=== PATIENT | female | born 1965 | race Caucasian/White ===

== ENCOUNTER 2020-04-28 00:38 | Emergency (ER) | payer OTHER, SELFPAY ==
[2020-04-28 02:37] LABS: Potassium 4.9 mmol/l (3.3-5.1); Sodium 140 mmol/L (135-145)
[2020-04-28 02:38] LABS: Anion Gap 14 (12-20); Blood Urea Nitrogen 19 mg/dL (9-16); Carbon Dioxide 25 mmol/L (22-29); Chloride 106 mmol/L (96-108); Estimated Glomerular Filt Rate 60; Glucose Random 103 mg/dL (60-115); Thyroid Stimulating Hormone 5.62 mIU/mL (0.32-4.0)
[2020-04-28 04:35] LABS: MANUAL DIFF FLAG NO
[2020-04-28 04:42] LABS: Basophils Absolute Auto 0.1 X10*3/uL (0.0-0.2); Basophils Percent Auto 1.2 % (0-2); Eosinophils Absolute Auto 0.2 X10*3/uL (0.0-0.4); Hematocrit 45.1 % (37-47); Hemoglobin 15.4 g/dl (12.0-16.0); Imm Gran Abs Auto 0.02 X10*3/uL (0.00-0.03); Imm Gran Pct Auto 0.3 % (0.0-0.4); Lymphocytes Percent Auto 31.8 % (20-40); Mean Corpuscular HGB Conc 34.1 g/dl (31.0-35.0); Mean Corpuscular Hemoglobin 30.7 pg (27.0-33.0); Mean Platelet Volume 10.6 fL (9.4-12.3); Monocytes Absolute Auto 0.5 X10*3/uL (0.1-1.2); Monocytes Percent Auto 7.2 % (2-11); Neutrophils Absolute Auto 3.6 X10*3/uL (2.0-8.3); Neutrophils Percent Auto 56.5 % (45-73); Platelet Count 445 X10*3/uL (160-400); Red Blood Count 5.01 X10*6/uL (4.20-5.50); Red Cell Distribution Width 13.4 % (11.0-16.0); White Blood Count 6.4 X10*3/uL (4.8-10.8)
== END 2020-04-28 02:46 | disposition home or self-care (01) ==
LOC: HO.ED 01:20
PROVIDERS: Emergency Provider Emergency Medicine; PCP Internal Medicine
DX: F41.9 Anxiety disorder, unspecified (principal); F17.200 Nicotine dependence, unspecified, uncomplicated
CPT/HCPCS: 36415; 80051; 82565; 82947; 84443; 84520; 85025; 96361; 96365; 96367; 96375; 99283; 99284; 99291

== ENCOUNTER → 2020-05-20 11:22 | Outpatient (BNV) | payer OTHER, SELFPAY | PROVIDERS: PCP Internal Medicine; Visit Provider Internal Medicine | DX: D47.3 Essential (hemorrhagic) thrombocythemia (principal) | CPT/HCPCS: 99213; 99214 ==

== ENCOUNTER 2020-05-26 09:25 | Outpatient (REF) | payer OTHER, SELFPAY ==
[2020-05-27 16:49] LABS: CT PCR NOT DETECTED (Not Detect.); NG PCR NOT DETECTED (Not Detect.)
[2020-05-28 12:55] LABS: BV Int Neg Control Negative (Negative)
[2020-05-28 12:56] LABS: BV Int Pos Control Positive (Positive)
[2020-06-01 19:51] LABS: HPV mRNA E6/E7 rflx Not Detected (Not Detected)
== END 2020-05-26 09:26 | disposition home or self-care (01) ==
LOC: HO.LAB 09:25
PROVIDERS: PCP Internal Medicine; Referring Provider Internal Medicine; Visit Provider Obstetrics & Gynecology
DX: Z01.419 Encounter for gynecological examination (general) (routine) without abnormal findings (principal); Z11.3 Encounter for screening for infections with a predominantly sexual mode of transmission
CPT/HCPCS: 87480; 87491; 87510; 87591; 87624; 87625; 87660; 88142

== ENCOUNTER 2021-02-23 08:27 | Outpatient (REF) | payer OTHER, SELFPAY ==
--- NOTE | ~2021-02-23 | XR_ITS ---
EXAMINATION: XR SHOULDER, LEFT CLINICAL INFORMATION: Left shoulder pain. COMPARISON: None TECHNIQUE: Three views of the left shoulder. FINDINGS: There is no evidence of acute fracture or dislocation of the left shoulder. There is some superior subluxation present which may be related to rotator cuff injury. There is mild spurring of the glenohumeral joint without significant joint space narrowing. No evidence of calcific tendinitis. No significant abnormality of the acromioclavicular joint is seen. No widening of the coracoclavicular space is noted. XR/XR shoulder LT min 2V IMPRESSION: Mild superior subluxation humeral head which may be indicative of rotator cuff injury. Mild degenerative change of the glenohumeral joint.
== END 2021-02-23 08:28 | disposition home or self-care (01) ==
LOC: HO.HOSX 08:27
PROVIDERS: Visit Provider Orthopaedic Surgery
DX: M25.512 Pain in left shoulder (principal)
CPT/HCPCS: 73030

== ENCOUNTER 2021-03-27 08:00 | Outpatient (REF) | payer OTHER, SELFPAY ==
--- NOTE | ~2021-03-27 | MM_ITS ---
EXAMINATION: MM SCREENING DIGITAL BREAST TOMOSYNTHESIS, BILATERAL CLINICAL INFORMATION: Screening. Asymptomatic. MR guided biopsy right breast 2 lesion 01/27/2014 (3:00, fibroadenoma) (10:00, benign breast tissue with focal fibrosis). The lifetime risk of breast cancer based on the Tyrer-Cuzick Model is 18%. COMPARISON: Mammography: 03/21/2020, 03/16/2019, 03/14/2018 TECHNIQUE: Digital breast tomosynthesis is performed in both the craniocaudal and mediolateral oblique views along with computer-aided detection (CAD). Synthesized 2D images are generated from the tomosynthesis. FINDINGS: There are scattered areas of fibroglandular density (ACR BI-RADS breast composition Category b). There is biopsy clip marker mid 3:00 left breast and 2 biopsy clip markers on right upper outer quadrant and posterior central 12:00 position, respectively. There is stable nodularity adjacent to the posterior right clip marker, similar to prior studies. There is no significant mass or architectural abnormality or developing density. No abnormal calcifications. The axilla and skin contours are unremarkable. MM/MM tomosynthesis screening BI IMPRESSION: No significant changes from prior exams. ASSESSMENT: BI-RADS 2: Benign RECOMMENDATION: Routine annual mammography screening. This patient's information was entered into a reminder system with a target due date for their next mammogram.
== END 2021-03-27 08:01 | disposition home or self-care (01) ==
LOC: HO.MAMMO 08:00
PROVIDERS: PCP Internal Medicine; Visit Provider Internal Medicine
DX: Z12.31 Encounter for screening mammogram for malignant neoplasm of breast (principal)
CPT/HCPCS: 77063; 77067

== ENCOUNTER 2021-04-29 09:27 | Outpatient (REF) | payer OTHER, SELFPAY ==
[2021-04-29 10:30] LABS: Appearance Urine CLEAR; Color Urine YELLOW; Glucose Urine UA NEG (NEG); Leukocyte Esterase Urine NEG (NEG); Nitrite Urine NEG (NEG); Specific Gravity - Urine 1.025 (1.005-1.025); Urine Blood NEG (NEG); Urine Ketones NEG (NEG); Urine Protein NEG (NEG-TRACE)
[2021-04-29 10:36] LABS: Cholesterol 197 mg/dL; HDL Cholesterol 47 mg/dL; LDL Cholesterol Calculated 132 mg/dl; Triglycerides 93 mg/dL
[2021-04-29 11:00] LABS: TSH reflex Free T4 2.51 uIU/mL (0.32-4.0); Vitamin D 25-OH Total 45.9 ng/mL (>30)
== END 2021-04-29 09:28 | disposition home or self-care (01) ==
LOC: HO.LAB 09:27
PROVIDERS: PCP Internal Medicine; Visit Provider Internal Medicine
DX: Z00.01 Encounter for general adult medical examination with abnormal findings (principal); E55.9 Vitamin D deficiency, unspecified; E78.5 Hyperlipidemia, unspecified
CPT/HCPCS: 36415; 80061; 81003; 82306; 84443

== ENCOUNTER → 2021-06-07 13:55 | Outpatient (BNVA) | payer OTHER, SELFPAY | PROVIDERS: Visit Provider Advanced Practice Midwife ==

== ENCOUNTER 2021-07-17 17:00 | Outpatient (RCR) | payer OTHER, SELFPAY ==
--- NOTE | 2021-05-15 09:30 | MHC.PT.EP ---
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 OBJECTIVE FINDINGS: DECR POSTURAL AWARENESS, DECR CERV AROM;(+) PECT/ ANT CHIN SOFT TISSUE RESTRICTION; WEAK POST RC/ SCAP MM; (+) SOFT TISSUE IRRIT AND TIGHTNESS, AND (+) LEFT NEER'S SIGN. FUNCTIONALLY, Pt IS LIMITED W SLEEPING, REACHING POSTERIORLY/ PULLING UP SLACKS, REACHING- PHYSICALLY DEMANDING ADLs- SHE APPEARS TO HAVE POSTURAL SYNDROME AND ? ADHESIVE CAPSULITIS Lt SH- Pt IS A GOOD PT CANDIDATE TO ADDRESS THE ABOVE AND DEV A HEP/ SELF-SX MGMT STRATEGIES. Frequency and Duration: The patient will be seen 2 x WK x 5 WKS Short Term Goals: Pt DEMON INDEP SELF CORRECT POSTURE IN MULTIPLE SCENARIOS IN 2 WKS Pt DEMON WFL AROM Lt SH AND CERV AROM IN 2 WKS Pt'S ALEXEY SH PAIN DECR TO 2-3/10 W REG ADLs IN 3 WKS Senior Living Goals: Pt INDEP W HEP AND SELF- SX STRATEGIES IN 5 WKS Pt DEMON IMPROVED ALEXEY POST RC/ SCAP/ SH STRENGTH BY AT LEAST 1/2- 1 GRADE IN 5 WKS Pt DEMON RETURN TO REG ADLs EVIDENT W IMPROVED SPADI SCORE BY AT LEAST 10 POINTS ( AT [id number]) IN 5 WKS Treatment Plan: Modalities to reduce pain, spasms and effusion. Manual therapy to restore motion and function. Therapeutic exercise to improve strength and flexibility. Neuromuscular re-education for posture and balance. Therapeutic activities to return to functional activities of daily living. Electronically signed by: Maria Elena Cook,PT Please sign and return to therapist. Thank you for your referral.
--- NOTE | 2021-07-18 12:41 | MHC.PT.DC ---
[facility] [place] Office [place] Office [place] Office [address] Ron Bianchi [address] [phone] F: [phone] F: [phone] F: [phone] F: [phone] Physical Therapy Discharge Report Diagnosis: BILATERAL SHOULDER PAIN Date of Surgery: Date of Evaluation: 05/15/21 Date of Discharge: 07/18/21 Treatments to Date: 19 Cancellations to Date: 0 No Shows to Date: 0 Discharge Status: Achieved Goals Improved Function Independent with HEP Patient Elected to Stop Discharge Summary: Pt independent w/HEP and AROM WFL's L shld all mvts- she met her PT goals at this time and is D/C'd w HEP Electronically signed by: Maria Elena Cook,PT Please sign and return to therapist. Thank you for your referral.
== END 2021-07-18 12:39 | disposition home or self-care (01) ==
LOC: HO.PT 17:00
PROVIDERS: PCP Internal Medicine; Visit Provider Internal Medicine
DX: M25.511 Pain in right shoulder (principal); M25.512 Pain in left shoulder
CPT/HCPCS: 97110; 97112; 97140; 97162; 97530

== ENCOUNTER 2021-12-26 17:32 | Inpatient (IN) | payer OTHER, SELFPAY ==
--- NOTE | ~2021-12-26 | MR_ITS ---
EXAMINATION: MR ABDOMEN (MRCP) WITHOUT CONTRAST CLINICAL INFORMATION: Elevated LFTs. Thick gallbladder. Sludge. COMPARISON: CT abdomen and pelvis with IV contrast 12/26/2021, MR abdomen 12/27/2021. TECHNIQUE: MR abdomen is performed without gadolinium contrast. Imaging is performed in coronal and axial plane. MRCP sequence included and reformatted maximum intensity projection MIP images generated on the MR workstation and uploaded to PACS. FINDINGS: LUNG BASES: The visualized lung bases are unremarkable. LIVER, GALLBLADDER, AND BILIARY TREE: The liver is within normal size and smooth in contour. Parenchymal areas homogeneous in signal. No focal parenchymal lesion on noncontrast exam. No intrahepatic ductal dilatation. The gallbladder wall is diffusely thickened and edematous. There is no gallbladder luminal dilatation. No dependent sludge or stone is demonstrated. The common duct is normal in caliber. No ductal dilatation or intraluminal filling defect. No common duct wall thickening. Findings are seen similar to recent imaging. PANCREAS: Normal in size and signal. No pancreatic ductal distention. SPLEEN: Within normal size and homogeneous. ADRENAL GLANDS: Unremarkable. KIDNEYS AND URETERS: The kidneys are normal in size and shape. No hydronephrosis. No perinephric stranding. GASTROINTESTINAL TRACT: No bowel obstruction. No generalized ascites or focal fluid collection. ABDOMINAL WALL: No significant hernia is appreciated. LYMPH NODES: No lymphadenopathy. VASCULAR: Unremarkable. OSSEOUS STRUCTURES: Marrow signal normal. MR/MR MRCP IMPRESSION: -Diffuse gallbladder wall thickening and wall edema. No calculus or sludge. -Normal common duct and pancreatic duct. No intrahepatic ductal dilatation. -Findings may be related to acalculous cholecystitis. Radionuclide hepatobiliary scan may be helpful for further evaluation.
--- NOTE | ~2021-12-26 | US_ITS ---
EXAMINATION: US ABDOMEN LIMITED CLINICAL INFORMATION: Evaluate gallbladder, ducts, nausea and vomiting, elevated LFTs. COMPARISON: CT 12/26/2021 TECHNIQUE: Real-time imaging of the gallbladder and common bile duct. FINDINGS: There is gallbladder wall thickening to 0.9 cm along with pericholecystic fluid. Sludge is seen within the gallbladder neck. No discrete gallstones are seen. Common bile duct is normal in caliber, measuring 0.4 cm. Mild periportal edema is noted. No right upper quadrant pain was reported during the exam. US/US abdomen limited IMPRESSION: Gallbladder wall thickening/edema which can be seen with cholecystitis, though no associated gallstone is seen. If clinically warranted, correlation with nuclear medicine hepatobiliary scan may be helpful. Nondilated common bile duct.
--- NOTE | ~2021-12-26 | NM_ITS ---
EXAMINATION: NUCLEAR MEDICINE HEPATOBILIARY SCAN WITHOUT PHARMACY. CLINICAL INFORMATION: Acalculus cholecystitis. COMPARISON: MRA abdomen 12/27/2021 TECHNIQUE: Following intravenous administration of 5 mCi of 90 9M technetium mebrofenin, imaging over right upper quadrant was obtained up to 60 minutes. At 60 minutes oral ensure was administered and further imaging was obtained up to next 60 minutes. FINDINGS: There is normal hepatic uptake with prompt visualization of CBD and small bowel by 9 minutes and gallbladder by 17 minutes Post ensure the gallbladder ejection fraction at 40 minutes is 68% and at 60 minutes is 87%. NM/NM hepatobiliary wo pharm IMPRESSION: Normal HIDA scan. Normal gallbladder ejection fraction of 87% at 60 minutes.
--- NOTE | ~2021-12-26 | US_ITS ---
EXAMINATION: US PELVIS CLINICAL INFORMATION: Pain, evaluate tubular structure right adnexa COMPARISON: CT 12/26/2021 TECHNIQUE: Ultrasound of the pelvis is performed using both transabdominal and transvaginal transducers along with Doppler. Transvaginal imaging is performed due to inadequate visualization transabdominally. FINDINGS: The uterus measures 7.8 cm in length and 3.6 x 5.7 cm in AP and transverse dimensions. Endometrial stripe measures 0.4 cm in thickness. The right ovary measures 2.4 x 1.5 x 1.8 cm and appears unremarkable. The left ovary measures 1.6 x 0.8 x 1.6 cm and also appears unremarkable. Small to moderate amount of free fluid is seen. Tubular structure in the right adnexa is identified, most consistent with hydrosalpinx. US/US pelvic and transvaginal IMPRESSION: Tubular structure in the right adnexa is most consistent with hydrosalpinx. Small to moderate pelvic free fluid, of uncertain etiology. Normal appearance of the ovaries.
--- NOTE | ~2021-12-26 | CT_ITS ---
EXAMINATION: CT ABDOMEN AND PELVIS WITH CONTRAST CLINICAL INFORMATION: Nausea/vomiting with elevated bilirubin, AST and ALT COMPARISON: Ultrasound abdomen 12/14/2016 TECHNIQUE: Multidetector volumetric images were obtained from the superior aspect of the liver through the pubic symphysis following administration 85 mL of Omnipaque 350 intravenous contrast. Sagittal and coronal reformatted images were obtained on the technologist's workstation. Oral contrast: No This CT examination was performed using dose optimization techniques as appropriate, variously including the following: *Automated exposure control *Adjustment of mA and/or kV according to patient size (this includes techniques or standardized protocols for targeted exams where dose is matched to indication/reason for exam; i.e. extremities or head) *Use of iterative reconstruction technique DLP: 798 mGy-cm FINDINGS: LUNG BASES: The visualized lung bases are unremarkable. Bibasilar atelectasis is present. LIVER, GALLBLADDER, AND BILIARY TREE: The liver is mildly enlarged measuring 17.4 cm caudad dimension. Shape and attenuation are normal. Some mild periportal edema is present. The gallbladder wall is thickened with pericholecystic fluid. No focal hepatic lesion or biliary ductal dilatation is present. The gallbladder wall is significantly thickened at 9 mm with pericholecystic fluid. PANCREAS: Unremarkable. SPLEEN: Spleen is mildly enlarged measuring 13.2 cm in greatest dimension. ADRENAL GLANDS: Unremarkable. KIDNEYS AND URETERS: The kidneys are normal in size, shape, and attenuation. No hydronephrosis, hydroureter, or calculi seen. No perinephric stranding. BLADDER: Unremarkable. GASTROINTESTINAL TRACT: The small and large bowel are unremarkable. The appendix is not identified but there is no evidence of appendicitis.. ABDOMINAL WALL: No significant hernia is appreciated. LYMPH NODES: No retroperitoneal lymphadenopathy. VASCULAR: There is reflux in the left ovarian vein with left pelvic varices present. PELVIC VISCERA: A retroverted uterus is present. Tubular cystic structure present in the right adnexa which could represent a hydrosalpinx. OSSEOUS STRUCTURES: Mild degenerative changes present spine most marked at L3-L4. CT/CT abdomen pelvis w con IMPRESSION: 1. There is periportal edema and gallbladder with thickened wall. Abdominal ultrasound is recommended for further evaluation to assess for gallstones. 2. Tubular structure right adnexa could represent hydrosalpinx. Small amount of free intraperitoneal fluid is present. Pelvic ultrasound, transabdominal and endovaginal is recommended for further evaluation. 3. Incidentally noted mild splenomegaly. Fleischner guidelines were followed.
--- NOTE | ~2021-12-26 | XR_ITS ---
EXAMINATION: PORTABLE CHEST 1 VIEW CLINICAL INFORMATION: fever . COMPARISON: No recent pertinent prior studies are available for comparison. TECHNIQUE: Portable frontal view of the chest was obtained. FINDINGS: The lungs are well expanded. No focal infiltrate, effusion, edema, or pneumothorax. Cardiac and mediastinal silhouettes are within normal limits for technique. No acute bony abnormality seen. XR/XR chest 1V IMPRESSION: No evidence of acute disease.
[2021-12-26 17:40] VITALS: BP 119/72; PULSE 86; RESP 18; TEMP 38.4; O2SAT 96; BMI 27.4
[2021-12-26 18:14] LABS: COVID-19 Test Negative (Negative); IDNOW Serial# 16C4AD1C
[2021-12-26 18:15] LABS: Influenza A Negative (Negative); Influenza B2 Negative (Negative)
--- NOTE | 2021-12-26 19:49 | ED_ITS ---
HPI - Fever General Chief Complaint: Fever Stated Complaint: Vomiting since 12/22/21 Time Seen by Provider: 12/26/21 18:19 Source: patient Mode of arrival: ambulatory History of Present Illness HPI Narrative: 56-year-old female with a past medical history of depression, hyperlipidemia, osteoarthritis, vitamin-D deficiency, presenting to the ED complaining of fever T-max 102.9 degrees, generalized fatigue/malaise, myalgias, nausea, dry h eaving/vomiting, decreased p.o. intake x5 days. Reports unable to tolerate p.o. reports slight cough and headache. Denies chest pain, shortness of breath, abdominal pain, diarrhea, dysuria/hematuria. Admits recently traveled to [place] 2 weeks ago, denies suspicious food intake. Admits daughter with nausea/vomiting however also Onset (ago): day(s) Related Data Home Medications Medication Instructions Recorded Confirmed escitalopram oxalate 10 mg tablet 10 mg PO DAILY 05/20/20 11/27/21 (Lexapro) escitalopram oxalate 5 mg tablet 1 tab PO QAM 05/20/20 11/27/21 calcium 500 mg tablet 500 mg PO DAILY 11/29/20 11/27/21 multivitamin 1 tab PO DAILY 11/27/21 11/27/21 Previous Rx's Medication Instructions Recorded cholecalciferol (vitamin D3) 50 50 mcg PO DAILY #90 tab 12/11/21 mcg (2,000 unit) tablet ondansetron HCl 4 mg tablet 4 mg PO Q8H PRN 7 Days #14 tab 12/25/21 Allergies Allergy/AdvReac Type Severity Reaction Status Date / Time dextromethorphan Allergy Intermediate BRADYCARDIA Verified 12/26/21 17:40 [From DIMETAPP COLD-CONGESTION] guaifenesin Allergy Intermediate BRADYCARDIA Verified 12/26/21 17:40 [From DIMETAPP COLD-CONGESTION] latex [LATEX] Allergy Intermediate RASH Verified 12/26/21 17:40 phenylephrine Allergy Intermediate BRADYCARDIA Verified 12/26/21 17:40 [From DIMETAPP COLD-CONGESTION] pseudoephedrine Allergy Intermediate BRADYCARDIA Verified 12/26/21 17:40 [From DIMETAPP COLD-CONGESTION] lactose Allergy Stomach Verified 12/26/21 17:40 Upset DAIRY PRODUCTS Allergy Mild PAIN Uncoded 12/26/21 17:40 Metoprolol Allergy Unknown Causes Uncoded 12/26/21 17:40 Depression Review of Systems Review of Systems: Constitutional: +Fever, No Chills, No Night Sweats, + Fatigue, + Malaise ENT/Mouth: No Hearing loss, No Ear Pain, No Nasal Congestion, No sore throat, No Rhinorrhea, No Swallowing Difficulty Eyes: No Eye Pain, No Swelling, No Redness, No Vision Changes Cardiovascular: No Chest Pain, No SOB, No Dyspnea on Exertion, No Edema Respiratory: + Cough, No Sputum, No Wheezing, No Dyspnea Gastrointestinal: + Nausea, + Vomiting, No Diarrhea, No Constipation, No Abdominal pain Genitourinary: No Dysuria, No Urinary Frequency, No Hematuria, No Urgency, No Flank Pain Musculoskeletal: No joint pain, + Myalgias, No Joint Swelling Skin: No Skin Lesions, No rash Neuro: No Weakness, No Numbness, No Paresthesias, No Loss of Consciousness, No Dizziness, + Headache Yes all other systems are reviewed and are negative [facility] Past Medical History Attestation statement: The following information was validated with the patient. Medical History Benign skin lesion of lower back Carpal tunnel syndrome Chronic left shoulder pain Colonoscopy planned DAVF (dural arteriovenous fistula) Depression Essential thrombocytosis Fatty liver FHx: breast cancer FHx: ovarian cancer Hyperlipidemia Migraine with aura Osteoarthritis Premature ventricular contractions Shoulder pain, bilateral Vitamin D deficiency Surgical History H/O removal of cyst History of knee surgery S/P arteriovenous (AV) fistula repair Family History Family History Mother Mental health disorder Breast CA Uterine cancer Father Throat cancer Unknown Myelofibrosis Maternal Grandmother Breast CA Maternal Uncle Colon cancer Social History Social History Household Members: Spouse Housing: Apartment Are you a primary client care specialist to a significant other at home: No Do you presently have visiting nurse or other home services: No Alcohol intake: former Patient Tobacco Use Status: Former Tobacco user Years Smoked: 6 yrs e-Cigarette/Vaping Use: Never Used Second Hand Smoke Exposure: Yes Advance Directives: No Advance Directives Information Provided: No service: No Current occupational status: employed 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 Physical Exam Vital Signs: Vital Signs: Last Vital Signs Temp 98.7 F 12/27/21 00:25 Pulse 73 12/27/21 00:25 Resp 16 12/27/21 00:25 BP 104/61 12/27/21 00:25 Pulse Ox 95 12/27/21 00:25 BMI result Body Mass Index 27.4 Const: General: cooperative, healthy appearing, no acute distress, alert and awake Orientation/consciousness: patient oriented x3 Limitations: no limitations HEENT: Head: Yes normal to inspection and Yes atraumatic Ears: hearing grossly normal bilaterally, external ears normal, TM's normal bilaterally and mastoids normal General nose exam: Normal external nose present Face and sinus: Yes normal facial exam Mouth: Normal oral and palatal mucosa present Throat: Yes posterior oropharynx normal, Yes tonsils normal, Yes uvula midline and No uvula laterally displaced Eyes: General: appearance normal, both eyes and all related structures EOM: EOMs intact bilaterally Neck: Neck: Yes normal visual inspection, Yes no lymphadenopathy, Yes no meningeal signs, Yes trachea midline and Yes supple Resp: Effort & Inspection: normal respiratory effort and no respiratory distress Auscultation: clear to auscultation bilaterally, no rales, no rhonchi and no wheezes Cardio: Rate: regular rate Heart sounds: S1 normal heart sound present and S2 normal heart sound present GI: Inspection: Yes normal to inspection Palpation (GI): Soft to palpation, nontender, no guarding and not rigid : General: Yes no CVA tenderness Back/Spine/Pelvis: Back: no CVA tenderness Skin: Rashes: no rashes Wounds: no wounds Neuro: General: patient oriented x3, tone normal and no meningeal signs Gait exam (Neuro): Normal gait present Extrem: General: Yes normal to inspection and Yes no pedal edema Course Course Course Narrative: -2145--leukopenic to 2.7, bilirubin's, AST/ALT elevated. Alk-phos elevated >> additional labs added including hepatitis panel, Monospot, ethanol, LDH, Lyme and will obtain CT scan -COVID-19 and influenza negative XR chest 1V IMPRESSION: No evidence of acute disease. > case discussed with Dr. Isaac -LDH 063 -[id number]--CT abdomen pelvis w con IMPRESSION: 1.? There is periportal edema and gallbladder with thickened wall. Abdominal ultrasound is recommended for further evaluation to assess for gallstones. 2.? Tubular structure right adnexa could represent hydrosalpinx. Small amount of free intraperitoneal fluid is present. Pelvic ultrasound, transabdominal and endovaginal is recommended for further evaluation. 3.? Incidentally noted mild splenomegaly. ? Fleischner guidelines were followed. > will obtain ultrasounds for further evaluation >> consulted GI Dr. Rodriguez. He recommended IV antibiotics and MRI tomorrow. Patient admitted for further management MDM - Fever MDM Narrative Medical decision making narrative: 56-year-old female with a past medical history of depression, hyperlipidemia, osteoarthritis, vitamin-D deficiency, presenting to the ED complaining of fever T-max 102.9 degrees, generalized fatigue/malaise, myalgias, nausea, dry heaving/vomiting, decreased p.o. intake x5 days. On exam febrile 101.2, NAD/nontoxic appearing, exam nonfocal, lungs CTA, abdomen soft/nontender. Concern for viral illness vs gastroenteritis. Rule out pneumonia/other infectious/metabolic etiologies. Unlikely appendicitis/diverticulitis without tenderness on exam Plan: Labs, UA, COVID-19/influenza testing, IVF, symptomatic treatment, p.o. challenge Differential Diagnosis Differential diagnosis: Likely fever of unknown origin, gastroenteritis, viral infection and influenza Medical Records Attestation: I reviewed the patient's medical records. Lab Data Attestation: I reviewed the patient's lab results. Result diagrams: 12/26/21 20:46 12/26/21 19:50 Labs: Lab Results 12/26/21 12/26/21 12/26/21 Range/Units 17:44 17:44 19:50 WBC (4.8-10.8) X10*3/uL RBC (4.20-5.50) X10*6/uL Hgb (12.0-16.0) g/dl Hct (37.0-47.0) % MCV (80.0-98.0) fL MCH (27.0-33.0) pg MCHC (31.0-35.0) g/dl RDW (11.0-16.0) % Plt Count (160-400) X10*3/uL MPV (9.4-12.3) fL Immature Gran % (Auto) (0.0-0.4) % Neut % (Auto) (45-73) % Lymph % (Auto) (20-40) % [place] % (Auto) (2-11) % Eos % (Auto) (0-4) % Baso % (Auto) (0-2) % Lymph # (Auto) (1.2-4.9) X10*3/uL [place] # (Auto) (0.1-1.2) X10*3/uL Eos # (Auto) (0.0-0.4) X10*3/uL Baso # (Auto) (0.0-0.2) X10*3/uL Abs Immat Gran (auto) (0.00-0.03) X10*3/uL Absolute Neuts (auto) (2.0-8.3) x10*3/uL Absolute Nucleated RBC (0.0-0.012) X10*3/uL Nucleated RBC % (auto) (0.0-0.2) /100WBC Smear Tech's Comments PT (9.9-13.0) SEC INR (0.9-1.1) APTT (24.1-38.0) SEC Sodium 133 L (135-145) mmol/L Potassium 4.5 (3.3-5.1) mmol/L Chloride 99 (96-108) mmol/L Carbon Dioxide 26 (22-29) mmol/L Anion Gap 13 (12-20) BUN 14 (9-16) mg/dL Creatinine 0.90 (0.5-1.4) mg/dL Estim Creat Clear Calc 73.2 Estimated GFR > 60 Random Glucose 108 (60-115) mg/dL Lactic Acid (0.5-2.0) mmol/L Calcium 8.4 D (8.4-10.2) mg/dL Magnesium (1.6-2.6) mg/dL Total Bilirubin (0.0-1.0) mg/dL Direct Bilirubin (0.0-0.5) mg/dL AST (5-31) U/L ALT (0-31) U/L Alkaline Phosphatase (39-117) U/L Lactate Dehydrogenase (122-220) U/L Total Protein (6.5-8.0) g/dL Albumin (3.5-5.0) g/dL Lipase (8-78) U/L Urine Color Urine Appearance Urine pH (5.0-8.0) Ur Specific [place] (1.005-1.025) Urine Protein (NEG-TRACE) MG/DL Urine Glucose (UA) (NEG) MG/DL Urine Ketones (NEG) MG/DL Urine Blood (NEG) Urine Nitrite (NEG) Ur Leukocyte Esterase (NEG) Urine RBC (0) /HPF Urine WBC (0-4) /HPF Ur Squamous Epith Cells /LPF Urine Bacteria /LPF Granular Casts /LPF Urine Mucus /LPF Acetaminophen (<30) mcg/mL Ethyl Alcohol mg/dL COVID-19 (ROBERT) Negative (Negative) COVID-19 Clin Com See Note Monoscreen (Negative) Influenza Type A (EDUIN) Negative (Negative) Influenza Type B (EDUIN) Negative (Negative) Influenza A & B Note See Note 12/26/21 12/26/21 12/26/21 Range/Units 19:50 19:50 20:46 WBC 2.7 L (4.8-10.8) X10*3/uL RBC 5.05 (4.20-5.50) X10*6/uL Hgb 14.5 (12.0-16.0) g/dl Hct 43.8 (37.0-47.0) % MCV 86.7 (80.0-98.0) fL MCH 28.7 (27.0-33.0) pg MCHC 33.1 (31.0-35.0) g/dl RDW 13.6 (11.0-16.0) % Plt Count 118 L D (160-400) X10*3/uL MPV 11.5 (9.4-12.3) fL Immature Gran % (Auto) 1.5 H (0.0-0.4) % Neut % (Auto) 57.3 (45-73) % Lymph % (Auto) 34.7 (20-40) % [place] % (Auto) 5.3 (2-11) % Eos % (Auto) 0.4 (0-4) % Baso % (Auto) 0.8 (0-2) % Lymph # (Auto) 0.9 L (1.2-4.9) X10*3/uL [place] # (Auto) 0.1 (0.1-1.2) X10*3/uL Eos # (Auto) 0.0 (0.0-0.4) X10*3/uL Baso # (Auto) 0.0 (0.0-0.2) X10*3/uL Abs Immat Gran (auto) 0.04 H (0.00-0.03) X10*3/uL Absolute Neuts (auto) 1.5 L (2.0-8.3) x10*3/uL Absolute Nucleated RBC 0.000 (0.0-0.012) X10*3/uL Nucleated RBC % (auto) 0.0 (0.0-0.2) /100WBC Smear Tech's Comments VERIFIED PT (9.9-13.0) SEC INR (0.9-1.1) APTT (24.1-38.0) SEC Sodium (135-145) mmol/L Potassium (3.3-5.1) mmol/L Chloride (96-108) mmol/L Carbon Dioxide (22-29) mmol/L Anion Gap (12-20) BUN (9-16) mg/dL Creatinine (0.5-1.4) mg/dL Estim Creat Clear Calc Estimated GFR Random Glucose (60-115) mg/dL Lactic Acid 1.5 (0.5-2.0) mmol/L Calcium (8.4-10.2) mg/dL Magnesium (1.6-2.6) mg/dL Total Bilirubin (0.0-1.0) mg/dL Direct Bilirubin (0.0-0.5) mg/dL AST (5-31) U/L ALT (0-31) U/L Alkaline Phosphatase (39-117) U/L Lactate Dehydrogenase (122-220) U/L Total Protein (6.5-8.0) g/dL Albumin (3.5-5.0) g/dL Lipase (8-78) U/L Urine Color Urine Appearance Urine pH (5.0-8.0) Ur Specific [place] (1.005-1.025) Urine Protein (NEG-TRACE) MG/DL Urine Glucose (UA) (NEG) MG/DL Urine Ketones (NEG) MG/DL Urine Blood (NEG) Urine Nitrite (NEG) Ur Leukocyte Esterase (NEG) Urine RBC (0) /HPF Urine WBC (0-4) /HPF Ur Squamous Epith Cells /LPF Urine Bacteria /LPF Granular Casts /LPF Urine Mucus /LPF Acetaminophen (<30) mcg/mL Ethyl Alcohol < 10 mg/dL COVID-19 (ROBERT) (Negative) COVID-19 Clin Com Monoscreen (Negative) Influenza Type A (EDUIN) (Negative) Influenza Type B (EDUIN) (Negative) Influenza A & B Note 12/26/21 12/26/21 12/26/21 Range/Units 20:46 20:46 22:24 WBC (4.8-10.8) X10*3/uL RBC (4.20-5.50) X10*6/uL Hgb (12.0-16.0) g/dl Hct (37.0-47.0) % MCV (80.0-98.0) fL MCH (27.0-33.0) pg MCHC (31.0-35.0) g/dl RDW (11.0-16.0) % Plt Count (160-400) X10*3/uL MPV (9.4-12.3) fL Immature Gran % (Auto) (0.0-0.4) % Neut % (Auto) (45-73) % Lymph % (Auto) (20-40) % [place] % (Auto) (2-11) % Eos % (Auto) (0-4) % Baso % (Auto) (0-2) % Lymph # (Auto) (1.2-4.9) X10*3/uL [place] # (Auto) (0.1-1.2) X10*3/uL Eos # (Auto) (0.0-0.4) X10*3/uL Baso # (Auto) (0.0-0.2) X10*3/uL Abs Immat Gran (auto) (0.00-0.03) X10*3/uL Absolute Neuts (auto) (2.0-8.3) x10*3/uL Absolute Nucleated RBC (0.0-0.012) X10*3/uL Nucleated RBC % (auto) (0.0-0.2) /100WBC Smear Tech's Comments PT (9.9-13.0) SEC INR (0.9-1.1) APTT (24.1-38.0) SEC Sodium (135-145) mmol/L Potassium (3.3-5.1) mmol/L Chloride (96-108) mmol/L Carbon Dioxide (22-29) mmol/L Anion Gap (12-20) BUN (9-16) mg/dL Creatinine (0.5-1.4) mg/dL Estim Creat Clear Calc Estimated GFR Random Glucose (60-115) mg/dL Lactic Acid (0.5-2.0) mmol/L Calcium (8.4-10.2) mg/dL Magnesium 2.0 (1.6-2.6) mg/dL Total Bilirubin 3.1 H (0.0-1.0) mg/dL Direct Bilirubin 2.0 H (0.0-0.5) mg/dL AST 421 H (5-31) U/L ALT 569 H (0-31) U/L Alkaline Phosphatase 293 H D (39-117) U/L Lactate Dehydrogenase 809 H (122-220) U/L Total Protein 6.5 (6.5-8.0) g/dL Albumin 3.4 L (3.5-5.0) g/dL Lipase 40 (8-78) U/L Urine Color YELLOW Urine Appearance CLOUDY Urine pH 6.0 (5.0-8.0) Ur Specific [place] >= 1.030 H (1.005-1.025) Urine Protein 1+ H (NEG-TRACE) MG/DL Urine Glucose (UA) NEG (NEG) MG/DL Urine Ketones 5 (NEG) MG/DL Urine Blood NEG (NEG) Urine Nitrite NEG (NEG) Ur Leukocyte Esterase NEG (NEG) Urine RBC 1-4 (0) /HPF Urine WBC 1-4 (0-4) /HPF Ur Squamous Epith Cells 1+ /LPF Urine Bacteria 2+ /LPF Granular Casts 5-9 /LPF Urine Mucus 2+ /LPF Acetaminophen < 1 (<30) mcg/mL Ethyl Alcohol mg/dL COVID-19 (ROBERT) (Negative) COVID-19 Clin Com Monoscreen Negative (Negative) Influenza Type A (EDUIN) (Negative) Influenza Type B (EDUIN) (Negative) Influenza A & B Note 12/26/21 Range/Units 22:24 WBC (4.8-10.8) X10*3/uL RBC (4.20-5.50) X10*6/uL Hgb (12.0-16.0) g/dl Hct (37.0-47.0) % MCV (80.0-98.0) fL MCH (27.0-33.0) pg MCHC (31.0-35.0) g/dl RDW (11.0-16.0) % Plt Count (160-400) X10*3/uL MPV (9.4-12.3) fL Immature Gran % (Auto) (0.0-0.4) % Neut % (Auto) (45-73) % Lymph % (Auto) (20-40) % [place] % (Auto) (2-11) % Eos % (Auto) (0-4) % Baso % (Auto) (0-2) % Lymph # (Auto) (1.2-4.9) X10*3/uL [place] # (Auto) (0.1-1.2) X10*3/uL Eos # (Auto) (0.0-0.4) X10*3/uL Baso # (Auto) (0.0-0.2) X10*3/uL Abs Immat Gran (auto) (0.00-0.03) X10*3/uL Absolute Neuts (auto) (2.0-8.3) x10*3/uL Absolute Nucleated RBC (0.0-0.012) X10*3/uL Nucleated RBC % (auto) (0.0-0.2) /100WBC Smear Tech's Comments PT 14.2 H (9.9-13.0) SEC INR 1.2 H (0.9-1.1) APTT 36.8 (24.1-38.0) SEC Sodium (135-145) mmol/L Potassium (3.3-5.1) mmol/L Chloride (96-108) mmol/L Carbon Dioxide (22-29) mmol/L Anion Gap (12-20) BUN (9-16) mg/dL Creatinine (0.5-1.4) mg/dL Estim Creat Clear Calc Estimated GFR Random Glucose (60-115) mg/dL Lactic Acid (0.5-2.0) mmol/L Calcium (8.4-10.2) mg/dL Magnesium (1.6-2.6) mg/dL Total Bilirubin (0.0-1.0) mg/dL Direct Bilirubin (0.0-0.5) mg/dL AST (5-31) U/L ALT (0-31) U/L Alkaline Phosphatase (39-117) U/L Lactate Dehydrogenase (122-220) U/L Total Protein (6.5-8.0) g/dL Albumin (3.5-5.0) g/dL Lipase (8-78) U/L Urine Color Urine Appearance Urine pH (5.0-8.0) Ur Specific [place] (1.005-1.025) Urine Protein (NEG-TRACE) MG/DL Urine Glucose (UA) (NEG) MG/DL Urine Ketones (NEG) MG/DL Urine Blood (NEG) Urine Nitrite (NEG) Ur Leukocyte Esterase (NEG) Urine RBC (0) /HPF Urine WBC (0-4) /HPF Ur Squamous Epith Cells /LPF Urine Bacteria /LPF Granular Casts /LPF Urine Mucus /LPF Acetaminophen (<30) mcg/mL Ethyl Alcohol mg/dL COVID-19 (ROBERT) (Negative) COVID-19 Clin Com Monoscreen (Negative) Influenza Type A (EDUIN) (Negative) Influenza Type B (EDUIN) (Negative) Influenza A & B Note Critical Care Time Critical Care Time Critical Care Time: Yes Total Critical Care Time: 45 Attestation: I have personally provided critical care time exclusive of time spent on separately billable procedures. Time includes review of lab data, radiology results, discussion with consultants, and monitoring for potential decompensation. Intervention performed as documented. Discharge Plan Discharge Clinical Impression: Fever, Thickening of wall of gallbladder with pericholecystic fluid, Transaminitis Patient Disposition: Admitted As Inpatient Prescriptions: No Action cholecalciferol (vitamin D3) 50 mcg (2,000 unit) tablet 50 mcg PO DAILY Qty: 90 3RF ondansetron HCl 4 mg tablet 4 mg PO Q8H PRN (Reason: nausea and vomiting) 7 Days Qty: 14 0RF escitalopram oxalate [Lexapro] 10 mg Tablet 10 mg PO DAILY 0RF escitalopram oxalate 5 mg tablet 1 tab PO QAM 0RF calcium 500 mg Tablet 500 mg PO DAILY 0RF multivitamin [Multi-Vitamin] Tablet 1 tab PO DAILY 0RF
[2021-12-26 20:28] LABS: Lactic Acid 1.5 mmol/L (0.5-2.0)
[2021-12-26 20:30] LABS: Anion Gap 13 (12-20); Blood Urea Nitrogen 14 mg/dL (9-16); Calcium 8.4 mg/dL (8.4-10.2); Carbon Dioxide 26 mmol/L (22-29); Chloride 99 mmol/L (96-108); Creatinine Clr Calc Pharmacy 73.2; Estimated Glomerular Filt Rate > 60; Glucose Random 108 mg/dL (60-115); Potassium 4.5 mmol/L (3.3-5.1); Sodium 133 mmol/L (135-145)
[2021-12-26] MEDS: 0.9 % Sodium Chloride 1,000 ML 999 ML IV ×2 (20:35→23:09)
[2021-12-26 20:53] LABS: Eosinophils Percent Auto 0.4 % (0-4); PLT CLUMP 1; SCAN SMEAR FLAG 1
[2021-12-26 20:55] LABS: Basophils Percent Auto 0.8 % (0-2); Hematocrit 43.8 % (37.0-47.0); Hemoglobin 14.5 g/dl (12.0-16.0); Imm Gran Abs Auto 0.04 X10*3/uL (0.00-0.03); Imm Gran Pct Auto 1.5 % (0.0-0.4); Lymphocytes Absolute Auto 0.9 X10*3/uL (1.2-4.9); Lymphocytes Percent Auto 34.7 % (20-40); MANUAL DIFF FLAG SCAN; Mean Corpuscular HGB Conc 33.1 g/dl (31.0-35.0); Mean Corpuscular Hemoglobin 28.7 pg (27.0-33.0); Mean Corpuscular Volume 86.7 fL (80.0-98.0); Mean Platelet Volume 11.5 fL (9.4-12.3); Monocytes Absolute Auto 0.1 X10*3/uL (0.1-1.2); Monocytes Percent Auto 5.3 % (2-11); Neutrophils Absolute Auto 1.5 x10*3/uL (2.0-8.3); Neutrophils Percent Auto 57.3 % (45-73); Red Blood Count 5.05 X10*6/uL (4.20-5.50); Red Cell Distribution Width 13.6 % (11.0-16.0)
[2021-12-26 20:57] LABS: Platelet Count 118 X10*3/uL (160-400); White Blood Count 2.7 X10*3/uL (4.8-10.8)
[2021-12-26 21:07] LABS: Alanine Aminotransferase 569 U/L (0-31); Albumin Level 3.4 g/dL (3.5-5.0); Alkaline Phosphatase 293 U/L (39-117); Aspartate Amino Transferase 421 U/L (5-31); Bilirubin Total 3.1 mg/dL (0.0-1.0); Lipase 40 U/L (8-78); Total Protein 6.5 g/dL (6.5-8.0)
[2021-12-26 21:12] LABS: SLIDE REVIEW VERIFIED
[2021-12-26] MEDS: Magnesium Hydrox/Alum Hydrox 30 ML ORAL.SUSP PO (21:50)
[2021-12-26] MEDS: Ibuprofen 600 MG TABLET PO (21:50)
[2021-12-26 22:00] VITALS: BP 105/64; PULSE 82
[2021-12-26 22:01] VITALS: BP 104/57; PULSE 83
[2021-12-26 22:02] VITALS: BP 94/60; PULSE 91
[2021-12-26] MEDS: Famotidine/PF 20 MG/2 ML VIAL IVPUSH (22:04)
[2021-12-26] MEDS: Metoclopramide HCl 10 MG/2 ML VIAL IVPUSH (22:05)
[2021-12-26 22:26] LABS: Acetaminophen LAB < 1 mcg/mL (<30)
[2021-12-26 22:34] LABS: Monotest Negative (Negative)
[2021-12-26 22:35] LABS: Ethanol < 10 mg/dL
[2021-12-26 22:37] LABS: Lactate Dehydrogenase 809 U/L (122-220)
[2021-12-26 22:53] LABS: Appearance Urine CLOUDY; Color Urine YELLOW; Glucose Urine UA NEG (NEG); Leukocyte Esterase Urine NEG (NEG); Nitrite Urine NEG (NEG); Specific Gravity - Urine >= 1.030 (1.005-1.025); UACC Culture Trigger NO; Urine Blood NEG (NEG); Urine Ketones 5 MG/DL (NEG); Urine Protein 1+ MG/DL (NEG-TRACE)
[2021-12-26 23:00] LABS: INTERNATIONAL NORM RATIO 1.2 (0.9-1.1); Prothrombin Time 14.2 SEC (9.9-13.0)
[2021-12-26 23:03] LABS: Partial Thromboplastin Time 36.8 SEC (24.1-38.0)
[2021-12-26 23:10] LABS: Bacteria Urine 2+ /LPF; Mucus Urine 2+ /LPF; Squamous Epithelial Cell Urine 1+ /LPF
[2021-12-26 23:23] VITALS: TEMP 37.1
[2021-12-26 23:40] VITALS: BP 113/66; PULSE 75; RESP 18; TEMP 37.1; O2SAT 97
[2021-12-26] MEDS: iohexoL 300 MG/ML 100 ML INFUS..BTL 85 ML IV (23:54)
[2021-12-27 00:25] VITALS: BP 104/61; PULSE 73; RESP 16; TEMP 37.1; O2SAT 95
[2021-12-27 02:00] VITALS: BP 104/64; RESP 16; TEMP 36.6; O2SAT 97
[2021-12-27] MEDS: Piperacillin Sodium/Tazobactam 3.375 GM in 0.9 % Sodium Chloride 50 ML IV (02:01)
[2021-12-27 05:00] LABS: Basophils Percent Auto 0.6 % (0-2); PLT CLUMP 1; SCAN SMEAR FLAG 1
[2021-12-27 05:02] LABS: Eosinophils Percent Auto 0.6 % (0-4); Hematocrit 41.1 % (37.0-47.0); Imm Gran Abs Auto 0.05 X10*3/uL (0.00-0.03); Imm Gran Pct Auto 1.6 % (0.0-0.4); Lymphocytes Absolute Auto 1.3 X10*3/uL (1.2-4.9); Lymphocytes Percent Auto 40.9 % (20-40); MANUAL DIFF FLAG SCAN; Mean Corpuscular HGB Conc 34.1 g/dl (31.0-35.0); Mean Corpuscular Hemoglobin 29.7 pg (27.0-33.0); Mean Corpuscular Volume 87.1 fL (80.0-98.0); Mean Platelet Volume 11.5 fL (9.4-12.3); Monocytes Absolute Auto 0.2 X10*3/uL (0.1-1.2); Monocytes Percent Auto 5.8 % (2-11); Neutrophils Absolute Auto 1.6 x10*3/uL (2.0-8.3); Neutrophils Percent Auto 50.5 % (45-73); Red Blood Count 4.72 X10*6/uL (4.20-5.50); Red Cell Distribution Width 13.4 % (11.0-16.0)
[2021-12-27 05:10] LABS: Platelet Count 122 X10*3/uL (160-400); White Blood Count 3.1 X10*3/uL (4.8-10.8)
[2021-12-27 05:24] LABS: Anion Gap 11 (12-20); Blood Urea Nitrogen 13 mg/dL (9-16); Calcium 7.8 mg/dL (8.4-10.2); Carbon Dioxide 22 mmol/L (22-29); Chloride 106 mmol/L (96-108); Creatinine Clr Calc Pharmacy 76.6; Estimated Glomerular Filt Rate > 60; Glucose Random 99 mg/dL (60-115); Potassium 4.2 mmol/L (3.3-5.1); Sodium 135 mmol/L (135-145)
[2021-12-27 05:31] VITALS: BP 94/54; PULSE 76; RESP 18; TEMP 36.9; O2SAT 95
--- NOTE | 2021-12-27 06:44 | P.HPHOSP_ITS ---
History of Present Illness Date of Service: 12/27/21 Chief Complaint: n/v,fever This is a 56-year-old female with past medical history of depression, hyperlipidemia, osteoarthritis, who presents to the hospital with complaints of generalized fatigue, malaise, low oral intake, fever of 1956195.9, nausea and vomiting, and low intake for the past 5 days. Patient denies having any abdominal pain diarrhea constipation. Patient reports no fever or chills. No previous similar episode. She denies any chest pain, shortness of breath, no urinary symptoms and no lower extremity edema. On arrival to the ED patient hemodynamically stable with a fever of 101.2 Labs are significant for WBC count of 3.1, platelet of 122 PT of 14.1, INR of 1.2, total bili of 3.1, direct bili of 2.0, AST of 421, ALT of 569, alk-phos of 293, lipase of 40, UA negative, hepatitis panel pending. Abdominal pelvic ultrasound shows periportal edema and gallbladder with thickened wall, abdominal ultrasound was recommended, Abdominal ultrasound showed gallbladder wall thickening/edema which can be seen with cholecystitis, no associated gallstone is seen. Case discussed with GI, patient started on antibiotics and will be admitted for further management Review of Systems Review of Systems: Yes all other systems are reviewed and are negative [facility] Medical History Benign skin lesion of lower back Carpal tunnel syndrome Chronic left shoulder pain Colonoscopy planned DAVF (dural arteriovenous fistula) Depression Essential thrombocytosis Fatty liver FHx: breast cancer FHx: ovarian cancer Hyperlipidemia Migraine with aura Osteoarthritis Premature ventricular contractions Shoulder pain, bilateral Vitamin D deficiency Family History Mother Mental health disorder Breast CA Uterine cancer Father Throat cancer Unknown Myelofibrosis Maternal Grandmother Breast CA Maternal Uncle Colon cancer Surgical History H/O removal of cyst History of knee surgery S/P arteriovenous (AV) fistula repair Social History Household Members: Spouse Housing: Apartment Are you a primary home health care respiratory therapist to a significant other at home: No Do you presently have visiting nurse or other home services: No Alcohol intake: former Patient Tobacco Use Status: Former Tobacco user Years Smoked: 6 yrs e-Cigarette/Vaping Use: Never Used Second Hand Smoke Exposure: Yes Advance Directives: No Advance Directives Information Provided: No service: No Current occupational status: employed 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 Allergies Allergy/AdvReac Type Severity Reaction Status Date / Time dextromethorphan Allergy Intermediate BRADYCARDIA Verified 12/26/21 17:40 [From DIMETAPP COLD-CONGESTION] guaifenesin Allergy Intermediate BRADYCARDIA Verified 12/26/21 17:40 [From DIMETAPP COLD-CONGESTION] latex [LATEX] Allergy Intermediate RASH Verified 12/26/21 17:40 phenylephrine Allergy Intermediate BRADYCARDIA Verified 12/26/21 17:40 [From DIMETAPP COLD-CONGESTION] pseudoephedrine Allergy Intermediate BRADYCARDIA Verified 12/26/21 17:40 [From DIMETAPP COLD-CONGESTION] lactose Allergy Stomach Verified 12/26/21 17:40 Upset DAIRY PRODUCTS Allergy Mild PAIN Uncoded 12/26/21 17:40 Metoprolol Allergy Unknown Causes Uncoded 12/26/21 17:40 Depression Active Medications: Current Medications Acetaminophen (Acetaminophen 325 Mg Tablet) 650 mg PO Q6H PRN PRN Reason: Pain, Mild (Pain Scale 1-3) Docusate Sodium (Docusate Sodium 100 Mg Capsule) 100 mg PO DAILY PRN PRN Reason: Constipation Morphine Sulfate (Morphine Sulfate 4 Mg/Ml Cartridge) 4 mg IVPUSH Q4H PRN; Protocol PRN Reason: Pain, Severe (Pain Scale 7-10) Ondansetron HCl (Ondansetron Hcl 4 Mg/2 Ml Vial) 4 mg IVPUSH Q8H PRN PRN Reason: Nausea and Vomiting Pharmacy Consult (Consult Rx Perform Med Rec) 1 each MISCELLANE ONCE PRN PRN Reason: Consult order Sodium Chloride (0.9 % Sodium Chloride Flush 3 Ml Syringe) 3 ml IVFSH [facility] Medications Medication Instructions Recorded Confirmed Last Taken Type escitalopram oxalate 10 mg tablet 10 mg PO DAILY 05/20/20 11/27/21 Unknown History (Lexapro) escitalopram oxalate 5 mg tablet 1 tab PO QAM 05/20/20 11/27/21 Unknown History calcium 500 mg tablet 500 mg PO DAILY 11/29/20 11/27/21 Unknown History multivitamin 1 tab PO DAILY 11/27/21 11/27/21 Unknown History Physical Exam Vital Signs and Narrative: Vital Signs: Last Vital Signs Temp 98.4 F 12/27/21 05:31 Pulse 76 12/27/21 05:31 Resp 18 12/27/21 05:31 BP 94/54 L 12/27/21 05:31 Pulse Ox 95 12/27/21 05:31 BMI result Body Mass Index 27.4 Const: General: cooperative and no acute distress Orientation/consciousness: patient oriented x3 Eyes: General: appearance normal, both eyes and all related structures Resp: Effort & Inspection: normal respiratory effort Auscultation: clear to auscultation bilaterally Cardio: Rate: regular rate Rhythm: regular rhythm GI: Other: No abdominal tenderness, no rebound or guarding Palpation (GI): Soft to palpation Auscultation: normal bowel sounds : Other: No pelvic region tenderness Skin: General skin exam: no rashes or lesions noted Neuro: General: patient oriented x3 Cognition (Neuro): normal cognition Extrem: General: Yes normal to inspection and Yes no pedal edema Results Labs CBC and Chem 7: 12/27/21 04:18 12/27/21 04:18 Labs: Laboratory Results - last 24 hr 12/26/21 12/26/21 12/26/21 17:44 17:44 19:50 MCV MCH MCHC RDW Plt Count MPV Immature Gran % (Auto) Neut % (Auto) Lymph % (Auto) Meagher % (Auto) Eos % (Auto) Baso % (Auto) Lymph # (Auto) Meagher # (Auto) Eos # (Auto) Baso # (Auto) Abs Immat Gran (auto) Absolute Neuts (auto) Absolute Nucleated RBC Nucleated RBC % (auto) Smear Tech's Comments PT INR APTT Anion Gap 13 Estim Creat Clear Calc 73.2 Estimated GFR > 60 Random Glucose 108 Lactic Acid Calcium 8.4 D Magnesium Total Bilirubin Direct Bilirubin AST ALT Alkaline Phosphatase Lactate Dehydrogenase Total Protein Albumin Lipase Urine Color Urine Appearance Urine pH Ur Specific [place] Urine Protein Urine Glucose (UA) Urine Ketones Urine Blood Urine Nitrite Ur Leukocyte Esterase Urine RBC Urine WBC Ur Squamous Epith Cells Urine Bacteria Granular Casts Urine Mucus Acetaminophen Ethyl Alcohol COVID-19 (ROBERT) Negative COVID-19 Clin Com See Note Monoscreen Influenza Type A (EDUIN) Negative Influenza Type B (EDUIN) Negative Influenza A & B Note See Note 12/26/21 12/26/21 12/26/21 19:50 19:50 20:46 MCV 86.7 MCH 28.7 MCHC 33.1 RDW 13.6 Plt Count 118 L D MPV 11.5 Immature Gran % (Auto) 1.5 H Neut % (Auto) 57.3 Lymph % (Auto) 34.7 Meagher % (Auto) 5.3 Eos % (Auto) 0.4 Baso % (Auto) 0.8 Lymph # (Auto) 0.9 L Meagher # (Auto) 0.1 Eos # (Auto) 0.0 Baso # (Auto) 0.0 Abs Immat Gran (auto) 0.04 H Absolute Neuts (auto) 1.5 L Absolute Nucleated RBC 0.000 Nucleated RBC % (auto) 0.0 Smear Tech's Comments VERIFIED PT INR APTT Anion Gap Estim Creat Clear Calc Estimated GFR Random Glucose Lactic Acid 1.5 Calcium Magnesium Total Bilirubin Direct Bilirubin AST ALT Alkaline Phosphatase Lactate Dehydrogenase Total Protein Albumin Lipase Urine Color Urine Appearance Urine pH Ur Specific [place] Urine Protein Urine Glucose (UA) Urine Ketones Urine Blood Urine Nitrite Ur Leukocyte Esterase Urine RBC Urine WBC Ur Squamous Epith Cells Urine Bacteria Granular Casts Urine Mucus Acetaminophen Ethyl Alcohol < 10 COVID-19 (ROBERT) COVID-19 Clin Com Monoscreen Influenza Type A (EDUIN) Influenza Type B (EDUIN) Influenza A & B Note 12/26/21 12/26/21 12/26/21 20:46 20:46 22:24 MCV MCH MCHC RDW Plt Count MPV Immature Gran % (Auto) Neut % (Auto) Lymph % (Auto) Meagher % (Auto) Eos % (Auto) Baso % (Auto) Lymph # (Auto) Meagher # (Auto) Eos # (Auto) Baso # (Auto) Abs Immat Gran (auto) Absolute Neuts (auto) Absolute Nucleated RBC Nucleated RBC % (auto) Smear Tech's Comments PT INR APTT Anion Gap Estim Creat Clear Calc Estimated GFR Random Glucose Lactic Acid Calcium Magnesium 2.0 Total Bilirubin 3.1 H Direct Bilirubin 2.0 H AST 421 H ALT 569 H Alkaline Phosphatase 293 H D Lactate Dehydrogenase 809 H Total Protein 6.5 Albumin 3.4 L Lipase 40 Urine Color YELLOW Urine Appearance CLOUDY Urine pH 6.0 Ur Specific [place] >= 1.030 H Urine Protein 1+ H Urine Glucose (UA) NEG Urine Ketones 5 Urine Blood NEG Urine Nitrite NEG Ur Leukocyte Esterase NEG Urine RBC 1-4 Urine WBC 1-4 Ur Squamous Epith Cells 1+ Urine Bacteria 2+ Granular Casts 5-9 Urine Mucus 2+ Acetaminophen < 1 Ethyl Alcohol COVID-19 (ROBERT) COVID-19 Clin Com Monoscreen Negative Influenza Type A (EDUIN) Influenza Type B (EDUIN) Influenza A & B Note 12/26/21 12/27/21 12/27/21 22:24 04:18 04:18 MCV 87.1 MCH 29.7 MCHC 34.1 RDW 13.4 Plt Count 122 L MPV 11.5 Immature Gran % (Auto) 1.6 H Neut % (Auto) 50.5 Lymph % (Auto) 40.9 H Meagher % (Auto) 5.8 Eos % (Auto) 0.6 Baso % (Auto) 0.6 Lymph # (Auto) 1.3 Meagher # (Auto) 0.2 Eos # (Auto) 0.0 Baso # (Auto) 0.0 Abs Immat Gran (auto) 0.05 H Absolute Neuts (auto) 1.6 L Absolute Nucleated RBC 0.000 Nucleated RBC % (auto) 0.0 Smear Tech's Comments PT 14.2 H INR 1.2 H APTT 36.8 Anion Gap 11 L Estim Creat Clear Calc 76.6 Estimated GFR > 60 Random Glucose 99 Lactic Acid Calcium 7.8 L D Magnesium Total Bilirubin Direct Bilirubin AST ALT Alkaline Phosphatase Lactate Dehydrogenase Total Protein Albumin Lipase Urine Color Urine Appearance Urine pH Ur Specific [place] Urine Protein Urine Glucose (UA) Urine Ketones Urine Blood Urine Nitrite Ur Leukocyte Esterase Urine RBC Urine WBC Ur Squamous Epith Cells Urine Bacteria Granular Casts Urine Mucus Acetaminophen Ethyl Alcohol COVID-19 (ROBERT) COVID-19 Clin Com Monoscreen Influenza Type A (EDUIN) Influenza Type B (EDUIN) Influenza A & B Note Imaging Radiologist's Impressions: Impressions Chest X-Ray 12/26/21 18:48 IMPRESSION: No evidence of acute disease. Abdomen/Pelvis CT 12/26/21 23:50 IMPRESSION: 1. There is periportal edema and gallbladder with thickened wall. Abdominal ultrasound is recommended for further evaluation to assess for gallstones. 2. Tubular structure right adnexa could represent hydrosalpinx. Small amount of free intraperitoneal fluid is present. Pelvic ultrasound, transabdominal and endovaginal is recommended for further evaluation. 3. Incidentally noted mild splenomegaly. Fleischner guidelines were followed. Abdomen Ultrasound 12/27/21 01:20 IMPRESSION: Gallbladder wall thickening/edema which can be seen with cholecystitis, though no associated gallstone is seen. If clinically warranted, correlation with nuclear medicine hepatobiliary scan may be helpful. Nondilated common bile duct. Pelvic/Transvag US 12/27/21 01:50 IMPRESSION: Tubular structure in the right adnexa is most consistent with hydrosalpinx. Small to moderate pelvic free fluid, of uncertain etiology. Normal appearance of the ovaries. Assessment and Plan (1) Thickening of wall of gallbladder with pericholecystic fluid: Status: Acute (2) Transaminitis: Status: Acute (3) Fever: Status: Acute Plan 56-year-old female with past medical history as mentioned above who presents to the hospital with various complaints including fever, nausea vomiting found to have possible cholecystitis and transaminitis # gallbladder thickening with pericholecystic fluid - possibly acute cholecystitis - patient has no abdominal tenderness, Rene sign negative - at this time will treat with IV antibiotic - GI consulted for possible MRCP given the transaminitis - may require HIDA scan - will keep NPO - general surgery consulted # febrile - possibly secondary to above - has leukopenia - no hypotension - normal lactic as - will treat with IV antibiotic - follow cultures # transaminitis - possibly secondary to cholelithiasis versus cholecystitis although no evidence of gallbladder stone on imaging - trend liver panel - GI consult # depression anxiety - continue home medications once meds have been reviewed by nurse/pharmacy DVT prophylaxis: Lovenox Quality Stroke Does the patient have a stroke diagnosis?: No VTE Prior VTE?: No VTE Risk Level:: Medical - moderate - high VTE Device Contraindication: N/A - Device Ordered VTE Drug Contraindication: Treatment Not Indicated
[2021-12-27 07:21] VITALS: BP 101/54; PULSE 76; RESP 18; TEMP 37; O2SAT 96
[2021-12-27] MEDS: 0.9 % Sodium Chloride Flush 3 ML SYRINGE IVFLUSH ×2 (07:24→23:59)
[2021-12-27 07:48] LABS: Alanine Aminotransferase 489 U/L (0-31); Alkaline Phosphatase 249 U/L (39-117); Aspartate Amino Transferase 349 U/L (5-31); Bilirubin Direct 1.4 mg/dL (0.0-0.5); Bilirubin Total 2.1 mg/dL (0.0-1.0); Total Protein 5.6 g/dL (6.5-8.0)
--- NOTE | 2021-12-27 08:00 | PHA.MEDREC ---
Pharmacy Consult ? Medication Reconciliation Pharmacy has completed the medication reconciliation. Patient reported all medications. Chaparrita Mills, InduD
--- NOTE | 2021-12-27 08:05 | PM.EVENT ---
Event Note Date of Service: 12/27/21 Event Note: GI pt seen and examined, consult dictated Elevated lfts with fever, nausea and vomiting imaging suggests cholecystitis, but no c/o ruq pain MRI ordered to eval cbd fever and body aches x5d also suggestive of viral process. Hepatitis panel pending.
[2021-12-27 09:36] LABS: HBS Num1 28.58 mIU/mL (0-7.99); HBc Num1 0.15 S/CO (0.00-0.79); Hepatitis A Antibody IgM 0.13 Index (0-0.79); Hepatitis B Core Antibody Nonreactive (Nonreactive); Hepatitis B Surface Antigen Negative (Negative); ~HepC Num1 0.18 S/CO (0.00-0.79); ~Hepatitis A Antibody IgM Nonreactive (Nonreactive); ~Hepatitis B Surface Antibody REACTIVE (Nonreactive); ~Hepatitis C Antibody Nonreactive (Nonreactive)
--- NOTE | 2021-12-27 09:54 | PM.CNGS ---
History of Present Illness Consult details Consult date: 12/27/21 Narrative: 56-year-old female patient presenting to the emergency department for evaluation of nausea and vomiting. She reports the symptoms began on Saturday12/22/2021 after eating a burrito at school. Several hours later she began to have nausea and vomiting which did not respond to Zofran. This persisted over the weekend she began to note her urine to be dark. She subsequently presented to the emergency department for further evaluation. She was noted to have a low WBC however LFTs were elevated. CT of the abdomen revealed a thickened gallbladder wall with no gallstones. Condition and ultrasound revealed thickened gallbladder wall with pericholecystic fluid but no gallstones. She is scheduled for MRI this morning. Review of Systems Constitutional: Constitutional: Denies chills, Denies fever(s), Denies headache(s) and Denies poor appetite ENT: Denies dizziness and Denies headache(s) Cardiovascular: Cardiovascular: Denies chest pain, Denies rapid heart rate, Denies palpitations and Denies slow heart rate Respiratory: Respiratory: Denies chest congestion, Denies cough, Denies pain on inspiration and Denies wheezing Gastrointestinal: Gastrointestinal: Denies abdominal pain, Denies bloating, Denies change in stool character, Denies constipation, Denies diarrhea, Reports nausea, Reports vomiting and Denies hematemesis Musculoskeletal: Musculoskeletal: Denies back pain, Denies arthralgias, Denies joint swelling and Denies numbness Integumentary/Breasts: Skin/Breast: Denies change in pigmentation, Denies erythema and Denies rash Neurologic: Denies dizziness, Denies headache(s) and Denies numbness Psychiatric: Psychiatric: Denies anxiety and Denies depression Endocrine: Endocrine: Denies palpitations Hematologic/Lymphatic: Hematologic/Lymphatic: Denies easy bleeding, Denies easy bruising and Denies lymphadenopathy Allergic/Immunologic: Allergic/Immunologic: Denies wheezing PMFSH Past Medical History Medical History Benign skin lesion of lower back Carpal tunnel syndrome Chronic left shoulder pain Colonoscopy planned DAVF (dural arteriovenous fistula) Depression Essential thrombocytosis Fatty liver FHx: breast cancer FHx: ovarian cancer Hyperlipidemia Migraine with aura Osteoarthritis Premature ventricular contractions Shoulder pain, bilateral Vitamin D deficiency Family History Family History Mother Mental health disorder Breast CA Uterine cancer Father Throat cancer Unknown Myelofibrosis Maternal Grandmother Breast CA Maternal Uncle Colon cancer Surgical History Surgical History H/O removal of cyst History of knee surgery S/P arteriovenous (AV) fistula repair Social History Social History Household Members: Spouse Housing: Apartment Are you a primary career and transition teacher to a significant other at home: No Do you presently have visiting nurse or other home services: No Alcohol intake: former Patient Tobacco Use Status: Former Tobacco user Years Smoked: 6 yrs e-Cigarette/Vaping Use: Never Used Second Hand Smoke Exposure: Yes Advance Directives: No Advance Directives Information Provided: No service: No Current occupational status: employed 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 Allergies Allergy/AdvReac Type Severity Reaction Status Date / Time dextromethorphan Allergy Intermediate BRADYCARDIA Verified 12/26/21 17:40 [From DIMETAPP COLD-CONGESTION] guaifenesin Allergy Intermediate BRADYCARDIA Verified 12/26/21 17:40 [From DIMETAPP COLD-CONGESTION] latex [LATEX] Allergy Intermediate RASH Verified 12/26/21 17:40 phenylephrine Allergy Intermediate BRADYCARDIA Verified 12/26/21 17:40 [From DIMETAPP COLD-CONGESTION] pseudoephedrine Allergy Intermediate BRADYCARDIA Verified 12/26/21 17:40 [From DIMETAPP COLD-CONGESTION] lactose Allergy Stomach Verified 12/26/21 17:40 Upset DAIRY PRODUCTS Allergy Mild PAIN Uncoded 12/26/21 17:40 Metoprolol Allergy Unknown Causes Uncoded 12/26/21 17:40 Depression Active Medications: Current Medications Acetaminophen (Acetaminophen 325 Mg Tablet) 650 mg PO Q6H PRN PRN Reason: Pain, Mild (Pain Scale 1-3) Docusate Sodium (Docusate Sodium 100 Mg Capsule) 100 mg PO DAILY PRN PRN Reason: Constipation Escitalopram Oxalate (Escitalopram Oxalate 10 Mg Tablet) 10 mg PO DAILY [facility] Escitalopram Oxalate (Escitalopram Oxalate 5 Mg Tablet) 5 mg PO DAILY [facility] Morphine Sulfate (Morphine Sulfate 4 Mg/Ml Cartridge) 4 mg IVPUSH Q4H PRN; Protocol PRN Reason: Pain, Severe (Pain Scale 7-10) Ondansetron HCl (Ondansetron Hcl 4 Mg/2 Ml Vial) 4 mg IVPUSH Q8H PRN PRN Reason: Nausea and Vomiting Pharmacy Consult (Consult Rx Perform Med Rec) 1 each MISCELLANE ONCE PRN PRN Reason: Consult order Pharmacy Consult (Consult Rx Perform Med Rec) 1 each MISCELLANE ONCE PRN PRN Reason: Consult order Sodium Chloride (0.9 % Sodium Chloride Flush 3 Ml Syringe) 3 ml IVFLUSH [facility] Last Admin: 12/27/21 07:24 Dose: 3 ml Documented by: Home Medications Medication Instructions Recorded Confirmed Last Taken Type escitalopram oxalate 10 mg tablet 10 mg PO DAILY 05/20/20 12/27/21 Unknown History (Lexapro) escitalopram oxalate 5 mg tablet 1 tab PO QAM 05/20/20 12/27/21 Unknown History calcium 500 mg tablet 500 mg PO DAILY 11/29/20 12/27/21 Unknown History vitamin B complex 1 tab PO DAILY 12/27/21 12/27/21 Unknown History Physical Exam Vital Signs: Vital Signs: Last Vital Signs Temp 98.6 F 12/27/21 07:21 Pulse 76 12/27/21 07:21 Resp 18 12/27/21 07:21 BP 101/54 L 12/27/21 07:21 Pulse Ox 96 12/27/21 07:21 BMI result Body Mass Index 27.4 Const: General: cooperative, comfortable and well developed Nutritional Appearance: well nourished Orientation/consciousness: patient oriented x3 Eyes: Sclerae: sclerae normal EOM: EOMs intact bilaterally Neck: Neck: Yes normal visual inspection Resp: Effort & Inspection: normal respiratory effort, no cough, no respiratory distress and no stridor Cardio: Jugular venous distension: no JVD GI: Inspection: Yes normal to inspection Palpation (GI): Soft to palpation, nontender, no guarding and not rigid Percussion: Yes normal to percussion Auscultation: normal bowel sounds Skin: General skin exam: dry skin Rashes: no rashes Neuro: General: patient oriented x3 and no focal motor deficits Extrem: General: Yes full ROM and Yes no clubbing, cyanosis or edema Psych: Appearance: grossly normal Results Labs Result diagrams: 12/27/21 04:18 12/27/21 04:18 Labs: Abnormal lab results 12/26/21 12/26/21 12/26/21 Range/Units 19:50 20:46 20:46 WBC 2.7 L (4.8-10.8) X10*3/uL Plt Count 118 L D (160-400) X10*3/uL Immature Gran % (Auto) 1.5 H (0.0-0.4) % Lymph % (Auto) (20-40) % Lymph # (Auto) 0.9 L (1.2-4.9) X10*3/uL Abs Immat Gran (auto) 0.04 H (0.00-0.03) X10*3/uL Absolute Neuts (auto) 1.5 L (2.0-8.3) x10*3/uL PT (9.9-13.0) SEC INR (0.9-1.1) Sodium 133 L (135-145) mmol/L Anion Gap (12-20) Calcium (8.4-10.2) mg/dL Total Bilirubin 3.1 H (0.0-1.0) mg/dL Direct Bilirubin 2.0 H (0.0-0.5) mg/dL AST 421 H (5-31) U/L ALT 569 H (0-31) U/L Alkaline Phosphatase 293 H D (39-117) U/L Lactate Dehydrogenase 809 H (122-220) U/L Total Protein (6.5-8.0) g/dL Albumin 3.4 L (3.5-5.0) g/dL Ur Specific Exchange (1.005-1.025) Urine Protein (NEG-TRACE) MG/DL 12/26/21 12/26/21 12/27/21 Range/Units 22:24 22:24 04:18 WBC 3.1 L (4.8-10.8) X10*3/uL Plt Count 122 L (160-400) X10*3/uL Immature Gran % (Auto) 1.6 H (0.0-0.4) % Lymph % (Auto) 40.9 H (20-40) % Lymph # (Auto) (1.2-4.9) X10*3/uL Abs Immat Gran (auto) 0.05 H (0.00-0.03) X10*3/uL Absolute Neuts (auto) 1.6 L (2.0-8.3) x10*3/uL PT 14.2 H (9.9-13.0) SEC INR 1.2 H (0.9-1.1) Sodium (135-145) mmol/L Anion Gap (12-20) Calcium (8.4-10.2) mg/dL Total Bilirubin (0.0-1.0) mg/dL Direct Bilirubin (0.0-0.5) mg/dL AST (5-31) U/L ALT (0-31) U/L Alkaline Phosphatase (39-117) U/L Lactate Dehydrogenase (122-220) U/L Total Protein (6.5-8.0) g/dL Albumin (3.5-5.0) g/dL Ur Specific Exchange >= 1.030 H (1.005-1.025) Urine Protein 1+ H (NEG-TRACE) MG/DL 12/27/21 Range/Units 04:18 WBC (4.8-10.8) X10*3/uL Plt Count (160-400) X10*3/uL Immature Gran % (Auto) (0.0-0.4) % Lymph % (Auto) (20-40) % Lymph # (Auto) (1.2-4.9) X10*3/uL Abs Immat Gran (auto) (0.00-0.03) X10*3/uL Absolute Neuts (auto) (2.0-8.3) x10*3/uL PT (9.9-13.0) SEC INR (0.9-1.1) Sodium (135-145) mmol/L Anion Gap 11 L (12-20) Calcium 7.8 L D (8.4-10.2) mg/dL Total Bilirubin 2.1 H (0.0-1.0) mg/dL Direct Bilirubin 1.4 H (0.0-0.5) mg/dL AST 349 H (5-31) U/L ALT 489 H (0-31) U/L Alkaline Phosphatase 249 H (39-117) U/L Lactate Dehydrogenase (122-220) U/L Total Protein 5.6 L (6.5-8.0) g/dL Albumin 3.0 L (3.5-5.0) g/dL Ur Specific Exchange (1.005-1.025) Urine Protein (NEG-TRACE) MG/DL Short CBC 12/26/21 12/27/21 Range/Units 20:46 04:18 WBC 2.7 L 3.1 L (4.8-10.8) X10*3/uL Hgb 14.5 14.0 (12.0-16.0) g/dl Hct 43.8 41.1 (37.0-47.0) % Plt Count 118 L D 122 L (160-400) X10*3/uL BMP 12/26/21 12/27/21 19:50 04:18 Sodium 133 L 135 Potassium 4.5 4.2 Chloride 99 106 Carbon Dioxide 26 22 BUN 14 13 Creatinine 0.90 0.86 Calcium 8.4 D 7.8 L D Liver Function 12/26/21 12/27/21 Range/Units 20:46 04:18 Total Bilirubin 3.1 H 2.1 H (0.0-1.0) mg/dL Direct Bilirubin 2.0 H 1.4 H (0.0-0.5) mg/dL AST 421 H 349 H (5-31) U/L ALT 569 H 489 H (0-31) U/L Alkaline Phosphatase 293 H D 249 H (39-117) U/L Albumin 3.4 L 3.0 L (3.5-5.0) g/dL Urine 12/26/21 Range/Units 22:24 Urine Color YELLOW Urine Appearance CLOUDY Urine pH 6.0 (5.0-8.0) Ur Specific Exchange >= 1.030 H (1.005-1.025) Urine Protein 1+ H (NEG-TRACE) MG/DL Urine Glucose (UA) NEG (NEG) MG/DL All other labs normal. Assessment and Plan (1) Thickening of wall of gallbladder with pericholecystic fluid: Status: Acute (2) Transaminitis: Status: Acute Plan 56-year-old female patient presenting with complaints of nausea vomiting found on workup to have a thickened gallbladder with no gallstones. Patient denies any abdominal pain throughout the weekend. On examination today she is soft with no abdominal tenderness. There is a negative Rene sign. Findings are not suggestive of acute cholecystitis. Hepatitis panel is pending. MRI is also pending. HIDA scan would be helpful to evaluate for acalculous cholecystitis. Will follow during her hospital course. Procedures Date of Service Date of Service: 12/27/21
[2021-12-27] MEDS: Escitalopram Oxalate 5 MG TABLET PO (10:04)
[2021-12-27] MEDS: Escitalopram Oxalate 10 MG TABLET PO (10:04)
--- NOTE | 2021-12-27 10:21 | MHC.CM.PN ---
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
[2021-12-27] MEDS: Lactated Ringers 1,000 ML 100 ML IVCONT (10:53)
--- NOTE | 2021-12-27 11:12 | CONS_ITS ---
DATE OF SERVICE: 12/27/2021 REFERRING PHYSICIAN: Dr. Lees REASON FOR CONSULTATION: Elevated liver function tests with nausea and vomiting. HISTORY OF PRESENT ILLNESS: The patient is a 56-year-old woman, who was admitted to the hospital after presenting to the emergency room yesterday with complaints of nausea, vomiting, and fevers. She states she was well until December 22 when she developed nausea, vomiting, and dry heaves at work, this continued at home with some low-grade fevers. She denies abdominal pain. There was no hematemesis or melena. She took some Pepto-Bismol and did not have any diarrhea. She called her primary care's office on the and was prescribed Zofran, which helped initially but then the nausea, vomiting, and fevers recurred so she came to the emergency room. She denies any unusual suspect foods and did travel to [place] about 2 weeks ago. She does not drink alcohol or smoke and has no prior history of peptic ulcer disease. In the Emergency Department, she was evaluated and was noted to have a fever to 101.2. Lab work was obtained, which is reviewed. This showed a low white blood cell count at 2.7 with normal machine distribution of white cells, except for low lymphocytes and high immature granulocytes. Liver tests were obtained, which were elevated with a total bilirubin of 3.1, transaminases in the 400-500 range, and alkaline phosphatase of 293. These were repeated this morning with some improvement. She underwent evaluation with imaging including an abdominal pelvic CT and ultrasound of the abdomen and pelvis. These are interpreted as showing mild periportal edema with gallbladder wall thickening with pericholecystic fluid. Biliary tree is nondilated and there is sludge in the gallbladder neck, but no definite gallstones. Common bile duct measured 4 mm. PAST MEDICAL HISTORY: 1. Hyperlipidemia. 2. Depression. 3. Osteoarthritis. 4. Essential thrombocytosis. 5. Fatty liver. 6. Migraine. 7. PVCs. 8. Depression. CURRENT MEDICATIONS: Her current medication list is reviewed in the chart. ALLERGIES: MULTIPLE MEDICATION ALLERGIES ARE REVIEWED. FAMILY HISTORY: This is positive for gallbladder disease in her daughter, who has undergone cholecystectomy. SOCIAL HISTORY: She denies tobacco and alcohol use. REVIEW OF SYSTEMS: SKIN: No pruritus. HEENT: Negative. CARDIOPULMONARY: No shortness of breath or chest pain. GASTROINTESTINAL: As above. GENITOURINARY: Negative. NEUROPSYCHIATRIC: Negative. MUSCULOSKELETAL: Positive for aches. PHYSICAL EXAMINATION: GENERAL: Shows a pleasant female, lying comfortably in bed. VITAL SIGNS: Reviewed in the electronic medical record and are stable. SKIN: Anicteric. HEENT: Shows no scleral icterus. NECK: Without lymphadenopathy or thyromegaly. LUNGS: Clear. HEART: Shows regular rate and rhythm. S1, S2. No murmur. ABDOMEN: Soft without focal masses or tenderness. Bowel sounds are present. No organomegaly is noted. EXTREMITIES: Without edema. LABORATORY DATA AND X-RAY REPORTS: Reviewed. IMPRESSION: Nausea and vomiting with fever and abnormal liver functions. Her imaging studies show findings consistent with cholecystitis with thickening of the gallbladder wall and pericholecystic fluid without definite stones. Biliary tree is normal and I recommended imaging with MRI to rule out a small common duct stone, although this seems less likely with her liver tests improving. Her symptoms are somewhat atypical and that she has not had right upper quadrant pain and is also possible that her elevated liver function tests could be related to a viral syndrome causing her nausea and vomiting. This was discussed with the patient. Surgical consultation is being obtained and I recommend monitoring her liver function tests and awaiting results from additional testing including hepatitis panel, which has been ordered. Thanks for asking me to see her. I will follow her in the hospital with you. MD ALEX South/ADELINA / [id number]
--- NOTE | 2021-12-27 14:37 | PM.EVENT ---
Event Note Date of Service: 12/27/21 Event Note: patient was seen and evaluated this morning Feels more comfortable, denies abdominal pain, nausea or vomiting. Ultrasound reporting goal bladder wall thickening and edema but no gallstones Waiting for MRCP Symptom seems to be related to viral illness, possible passing stone through CBD. Continue current treatment.
[2021-12-27 15:31] VITALS: BP 92/61; PULSE 74; RESP 18; TEMP 37.3; O2SAT 92
[2021-12-27 20:06] VITALS: BP 99/57; PULSE 67; RESP 14; O2SAT 95
--- NOTE | 2021-12-27 20:06 | PC.NURSE ---
Patient A&OX4, VSS, no pain at this time. Offered patient hospital gown, patient refused.
[2021-12-28 03:39] VITALS: BP 98/58; PULSE 73; RESP 16; TEMP 37.2; O2SAT 93
[2021-12-28 05:57] LABS: Hematocrit 37.1 % (37.0-47.0); Hemoglobin 12.6 g/dl (12.0-16.0); Mean Corpuscular Hemoglobin 29.3 pg (27.0-33.0); Mean Corpuscular Volume 86.3 fL (80.0-98.0); Mean Platelet Volume 11.9 fL (9.4-12.3); Platelet Count 155 X10*3/uL (160-400); Red Cell Distribution Width 13.6 % (11.0-16.0)
[2021-12-28 06:25] LABS: Anion Gap 10 (12-20); Blood Urea Nitrogen 10 mg/dL (9-16); Carbon Dioxide 25 mmol/L (22-29); Chloride 104 mmol/L (96-108); Creatinine Clr Calc Pharmacy 86.6; Estimated Glomerular Filt Rate > 60; Glucose Random 96 mg/dL (60-115); Potassium 3.9 mmol/L (3.3-5.1); Sodium 135 mmol/L (135-145)
[2021-12-28 07:02] LABS: Alanine Aminotransferase 368 U/L (0-31); Albumin Level 2.8 g/dL (3.5-5.0); Alkaline Phosphatase 224 U/L (39-117); Aspartate Amino Transferase 192 U/L (5-31); Bilirubin Direct 0.9 mg/dL (0.0-0.5); Bilirubin Total 1.4 mg/dL (0.0-1.0); Total Protein 5.2 g/dL (6.5-8.0)
[2021-12-28 07:26] VITALS: BP 110/62; PULSE 64; RESP 17; TEMP 37.1; O2SAT 92
[2021-12-28] MEDS: 0.9 % Sodium Chloride Flush 3 ML SYRINGE IVFLUSH ×3 (08:10→20:22)
[2021-12-28] MEDS: Escitalopram Oxalate 5 MG TABLET PO (11:52)
[2021-12-28] MEDS: Escitalopram Oxalate 10 MG TABLET PO (11:52)
--- NOTE | 2021-12-28 14:21 | P.PNIM_ITS ---
Subjective Subjective Date of Service: 12/28/21 Interval History: the patient was seen and evaluated this morning Laying in bed, feels anxious about imaging results Denies any fever, chills transaminitis improving No reported other overnight events Systemic review: No fever, chills or weakness No chest pain, palpitation No shortness of breath or coughing No abdominal pain, nausea or vomiting No urinary symptoms No any rash or wounds Physical Exam Vital Signs: Vital Signs: Last Vital Signs Temp 98.8 F 12/28/21 07:26 Pulse 64 12/28/21 07:26 Resp 17 12/28/21 07:26 BP 110/62 12/28/21 07:26 Pulse Ox 92 12/28/21 07:26 BMI result Body Mass Index 27.4 Const: Other: Constitutional : Alert, oriented, not in distress Neck : Normal inspection, Supple Cardiovascular : RRR, no JVP, no lower extremity edema Respiratory : fair bilateral air entry, no crackles, wheezes or rhonchi Gastrointestinal: soft, lax, Normal bowel sounds, Non tender Skin : Warm, Dry Neurological : Alert & oriented x3, No focal deficit , CN 2-12 within normal Objective Data Active Medications Acetaminophen (Acetaminophen 325 Mg Tablet) 650 mg PO Q6H PRN PRN Reason: Pain, Mild (Pain Scale 1-3) Docusate Sodium (Docusate Sodium 100 Mg Capsule) 100 mg PO DAILY PRN PRN Reason: Constipation Escitalopram Oxalate (Escitalopram Oxalate 10 Mg Tablet) 10 mg PO DAILY [facility] Last Admin: 12/28/21 11:52 Dose: 10 mg Documented by: TYREE Escitalopram Oxalate (Escitalopram Oxalate 5 Mg Tablet) 5 mg PO DAILY [facility] Last Admin: 12/28/21 11:52 Dose: 5 mg Documented by: TYREE Morphine Sulfate (Morphine Sulfate 4 Mg/Ml Cartridge) 4 mg IVPUSH Q4H PRN; Protocol PRN Reason: Pain, Severe (Pain Scale 7-10) Ondansetron HCl (Ondansetron Hcl 4 Mg/2 Ml Vial) 4 mg IVPUSH Q8H PRN PRN Reason: Nausea and Vomiting Pharmacy Consult (Consult Rx Perform Med Rec) 1 each MISCELLANE ONCE PRN PRN Reason: Consult order Pharmacy Consult (Consult Rx Perform Med Rec) 1 each MISCELLANE ONCE PRN PRN Reason: Consult order Sodium Chloride (0.9 % Sodium Chloride Flush 3 Ml Syringe) 3 ml IVFLUSH [facility]SHIFT [facility] Last Admin: 12/28/21 08:10 Dose: 3 ml Documented by: TYREE Labs CBC & Chem 7: 12/28/21 05:20 12/28/21 05:20 Labs: Laboratory Results - last 24 hr 12/28/21 12/28/21 12/28/21 05:20 05:20 05:20 MCV 86.3 MCH 29.3 MCHC 34.0 RDW 13.6 Plt Count 155 L D MPV 11.9 Absolute Nucleated RBC 0.000 Nucleated RBC % (auto) 0.0 Anion Gap 10 L Estim Creat Clear Calc 86.6 Estimated GFR > 60 Random Glucose 96 Calcium 8.0 L Total Bilirubin 1.4 H Direct Bilirubin 0.9 H AST 192 H ALT 368 H Alkaline Phosphatase 224 H Total Protein 5.2 L Albumin 2.8 L Microbiology Microbiology Results: Microbiology 12/26/21 20:46 Blood Culture - Preliminary Blood - Venous No growth after 24 hours. 12/26/21 20:46 Blood Culture - Preliminary Blood - Venous No growth after 24 hours. Assessment and Plan (1) Thickening of wall of gallbladder with pericholecystic fluid: Status: Acute (2) Transaminitis: Status: Acute (3) Leukopenia: Status: Acute (4) Thrombocytopenia: Status: Acute Plan 56-year-old female with past medical history as mentioned above who presents to the hospital with various complaints including fever, nausea vomiting found to have possible cholecystitis and transaminitis # suspected Acalculous cholecystitis MRI showing gallbladder thickening with pericholecystic fluid with no stones or obstruction pending HIDA scan no need for IV antibiotic GI input appreciated continue full liquid general surgery input appreciated, consider surgery of HIDA scan positive # fever resolved Could be secondary to viral illness, cholecystitis # Leukopenia, thrombocytopenia Could be secondary to viral illness Trending up, continue to monitor CBC Negative blood cultures # transaminitis possibly secondary to cholecystitis vs viral illness trending down continue to monitor LFT # depression anxiety continue home medications once meds have been reviewed by nurse/pharmacy DVT prophylaxis: Lovenox patient will require overnight hospital stay For evaluation for leukopenia, thrombocytopenia and transaminitis pending possible surgical intervention to prevent decompensation into acute liver injury and infection. Quality Stroke Does the patient have a stroke diagnosis?: No VTE Prior VTE?: No VTE Risk Level:: Medical - moderate - high VTE Device Contraindication: N/A - Device Ordered VTE Drug Contraindication: Treatment Not Indicated
[2021-12-28 15:40] VITALS: BP 102/56; PULSE 69; RESP 18; TEMP 37.1; O2SAT 93
--- NOTE | 2021-12-28 16:20 | PM.PNGS ---
Subjective Subjective Date of Service: 12/28/21 Interval history: Patient denies nausea or vomiting. Continues to deny any abdominal pain. Physical Exam Vital Signs: Vital Signs: Last Vital Signs Temp 98.7 F 12/28/21 15:40 Pulse 69 12/28/21 15:40 Resp 18 12/28/21 15:40 BP 102/56 L 12/28/21 15:40 Pulse Ox 93 12/28/21 15:40 BMI result Body Mass Index 27.4 Const: General: no acute distress Nutritional Appearance: well nourished Orientation/consciousness: patient oriented x3 Limitations: no limitations Resp: Effort & Inspection: normal respiratory effort, no audible wheezes, no cough and no respiratory distress GI: Inspection: Yes normal to inspection Palpation (GI): Soft to palpation, nontender, no guarding and not rigid Neuro: General: patient oriented x3 Extrem: General: No edema Objective Data Active Medications Acetaminophen (Acetaminophen 325 Mg Tablet) 650 mg PO Q6H PRN PRN Reason: Pain, Mild (Pain Scale 1-3) Docusate Sodium (Docusate Sodium 100 Mg Capsule) 100 mg PO DAILY PRN PRN Reason: Constipation Escitalopram Oxalate (Escitalopram Oxalate 10 Mg Tablet) 10 mg PO DAILY [facility] Last Admin: 12/28/21 11:52 Dose: 10 mg Documented by: TRYEE Escitalopram Oxalate (Escitalopram Oxalate 5 Mg Tablet) 5 mg PO DAILY [facility] Last Admin: 12/28/21 11:52 Dose: 5 mg Documented by: TYREE Morphine Sulfate (Morphine Sulfate 4 Mg/Ml Cartridge) 4 mg IVPUSH Q4H PRN; Protocol PRN Reason: Pain, Severe (Pain Scale 7-10) Ondansetron HCl (Ondansetron Hcl 4 Mg/2 Ml Vial) 4 mg IVPUSH Q8H PRN PRN Reason: Nausea and Vomiting Pharmacy Consult (Consult Rx Perform Med Rec) 1 each MISCELLANE ONCE PRN PRN Reason: Consult order Pharmacy Consult (Consult Rx Perform Med Rec) 1 each MISCELLANE ONCE PRN PRN Reason: Consult order Sodium Chloride (0.9 % Sodium Chloride Flush 3 Ml Syringe) 3 ml IVFLUSH QSHIFT [facility] Last Admin: 12/28/21 08:10 Dose: 3 ml Documented by: TYREE Labs CBC & Chem 7: 12/28/21 05:20 12/28/21 05:20 Labs: Laboratory Results - last 24 hr 12/28/21 12/28/21 12/28/21 05:20 05:20 05:20 MCV 86.3 MCH 29.3 MCHC 34.0 RDW 13.6 Plt Count 155 L D MPV 11.9 Absolute Nucleated RBC 0.000 Nucleated RBC % (auto) 0.0 Anion Gap 10 L Estim Creat Clear Calc 86.6 Estimated GFR > 60 Random Glucose 96 Calcium 8.0 L Total Bilirubin 1.4 H Direct Bilirubin 0.9 H AST 192 H ALT 368 H Alkaline Phosphatase 224 H Total Protein 5.2 L Albumin 2.8 L Microbiology Microbiology Results: Microbiology 12/26/21 20:46 Blood Culture - Preliminary Blood - Venous No growth after 24 hours. 12/26/21 20:46 Blood Culture - Preliminary Blood - Venous No growth after 24 hours. Procedures Date of Service Date of Service: 12/28/21 Progress Note: A&P Assessment and plan (1) Transaminitis: Status: Acute (2) Thickening of wall of gallbladder with pericholecystic fluid: Status: Acute Plan Patient remains asymptomatic with no evidence of acute cholecystitis at this time. Review of HIDA scan reveals normal filling of the gallbladder which is strong evidence against acute acalculous cholecystitis. There is normal emptying of the gallbladder as well which is strong evidence against biliary dyskinesia/chronic cholecystitis. No surgical intervention is recommended. Time Spent With Patient Time: Total time spent is greater than 50% in coordination of care (as documented) at patient's floor/unit and/or counseling patient: Quality Stroke Does the patient have a stroke diagnosis?: No VTE Prior VTE?: No VTE Risk Level:: Medical - moderate - high VTE Device Contraindication: N/A - Device Ordered VTE Drug Contraindication: Treatment Not Indicated
[2021-12-28 19:01] VITALS: BP 117/72; PULSE 73; RESP 17; TEMP 36.5; O2SAT 95
[2021-12-28 23:01] VITALS: BP 123/67; PULSE 74; RESP 18; TEMP 37; O2SAT 94
[2021-12-29 03:50] VITALS: BP 119/68; PULSE 68; RESP 20; TEMP 36.9; O2SAT 93
[2021-12-29 04:57] LABS: Lyme Abs Screen <0.90 index
[2021-12-29 06:23] LABS: Hematocrit 38.2 % (37.0-47.0); Mean Corpuscular Hemoglobin 29.3 pg (27.0-33.0); Mean Platelet Volume 11.1 fL (9.4-12.3); Platelet Count 196 X10*3/uL (160-400); Red Blood Count 4.44 X10*6/uL (4.20-5.50); Red Cell Distribution Width 13.8 % (11.0-16.0); White Blood Count 5.7 X10*3/uL (4.8-10.8)
[2021-12-29 06:48] LABS: Anion Gap 11 (12-20); Blood Urea Nitrogen 11 mg/dL (9-16); Carbon Dioxide 27 mmol/L (22-29); Chloride 105 mmol/L (96-108); Creatinine Clr Calc Pharmacy 84.4; Estimated Glomerular Filt Rate > 60; Glucose Random 93 mg/dL (60-115); Potassium 3.8 mmol/L (3.3-5.1); Sodium 139 mmol/L (135-145)
[2021-12-29 06:51] LABS: Alanine Aminotransferase 301 U/L (0-31); Albumin Level 2.7 g/dL (3.5-5.0); Alkaline Phosphatase 241 U/L (39-117); Aspartate Amino Transferase 131 U/L (5-31); Bilirubin Direct 0.7 mg/dL (0.0-0.5); Bilirubin Total 1.5 mg/dL (0.0-1.0); C Reactive Protein 2.57 mg/dL (< or = 0.50); Total Protein 5.5 g/dL (6.5-8.0)
[2021-12-29 07:00] LABS: Lactate Dehydrogenase 383 U/L (122-220)
[2021-12-29 07:52] VITALS: BP 114/72; PULSE 65; RESP 18; TEMP 37.1; O2SAT 93
[2021-12-29] MEDS: Escitalopram Oxalate 5 MG TABLET PO (09:11)
[2021-12-29] MEDS: 0.9 % Sodium Chloride Flush 3 ML SYRINGE IVFLUSH (09:11)
[2021-12-29] MEDS: Escitalopram Oxalate 10 MG TABLET PO (09:11)
--- NOTE | 2021-12-29 10:45 | PM.GIPN ---
Subjective Subjective Date of Service: 12/29/21 Critical Care Time (minutes): 0 Comment: tolerating diet no nausea or vomiting Physical Exam Vital Signs: Vital Signs: Last Vital Signs Temp 98.3 F 12/29/21 11:31 Pulse 75 12/29/21 11:31 Resp 18 12/29/21 11:31 BP 103/65 12/29/21 11:31 Pulse Ox 94 12/29/21 11:31 BMI result Body Mass Index 27.4 Const: General: comfortable GI: Other: abdomen is soft and nontender Objective Data Labs CBC & Chem 7: 12/29/21 05:56 12/29/21 05:56 Procedures Date of Service Date of Service: 12/29/21 Progress Note: A&P Assessment and plan (1) Fever: Status: Acute Assessment and Plan: lfts improved from admission reviewed HIDA results with patient gallbladder function appears intact despite abnormal imaging. advised her to f/u with pcp. Time Spent With Patient Time: Total time spent is greater than 50% in coordination of care (as documented) at patient's floor/unit and/or counseling patient: Quality Stroke Does the patient have a stroke diagnosis?: No VTE Prior VTE?: No VTE Risk Level:: Medical - moderate - high VTE Device Contraindication: N/A - Device Ordered VTE Drug Contraindication: Treatment Not Indicated
--- NOTE | 2021-12-29 11:19 | MHC.CM.PN ---
pt dcd home no skilled services ordered by
--- NOTE | 2021-12-29 11:30 | PM.DS ---
DS: Providers Provider Date of Service: 12/29/21 Date of admission: 12/27/21 03:56 Primary care physician: Savannah Ortiz MD Consults: 12/27/21 03:55 Consult to General Surgery Routine Consulting Provider: Shawn Mullen Reason for consultation: cholecystitis Has provider been notified: No 12/27/21 04:00 Consult to Gastroenterology Routine Consulting Provider: Aris Rodriguez Reason for consultation: cholecystitis Has provider been notified: No DS: Diagnosis Discharge Diagnosis (1) Acute hepatitis: Status: Acute (2) Thrombocytopenia: Status: Acute (3) Fever: Status: Acute (4) Leukopenia: Status: Acute DS: Summary Hospital Course Hospital Course: Discharge Diagnosis: 1. Acute hepatitis 2. Suspected viral (non hepatitis) illness 3. Leukopenia / thrombocytopenia 4. Fevers 5. Acute cholecystitis ruled out HPI from admission H&P: This is a 56-year-old female with past medical history of depression, hyperlipidemia, osteoarthritis, who presents to the hospital with complaints of generalized fatigue, malaise, low oral intake, fever of 7025713.9, nausea and vomiting, and low intake for the past 5 days.? Patient denies having any abdominal pain diarrhea constipation.? Patient reports no fever or chills.? No previous similar episode.? She denies any chest pain, shortness of breath, no urinary symptoms and no lower extremity edema. On arrival to the ED patient hemodynamically stable with a fever of 101.2 Labs are significant for WBC count of 3.1, platelet of 122 PT of 14.1, INR of 1.2, total bili of 3.1, direct bili of 2.0, AST of 421, ALT of 569, alk-phos of 293, lipase of 40, UA negative, hepatitis panel pending. Abdominal pelvic ultrasound shows periportal edema and gallbladder with thickened wall, abdominal ultrasound was recommended, Abdominal ultrasound showed gallbladder wall thickening/edema which can be seen with cholecystitis, no associated gallstone is seen. Case discussed with GI, patient started on antibiotics and will be admitted for further management Hospital Course: The patient was initially started on IV antibiotics for suspected acute cholecystitis. She was evaluated by both general surgery and GI. She underwent multiple imaging studies including CT/US/MRCP/HIDA scan to evaluate for her abnormal LFTs. HIDA was negative for acute joaquin and gen surg felt that surgical intervention was not warrented. Her acute hep serologies show no infection. Her diet was advanced and antibiotics discontinue (cultures negative to date). Her LFTs are downtrending. No specific cause was found for her presentation / lab findings, but likely a viral illness is the culprit. Rare etiologies such as CMV/EVB/Parvo B12 serologies have been sent and pending at the time of discharge. Her LFTs have improved significantly and an order for repeat lab work in 1 week has been placed. She has been advised to f/u with PCP in 1-2 weeks and to avoid tylenol in the meantime. Time Spent with Patient Time attestation: Total time spent providing and/or coordinating discharge services: Discharge coordination time: Greater than 30 minutes Quality: Safe Use of Opioids Does Pt have an Active Cancer Diagnosis on the Problem List?: No Quality: Stroke Does the patient have a stroke diagnosis?: No Physical Exam Vital Signs: Vital Signs: Last Vital Signs Temp 98.7 F 12/29/21 07:52 Pulse 65 12/29/21 07:52 Resp 18 12/29/21 07:52 BP 114/72 12/29/21 07:52 Pulse Ox 93 12/29/21 07:52 BMI result Body Mass Index 27.4 Const: Other: General - no acute distress, appears comfortable Cardiovascular - regular rate and rhythm, S1-S2 Lungs - normal respiratory effort, clear to auscultation bilaterally, no wheezing Abdomen - soft, nontender, no rebound or guarding Extremities - no edema bilaterally Neuro - awake and alert, no focal deficits DS: Data Data Completed and Pending Labs on day of discharge: Laboratory Results - last 24 hr 12/26/21 12/29/21 12/29/21 19:50 05:56 05:56 WBC 5.7 RBC 4.44 Hgb 13.0 Hct 38.2 MCV 86.0 MCH 29.3 MCHC 34.0 RDW 13.8 Plt Count 196 D MPV 11.1 Absolute Nucleated RBC 0.000 Nucleated RBC % (auto) 0.0 Sodium Potassium Chloride Carbon Dioxide Anion Gap BUN Creatinine Estim Creat Clear Calc Estimated GFR Random Glucose Calcium Total Bilirubin 1.5 H Direct Bilirubin 0.7 H AST 131 H ALT 301 H Alkaline Phosphatase 241 H Lactate Dehydrogenase 383 H C-Reactive Protein 2.57 H Total Protein 5.5 L Albumin 2.7 L Lyme Screen IgG & IgM <0.90 Lyme Progressive Test TNP 12/29/21 05:56 WBC RBC Hgb Hct MCV MCH MCHC RDW Plt Count MPV Absolute Nucleated RBC Nucleated RBC % (auto) Sodium 139 Potassium 3.8 Chloride 105 Carbon Dioxide 27 Anion Gap 11 L BUN 11 Creatinine 0.78 Estim Creat Clear Calc 84.4 Estimated GFR > 60 Random Glucose 93 Calcium 8.0 L Total Bilirubin Direct Bilirubin AST ALT Alkaline Phosphatase Lactate Dehydrogenase C-Reactive Protein Total Protein Albumin Lyme Screen IgG & IgM Lyme Progressive Test Preliminary micro results at discharge 12/26/21 20:46 Blood Culture - Preliminary Blood - Venous No growth after 48 hours. 12/26/21 20:46 Blood Culture - Preliminary Blood - Venous No growth after 48 hours. Discharge Plan Discharge Patient Disposition: Home, Self-Care Discharge Diagnosis: Acute hepatitis Referrals: Savannah Ortiz MD [Primary Care Provider] - 1 Week Discharge Medications: Continued cholecalciferol (vitamin D3) 50 mcg (2,000 unit) tablet 50 mcg PO DAILY Qty: 90 3RF ondansetron HCl 4 mg tablet 4 mg PO Q8H PRN (Reason: nausea and vomiting) 7 Days Qty: 14 0RF escitalopram oxalate [Lexapro] 10 mg Tablet 10 mg PO DAILY 0RF escitalopram oxalate 5 mg tablet 1 tab PO QAM 0RF calcium 500 mg Tablet 500 mg PO DAILY 0RF vitamin B complex Tablet 1 tab PO DAILY 0RF Discharge Orders: Discharge Order (Routine); Ordered 12/29/21 Ordered By: Cali Banks Diet: low fat, low cholesterol Activity on Discharge: As tolerated Stand Alone Forms: Patient Portal Discharge page Other Ambulatory Orders: Liver Panel (Routine) Timeframe: 1 Week Facility: [facility] - Location: Laboratory Ordered By: Cali Banks Care Plan Goals: To stay healthy and out of the hospital Health Concerns: Elevated liver tests Plan of Treatment: Drink plenty of water. Avoid taking tylenol until repeat blood work completed Assessment: see discharge summary
[2021-12-29 11:31] VITALS: BP 103/65; PULSE 75; RESP 18; TEMP 36.8; O2SAT 94
[2021-12-31 18:26] LABS: CMV DNA PCR Qn Source Plasma; CMV DNA Qn PCR Not Detected log IU/mL; CMV DNA Qn Real Time PCR Not Detected
[2022-01-01 17:21] LABS: EBV DNA PCR Not Detected (Not Detected); EBV Source Whole Blood
[2022-01-01 23:37] LABS: Parvovirus B19 IgG 3.79; Parvovirus B19 IgM <0.9
== END 2021-12-29 13:44 | disposition home or self-care (01) ==
LOC: HO.ED 12-27 03:07 → HO.EDOVER 12-27 04:03 → HO.IMC 12-27 23:33
PROVIDERS: Internal Medicine Gastroenterology; Physician Assistant; Student in an Organized Health Care Education/Training Program; Admitting Provider Internal Medicine; Emergency Provider Emergency Medicine; PCP Internal Medicine; Visit Provider Family Medicine
DX: B17.9 Acute viral hepatitis, unspecified (principal); D69.6 Thrombocytopenia, unspecified; F32.A Depression, unspecified; E78.5 Hyperlipidemia, unspecified; G43.909 Migraine, unspecified, not intractable, without status migrainosus; M19.90 Unspecified osteoarthritis, unspecified site; F41.9 Anxiety disorder, unspecified; Z20.822 Contact with and (suspected) exposure to COVID-19; Z88.8 Allergy status to other drugs, medicaments and biological substances; Z87.891 Personal history of nicotine dependence; Z91.040 Latex allergy status; Z79.899 Other long term (current) drug therapy
CPT/HCPCS: 36415; 71045; 74177; 74181; 76705; 76830; 76856; 78226; 80048; 80076; 80143; 81001; 82077; 83605; 83615; 83690; 83735; 85025; 85027; 85610; 85730; 86140; 86308; 86617; 86618; 86704; 86706; 86709; 86747; 86803; 87040; 87340; 87497; 87502; 87635; 87798; 96361; 96365; 96375; 99285; A9537; J2543; J2765; Q9967

== ENCOUNTER 2021-12-31 23:36 | Inpatient (IN) | payer OTHER, SELFPAY ==
--- NOTE | ~2021-12-31 | XR_ITS ---
EXAMINATION: XR CHEST CLINICAL INFORMATION: Chest pain COMPARISON: 12/26/2021 TECHNIQUE: Frontal view of the chest was obtained. FINDINGS: The lungs are clear with no focal consolidation. No evidence of pneumothorax, pulmonary edema, or pleural effusions. The cardiomediastinal silhouette is unremarkable. No acute osseous findings. XR/XR chest 1V IMPRESSION: No acute cardiopulmonary findings.
[2022-01-01 00:01] VITALS: BP 125/73; PULSE 90; RESP 18; TEMP 37.8; O2SAT 96; BMI 29.0
[2022-01-01 00:48] LABS: IDNOW Serial# 55D5AD1C; Influenza A Negative (Negative); Influenza B2 Negative (Negative)
[2022-01-01 00:49] LABS: COVID-19 Test Negative (Negative)
--- NOTE | 2022-01-01 00:51 | ED.GENADULT ---
HPI - General Adult General Chief complaint: General Medical Stated complaint: cholecystitis? Time Seen by Provider: 01/01/22 00:25 History of Present Illness HPI narrative: Patient is a 56-year-old female presents today with having generalized malaise low-grade fever. Headache. Patient was seen in the emergency department and also admitted to the hospital for elevated LFTs. Had hepatitis panel done which were negative. Had a HIDA scan done which was negative. Patient complaining of headache that is generalized. Not associated with neck pain. No diaphoresis. No nausea no vomiting no diarrhea. Patient from home. Patient had workup extensively done last week which were all negative. Hepatitis panel was negative. Was evaluated by GI. Re-evaluated by surgery. Subsequently the liver enzymes trended downward. Patient was then discharged. Came back today because fever develops. No photophobia. No neck pain. Headache is similar to previous admission. Related Data Home Medications Medication Instructions Recorded Confirmed escitalopram oxalate 10 mg tablet 10 mg PO DAILY 05/20/20 12/27/21 (Lexapro) escitalopram oxalate 5 mg tablet 1 tab PO QAM 05/20/20 12/27/21 calcium 500 mg tablet 500 mg PO DAILY 11/29/20 12/27/21 vitamin B complex 1 tab PO DAILY 12/27/21 12/27/21 Previous Rx's Medication Instructions Recorded cholecalciferol (vitamin D3) 50 50 mcg PO DAILY #90 tab 12/11/21 mcg (2,000 unit) tablet ondansetron HCl 4 mg tablet 4 mg PO Q8H PRN 7 Days #14 tab 12/25/21 Allergies Allergy/AdvReac Type Severity Reaction Status Date / Time dextromethorphan Allergy Intermediate BRADYCARDIA Verified 12/26/21 17:40 [From DIMETAPP COLD-CONGESTION] guaifenesin Allergy Intermediate BRADYCARDIA Verified 12/26/21 17:40 [From DIMETAPP COLD-CONGESTION] latex [LATEX] Allergy Intermediate RASH Verified 12/26/21 17:40 phenylephrine Allergy Intermediate BRADYCARDIA Verified 12/26/21 17:40 [From DIMETAPP COLD-CONGESTION] pseudoephedrine Allergy Intermediate BRADYCARDIA Verified 12/26/21 17:40 [From DIMETAPP COLD-CONGESTION] lactose Allergy Stomach Verified 12/26/21 17:40 Upset DAIRY PRODUCTS Allergy Mild PAIN Uncoded 12/26/21 17:40 Metoprolol Allergy Unknown Causes Uncoded 12/26/21 17:40 Depression Review of Systems Review of Systems: Positive fever Positive generalized malaise Yes all other systems are reviewed and are negative [facility] Past Medical History Attestation statement: The following information was validated with the patient. Medical History Benign skin lesion of lower back Carpal tunnel syndrome Chronic left shoulder pain Colonoscopy planned DAVF (dural arteriovenous fistula) Depression Essential thrombocytosis Fatty liver FHx: breast cancer FHx: ovarian cancer Hyperlipidemia Migraine with aura Osteoarthritis Premature ventricular contractions Shoulder pain, bilateral Vitamin D deficiency Surgical History H/O removal of cyst History of knee surgery S/P arteriovenous (AV) fistula repair Family History Family History Mother Mental health disorder Breast CA Uterine cancer Father Throat cancer Unknown Myelofibrosis Maternal Grandmother Breast CA Maternal Uncle Colon cancer Social History Social History Household Members: Spouse Housing: Apartment Are you a primary care director to a significant other at home: No Do you presently have visiting nurse or other home services: No Alcohol intake: former Patient Tobacco Use Status: Former Tobacco user Years Smoked: 6 yrs e-Cigarette/Vaping Use: Never Used Second Hand Smoke Exposure: Yes Advance Directives: No Advance Directives Information Provided: No service: No Current occupational status: employed 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 Was in the hospital last week for similar symptoms at the time had a workup that was not cholecystitis as her HIDA scan was negative. Surgical team was involved in evaluating patient. Her hepatitis panel came back negative. She was discharged with follow-up GI. Once she got home she developed fever headache generalized malaise. While in the ED her chest x-ray was negative. Her urine was negative for infection. Four LFTs are actually improving. However patient did have developed a low-grade fever and did have a headache. She does not have any meningeal signs. Will admit patient for further monitoring overnight. Currently in stable condition. No evidence for sepsis patient's lactate was 1.1. Lab Data Result diagrams: 01/01/22 02:31 01/01/22 02:31 Labs: Lab Results 01/01/22 01/01/22 01/01/22 Range/Units 00:00 00:00 02:31 WBC 9.5 (4.8-10.8) X10*3/uL RBC 4.60 (4.20-5.50) X10*6/uL Hgb 13.4 (12.0-16.0) g/dl Hct 39.6 (37.0-47.0) % MCV 86.1 (80.0-98.0) fL MCH 29.1 (27.0-33.0) pg MCHC 33.8 (31.0-35.0) g/dl RDW 13.9 (11.0-16.0) % Plt Count 303 D (160-400) X10*3/uL MPV 11.4 (9.4-12.3) fL Immature Gran % (Auto) 2.9 H (0.0-0.4) % Neut % (Auto) 49.2 (45-73) % Lymph % (Auto) 41.6 H (20-40) % Crenshaw % (Auto) 5.5 (2-11) % Eos % (Auto) 0.3 (0-4) % Baso % (Auto) 0.5 (0-2) % Lymph # (Auto) 4.0 (1.2-4.9) X10*3/uL Crenshaw # (Auto) 0.5 (0.1-1.2) X10*3/uL Eos # (Auto) 0.0 (0.0-0.4) X10*3/uL Baso # (Auto) 0.1 (0.0-0.2) X10*3/uL Abs Immat Gran (auto) 0.28 H (0.00-0.03) X10*3/uL Absolute Neuts (auto) 4.7 (2.0-8.3) x10*3/uL Absolute Nucleated RBC 0.000 (0.0-0.012) X10*3/uL Nucleated RBC % (auto) 0.0 (0.0-0.2) /100WBC Smear Tech's Comments VERIFIED Sodium (135-145) mmol/L Potassium (3.3-5.1) mmol/L Chloride (96-108) mmol/L Carbon Dioxide (22-29) mmol/L Anion Gap (12-20) BUN (9-16) mg/dL Creatinine (0.5-1.4) mg/dL Estim Creat Clear Calc Estimated GFR Random Glucose (60-115) mg/dL Lactic Acid (0.5-2.0) mmol/L Calcium (8.4-10.2) mg/dL Total Bilirubin (0.0-1.0) mg/dL Direct Bilirubin (0.0-0.5) mg/dL AST (5-31) U/L ALT (0-31) U/L Alkaline Phosphatase (39-117) U/L Total Protein (6.5-8.0) g/dL Albumin (3.5-5.0) g/dL Lipase (8-78) U/L Urine Color Urine Appearance Urine pH (5.0-8.0) Ur Specific Grant (1.005-1.025) Urine Protein (NEG-TRACE) MG/DL Urine Glucose (UA) (NEG) MG/DL Urine Ketones (NEG) MG/DL Urine Blood (NEG) Urine Nitrite (NEG) Ur Leukocyte Esterase (NEG) Urine RBC (0) /HPF Urine WBC (0-4) /HPF Ur Squamous Epith Cells /LPF Urine Bacteria /LPF COVID-19 (ROBERT) Negative (Negative) COVID-19 Clin Com See Note Influenza Type A (EDUIN) Negative (Negative) Influenza Type B (EDUIN) Negative (Negative) Influenza A & B Note See Note 01/01/22 01/01/22 01/01/22 Range/Units 02:31 02:31 03:00 WBC (4.8-10.8) X10*3/uL RBC (4.20-5.50) X10*6/uL Hgb (12.0-16.0) g/dl Hct (37.0-47.0) % MCV (80.0-98.0) fL MCH (27.0-33.0) pg MCHC (31.0-35.0) g/dl RDW (11.0-16.0) % Plt Count (160-400) X10*3/uL MPV (9.4-12.3) fL Immature Gran % (Auto) (0.0-0.4) % Neut % (Auto) (45-73) % Lymph % (Auto) (20-40) % Crenshaw % (Auto) (2-11) % Eos % (Auto) (0-4) % Baso % (Auto) (0-2) % Lymph # (Auto) (1.2-4.9) X10*3/uL Crenshaw # (Auto) (0.1-1.2) X10*3/uL Eos # (Auto) (0.0-0.4) X10*3/uL Baso # (Auto) (0.0-0.2) X10*3/uL Abs Immat Gran (auto) (0.00-0.03) X10*3/uL Absolute Neuts (auto) (2.0-8.3) x10*3/uL Absolute Nucleated RBC (0.0-0.012) X10*3/uL Nucleated RBC % (auto) (0.0-0.2) /100WBC Smear Tech's Comments Sodium 131 L (135-145) mmol/L Potassium 5.4 H D (3.3-5.1) mmol/L Chloride 102 (96-108) mmol/L Carbon Dioxide 21 L (22-29) mmol/L Anion Gap 13 (12-20) BUN 11 (9-16) mg/dL Creatinine 0.80 (0.5-1.4) mg/dL Estim Creat Clear Calc 84.6 Estimated GFR > 60 Random Glucose 113 (60-115) mg/dL Lactic Acid 1.1 (0.5-2.0) mmol/L Calcium 8.1 L (8.4-10.2) mg/dL Total Bilirubin 1.4 H (0.0-1.0) mg/dL Direct Bilirubin 0.6 H (0.0-0.5) mg/dL AST 93 H (5-31) U/L ALT 206 H (0-31) U/L Alkaline Phosphatase 237 H (39-117) U/L Total Protein 6.7 D (6.5-8.0) g/dL Albumin 3.2 L (3.5-5.0) g/dL Lipase 75 (8-78) U/L Urine Color YELLOW Urine Appearance CLEAR Urine pH 7.5 (5.0-8.0) Ur Specific Grant 1.020 (1.005-1.025) Urine Protein NEG (NEG-TRACE) MG/DL Urine Glucose (UA) NEG (NEG) MG/DL Urine Ketones NEG (NEG) MG/DL Urine Blood NEG (NEG) Urine Nitrite NEG (NEG) Ur Leukocyte Esterase NEG (NEG) Urine RBC 0-2 (0) /HPF Urine WBC 1-4 (0-4) /HPF Ur Squamous Epith Cells TRACE /LPF Urine Bacteria TRACE /LPF COVID-19 (ROBERT) (Negative) COVID-19 Clin Com Influenza Type A (EDUIN) (Negative) Influenza Type B (EDUIN) (Negative) Influenza A & B Note Discharge Plan Discharge Clinical Impression: Fever Patient Disposition: Admitted As Inpatient Prescriptions: No Action cholecalciferol (vitamin D3) 50 mcg (2,000 unit) tablet 50 mcg PO DAILY Qty: 90 3RF ondansetron HCl 4 mg tablet 4 mg PO Q8H PRN (Reason: nausea and vomiting) 7 Days Qty: 14 0RF escitalopram oxalate [Lexapro] 10 mg Tablet 10 mg PO DAILY 0RF escitalopram oxalate 5 mg tablet 1 tab PO QAM 0RF calcium 500 mg Tablet 500 mg PO DAILY 0RF vitamin B complex Tablet 1 tab PO DAILY 0RF
[2022-01-01 01:00] VITALS: BP 133/79; PULSE 84; RESP 16; TEMP 37.9; O2SAT 98
--- NOTE | 2022-01-01 02:05 | ECG_ITS ---
Test Reason : FEVER Blood Pressure : / mmHG Vent. Rate : 087 BPM Atrial Rate : 087 BPM P-R Int : 134 ms QRS Dur : 070 ms QT Int : 358 ms P-R-T Axes : 054 021 024 degrees QTc Int : 430 ms Normal sinus rhythm Low voltage QRS Borderline ECG When compared with ECG of 28-APR-2020 00:58, No significant change was found Referred By: Caitlin Swartz Electronically Signed By:LEONIDAS SAMSON
[2022-01-01 02:17] VITALS: BP 136/78; PULSE 86; RESP 16; TEMP 38.2; O2SAT 96
[2022-01-01 02:43] LABS: Basophils Absolute Auto 0.1 X10*3/uL (0.0-0.2); Basophils Percent Auto 0.5 % (0-2); Eosinophils Percent Auto 0.3 % (0-4); Hematocrit 39.6 % (37.0-47.0); Hemoglobin 13.4 g/dl (12.0-16.0); Imm Gran Abs Auto 0.28 X10*3/uL (0.00-0.03); Imm Gran Pct Auto 2.9 % (0.0-0.4); Lymphocytes Percent Auto 41.6 % (20-40); MANUAL DIFF FLAG SCAN; Mean Corpuscular HGB Conc 33.8 g/dl (31.0-35.0); Mean Corpuscular Hemoglobin 29.1 pg (27.0-33.0); Mean Corpuscular Volume 86.1 fL (80.0-98.0); Mean Platelet Volume 11.4 fL (9.4-12.3); Monocytes Absolute Auto 0.5 X10*3/uL (0.1-1.2); Monocytes Percent Auto 5.5 % (2-11); Neutrophils Absolute Auto 4.7 x10*3/uL (2.0-8.3); Neutrophils Percent Auto 49.2 % (45-73); Platelet Count 303 X10*3/uL (160-400); Red Cell Distribution Width 13.9 % (11.0-16.0); SCAN SMEAR FLAG 1; White Blood Count 9.5 X10*3/uL (4.8-10.8)
[2022-01-01 02:57] LABS: Alanine Aminotransferase 206 U/L (0-31); Albumin Level 3.2 g/dL (3.5-5.0); Alkaline Phosphatase 237 U/L (39-117); Anion Gap 13 (12-20); Aspartate Amino Transferase 93 U/L (5-31); Bilirubin Direct 0.6 mg/dL (0.0-0.5); Bilirubin Total 1.4 mg/dL (0.0-1.0); Blood Urea Nitrogen 11 mg/dL (9-16); Calcium 8.1 mg/dL (8.4-10.2); Carbon Dioxide 21 mmol/L (22-29); Chloride 102 mmol/L (96-108); Creatinine Clr Calc Pharmacy 84.6; Estimated Glomerular Filt Rate > 60; Glucose Random 113 mg/dL (60-115); Lipase 75 U/L (8-78); Potassium 5.4 mmol/L (3.3-5.1); Sodium 131 mmol/L (135-145); Total Protein 6.7 g/dL (6.5-8.0)
[2022-01-01 03:01] LABS: Lactic Acid 1.1 mmol/L (0.5-2.0)
[2022-01-01] MEDS: 0.9 % Sodium Chloride 1,000 ML 999 ML IV ×2 (03:05)
[2022-01-01] MEDS: Ketorolac Tromethamine 15 MG/ML VIAL IVPUSH (03:05)
[2022-01-01 03:08] LABS: Appearance Urine CLEAR; Color Urine YELLOW; Glucose Urine UA NEG (NEG); Leukocyte Esterase Urine NEG (NEG); Nitrite Urine NEG (NEG); PH 7.5 (5.0-8.0); Urine Blood NEG (NEG); Urine Ketones NEG (NEG); Urine Protein NEG (NEG-TRACE)
[2022-01-01 03:19] LABS: SLIDE REVIEW VERIFIED
[2022-01-01 03:25] LABS: Bacteria Urine TRACE /LPF; RBC Urine 0-2 /HPF (0); Squamous Epithelial Cell Urine TRACE /LPF
[2022-01-01 04:55] VITALS: BP 124/70; PULSE 73; RESP 16; O2SAT 95
--- NOTE | 2022-01-01 06:47 | PM.IMHP ---
History of Present Illness Date of Service: 01/01/22 Chief Complaint: fever this is a 56-year-old female with past medical history of depression, hyperlipidemia, osteoarthritis, who initially presented to the hospital on 12/27 with generalized fatigue, malaise, low oral intake, and fever,nausea and vomiting and was found to have elevated LFTs.. at that time patient was evaluated by both General surgery and GI, she underwent multiple imaging including CT ultrasound MRCP HIDA scan to evaluate her Abnormal LFTs. HIDA was negative for acute coli and general surgery felt that surgical intervention was not warranted. Acute hep serologies were negative, her of Ts were trending down and therefore patient was discharged and encouraged to follow-up with PCP in 1-2 weeks and have repeat labs. patient returns today complaining that she started having headache, and developed a fever of 101.2 at home. She was concerned and therefore return to the hospital. Otherwise patient reports no abdominal pain nausea or vomiting, no diarrhea constipation, no urinary symptoms no lower extremity edema. No headache or change in vision, no shortness of breath or cough. And no chest pain. On arrival to the ED patient's vitals are significant for temperature of a 100.7 degrees otherwise unremarkable Lab significant for WBC count of 9.5, sodium of 131, potassium of 5.4, calcium of 8.1, bili of 1.4 which is trending down, AST of 93, ALT of 206, alk-phos of 237, albumin of 3.2, UA negative. LFTs are trending down when compared to recent admission. Chest x-ray negative Review of Systems Review of Systems: Yes all other systems are reviewed and are negative [facility] Medical History Benign skin lesion of lower back Carpal tunnel syndrome Chronic left shoulder pain Colonoscopy planned DAVF (dural arteriovenous fistula) Depression Essential thrombocytosis Fatty liver FHx: breast cancer FHx: ovarian cancer Hyperlipidemia Migraine with aura Osteoarthritis Premature ventricular contractions Shoulder pain, bilateral Vitamin D deficiency Family History Mother Mental health disorder Breast CA Uterine cancer Father Throat cancer Unknown Myelofibrosis Maternal Grandmother Breast CA Maternal Uncle Colon cancer Surgical History H/O removal of cyst History of knee surgery S/P arteriovenous (AV) fistula repair Social History Household Members: Spouse Housing: Apartment Are you a primary child care director to a significant other at home: No Do you presently have visiting nurse or other home services: No Alcohol intake: former Patient Tobacco Use Status: Former Tobacco user Years Smoked: 6 yrs e-Cigarette/Vaping Use: Never Used Second Hand Smoke Exposure: Yes Advance Directives: No Advance Directives Information Provided: No service: No Current occupational status: employed 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 Allergies Allergy/AdvReac Type Severity Reaction Status Date / Time dextromethorphan Allergy Intermediate BRADYCARDIA Verified 12/26/21 17:40 [From DIMETAPP COLD-CONGESTION] guaifenesin Allergy Intermediate BRADYCARDIA Verified 12/26/21 17:40 [From DIMETAPP COLD-CONGESTION] latex [LATEX] Allergy Intermediate RASH Verified 12/26/21 17:40 phenylephrine Allergy Intermediate BRADYCARDIA Verified 12/26/21 17:40 [From DIMETAPP COLD-CONGESTION] pseudoephedrine Allergy Intermediate BRADYCARDIA Verified 12/26/21 17:40 [From DIMETAPP COLD-CONGESTION] lactose Allergy Stomach Verified 12/26/21 17:40 Upset DAIRY PRODUCTS Allergy Mild PAIN Uncoded 12/26/21 17:40 Metoprolol Allergy Unknown Causes Uncoded 12/26/21 17:40 Depression Active Medications: Current Medications Acetaminophen (Acetaminophen 325 Mg Tablet) 650 mg PO Q6H PRN PRN Reason: Pain, Mild (Pain Scale 1-3) Enoxaparin Sodium (Enoxaparin Sodium 40 Mg/0.4 Ml Syringe) 40 mg SUBCUT Q24H STEVEN Ondansetron HCl (Ondansetron Hcl 4 Mg/2 Ml Vial) 4 mg IVPUSH Q8H PRN PRN Reason: Nausea and Vomiting Sodium Chloride (0.9 % Sodium Chloride Flush 3 Ml Syringe) 3 ml IVFLUSH QSHIFT [facility] Home Medications Medication Instructions Recorded Confirmed Last Taken Type escitalopram oxalate 10 mg tablet 10 mg PO DAILY 05/20/20 12/27/21 Unknown History (Lexapro) escitalopram oxalate 5 mg tablet 1 tab PO QAM 05/20/20 12/27/21 Unknown History calcium 500 mg tablet 500 mg PO DAILY 11/29/20 12/27/21 Unknown History vitamin B complex 1 tab PO DAILY 12/27/21 12/27/21 Unknown History Physical Exam Vital Signs and Narrative: Vital Signs: Last Vital Signs Temp 100.7 F H 01/01/22 02:17 Pulse 73 01/01/22 04:55 Resp 16 01/01/22 04:55 BP 124/70 01/01/22 04:55 Pulse Ox 95 01/01/22 04:55 BMI result Body Mass Index 29.0 Const: General: cooperative and no acute distress Orientation/consciousness: patient oriented x3 Eyes: General: appearance normal, both eyes and all related structures Pupils: Equal, round and reactive pupils present Resp: Effort & Inspection: normal respiratory effort Auscultation: clear to auscultation bilaterally Cardio: Rate: regular rate Rhythm: regular rhythm GI: Other: abdomen is soft, nontender, no rebound or guarding Palpation (GI): Soft to palpation Auscultation: normal bowel sounds Skin: General skin exam: no rashes or lesions noted Neuro: General: patient oriented x3 Cranial nerves: Yes Equal, round and reactive pupils present Cognition (Neuro): normal cognition Extrem: General: Yes normal to inspection and Yes no pedal edema Results Labs CBC and Chem 7: 01/01/22 02:31 01/01/22 02:31 Labs: Laboratory Results - last 24 hr 01/01/22 01/01/22 01/01/22 00:00 00:00 02:31 MCV 86.1 MCH 29.1 MCHC 33.8 RDW 13.9 Plt Count 303 D MPV 11.4 Immature Gran % (Auto) 2.9 H Neut % (Auto) 49.2 Lymph % (Auto) 41.6 H Chaves % (Auto) 5.5 Eos % (Auto) 0.3 Baso % (Auto) 0.5 Lymph # (Auto) 4.0 Chaves # (Auto) 0.5 Eos # (Auto) 0.0 Baso # (Auto) 0.1 Abs Immat Gran (auto) 0.28 H Absolute Neuts (auto) 4.7 Absolute Nucleated RBC 0.000 Nucleated RBC % (auto) 0.0 Smear Tech's Comments VERIFIED Anion Gap Estim Creat Clear Calc Estimated GFR Random Glucose Lactic Acid Calcium Total Bilirubin Direct Bilirubin AST ALT Alkaline Phosphatase Total Protein Albumin Lipase Urine Color Urine Appearance Urine pH Ur Specific [place] Urine Protein Urine Glucose (UA) Urine Ketones Urine Blood Urine Nitrite Ur Leukocyte Esterase Urine RBC Urine WBC Ur Squamous Epith Cells Urine Bacteria COVID-19 (ROBERT) Negative COVID-19 Clin Com See Note Influenza Type A (EDUIN) Negative Influenza Type B (EDUIN) Negative Influenza A & B Note See Note 01/01/22 01/01/22 01/01/22 02:31 02:31 03:00 MCV MCH MCHC RDW Plt Count MPV Immature Gran % (Auto) Neut % (Auto) Lymph % (Auto) Chaves % (Auto) Eos % (Auto) Baso % (Auto) Lymph # (Auto) Chaves # (Auto) Eos # (Auto) Baso # (Auto) Abs Immat Gran (auto) Absolute Neuts (auto) Absolute Nucleated RBC Nucleated RBC % (auto) Smear Tech's Comments Anion Gap 13 Estim Creat Clear Calc 84.6 Estimated GFR > 60 Random Glucose 113 Lactic Acid 1.1 Calcium 8.1 L Total Bilirubin 1.4 H Direct Bilirubin 0.6 H AST 93 H ALT 206 H Alkaline Phosphatase 237 H Total Protein 6.7 D Albumin 3.2 L Lipase 75 Urine Color YELLOW Urine Appearance CLEAR Urine pH 7.5 Ur Specific [place] 1.020 Urine Protein NEG Urine Glucose (UA) NEG Urine Ketones NEG Urine Blood NEG Urine Nitrite NEG Ur Leukocyte Esterase NEG Urine RBC 0-2 Urine WBC 1-4 Ur Squamous Epith Cells TRACE Urine Bacteria TRACE COVID-19 (ROBERT) COVID-19 Clin Com Influenza Type A (EDUIN) Influenza Type B (EDUIN) Influenza A & B Note Imaging Radiologist's Impressions: Impressions Chest X-Ray 01/01/22 02:50 IMPRESSION: No acute cardiopulmonary findings. Assessment and Plan (1) Fever: Status: Acute (2) Acute hepatitis: Status: Acute Plan 56-year-old female th history as mentioned above who presents to the hospital with fever # febrile - unclear etiology at this time, UA negative, chest x-ray negative, patient with recent history of LFT elevations, possibly the reason for her fever - please see H&P for detailed recent admission regarding the same - at this time with treat her with IV antibiotics - follow cultures - may need repeat HIDA scan # transaminitis /acute hepatitis - LFTs trending down - possibly the reason behind her fever - patient underwent MRCP, HIDA scan, ultrasound and abdominal CT on previous admission with no significant findings - will consult GI # depression anxiety - continue mood stabilizers DVT prophylaxis: Lovenox Quality Stroke Does the patient have a stroke diagnosis?: No VTE Prior VTE?: No VTE Risk Level:: Medical - low VTE Device Contraindication: Treatment Not Indicated VTE Drug Contraindication: N/A - Med Ordered
--- NOTE | 2022-01-01 06:52 | PHA.MEDREC ---
Pharmacy Consult ? Medication Reconciliation Pharmacy has completed the medication reconciliation. Patient just discharged 12[place]/21 [place] [facility] No changes per discharge summary or claim history. Med rec was completed by me on 12/27/21. Chaparrita Mills, InduD
[2022-01-01] MEDS: Escitalopram Oxalate 5 MG TABLET PO (08:23)
[2022-01-01] MEDS: Cholecalciferol (Vitamin D3) 25 MCG TABLET 50 MCG PO (08:23)
[2022-01-01] MEDS: Enoxaparin Sodium 40 MG/0.4 ML SYRINGE SUBCUT (08:23)
[2022-01-01] MEDS: cefTRIAXone sodium 1 GM in 0.9 % Sodium Chloride 50 ML IV (08:23)
[2022-01-01] MEDS: Multivitamin TABLET 1 TAB PO (08:23)
[2022-01-01] MEDS: Escitalopram Oxalate 10 MG TABLET PO (08:23)
[2022-01-01] MEDS: 0.9 % Sodium Chloride Flush 3 ML SYRINGE IVFLUSH (08:24)
[2022-01-01 08:36] VITALS: BP 117/66; PULSE 71; RESP 18; TEMP 37; O2SAT 95
--- NOTE | 2022-01-01 11:00 | PC.NURSE ---
Patient unable to swallow Flagyl pill, cannot be crushed/split. Dr Johnson aware, OK to hold.
--- NOTE | 2022-01-01 11:06 | MHC.CM.PN ---
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
--- NOTE | 2022-01-01 12:43 | W.PM.IDCN ---
History of Present Illness Data of Consult Service Date: 01/01/22 Requesting physician: Oma Johnson Primary Care Provider: Savannah Ortiz MD HPI Reason for consult: fever of unknown origin,hepatitis She presents ER on 12/27 with fever and chills. She has mild hepatitis and CT scan shows evidence of cholecystitis with no specific gallstones and was seen by GI and Surgery She feels better and is interested in leaving. She denies tick exposure or bites Review of Systems Review of Systems: Yes all other systems are reviewed and are negative [facility] Past Medical History Medical History Benign skin lesion of lower back Carpal tunnel syndrome Chronic left shoulder pain Colonoscopy planned DAVF (dural arteriovenous fistula) Depression Essential thrombocytosis Fatty liver FHx: breast cancer FHx: ovarian cancer Hyperlipidemia Migraine with aura Osteoarthritis Premature ventricular contractions Shoulder pain, bilateral Vitamin D deficiency Family History Family History Mother Mental health disorder Breast CA Uterine cancer Father Throat cancer Unknown Myelofibrosis Maternal Grandmother Breast CA Maternal Uncle Colon cancer Surgical History Surgical History H/O removal of cyst History of knee surgery S/P arteriovenous (AV) fistula repair Social History Social History Household Members: Spouse Housing: Apartment Are you a primary healthcare science specialist to a significant other at home: No Do you presently have visiting nurse or other home services: No Alcohol intake: former Patient Tobacco Use Status: Former Tobacco user Years Smoked: 6 yrs e-Cigarette/Vaping Use: Never Used Second Hand Smoke Exposure: Yes Advance Directives: No Advance Directives Information Provided: No service: No Current occupational status: employed 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 Allergies Allergy/AdvReac Type Severity Reaction Status Date / Time dextromethorphan Allergy Intermediate BRADYCARDIA Verified 12/26/21 17:40 [From DIMETAPP COLD-CONGESTION] guaifenesin Allergy Intermediate BRADYCARDIA Verified 12/26/21 17:40 [From DIMETAPP COLD-CONGESTION] latex [LATEX] Allergy Intermediate RASH Verified 12/26/21 17:40 phenylephrine Allergy Intermediate BRADYCARDIA Verified 12/26/21 17:40 [From DIMETAPP COLD-CONGESTION] pseudoephedrine Allergy Intermediate BRADYCARDIA Verified 12/26/21 17:40 [From DIMETAPP COLD-CONGESTION] lactose Allergy Stomach Verified 12/26/21 17:40 Upset DAIRY PRODUCTS Allergy Mild PAIN Uncoded 12/26/21 17:40 Metoprolol Allergy Unknown Causes Uncoded 12/26/21 17:40 Depression Active Medications: Current Medications Acetaminophen (Acetaminophen 325 Mg Tablet) 650 mg PO Q6H PRN PRN Reason: Pain, Mild (Pain Scale 1-3) Calcium Carbonate (Calcium Carbonate 500 Mg Tablet) 500 mg PO DAILY [facility] Last Admin: 01/01/22 08:28 Dose: Not Given Documented by: Cefuroxime Axetil (Cefuroxime Axetil 500 Mg Tablet) 500 mg PO Q12H [facility] Enoxaparin Sodium (Enoxaparin Sodium 40 Mg/0.4 Ml Syringe) 40 mg SUBCUT Q24H [facility] Last Admin: 01/01/22 08:23 Dose: 40 mg Documented by: Escitalopram Oxalate (Escitalopram Oxalate 5 Mg Tablet) 5 mg PO DAILY [facility] Last Admin: 01/01/22 08:23 Dose: 5 mg Documented by: Escitalopram Oxalate (Escitalopram Oxalate 10 Mg Tablet) 10 mg PO DAILY [facility] Last Admin: 01/01/22 08:23 Dose: 10 mg Documented by: Multivitamins/Vitamin C (Multivitamin Tablet) 1 tab PO DAILY [facility] Last Admin: 01/01/22 08:23 Dose: 1 tab Documented by: Ondansetron HCl (Ondansetron Hcl 4 Mg/2 Ml Vial) 4 mg IVPUSH Q8H PRN PRN Reason: Nausea and Vomiting Sodium Chloride (0.9 % Sodium Chloride Flush 3 Ml Syringe) 3 ml IVFLUSH QSHIFT [facility] Last Admin: 01/01/22 08:24 Dose: 3 ml Documented by: Vitamin D (Cholecalciferol (Vitamin D3) 25 Mcg Tablet) 50 mcg PO DAILY [facility] Last Admin: 01/01/22 08:23 Dose: 50 mcg Documented by: Home Medications Medication Instructions Recorded Confirmed Last Taken Type escitalopram oxalate 10 mg tablet 10 mg PO DAILY 05/20/20 01/01/22 Unknown History (Lexapro) escitalopram oxalate 5 mg tablet 1 tab PO QA 05/20/20 01/01/22 Unknown History calcium 500 mg tablet 500 mg PO DAILY 11/29/20 01/01/22 Unknown History vitamin B complex 1 tab PO DAILY 12/27/21 01/01/22 Unknown History Physical Exam Vital Signs: Vital Signs: Last Vital Signs Temp 98.6 F 01/01/22 08:36 Pulse 71 01/01/22 08:36 Resp 18 01/01/22 08:36 BP 117/66 01/01/22 08:36 Pulse Ox 95 01/01/22 08:36 BMI result Body Mass Index 29.0 Const: General: cooperative Eyes: General: appearance normal, both eyes and all related structures Pupils: Equal, round and reactive pupils present Resp: Effort & Inspection: normal respiratory effort Cardio: Rate: regular rate Rhythm: regular rhythm GI: Palpation (GI): Soft to palpation and nontender Skin: General skin exam: no rashes or lesions noted Neuro: Cranial nerves: Yes Equal, round and reactive pupils present Extrem: General: Yes normal to inspection Results Labs CBC & Chem 7: 01/01/22 02:31 01/01/22 02:31 Labs: Short CBC 01/01/22 Range/Units 02:31 WBC 9.5 (4.8-10.8) X10*3/uL Hgb 13.4 (12.0-16.0) g/dl Hct 39.6 (37.0-47.0) % Plt Count 303 D (160-400) X10*3/uL BMP 01/01/22 02:31 Sodium 131 L Potassium 5.4 H D Chloride 102 Carbon Dioxide 21 L BUN 11 Creatinine 0.80 Calcium 8.1 L Liver Function 01/01/22 Range/Units 02:31 Total Bilirubin 1.4 H (0.0-1.0) mg/dL Direct Bilirubin 0.6 H (0.0-0.5) mg/dL AST 93 H (5-31) U/L ALT 206 H (0-31) U/L Alkaline Phosphatase 237 H (39-117) U/L Albumin 3.2 L (3.5-5.0) g/dL Urine 01/01/22 Range/Units 03:00 Urine Color YELLOW Urine Appearance CLEAR Urine pH 7.5 (5.0-8.0) Ur Specific [place] 1.020 (1.005-1.025) Urine Protein NEG (NEG-TRACE) MG/DL Urine Glucose (UA) NEG (NEG) MG/DL Assessment and Plan (1) Fever: Status: Acute There is still concern over tick borne parasitic infection or virus. Apparently there are no signs of cholecystitis. (2) Acute hepatitis: Status: Acute (3) Thrombocytopenia: Status: Acute Plan Po Doxycycline for 10 days cover anaplasma (initial Lyme antibody test negative.)
[2022-01-01 13:37] VITALS: BP 126/72; PULSE 72; RESP 18; TEMP 37.7; O2SAT 98
[2022-01-01 13:57] LABS: Anion Gap 12 (12-20); Blood Urea Nitrogen 8 mg/dL (9-16); Calcium 8.2 mg/dL (8.4-10.2); Carbon Dioxide 22 mmol/L (22-29); Chloride 106 mmol/L (96-108); Creatinine Clr Calc Pharmacy 95.3; Estimated Glomerular Filt Rate > 60; Glucose Random 117 mg/dL (60-115); Potassium 4.7 mmol/L (3.3-5.1); Sodium 135 mmol/L (135-145)
--- NOTE | 2022-01-01 14:12 | P.CDIC_ITS ---
CDI Concurrent Query Documentation Clarification: PHYSICIAN'S DOCUMENTATION REQUEST Date of Query: 01/01/22 1413 Patient Name: Avis Guillen Admit Date: 01/01/22 Dear Doctor, A review of the medical record indicates additional documentation may be needed. Please review below and update the documentation accordingly. Risk Factors/Clinical Indicators/Treatments Temperature 100.7 Heart rate 90 LA 1.1 Per ED note, no sepsis Please clarify which of the following most accurately describes the above abnormalities: * SIRS due to a non-infectious source * Indicate the known or suspected etiology * Indicate if there is associated organ dysfunction, such as renal or respiratory failure * Other * Unable to determine Use of terms such as suspected, likely, concern for, or probable (associated with a specific diagnosis that is being evaluated, monitored, or treated as if it exists) are acceptable and can be coded in the inpatient setting, when documented at the time of discharge. Thank you, Collette Orozco RN Extension: [phone] Please use your independent medical judgment in providing your response. THIS QUERY IS PART OF THE PERMANENT MEDICAL RECORD Provider Response: Other Other Diagnosis: SIRS unknown source
--- NOTE | 2022-01-01 14:48 | PM.DS ---
DS: Providers Provider Date of Service: 01/01/22 Date of admission: 01/01/22 03:45 Primary care physician: Savannah Ortiz MD Consults: 01/01/22 08:43 Consult to Infectious Diseases Routine Consulting Provider: Hattie Tinoco Reason for consultation: fever Has provider been notified: No DS: Diagnosis Discharge Diagnosis (1) Fever: Status: Acute (2) Acute hepatitis: Status: Acute (3) Thrombocytopenia: Status: Acute DS: Summary Hospital Course Hospital Course: Chief Complaint: fever ?this is a 56-year-old female with past medical history of depression, hyperlipidemia, osteoarthritis, who initially presented to the hospital on? 12/27 with generalized fatigue, malaise, low oral intake, and fever,nausea and vomiting and was found to have elevated LFTs..? at that time patient was? evaluated by both General surgery and GI, she underwent multiple imaging including CT ultrasound MRCP HIDA scan to evaluate her ? Abnormal LFTs.? HIDA was negative for acute coli and general surgery felt that surgical intervention was not warranted.? Acute hep serologies were negative, her of Ts were trending down and therefore patient was discharged and encouraged to follow-up with PCP in 1-2 weeks and have repeat labs.? ?patient returns today complaining that she started having headache, and developed a fever of 101.2 at home.? She was concerned and therefore return to the? hospital.? Otherwise patient reports no abdominal pain nausea or vomiting, no diarrhea constipation, no urinary symptoms no lower extremity edema.? No headache or change in vision, no shortness of breath or cough.? And no chest pain. ? On arrival to the ED patient's vitals are significant for temperature of a 100.7 degrees otherwise unremarkable Lab significant for WBC count of 9.5, sodium of 131, potassium of 5.4, calcium of 8.1, bili of 1.4 which is trending down, AST of 93, ALT of 206, alk-phos of 237, albumin of 3.2, UA negative.? LFTs are trending down when compared to recent admission. ? Chest x-ray negative hospital course patient admitted to medical floor due to fever, SIRS, no source of infection was found patient was placed on IV ceftriaxone and Flagyl was subsequently seen by infectious Disease Dr. Simona Tinoco she recommend to discharge patient home on doxycycline 100 mg by mouth b.i.d. to cover for tick-borne parasitic infection or viral infection, initial Lyme antibody test was negative, patient also complained of sinus pressure noted to have right post auricular lymph adenopathy likely has underlying sinusitis, recommend outpatient follow-up with PCP to follow-up on parvovirus and EBV virus serologies pending, LFTs are trending down clinically patient looks stable, recommend outpatient LFTs follow-up patient instructed to use Advil 400 mg every 8 hours only as needed for pain or fever. Time Spent with Patient Time attestation: Total time spent providing and/or coordinating discharge services: Discharge coordination time: Greater than 30 minutes Quality: Safe Use of Opioids Does Pt have an Active Cancer Diagnosis on the Problem List?: No Quality: Stroke Does the patient have a stroke diagnosis?: No Physical Exam Vital Signs: Vital Signs: Last Vital Signs Temp 99.9 F 01/01/22 13:37 Pulse 72 01/01/22 13:37 Resp 18 01/01/22 13:37 BP 126/72 01/01/22 13:37 Pulse Ox 98 01/01/22 13:37 BMI result Body Mass Index 29.0 Const: Other: General Awake alert x3 no acute distress. face no sinus pressure Neck supple no JVD, right posterior auricular lymph node. CVS regular rate rhythm, Respiratory lungs clear to auscultation, no respiratory distress, Gastrointestinal abdomen soft, nontender, bowel sounds audible, no guarding , no rigidity. Extremities no edema. Neuro nonfocal Skin no rash DS: Data Data Completed and Pending Labs on day of discharge: Laboratory Results - last 24 hr 01/01/22 01/01/22 01/01/22 00:00 00:00 02:31 WBC 9.5 RBC 4.60 Hgb 13.4 Hct 39.6 MCV 86.1 MCH 29.1 MCHC 33.8 RDW 13.9 Plt Count 303 D MPV 11.4 Immature Gran % (Auto) 2.9 H Neut % (Auto) 49.2 Lymph % (Auto) 41.[address] [facility] % (Auto) 5.5 Eos % (Auto) 0.3 Baso % (Auto) 0.5 Lymph # (Auto) 4.0 [facility] # (Auto) 0.5 Eos # (Auto) 0.0 Baso # (Auto) 0.1 Abs Immat Gran (auto) 0.28 H Absolute Neuts (auto) 4.7 Absolute Nucleated RBC 0.000 Nucleated RBC % (auto) 0.0 Smear Tech's Comments VERIFIED Sodium Potassium Chloride Carbon Dioxide Anion Gap BUN Creatinine Estim Creat Clear Calc Estimated GFR Random Glucose Lactic Acid Calcium Total Bilirubin Direct Bilirubin AST ALT Alkaline Phosphatase Total Protein Albumin Lipase Urine Color Urine Appearance Urine pH Ur Specific Hilton Urine Protein Urine Glucose (UA) Urine Ketones Urine Blood Urine Nitrite Ur Leukocyte Esterase Urine RBC Urine WBC Ur Squamous Epith Cells Urine Bacteria COVID-19 (ROBERT) Negative COVID-19 Clin Com See Note Influenza Type A (EDUIN) Negative Influenza Type B (EDUIN) Negative Influenza A & B Note See Note 01/01/22 01/01/22 01/01/22 02:31 02:31 03:00 WBC RBC Hgb Hct MCV MCH MCHC RDW Plt Count MPV Immature Gran % (Auto) Neut % (Auto) Lymph % (Auto) [facility] % (Auto) Eos % (Auto) Baso % (Auto) Lymph # (Auto) [facility] # (Auto) Eos # (Auto) Baso # (Auto) Abs Immat Gran (auto) Absolute Neuts (auto) Absolute Nucleated RBC Nucleated RBC % (auto) Smear Tech's Comments Sodium 131 L Potassium 5.4 H D Chloride 102 Carbon Dioxide 21 L Anion Gap 13 BUN 11 Creatinine 0.80 Estim Creat Clear Calc 84.6 Estimated GFR > 60 Random Glucose 113 Lactic Acid 1.1 Calcium 8.1 L Total Bilirubin 1.4 H Direct Bilirubin 0.6 H AST 93 H ALT 206 H Alkaline Phosphatase 237 H Total Protein 6.7 D Albumin 3.2 L Lipase 75 Urine Color YELLOW Urine Appearance CLEAR Urine pH 7.5 Ur Specific Hilton 1.020 Urine Protein NEG Urine Glucose (UA) NEG Urine Ketones NEG Urine Blood NEG Urine Nitrite NEG Ur Leukocyte Esterase NEG Urine RBC 0-2 Urine WBC 1-4 Ur Squamous Epith Cells TRACE Urine Bacteria TRACE COVID-19 (ROBERT) COVID-19 Clin Com Influenza Type A (EDUIN) Influenza Type B (EDUIN) Influenza A & B Note 01/01/22 13:19 WBC RBC Hgb Hct MCV MCH MCHC RDW Plt Count MPV Immature Gran % (Auto) Neut % (Auto) Lymph % (Auto) [facility] % (Auto) Eos % (Auto) Baso % (Auto) Lymph # (Auto) [facility] # (Auto) Eos # (Auto) Baso # (Auto) Abs Immat Gran (auto) Absolute Neuts (auto) Absolute Nucleated RBC Nucleated RBC % (auto) Smear Tech's Comments Sodium 135 Potassium 4.7 Chloride 106 Carbon Dioxide 22 Anion Gap 12 BUN 8 L Creatinine 0.71 Estim Creat Clear Calc 95.3 Estimated GFR > 60 Random Glucose 117 H Lactic Acid Calcium 8.2 L Total Bilirubin Direct Bilirubin AST ALT Alkaline Phosphatase Total Protein Albumin Lipase Urine Color Urine Appearance Urine pH Ur Specific Hilton Urine Protein Urine Glucose (UA) Urine Ketones Urine Blood Urine Nitrite Ur Leukocyte Esterase Urine RBC Urine WBC Ur Squamous Epith Cells Urine Bacteria COVID-19 (ROBERT) COVID-19 Clin Com Influenza Type A (EDUIN) Influenza Type B (EDUIN) Influenza A & B Note Discharge Plan Discharge Patient Disposition: Home, Self-Care Discharge Diagnosis: fever of unknown origin hepatitis sinusitis Referrals: Savannah Ortiz MD [Primary Care Provider] - 1 Week Discharge Medications: New doxycycline hyclate 100 mg tablet 100 mg PO BID Qty: 20 0RF Continued cholecalciferol (vitamin D3) 50 mcg (2,000 unit) tablet 50 mcg PO DAILY Qty: 90 3RF ondansetron HCl 4 mg tablet 4 mg PO Q8H PRN (Reason: nausea and vomiting) 7 Days Qty: 14 0RF escitalopram oxalate [Lexapro] 10 mg Tablet 10 mg PO DAILY 0RF escitalopram oxalate 5 mg tablet 1 tab PO QAM 0RF calcium 500 mg Tablet 500 mg PO DAILY 0RF vitamin B complex Tablet 1 tab PO DAILY 0RF Discharge Orders: Discharge Order (Routine); Ordered 01/01/22 Ordered By: Oma Johnson Diet: advance to usual diet Activity on Discharge: As tolerated Stand Alone Forms: Patient Portal Discharge page Care Plan Goals: take doxycycline 1 tablet twice daily follow up with primary care physician in 1-2 weeks to obtain blood work results from previous hospitalization. Health Concerns: Can take Motrin 400 mg every 8 hours as needed for, headaches or pain Plan of Treatment: outpatient follow-up with primary care physician in 1 week Assessment: as per discharge plan
== END 2022-01-01 17:42 | disposition home or self-care (01) ==
LOC: HO.ED 01-01 03:48 → HO.EDOVER 01-01 03:56
PROVIDERS: Admitting Provider Internal Medicine; Emergency Provider Emergency Medicine Emergency Medical Services; PCP Internal Medicine; Visit Provider Hospitalist
DX: B17.9 Acute viral hepatitis, unspecified (principal); R65.10 Systemic inflammatory response syndrome (SIRS) of non-infectious origin without acute organ dysfunction; D69.6 Thrombocytopenia, unspecified; E78.5 Hyperlipidemia, unspecified; J32.9 Chronic sinusitis, unspecified; F32.A Depression, unspecified; F41.9 Anxiety disorder, unspecified; Z20.822 Contact with and (suspected) exposure to COVID-19; Z85.43 Personal history of malignant neoplasm of ovary; Z87.891 Personal history of nicotine dependence; Z91.040 Latex allergy status; Z88.8 Allergy status to other drugs, medicaments and biological substances; Z79.899 Other long term (current) drug therapy
CPT/HCPCS: 36415; 71045; 80048; 80076; 81001; 83605; 83690; 85025; 87040; 87502; 87635; 93005; 96361; 96374; 99284; 99285; J0696; J1650; J1885

== ENCOUNTER 2022-01-10 10:13 | Outpatient (REF) | payer OTHER, SELFPAY ==
[2022-01-10 11:50] LABS: Alanine Aminotransferase 64 U/L (0-31); Albumin Level 4.1 g/dL (3.5-5.0); Alkaline Phosphatase 169 U/L (39-117); Aspartate Amino Transferase 28 U/L (5-31); Bilirubin Direct 0.6 mg/dL (0.0-0.5); Bilirubin Total 1.6 mg/dL (0.0-1.0)
== END 2022-01-10 10:14 | disposition home or self-care (01) ==
LOC: HO.HMGCLDS 10:13
PROVIDERS: Family Medicine; PCP Internal Medicine; Visit Provider Internal Medicine
DX: R70.1 Abnormal plasma viscosity (principal)
CPT/HCPCS: 36415; 80076

== ENCOUNTER 2022-04-06 14:54 | Outpatient (REF) | payer OTHER, SELFPAY ==
--- NOTE | ~2022-04-06 | MM_ITS ---
EXAMINATION: MM SCREENING DIGITAL BREAST TOMOSYNTHESIS, BILATERAL CLINICAL INFORMATION: Screening. Asymptomatic. The lifetime risk of breast cancer based on the Tyrer-Cuzick Model is 16%. COMPARISON: Mammography: 03/27/2021, 03/21/2020, 03/16/2019 TECHNIQUE: Digital breast tomosynthesis is performed in both the craniocaudal and mediolateral oblique views along with computer-aided detection (CAD). Synthesized 2D images are generated from the tomosynthesis. FINDINGS: There are scattered areas of fibroglandular density (ACR BI-RADS breast composition Category b). There are no significant masses, abnormal calcifications, or other abnormalities. There is biopsy clip marker mid upper outer left breast, posterior upper outer right breast, and a biopsy clip marker posterior 12:00 right breast adjacent to a small stable nodular asymmetry. Neither breast shows developing density or interval architectural abnormality. There are no significant changes. MM/MM tomosynthesis screening BI IMPRESSION: No mammographic evidence of malignancy. ASSESSMENT: BI-RADS 2: Benign RECOMMENDATION: Routine annual mammography screening. This patient's information was entered into a reminder system with a target due date for their next mammogram.
== END 2022-04-06 14:55 | disposition home or self-care (01) ==
LOC: HO.MAMMO 14:54
PROVIDERS: PCP Internal Medicine; Visit Provider Internal Medicine
DX: Z12.31 Encounter for screening mammogram for malignant neoplasm of breast (principal)
CPT/HCPCS: 77063; 77067

== ENCOUNTER 2022-04-21 10:12 | Outpatient (REF) | payer OTHER, SELFPAY ==
[2022-04-21 11:14] LABS: Alanine Aminotransferase 48 U/L (0-31); Albumin Level 4.2 g/dL (3.5-5.0); Alkaline Phosphatase 110 U/L (39-117); Anion Gap 15 (12-20); Aspartate Amino Transferase 34 U/L (5-31); Blood Urea Nitrogen 17 mg/dL (9-16); Calcium 9.4 mg/dL (8.4-10.2); Carbon Dioxide 26 mmol/L (22-29); Chloride 104 mmol/L (96-108); Cholesterol 192 mg/dL; Estimated Glomerular Filt Rate 59; Glucose Fasting 91 mg/dL (60-99); HDL Cholesterol 48 mg/dL; LDL Cholesterol Calculated 126 mg/dl; Potassium 5.1 mmol/L (3.3-5.1); Sodium 140 mmol/L (135-145); Total Protein 7.5 g/dL (6.5-8.0); Triglycerides 94 mg/dL
[2022-04-21 11:31] LABS: Bilirubin Total 1.3 mg/dL (0.0-1.0)
[2022-04-21 11:36] LABS: Vitamin D 25-OH Total 47.5 ng/mL (>30)
== END 2022-04-21 10:13 | disposition home or self-care (01) ==
LOC: HO.LAB 10:12
PROVIDERS: PCP Internal Medicine; Visit Provider Internal Medicine
DX: Z00.01 Encounter for general adult medical examination with abnormal findings (principal); L60.8 Other nail disorders; E78.5 Hyperlipidemia, unspecified; D47.3 Essential (hemorrhagic) thrombocythemia
CPT/HCPCS: 36415; 80053; 80061; 82306

== ENCOUNTER 2022-06-11 14:59 | Outpatient (REF) | payer OTHER, SELFPAY ==
[2022-06-12 01:59] LABS: CT PCR NOT DETECTED (Not Detect.); NG PCR NOT DETECTED (Not Detect.)
[2022-06-12 12:08] LABS: BV Int Neg Control Negative (Negative); BV Int Pos Control Positive (Positive)
[2022-06-14 08:57] LABS: HPV mRNA E6/E7 rflx Not Detected (Not Detected)
== END 2022-06-11 15:00 | disposition home or self-care (01) ==
LOC: HO.LNP 14:59
PROVIDERS: Visit Provider Advanced Practice Midwife
DX: Z01.419 Encounter for gynecological examination (general) (routine) without abnormal findings (principal); Z11.51 Encounter for screening for human papillomavirus (HPV)
CPT/HCPCS: 87480; 87491; 87510; 87591; 87624; 87660; 88142

== ENCOUNTER 2022-09-06 15:21 | Outpatient (REF) | payer OTHER, SELFPAY ==
[2022-09-06 17:41] LABS: Appearance Urine Clear; Color Urine Yellow; Glucose Urine UA Negative (Negative); Leukocyte Esterase Urine Negative (Negative); Nitrite Urine Negative (Negative); PH 5.5 (5.0-9.0); Specific Gravity - Urine 1.025 (1.005-1.025); Urine Blood Negative (Negative); Urine Ketones Negative (Negative); Urine Protein Negative (Neg-Trace)
== END 2022-09-06 15:22 | disposition home or self-care (01) ==
LOC: HO.LAB 15:21
PROVIDERS: PCP Internal Medicine; Visit Provider Internal Medicine
DX: R30.0 Dysuria (principal)
CPT/HCPCS: 81003

== ENCOUNTER 2022-09-27 11:01 | Outpatient (AMB) | payer OTHER, SELFPAY ==
--- NOTE | 2022-09-27 11:04 | MHC.PC.OV ---
Vital Signs 09/27/22 11:16 Height 5 ft 6 in Weight 191 lb BMI 30.8 BP 100/70 Blood Pressure Location Lt brachial Position Sitting Pulse 63 Pulse Source Pulse Oximeter Pulse Oximetry (%) 97 Oxygen Delivery Method Room Air Intake Visit Reasons: menopause sx's during intercourse Intake Note: Pt is here today c/o menopause sx's and painful during intercourse Allergies dextromethorphan [From DIMETAPP COLD-CONGESTION] Allergy (Intermediate, Verified 07/03/23 00:20) BRADYCARDIA guaifenesin [From DIMETAPP COLD-CONGESTION] Allergy (Intermediate, Verified 07/03/23 00:20) BRADYCARDIA latex [LATEX] Allergy (Intermediate, Verified 07/03/23 00:20) RASH phenylephrine [From DIMETAPP COLD-CONGESTION] Allergy (Intermediate, Verified 07/03/23 00:20) BRADYCARDIA pseudoephedrine [From DIMETAPP COLD-CONGESTION] Allergy (Intermediate, Verified 07/03/23 00:20) BRADYCARDIA lactose Allergy (Verified 07/03/23 00:20) Stomach Upset DAIRY PRODUCTS Allergy (Mild, Uncoded 07/03/23 00:20) PAIN Metoprolol Allergy (Unknown, Uncoded 07/03/23 00:20) Causes Depression Medication List - Last Reconciled 07/04/23 by Savannah Ortiz MD aspirin 81 mg PO DAILY calcium 500 mg PO DAILY cholecalciferol (vitamin D3) 50 mcg PO DAILY escitalopram oxalate 1 tab PO QAM escitalopram oxalate (Lexapro) 10 mg PO DAILY multivitamin 1 tab PO DAILY Tobacco use date assessed: 09/27/22 HPI menopause sx's during intercourse HPI Details 57-year-old lady, here today complaining of dyspareunia, and decreased libido, which has been present now for the last 2 years since she stopped having her cycle. She has tried KY jelly, which has not been helpful. Has occasional night sweats, which has not been bothersome She also has been having intermittent low back pain, radiating down right buttock. No history of any injury or trauma. Has been taking [id number] NSAIDs which affords only temporary relief. No accompanying urinary incontinence or difficulty with bowel movements, no weakness reported in extremities. FORMERLY [facility], [facility]–1983 Medical History Transient visual loss of left eye Family history of uterine cancer Vaginal dryness, menopausal Dyspareunia, female Lumbago with sciatica, right side Anxiety and depression Tinea versicolor Acquired deformity of toenail Acute hepatitis Thickening of wall of gallbladder with pericholecystic fluid Vitamin D deficiency Hyperlipidemia Chronic left shoulder pain Migraine with aura Premature ventricular contractions Essential thrombocytosis Fatty liver FHx: ovarian cancer FHx: breast cancer Carpal tunnel syndrome Colonoscopy planned Osteoarthritis DAVF (dural arteriovenous fistula) Essential thrombocytosis Surgical History H/O removal of cyst History of knee surgery S/P arteriovenous (AV) fistula repair Family History Mother Mental health disorder Breast CA Uterine cancer Father Throat cancer Unknown Myelofibrosis Maternal Grandmother Breast CA Maternal Uncle Colon cancer Social History Household Members: Family Housing: Apartment Are you a primary day care supervisor to a significant other at home: No Do you presently have visiting nurse or other home services: No Alcohol intake: never Patient Tobacco Use Status: Former Tobacco user Years Smoked: 6 yrs e-Cigarette/Vaping Use: Never Used Second Hand Smoke Exposure: Yes Advance Directives Date on File: 12/27/21 service: No Current occupational status: employed 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 How often do you have a drink containing alcohol?: Never Total Score: 0 LEAH-7 AMB Questionnaire LEAH-7 Date LEAH - 7 assessed: 04/09/22 Source: Developed by Drs. Von Mansfield, Tracy Otoole, Santi Dumont and colleagues, with an educational roya from [employer]. Review of Systems Const All systems reviewed & are unremarkable except as noted in HPI and below Physical exam (Primary Care) Vital Signs: Last Vital Signs Pulse 63 09/27/22 11:16 BP 100/70 09/27/22 11:16 Pulse Ox 97 09/27/22 11:16 Oxygen Delivery Method Room Air 09/27/22 11:16 BMI result Body Mass Index 30.8 Tobacco/Smoking Status: Tobacco use Status Tobacco use date assessed 09/27/22 09/27/22 11:20 Patient Tobacco Use Status Former Tobacco user 09/27/22 11:05 e-Cigarette/Vaping Use Never Used 09/27/22 11:05 Thrive Assessment: Date of Thrive Assessment Date Thrive assessed 01/10/22 09/27/22 11:05 Const Other: Alert oriented x3, no acute distress noted, ambulatory normal gait Orientation/consciousness: patient oriented x3 Neck Other: Supple with no lymphadenopathy, no carotid bruit appreciated Resp Auscultation: clear to auscultation bilaterally Cardio Rate: regular rate Rhythm: regular rhythm Heart sounds: S1 normal heart sound present and S2 normal heart sound present GI Palpation (GI): Soft to palpation, nontender and no guarding Auscultation: normal bowel sounds General: Yes no CVA tenderness Back/Spine/Pelvis Back: no CVA tenderness Skin General skin exam: no rashes or lesions noted Neuro General: patient oriented x3, gait normal, tone normal, moves all extremities, Normal light touch and pain sensation and no focal motor deficits Assessment and Plan Assessment & Plan (1) Lumbago with sciatica, right side: Code(s): M54.41 - Lumbago with sciatica, right side Plan: Referred for physical therapy for further evaluation and management (2) Dyspareunia, female: Code(s): N94.10 - Unspecified dyspareunia Plan: Referred to OBGYN for further evaluation and management (3) Vaginal dryness, menopausal: Code(s): N95.1 - Menopausal and female climacteric states Plan: Has tried KY jelly in the past which has not been helpful, unable to diet on hormone therapy due to family history of uterine cancer. Referred to OBGYN for further evaluation and management (4) Family history of uterine cancer: Code(s): Z80.49 - Family history of malignant neoplasm of other genital organs Orders: Orders PT Evaluation and Treatment 09/27/22 M54.41 - Lumbago with sciatica, right side Coding Level of Care Code Est Pt Level 3 (48490) Diagnoses Lumbago with sciatica, right side M54.41 Dyspareunia, female N94.10 Vaginal dryness, menopausal N95.1 Family history of uterine cancer Z80.49
[2022-09-27 11:16] VITALS: BP 100/70; PULSE 63; O2SAT 97; BMI 30.8
== END 2022-09-27 11:59 | disposition home or self-care (01) ==
LOC: HO.HMGC 11:01
PROVIDERS: PCP Internal Medicine; Visit Provider Internal Medicine
DX: M54.41 Lumbago with sciatica, right side (principal); N94.10 Unspecified dyspareunia; N95.1 Menopausal and female climacteric states; Z80.49 Family history of malignant neoplasm of other genital organs
CPT/HCPCS: 99213

== ENCOUNTER 2022-10-24 13:11 | Outpatient (REF) | payer OTHER, SELFPAY ==
--- NOTE | ~2022-10-24 | XR_ITS ---
EXAMINATION: XR HAND, RIGHT CLINICAL INFORMATION: Right hand pain COMPARISON: 12/05/2018 TECHNIQUE: PA, lateral, and oblique views of the right hand. FINDINGS: The bones and soft tissues are normal. No fracture. Alignment is anatomic. Joint spaces are maintained. No erosions or soft tissue calcifications. XR/XR hand RT min 3V IMPRESSION: Normal right hand.
--- NOTE | ~2022-10-24 | XR_ITS ---
EXAMINATION: XR HAND, LEFT CLINICAL INFORMATION: Left hand pain COMPARISON: 02/01/2017 TECHNIQUE: PA, lateral, and oblique views of the left hand. FINDINGS: No fracture. Alignment is anatomic. Joint space narrowing and osteophyte formation is seen within the first carpal metacarpal joint space consistent with moderate osteoarthritis. No significant change compared to the prior exam. No erosions or soft tissue calcifications. XR/XR hand LT min 3V IMPRESSION: Stable moderate osteoarthritis of the first carpometacarpal joint space
== END 2022-10-24 13:12 | disposition home or self-care (01) ==
LOC: HO.HOSX 13:11
PROVIDERS: PCP Internal Medicine; Visit Provider Orthopaedic Surgery
DX: R20.0 Anesthesia of skin (principal); M18.11 Unilateral primary osteoarthritis of first carpometacarpal joint, right hand; M18.12 Unilateral primary osteoarthritis of first carpometacarpal joint, left hand
CPT/HCPCS: 20600; 73130; J1020

== ENCOUNTER 2022-11-01 13:08 | Outpatient (AMB) | payer OTHER, SELFPAY ==
--- OUTSIDE RECORDS SUMMARY | 2022-11-01 13:10 | XMS_ITS | Continuity of Care Document ---
Author Name Unknown Organization [facility] Address [address] [place] [address] [address] [place] [address]- Care Team Providers Care Automobile Service Advisor Name Role Phone Liyah Cleveland MD Primary Care Physician [phone] Encounter [facility] Date(s): 02/12/20 - 03/13/20 [facility] [address] [place] [address]- [facility] Allergies, Adverse Reactions, Alerts Substance Reaction Severity Status metoprolol spaces me out, legs feel like lead Active Dairy Digest bloat diarrhea chest pain Ac tive Dimetapp Allergy Liquigel heart rate goes down Active Latex bad rash Active Immunizations Given and Recorded Vaccine Date Status Refusal Reason tetanus-diphtheria toxoids (Td) 1 06/28/06 Given 1Admin Note: VIS GIVEN Medications Acidophilus oral tablet 0 Refills, Maintenance Start Date: 06/04/11 Status: Ordered Ativan 0.5 mg oral tablet 1 tablet = 0.5 mg, By Mouth, 3 times a day, 0 Refills, Maintenance Start Date: 08/29/11 Status: Ordered Celexa 10 mg oral tablet 1 tablet = 10 mg, By Mouth, Daily, # 30 tablet, 0 Refills, Maintenance, Tablet Start Date: 08/20/11 Status: Ordered Flax Seed Oil 0 Refills, Maintenance Start Date: 08/14/11 Status: Ordered Multivitamin By Mouth, Daily, 0 Refills, Maintenance Start Date: 06/04/11 Status: Ordered Vitamin D3 = 800 International_Units, By Mouth, Daily, 0 Refills, Maintenance Start Date: 11/10/12 Status: Ordered Problem List Condition Effective Dates Status Health Status Inform ant Anxiety(Confirmed) 1979 Active AV fistula(Confirmed) Active IBS - Irritable bowel syndrome(Confirmed) 1999 Active Knee pain(Confirmed) 1999 Active Lactose intolerance(Confirmed) 1999 Active Leukopenia(Confirmed) 1 Active 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 Dx: chronic benign neutropenia vs autoimmune neutropenia vs cyclic neutropenia. Neg abd US 11/2009. Observation advised 11/06.
--- NOTE | 2022-11-01 13:11 | A.OFFPC_ITS ---
Vital Signs 11/01/22 13:12 Height 5 ft 6 in Weight 194 lb 4 oz BMI 31.3 BP 94/68 Blood Pressure Location Lt brachial Position Sitting Pulse 73 Pulse Source Pulse Oximeter Pulse Oximetry (%) 97 Oxygen Delivery Method Room Air Intake Visit Reasons: vision concerns Intake Note: Pt is here to discuss vision concerns Allergies dextromethorphan [From DIMETAPP COLD-CONGESTION] Allergy (Intermediate, Verified 07/03/23 00:20) BRADYCARDIA guaifenesin [From DIMETAPP COLD-CONGESTION] Allergy (Intermediate, Verified 07/03/23 00:20) BRADYCARDIA latex [LATEX] Allergy (Intermediate, Verified 07/03/23 00:20) RASH phenylephrine [From DIMETAPP COLD-CONGESTION] Allergy (Intermediate, Verified 07/03/23 00:20) BRADYCARDIA pseudoephedrine [From DIMETAPP COLD-CONGESTION] Allergy (Intermediate, Verified 07/03/23 00:20) BRADYCARDIA lactose Allergy (Verified 07/03/23 00:20) Stomach Upset DAIRY PRODUCTS Allergy (Mild, Uncoded 07/03/23 00:20) PAIN Metoprolol Allergy (Unknown, Uncoded 07/03/23 00:20) Causes Depression Medication List - Last Reconciled 11/01/22 by Savannah Ortiz MD calcium 500 mg PO DAILY cholecalciferol (vitamin D3) 50 mcg PO DAILY escitalopram oxalate 1 tab PO QAM escitalopram oxalate (Lexapro) 10 mg PO DAILY multivitamin 1 tab PO DAILY Tobacco use date assessed: 11/01/22 HPI vision concerns HPI Details 57-year-old lady with hyperlipidemia, rcews s essential thrombocytosis, and vitamin-D deficiency, here today for follow-up. Patient also reports having a fleeting episode of sudden loss of vision in her left eye which resolved on spontaneously several days ago. Denies any eye pain, no frontal headaches, no nausea or vomiting, a febrile. Has been compliant with taking her medications and has been trying to follow recommended diet. No other complaints reported at present time, except for those mentioned above peer [facility] Medical History Transient visual loss of left eye Family history of uterine cancer Vaginal dryness, menopausal Dyspareunia, female Lumbago with sciatica, right side Anxiety and depression Tinea versicolor Acquired deformity of toenail Acute hepatitis Thickening of wall of gallbladder with pericholecystic fluid Vitamin D deficiency Hyperlipidemia Chronic left shoulder pain Migraine with aura Premature ventricular contractions Essential thrombocytosis Fatty liver FHx: ovarian cancer FHx: breast cancer Carpal tunnel syndrome Colonoscopy planned Osteoarthritis DAVF (dural arteriovenous fistula) Essential thrombocytosis Surgical History H/O removal of cyst History of knee surgery S/P arteriovenous (AV) fistula repair Family History Mother Mental health disorder Breast CA Uterine cancer Father Throat cancer Unknown Myelofibrosis Maternal Grandmother Breast CA Maternal Uncle Colon cancer Social History Household Members: Family Housing: Apartment Are you a primary ocular care technician to a significant other at home: No Do you presently have visiting nurse or other home services: No Alcohol intake: never Patient Tobacco Use Status: Former Tobacco user Years Smoked: 6 yrs e-Cigarette/Vaping Use: Never Used Second Hand Smoke Exposure: Yes Advance Directives Date on File: 12/27/21 service: No Current occupational status: employed 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 1. Little interest or pleasure in doing things: not at all 2. Feeling down, depressed, or hopeless: not at all 3. Trouble falling or staying asleep, or sleeping too much: several days 4. Feeling tired or having little energy: several days 5. Poor appetite or overeating: several days 6. Feeling bad about yourself - or that you are a failure or have let yourself or your family down: not at all 7. Trouble concentrating on things, such as reading the newspaper or watching television: several days 8. Moving or speaking so slowly that other people could have noticed. Or the opposite - being so fidgety or restless that you have been moving around a lot more than usual: not at all 9. Thoughts that you would be better off or of hurting yourself in some way: not at all Total score: 4 Depression Screening Interpretation: Negative 21860 - PHQ-9 Billing: Yes Source: Developed by Drs. Von Mansfield, Tracy Otoole, Santi Dumont and colleagues, with an educational roya from [email or web address]. Thrive Questionnaire Declines Thrive assessment: No Date Thrive assessed: 11/01/22 I am a: Patient What is your living situation today?: I have a steady place to live Within the past 12 months, did the food you bought not last and you didn't have the money to get more?: Never true Within the past 12 months, did you worry whether your food would run out before you got money to buy more?: Never true Do you have trouble paying for medicines?: No Do you have trouble getting transportation to medical appointments?: No Do you have trouble paying your heating and electricity bill?: No Do you have trouble taking care of your child, family member or friend?: No Do you have trouble with day-to-day activities such as bathing, preparing meals, shopping, managing finances, etc.?: No Are you currently unemployed and looking for a job?: No Are you interested in more education?: No AUDIT C Alcohol Use Questionnaire (AUDIT-C) 1. How often do you have a drink containing alcohol?: Never Total Score: 0 LEAH-7 AMB Questionnaire LEAH-7 Date LEAH - 7 assessed: 11/01/22 Feeling nervous, anxious, or on edge: 1 = Several days Not being able to stop or control worryin = Several days Worrying too much about different things: 2 = More than half the days Trouble relaxin = Several days Being so restless that it is hard to sit still: 1 = Several days Becoming easily annoyed or irritable: 2 = More than half the days Feeling afraid as if something awful might happen: 1 = Several days Total LEAH-7 score (0-4 normal; 5-9 mild; 10-14 moderate; 15-21 severe): 9 Source: Developed by Drs. Von Mansfield, Tracy Otoole, Santi Dumont and colleagues, with an educational roya from [email or web address]. LEAH-7 Assessment Billing LEAH-7 Assessment Tool: LEAH-7 Assessment 67104 Review of Systems Const All systems reviewed & are unremarkable except as noted in HPI and below Reports no additional complaints Eyes Reports no additional complaints ENT Reports no additional complaints Card Reports no additional complaints Resp Reports no additional complaints GI Reports no additional complaints Reports no additional complaints Musc Reports no additional complaints Skin/Breast Reports system reviewed and no additional complaints, except as documented Neuro Reports no additional complaints Psych Reports no additional complaints Endo Reports no additional complaints Donnie/Lymph Reports no additional complaints Aller/Immun Reports no additional complaints Physical exam (Primary Care) Vital Signs: Last Vital Signs Pulse 73 11/01/22 13:12 BP 94/68 11/01/22 13:12 Pulse Ox 97 11/01/22 13:12 Oxygen Delivery Method Room Air 11/01/22 13:12 BMI result Body Mass Index 31.3 Tobacco/Smoking Status: Tobacco use Status Tobacco use date assessed 11/01/22 11/01/22 13:13 Patient Tobacco Use Status Former Tobacco user 11/01/22 13:13 e-Cigarette/Vaping Use Never Used 11/01/22 13:13 PHQ-9: PHQ-9 Score PHQ-9: Total score 4 11/01/22 13:33 Depression Screening Interpretation: Negative Thrive Assessment: Date of Thrive Assessment Date Thrive assessed 11/01/22 11/01/22 13:32 Const Other: Alert oriented x3, no acute distress noted, ambulatory normal gait Orientation/consciousness: patient oriented x3 HENNY Head: Yes normal to inspection, Yes normocephalic and Yes atraumatic Ears: hearing grossly normal bilaterally, TM's normal bilaterally and EAC's normal General nose exam: Normal external nose present Face and sinus: Yes sinuses nontender and Yes face symmetric Mouth: Normal oral and palatal mucosa present, oropharynx normal and moist mucous membranes Eyes General: appearance normal, both eyes and all related structures Eyelids: Yes eyelids normal Conjunctivae: conjunctivae normal Sclerae: sclerae normal Pupils: Equal, round and reactive pupils present EOM: EOMs intact bilaterally Neck Other: Supple with no lymphadenopathy, no carotid bruit appreciated Chest Chest palpation & inspection: normal inspection of the chest Breast/axilla inspection: normal inspection of the breasts Breast/axilla palpation: normal palpation of the breasts Resp Auscultation: clear to auscultation bilaterally Cardio Rate: regular rate Rhythm: regular rhythm Heart sounds: S1 normal heart sound present and S2 normal heart sound present GI Palpation (GI): Soft to palpation, nontender and no guarding Auscultation: normal bowel sounds General: Yes no CVA tenderness Back/Spine/Pelvis Back: no CVA tenderness and No back tenderness Skin General skin exam: no rashes or lesions noted Neuro General: patient oriented x3, gait normal, tone normal, moves all extremities, Normal light touch and pain sensation and no focal motor deficits Cranial nerves: Yes Equal, round and reactive pupils present Extrem General: Yes normal to inspection, Yes full ROM, Yes no joint enlargement and Yes no clubbing, cyanosis or edema Assessment and Plan Assessment & Plan (1) Transient visual loss of left eye: Code(s): H53.122 - Transient visual loss, left eye Plan: Could be migraine equivalent, currently asymptomatic, advised to go to the ER if she experiences sudden loss of vision again, as it could be a sign of an impending retinal detachment, or a migraine equivalent (2) Essential thrombocytosis: Code(s): D47.3 - Essential (hemorrhagic) thrombocythemia (3) Vitamin D deficiency: Code(s): E55.9 - Vitamin D deficiency, unspecified Plan: Repeat vitamin-D level ordered. Continue with taking cholecalciferol at 50 mcg daily (4) Hyperlipidemia: Code(s): E78.5 - Hyperlipidemia, unspecified Qualifiers: Hyperlipidemia type: mixed hyperlipidemia Qualified Code(s): E78.2 - Mixed hyperlipidemia Plan: Continue with adhering to healthy eating habits and getting regular exercise. Will repeat another fasting lipid panel Orders: Orders Lipid Panel 11/01/22 N95.1 - Menopausal and female climacteric states, D47.3 - Essential (hemorrhagic) thrombocythemia, E55.9 - Vitamin D deficiency, unspecified, E78.5 - Hyperlipidemia, unspecified, H53.122 - Transient visual loss, left eye Complete Blood Count Auto Diff 11/01/22 N95.1 - Menopausal and female climacteric states, D47.3 - Essential (hemorrhagic) thrombocythemia, E55.9 - Vitamin D deficiency, unspecified, E78.5 - Hyperlipidemia, unspecified, H53.122 - Transient visual loss, left eye Comprehensive [place]. Panel Fast 11/01/22 N95.1 - Menopausal and female climacteric states, D47.3 - Essential (hemorrhagic) thrombocythemia, E55.9 - Vitamin D deficiency, unspecified, E78.5 - Hyperlipidemia, unspecified, H53.122 - Transient visual loss, left eye Vitamin D 25-OH Total 11/01/22 N95.1 - Menopausal and female climacteric states, D47.3 - Essential (hemorrhagic) thrombocythemia, E55.9 - Vitamin D deficiency, unspecified, E78.5 - Hyperlipidemia, unspecified, H53.122 - Transient visual loss, left eye Coding Level of Care Code Est Pt Level 4 (10969) Diagnoses Transient visual loss of left eye H53.122 Essential thrombocytosis D47.3 Vitamin D deficiency E55.9 Mixed hyperlipidemia E78.2 Hyperlipidemia type: mixed hyperlipidemia Additional Codes LEAH-7 Assessment Billing - LEAH-7 Assessment Tool: LEAH-7 Assessment 51513 ([id number])
[2022-11-01 13:12] VITALS: BP 94/68; PULSE 73; O2SAT 97; BMI 31.3
== END 2022-11-01 15:07 | disposition home or self-care (01) ==
LOC: HO.HMGC 13:09
PROVIDERS: PCP Internal Medicine; Visit Provider Internal Medicine
DX: H53.122 Transient visual loss, left eye (principal); D47.3 Essential (hemorrhagic) thrombocythemia; E55.9 Vitamin D deficiency, unspecified; E78.2 Mixed hyperlipidemia
CPT/HCPCS: 99214

== ENCOUNTER 2022-11-07 11:59 | Outpatient (REF) | payer OTHER, SELFPAY | END 2022-11-07 12:00 | disposition home or self-care (01) | LOC: HO.LNP 11:59 | PROVIDERS: PCP Internal Medicine; Visit Provider Obstetrics & Gynecology | DX: N84.1 Polyp of cervix uteri (principal); N93.0 Postcoital and contact bleeding; N94.10 Unspecified dyspareunia; R68.82 Decreased libido | CPT/HCPCS: 57500; 88305 ==

== ENCOUNTER 2022-11-22 14:23 | Outpatient (REF) | payer OTHER, SELFPAY ==
--- NOTE | ~2022-11-22 | US_ITS ---
EXAMINATION: US PELVIS CLINICAL INFORMATION: Post coital and contact bleeding. COMPARISON: Pelvic ultrasound 12/27/2021. TECHNIQUE: Ultrasound of the pelvis is performed using both transabdominal and transvaginal transducers along with Doppler. Transvaginal imaging is performed due to inadequate visualization transabdominally. FINDINGS: Uterus: The uterus is retroverted and measures 7.0 x 3.5 x 4.2 cm. The double wall endometrial thickness is 3 mm. The uterus is smooth in contour and has normal myometrial echogenicity. No visible fibroid. Adnexa: Both ovaries are visualized. There is normal color flow to the adnexa. There is no ovarian torsion. There is no pelvic ascites or fluid collection. Bilateral hydrosalpinx. Right ovary measures 1.8 x 0.9 x 1.5 cm. Volume 1.3 mL. Left ovary measures 2.1 x 1.0 x 0.9 cm. Volume 1.0 mL. US/US pelvic and transvaginal IMPRESSION: Stable bilateral hydrosalpinx.
== END 2022-11-22 14:24 | disposition home or self-care (01) ==
LOC: HO.US 14:23
PROVIDERS: PCP Internal Medicine; Visit Provider Obstetrics & Gynecology
DX: N93.0 Postcoital and contact bleeding (principal); N94.10 Unspecified dyspareunia
CPT/HCPCS: 76830; 76856

== ENCOUNTER 2022-11-27 10:12 | Outpatient (REF) | payer OTHER, SELFPAY ==
--- NOTE | ~2022-11-27 | XR_ITS ---
EXAMINATION: XR KNEE, BILATERAL CLINICAL INFORMATION: Knee pain. COMPARISON: 12/05/2018 TECHNIQUE: AP standing views of both knees as well as sunrise and lateral views of each knee. FINDINGS: RIGHT KNEE: There is no evidence of acute fracture or dislocation of the right knee. The medial and lateral joint space compartments are maintained. No right knee effusion is seen. There is severe degenerative change of the lateral facet of the patellofemoral joint with joint space narrowing and prominent bony spurring. This has progressed since previous study of 12/05/2018. LEFT KNEE: There is no evidence of acute fracture or dislocation of the left knee. The medial and lateral joint space compartments are maintained. There is significant degenerative disease of the lateral facet of the patellofemoral joint with marginal spurring which is similar to previous study of 12/05/2018. XR/XR knee LT 2V IMPRESSION: Bilateral significant patellofemoral degenerative joint disease.
--- NOTE | ~2022-11-27 | XR_ITS ---
EXAMINATION: XR KNEE, BILATERAL CLINICAL INFORMATION: Knee pain. COMPARISON: 12/05/2018 TECHNIQUE: AP standing views of both knees as well as sunrise and lateral views of each knee. FINDINGS: RIGHT KNEE: There is no evidence of acute fracture or dislocation of the right knee. The medial and lateral joint space compartments are maintained. No right knee effusion is seen. There is severe degenerative change of the lateral facet of the patellofemoral joint with joint space narrowing and prominent bony spurring. This has progressed since previous study of 12/05/2018. LEFT KNEE: There is no evidence of acute fracture or dislocation of the left knee. The medial and lateral joint space compartments are maintained. There is significant degenerative disease of the lateral facet of the patellofemoral joint with marginal spurring which is similar to previous study of 12/05/2018. XR/XR knee standing BI IMPRESSION: Bilateral significant patellofemoral degenerative joint disease.
--- NOTE | ~2022-11-27 | XR_ITS ---
EXAMINATION: XR KNEE, BILATERAL CLINICAL INFORMATION: Knee pain. COMPARISON: 12/05/2018 TECHNIQUE: AP standing views of both knees as well as sunrise and lateral views of each knee. FINDINGS: RIGHT KNEE: There is no evidence of acute fracture or dislocation of the right knee. The medial and lateral joint space compartments are maintained. No right knee effusion is seen. There is severe degenerative change of the lateral facet of the patellofemoral joint with joint space narrowing and prominent bony spurring. This has progressed since previous study of 12/05/2018. LEFT KNEE: There is no evidence of acute fracture or dislocation of the left knee. The medial and lateral joint space compartments are maintained. There is significant degenerative disease of the lateral facet of the patellofemoral joint with marginal spurring which is similar to previous study of 12/05/2018. XR/XR knee RT 2V IMPRESSION: Bilateral significant patellofemoral degenerative joint disease.
== END 2022-11-27 10:13 | disposition home or self-care (01) ==
LOC: HO.HOSX 10:12
PROVIDERS: Visit Provider Physician Assistant
DX: M17.0 Bilateral primary osteoarthritis of knee (principal)
CPT/HCPCS: 73560; 73565

== ENCOUNTER 2022-11-28 09:46 | Outpatient (REF) | payer OTHER, SELFPAY ==
[2022-11-28 10:09] LABS: MANUAL DIFF FLAG NO
[2022-11-28 10:37] LABS: Basophils Absolute Auto 0.1 X10*3/uL (0.0-0.2); Basophils Percent Auto 1.5 % (0-2); Eosinophils Absolute Auto 0.3 X10*3/uL (0.0-0.4); Eosinophils Percent Auto 4.3 % (0-4); Hematocrit 47.8 % (37.0-47.0); Hemoglobin 15.6 g/dl (12.0-16.0); Imm Gran Abs Auto 0.03 X10*3/uL (0.00-0.03); Imm Gran Pct Auto 0.5 % (0.0-0.4); Lymphocytes Absolute Auto 1.8 X10*3/uL (1.2-4.9); Lymphocytes Percent Auto 31.7 % (20-40); Mean Corpuscular HGB Conc 32.6 g/dl (31.0-35.0); Mean Corpuscular Hemoglobin 29.1 pg (27.0-33.0); Mean Platelet Volume 10.4 fL (9.4-12.3); Monocytes Absolute Auto 0.4 X10*3/uL (0.1-1.2); Monocytes Percent Auto 6.5 % (2-11); Neutrophils Absolute Auto 3.2 x10*3/uL (2.0-8.3); Neutrophils Percent Auto 55.5 % (45-73); Platelet Count 422 X10*3/uL (160-400); Red Blood Count 5.37 X10*6/uL (4.20-5.50); Red Cell Distribution Width 14.3 % (11.0-16.0); White Blood Count 5.8 X10*3/uL (4.8-10.8)
[2022-11-28 11:18] LABS: Alanine Aminotransferase 40 U/L (0-31); Albumin Level 4.1 g/dL (3.5-5.0); Alkaline Phosphatase 104 U/L (39-117); Anion Gap 13 (12-20); Aspartate Amino Transferase 27 U/L (5-31); Bilirubin Total 1.6 mg/dL (0.0-1.0); Blood Urea Nitrogen 14 mg/dL (9-16); Calcium 9.4 mg/dL (8.4-10.2); Carbon Dioxide 28 mmol/L (22-29); Chloride 107 mmol/L (96-108); Cholesterol 186 mg/dL; Estimated Glomerular Filt Rate 57; Glucose Fasting 85 mg/dL (60-99); HDL Cholesterol 45 mg/dL; LDL Cholesterol Calculated 120 mg/dl; Potassium 5.4 mmol/L (3.3-5.1); Sodium 143 mmol/L (135-145); Total Protein 7.2 g/dL (6.5-8.0); Triglycerides 107 mg/dL
[2022-11-28 11:37] LABS: Vitamin D 25-OH Total 59.4 ng/mL (>30)
== END 2022-11-28 09:47 | disposition home or self-care (01) ==
LOC: HO.LAB 09:46
PROVIDERS: PCP Internal Medicine; Visit Provider Internal Medicine
DX: D47.3 Essential (hemorrhagic) thrombocythemia (principal); E55.9 Vitamin D deficiency, unspecified; E78.5 Hyperlipidemia, unspecified; N95.1 Menopausal and female climacteric states; H53.122 Transient visual loss, left eye
CPT/HCPCS: 36415; 80053; 80061; 82306; 85025

== ENCOUNTER 2022-12-04 15:00 | Outpatient (RCR) | payer OTHER, SELFPAY ==
--- NOTE | 2022-10-30 15:55 | MHC.PT.EP ---
[facility] [place] Office [place] [facility] [place] Office [address] Ron Bianchi [address] [phone] F: [phone] F: [phone] F: [phone] F: [phone] Physical Therapy Plan of Care Date of Evaluation: Date of Surgery: N/A Diagnosis: lumbago with sciatica, right side (RC) Assessment: pt is a 57 y/o female presenting to physical therapy w/ referring diagnosis of lumbago with sciatica, right side. Impairments include pain, decreased range of motion, decreased strength, impaired functional mobility, impaired postural awareness, and altered ambulation mechanics. pt is a good candidate for skilled PT due to age, potential remediation of impairments, typical disease/condition progression and prognosis, comorbidities, and motivation. pt would benefit from skilled PT intervention to provide a tailored strengthening and stretching exercise program, functional training, gait training, postural re-training, neuromuscular re-education, modalities as needed for pain, equipment safety demonstration. Frequency and Duration: The patient will be seen 2x/wk for 4 wks Short Term Goals: pt will be I w/ HEP to promote self-management of condition. pt will demo proper sitting posture w/ lumbar roll to promote neutral spine w/ seated ADLs. Distribution Center Administrator Goals: pt will report a statistically significant improvement in self-reported outcome measure, Candis, to promote return to PLOF. pt will report <2/10 low back pain w/ air quality engineer. Treatment Plan: Modalities to reduce pain, spasms and effusion. Manual therapy to restore motion and function. Therapeutic exercise to improve strength and flexibility. Neuromuscular re-education for posture and balance. Therapeutic activities to return to functional activities of daily living. Electronically signed by: Ammy Greene PT, DPT Please sign and return to therapist. Thank you for your referral.
--- NOTE | 2022-12-11 09:47 | MHC.PT.DC ---
[facility] [place] Office [place] Office [place] Office [address] Ron Bianchi [address] [phone] F: [phone] F: [phone] F: [phone] F: [phone] Physical Therapy Discharge Report Diagnosis: lumbago with sciatica, right side (RC) Date of Surgery: N/A Date of Evaluation: 10/30/22 Date of Discharge: 12/11/22 Treatments to Date: 8 Cancellations to Date: 0 No Shows to Date: 0 Discharge Status: Improved Function Independent with HEP Discharge Summary: The patient overall has been reporting a consistent decrease in her back and radicular symptoms. She has been educated in neutral spine posture and neutral spine lifting mechanics. She is independent with her home exercise program and is discharged from this physical therapy plan of care. Electronically signed by: Ammy Greene PT, DPT Please sign and return to therapist. Thank you for your referral.
== END 2022-12-11 09:47 | disposition home or self-care (01) ==
LOC: HO.PT 15:00
PROVIDERS: PCP Internal Medicine; Visit Provider Internal Medicine
DX: M54.41 Lumbago with sciatica, right side (principal)
CPT/HCPCS: 97110; 97140; 97162; 97530

== ENCOUNTER 2022-12-06 13:00 | Outpatient (REF) | payer OTHER, SELFPAY | END 2022-12-06 13:01 | disposition home or self-care (01) | LOC: HO.LNP 13:00 | PROVIDERS: PCP Internal Medicine; Visit Provider Obstetrics & Gynecology | DX: N93.0 Postcoital and contact bleeding (principal) | CPT/HCPCS: 58100; 88305 ==

== ENCOUNTER 2022-12-19 11:24 | Outpatient (REF) | payer OTHER, SELFPAY ==
--- NOTE | 2022-12-19 10:30 | EMG_ITS ---
Please see scanned EMG / Nerve Conduction Report. MTDD
== END 2022-12-19 11:25 | disposition home or self-care (01) ==
LOC: HO.NEURO 11:24
PROVIDERS: PCP Internal Medicine; Visit Provider Orthopaedic Surgery
DX: R20.0 Anesthesia of skin (principal); R20.2 Paresthesia of skin
CPT/HCPCS: 95885; 95913

== ENCOUNTER → 2023-01-02 09:02 | Outpatient (BNVA) | payer OTHER, SELFPAY | PROVIDERS: PCP Internal Medicine; Visit Provider Obstetrics & Gynecology ==

== ENCOUNTER → 2023-01-22 09:39 | Outpatient (BNVA) | payer OTHER, SELFPAY | PROVIDERS: PCP Internal Medicine; Visit Provider Orthopaedic Surgery ==

== ENCOUNTER 2023-01-30 10:00 | Outpatient (RCR) | payer OTHER, SELFPAY ==
--- NOTE | 2022-12-31 16:10 | MHC.PT.EP ---
[facility] [place] Office [place] Office [place] Office [address] Ron Bianchi [address] [phone] F: [phone] F: [phone] F: [phone] F: [phone] Physical Therapy Plan of Care Date of Evaluation: Date of Surgery: N/A Diagnosis: OA of B/L knees (RL) Assessment: pt is a 57 y/o female presenting to physical therapy w/ referring diagnosis of M17.0 bilateral primary osteoarthritis of knee. Impairments include pain, decreased range of motion, decreased strength, impaired functional mobility, impaired postural awareness, and altered ambulation mechanics. pt is a good candidate for skilled PT due to age, potential remediation of impairments, typical disease/condition progression and prognosis, comorbidities, and motivation. pt would benefit from skilled PT intervention to provide a tailored strengthening and stretching exercise program, functional training, gait training, postural re-training, neuromuscular re-education, modalities as needed for pain, equipment safety demonstration. Frequency and Duration: The patient will be seen 2x/wk for 4 wks Short Term Goals: pt will be I w/ HEP to promote self-management of condition. pt will improve B quad strength to at least 4/5 to promote ease in STS transfer. Cotton Sampler Goals: pt will report a statistically significant improvement in self-reported outcome measure, LEFI, to promote return to PLOF. pt will ascend 4 stairs w/ reciprocal pattern w/ minimal UE assist to promote ease in accessing primary living spaces. Treatment Plan: Modalities to reduce pain, spasms and effusion. Manual therapy to restore motion and function. Therapeutic exercise to improve strength and flexibility. Neuromuscular re-education for posture and balance. Therapeutic activities to return to functional activities of daily living. Electronically signed by: Ammy Costa PT, DPT Please sign and return to therapist. Thank you for your referral.
--- NOTE | 2023-02-19 09:21 | MHC.PT.DC ---
[facility] [place] Office [place] Office [place] Office [address] Ron Bianchi [address] [facility] [phone] F: [phone] F: [phone] F: [phone] F: [phone] Physical Therapy Discharge Report Diagnosis: OA of B/L knees (RL) Date of Surgery: N/A Date of Evaluation: 12/31/22 Date of Discharge: 02/19/23 Treatments to Date: 7 Cancellations to Date: 3 No Shows to Date: 0 Discharge Status: Patient Elected to Stop Discharge Summary: The patient cancelled her last two scheduled appointments and has not called to reschedule them in over 2 weeks. She is being discharged from this physical therapy plan of care. At the time of her last appointment she had low mood regarding her physical status. She would often say I have a lot going on. I am not sure what her current emotional/behavioral regimen is for management but this may need to be reviewed to benefit the pt. Electronically signed by: Ammy Costa PT, DPT Please sign and return to therapist. Thank you for your referral.
== END 2023-02-19 09:21 | disposition home or self-care (01) ==
LOC: HO.PT 10:00
PROVIDERS: PCP Internal Medicine; Visit Provider Physician Assistant
DX: M17.0 Bilateral primary osteoarthritis of knee (principal)
CPT/HCPCS: 97110; 97162

== ENCOUNTER 2023-02-02 10:50 | Emergency (ER) | payer OTHER, SELFPAY ==
[2023-02-02 10:59] VITALS: BP 108/54; PULSE 78; RESP 16; TEMP 36.9; O2SAT 97; BMI 31.5
--- NOTE | 2023-02-02 11:07 | ED.EYEPROB ---
HPI - Eye Problem General Chief complaint: Eye Problems Stated complaint: r eye swollen Time Seen by Provider: 02/02/23 10:59 Source: patient Mode of arrival: ambulatory Limitations: no limitations History of Present Illness HPI Narrative: 57 yo female here with 1.5 weeks of right eye irritation/itching/swelling, clear drainage. Went to PCP and given mometasone. She has been alternating heat/ice. She has an appointment Saturday with an opthamologist. She woke this morning with increasing swelling which concerned her. No complaints of vision change, eye pain, headache, fevers, chills. Does use corrective lenses. No contact lens use. Denies injury or trauma. Related Data Home Medications Medication Instructions Recorded Confirmed escitalopram oxalate 10 mg tablet 10 mg PO DAILY 05/20/20 12/03/22 (Lexapro) escitalopram oxalate 5 mg tablet 1 tab PO QAM 05/20/20 12/03/22 calcium 500 mg tablet 500 mg PO DAILY 11/29/20 12/03/22 multivitamin 1 tab PO DAILY 09/27/22 12/03/22 Lactobacillus acidophilus 10 mg PO DAILY 11/07/22 12/03/22 (Acidophilus capsule) aspirin 81 mg tablet,delayed 81 mg PO DAILY 12/06/22 release Previous Rx's Medication Instructions Recorded cholecalciferol (vitamin D3) 50 50 mcg PO DAILY #90 tabs 11/27/22 mcg (2,000 unit) tablet amoxicillin 400 mg-potassium 10 ml PO BID 7 days #140 mL 02/02/23 clavulanate 57 mg/5 mL oral suspension Allergies Allergy/AdvReac Type Severity Reaction Status Date / Time dextromethorphan Allergy Intermediate BRADYCARDIA Verified 01/31/23 08:47 [From DIMETAPP COLD-CONGESTION] guaifenesin Allergy Intermediate BRADYCARDIA Verified 01/31/23 08:47 [From DIMETAPP COLD-CONGESTION] latex [LATEX] Allergy Intermediate RASH Verified 01/31/23 08:47 phenylephrine Allergy Intermediate BRADYCARDIA Verified 01/31/23 08:47 [From DIMETAPP COLD-CONGESTION] pseudoephedrine Allergy Intermediate BRADYCARDIA Verified 01/31/23 08:47 [From DIMETAPP COLD-CONGESTION] lactose Allergy Stomach Verified 01/31/23 08:47 Upset DAIRY PRODUCTS Allergy Mild PAIN Uncoded 01/28/23 12:08 Metoprolol Allergy Unknown Causes Uncoded 01/28/23 12:08 Depression Review of Systems Review of Systems: Yes all other systems are reviewed and are negative Constitutional: Constitutional: Reports no additional constitutional complaints, Denies body ache(s), Denies chills, Denies fever(s), Denies headache(s) and Denies weakness Eyes: Eyes: Reports no additional eye complaints, Denies blurry vision, Denies change in vision, Reports eye discharge (watery), Reports irritation, Reports itchy eyes, Denies eye pain, Reports requires corrective lenses and Denies seeing flashes ENT: Reports system reviewed and no additional complaints, except as documented, Denies dizziness, Denies headache(s), Denies nasal congestion, Denies nasal discharge and Denies neck pain Cardiovascular: Cardiovascular: Reports no additional cardiovascular complaints, Denies chest pain, Denies leg edema and Denies dyspnea Respiratory: Respiratory: Reports no additional respiratory complaints, Denies cough and Denies dyspnea Gastrointestinal: Gastrointestinal: Reports no additional gastrointestinal complaints, Denies abdominal pain, Denies diarrhea, Denies nausea and Denies vomiting Genitourinary: Genitourinary: Reports no additional female genitourinary complaints and Denies urinary incontinence Musculoskeletal: Musculoskeletal: Reports no additional musculoskeletal complaints, Denies back pain, Denies arthralgias, Denies joint swelling, Denies neck pain, Denies numbness and Denies tingling Integumentary/Breasts: Skin/Breast: Reports system reviewed and no additional complaints, except as docu and Denies rash Neurologic: Reports system reviewed and no additional complaints, except as documented, Denies Abnormal speech present, Denies dizziness, Denies headache(s), Denies numbness, Denies tingling and Denies weakness Allergic/Immunologic: Allergic/Immunologic: Reports itchy eyes PMFSH Past Medical History Attestation statement: The following information was validated with the patient. Source: old records reviewed and nursing notes reviewed Medical History Acquired deformity of toenail Acute hepatitis Anxiety and depression Carpal tunnel syndrome Chronic left shoulder pain Colonoscopy planned DAVF (dural arteriovenous fistula) Dyspareunia, female Essential thrombocytosis Essential thrombocytosis Family history of uterine cancer Fatty liver FHx: breast cancer FHx: ovarian cancer Hyperlipidemia Lumbago with sciatica, right side Migraine with aura Osteoarthritis Premature ventricular contractions Thickening of wall of gallbladder with pericholecystic fluid Tinea versicolor Transient visual loss of left eye Vaginal dryness, menopausal Vitamin D deficiency Surgical History H/O removal of cyst History of knee surgery S/P arteriovenous (AV) fistula repair Family History Family History Mother Mental health disorder Breast CA Uterine cancer Father Throat cancer Unknown Myelofibrosis Maternal Grandmother Breast CA Maternal Uncle Colon cancer Social History Social History Household Members: Spouse Housing: Apartment Are you a primary care specialist to a significant other at home: No Do you presently have visiting nurse or other home services: No Alcohol intake: never Patient Tobacco Use Status: Former Tobacco user Years Smoked: 6 yrs Smoked in Last 30 Days: No e-Cigarette/Vaping Use: Never Used Second Hand Smoke Exposure: Yes Use of substances other than those prescribed or required for medical reasons: No Advance Directives: Yes Advance Directives on File: Yes Advance Directives Date on File: 12/27/21 service: No Current occupational status: employed 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 Cognitive needs: No Hearing needs: No Vision needs: Yes Physical Exam Vital Signs: Vital Signs: Last Vital Signs Temp 98.5 F 02/02/23 10:59 Pulse 78 02/02/23 10:59 Resp 16 02/02/23 10:59 BP 108/54 L 02/02/23 10:59 Pulse Ox 97 02/02/23 10:59 O2 Del Method Room Air 02/02/23 10:59 BMI result Body Mass Index 31.5 Const: General: cooperative, healthy appearing, comfortable and no acute distress Orientation/consciousness: patient oriented x3 Limitations: no limitations HEENT: Head: Yes normal to inspection Ears: hearing grossly normal bilaterally and TM's normal bilaterally General nose exam: Normal external nose present Face and sinus: Yes normal facial exam Mouth: Normal oral and palatal mucosa present Throat: Yes posterior oropharynx normal Eyes: Other: IOP right 23 IOP left 22 Visual acuity-see charted General: appearance normal, both eyes and all related structures Visual Henry: normal visual henry by confrontation Alignment and Position: alignment normal Periorbital: periorbital findings abnormal (right periorbital swelling/mild erythema ) Eyelids: Yes other (right mild upper eyelid swelling) Conjunctivae: conjunctival abnormal (mild conjunctival injection ) Sclerae: scleral abnormal (mild right scleral swelling ) Corneas: corneas normal and fluorescein used Pupils: Equal, round and reactive pupils present EOM: EOMs intact bilaterally Direct Ophthalmoscopy: normal light reflex and no photophobia Neck: Neck: Yes normal visual inspection, Yes full ROM and Yes no lymphadenopathy Chest: Chest palpation & inspection: normal inspection of the chest Resp: Effort & Inspection: normal respiratory effort Auscultation: clear to auscultation bilaterally Cardio: Rate: regular rate Rhythm: regular rhythm Peripheral pulses: Peripheral pulses 2+ throughout GI: Inspection: Yes normal to inspection Palpation (GI): Soft to palpation and nontender Auscultation: normal bowel sounds Back/Spine/Pelvis: Thoracic/Lumbar Spine: thoracic and lumbar spine normal to inspection Skin: General skin exam: no rashes or lesions noted Neuro: General: patient oriented x3, no focal motor deficits and normal sensation to monofilament Cranial nerves: Yes Equal, round and reactive pupils present Cognition (Neuro): normal cognition Speech: No Abnormal speech present Gait exam (Neuro): Normal gait present Motor exam (neuro): 5/5 motor strength present throughout Extrem: General: Yes normal to inspection Medications Administered Discontinued Medications Generic Name Dose Route Start Last Admin Trade Name Freq PRN Reason Stop Dose Admin Fluorescein Sodium 1 strip 02/02/23 11:06 02/02/23 11:27 Fluorescein Sodium Strip EYE-RIGHT 02/02/23 11:07 1 strip ONCE ONE Administration Tetracaine HCl 1 drop 02/02/23 11:06 02/02/23 11:27 Tetracaine Hcl/Pf 0.5% Oph Nishi 4 Ml Drops EYE-RIGHT 02/02/23 11:07 1 drop ONCE ONE Administration Medical Decision Making Medical Decision Making MDM Narrative: 57 yo female here with right eye swelling, irritation, itching, clear watery discharge x 1.5 weeks. Woke today with increased swelling. has upcoming appt with opthmo in 48 hrs On exam patient with right periorbital swelling, erythema, eyelid sweling, conjunctival injection and scleral edema with preserved EOM, PERRLA. Fluorescein exam with no FB or abrasion Visual acuity normal Normal IOPS See ddx dx below Likely perirobital cellulitis. Will initiate oral antibiotics (patient needs liquid). We discussed worsening s/s of orbital cellulitis and when to see additional care. Differential Diagnosis Differential Diagnoses: The differential diagnosis associated with the presentation includes low concern for orbital cellulitis with no pain with eom, no eye muscle weakness, perrla, no proctosis or eye pain, no fever periorbital cellulitis corneal fb, corneal abrasion iritis acute glaucome Prescription Management I considered prescription management with: Antibiotic periorbital cellulitis requiring oral abx Discharge Plan Discharge Clinical Impression: Periorbital cellulitis Patient Disposition: Home, Self-Care Instructions: Periorbital Cellulitis in Adults (ED) Additional Instructions: Return for increased pain in the eye, eye weakness, blurry vision or fever >100.4 Seek eye doctor as scheduled on Saturday Prescriptions: New amoxicillin-pot clavulanate 400-57 mg/5 mL suspension for reconstitution 10 ml PO BID 7 Days Qty: 140 0RF No Action cholecalciferol (vitamin D3) 50 mcg (2,000 unit) tablet 50 mcg PO DAILY Qty: 90 1RF escitalopram oxalate [Lexapro] 10 mg Tablet 10 mg PO DAILY escitalopram oxalate 5 mg tablet 1 tab PO QAM calcium 500 mg Tablet 500 mg PO DAILY multivitamin Tablet 1 tab PO DAILY Acidophilus Capsule 10 mg PO DAILY aspirin 81 mg tablet,delayed release (DR/EC) 81 mg PO DAILY Interventions: ED Discharge Assessment Last Done: 02/02/23 11:28 Discharge Date/Time: 02/02/23 11:30
== END 2023-02-02 11:30 | disposition home or self-care (01) ==
PROVIDERS: Emergency Provider Emergency Medicine; PCP Internal Medicine
DX: L03.213 Periorbital cellulitis (principal)
CPT/HCPCS: 99283; 99284

== ENCOUNTER 2023-02-04 13:08 | Inpatient (IN) | payer OTHER, SELFPAY ==
--- NOTE | ~2023-02-04 | MR_ITS ---
EXAMINATION: MR BRAIN WITHOUT AND WITH CONTRAST CLINICAL INFORMATION: history of DAVF, concern about thrombosis COMPARISON: CT orbits 02/04/2023 TECHNIQUE: Multiplanar multisequence MR imaging of the brain was obtained without and following the administration of 9 mL Gadavist intravenous contrast. FINDINGS: There is no acute infarct on diffusion-weighted imaging. There is no intracranial hemorrhage on iron-sensitive imaging. No extra-axial collection or mass effect/herniation. There are several scattered foci of nonspecific supratentorial white matter T2/FLAIR signal abnormality. No hydrocephalus. The ventricles are normal in morphology and size. No abnormal parenchymal or extra-axial enhancement. The major flow voids at the skull base are preserved. The midline structures are normal. The cerebellar tonsils are normally positioned. The craniocervical junction is normal. Marrow signal is within normal limits. Edema and infiltration of the right periorbital and preseptal soft tissues is better assessed on recent CT of the orbits and appears grossly similar. Mild to moderate ethmoid, frontal, and maxillary sinus mucosal thickening. MR/MR head/brain wo/w con IMPRESSION: 1. No acute intracranial abnormality. Please note that this examination is not well tailored for the evaluation of the dural venous sinuses which would be better assessed with CTV or MR venogram and/or a 3-D T1 weighted postcontrast sequence. 2. Imaging findings suggestive of right preseptal cellulitis appear grossly similar and are better assessed on prior CT of the orbits from 02/04/2023.
--- NOTE | ~2023-02-04 | CT_ITS ---
EXAMINATION: CT ORBIT WITH CONTRAST CLINICAL INFORMATION: Orbital cellulitis. Right-sided eye swelling. COMPARISON: None available. TECHNIQUE: Multidetector helical imaging of the orbits was obtained after administration of 85 mL Omnipaque 350 intravenous contrast. Multiple axial reformats and coronal/sagittal reconstructions were created the technologist workstation for review. This CT examination was performed using dose optimization techniques as appropriate, variously including the following: *Automated exposure control. *Adjustment of mA and/or kV according to patient size (this includes techniques or standardized protocols for targeted exams where dose is matched to indication/reason for exam; i.e. extremities or head). *Use of iterative reconstruction technique. DLP: 190 mGy-cm FINDINGS: Normal appearance of the osseous orbits. Moderate nonspecific right-sided preseptal, periorbital edema/enhancement. There appears to be small volume fluid beneath the right upper eyelid. No demonstrated radiopaque foreign bodies. No significant left-sided preseptal or retrobulbar edema. Normal appearance of the globes. Normal symmetric appearance of the extraocular musculature. No abnormalities of the intraconal or extraconal adipose tissue. Normal appearance of the optic nerve sheaths. Normal appearance of the lacrimal glands. No orbital fluid collections. No abnormalities of the orbital apices. Minimal edema within the right premaxillary soft tissues. The left-sided premaxillary soft tissues are normal in appearance. Normal appearance of the bilateral retromaxillary, pterygopalatine fossa, temporal fossa, and parapharyngeal adipose tissue is maintained. No demonstrated abnormalities of the cavernous sinuses. No demonstrated vascular abnormalities. Normal appearance of the zygomatic arches. No nasal bone fracture. The nasal septum remains midline. The mandibular condyles remain well-seated in their respective temporal articular grooves. Moderate degenerative arthropathy of the left greater than right temporomandibular joints. Moderate mucosal thickening of the paranasal sinuses. The mastoid air cells and middle ear cavities remain well aerated. No layering fluid collections. Changes of prior left-sided middle meningeal artery embolization. No additional demonstrated abnormalities of the visualized intracranial structures. CT/CT orbit BI w IV con IMPRESSION: 1. Nonspecific right-sided preseptal, periorbital edema/enhancement. This may be seen with right-sided preseptal cellulitis in the appropriate clinical setting. 2. No demonstrated abnormalities of the globes retrobulbar soft tissues. No demonstrated radiopaque foreign bodies. No additional CT abnormalities of the orbits. 3. Moderate sinonasal mucosal disease. 4. Moderate degenerative arthropathy of the left greater than right temporomandibular joints.
--- NOTE | 2023-02-04 13:12 | ED_ITS ---
HPI - General Adult General Chief complaint: Eye Problems Stated complaint: R eye swelling sent by eye dr Time Seen by Provider: 02/04/23 18:01 Source: patient Mode of arrival: ambulatory Limitations: no limitations History of Present Illness HPI narrative: Patient complaining of right eye swelling for last 10 days was seen here on 02/02 started on Augmentin saw the eye doctor today sent the patient here for further evaluation.? Patient since started on Augmentin 3 days ago still feeling the pressure and is getting worse does not have any pain when she moves her eye but feel pressure patient has CT scan done prior to my evaluation which showed nonspecific right-sided preseptal cellulitis patient was seen by customer experience specialist today and has normal IOP Related Data Home Medications Medication Instructions Recorded Confirmed escitalopram oxalate 10 mg tablet 10 mg PO DAILY 05/20/20 12/03/22 (Lexapro) escitalopram oxalate 5 mg tablet 1 tab PO QAM 05/20/20 12/03/22 calcium 500 mg tablet 500 mg PO DAILY 11/29/20 12/03/22 multivitamin 1 tab PO DAILY 09/27/22 12/03/22 Lactobacillus acidophilus 10 mg PO DAILY 11/07/22 12/03/22 (Acidophilus capsule) aspirin 81 mg tablet,delayed 81 mg PO DAILY 12/06/22 release Previous Rx's Medication Instructions Recorded cholecalciferol (vitamin D3) 50 50 mcg PO DAILY #90 tabs 11/27/22 mcg (2,000 unit) tablet amoxicillin 400 mg-potassium 10 ml PO BID 7 days #140 mL 02/02/23 clavulanate 57 mg/5 mL oral suspension Allergies Allergy/AdvReac Type Severity Reaction Status Date / Time dextromethorphan Allergy Intermediate BRADYCARDIA Verified 02/04/23 13:18 [From DIMETAPP COLD-CONGESTION] guaifenesin Allergy Intermediate BRADYCARDIA Verified 02/04/23 13:18 [From DIMETAPP COLD-CONGESTION] latex [LATEX] Allergy Intermediate RASH Verified 02/04/23 13:18 phenylephrine Allergy Intermediate BRADYCARDIA Verified 02/04/23 13:18 [From DIMETAPP COLD-CONGESTION] pseudoephedrine Allergy Intermediate BRADYCARDIA Verified 02/04/23 13:18 [From DIMETAPP COLD-CONGESTION] lactose Allergy Stomach Verified 02/04/23 13:18 Upset DAIRY PRODUCTS Allergy Mild PAIN Uncoded 02/04/23 13:18 Metoprolol Allergy Unknown Causes Uncoded 02/04/23 13:18 Depression Review of Systems Review of Systems: Yes all other systems are reviewed and are negative [facility] Past Medical History Medical History Acquired deformity of toenail Acute hepatitis Anxiety and depression Carpal tunnel syndrome Chronic left shoulder pain Colonoscopy planned DAVF (dural arteriovenous fistula) Dyspareunia, female Essential thrombocytosis Essential thrombocytosis Family history of uterine cancer Fatty liver FHx: breast cancer FHx: ovarian cancer Hyperlipidemia Lumbago with sciatica, right side Migraine with aura Osteoarthritis Premature ventricular contractions Thickening of wall of gallbladder with pericholecystic fluid Tinea versicolor Transient visual loss of left eye Vaginal dryness, menopausal Vitamin D deficiency Surgical History H/O removal of cyst History of knee surgery S/P arteriovenous (AV) fistula repair Family History Family History Mother Mental health disorder Breast CA Uterine cancer Father Throat cancer Unknown Myelofibrosis Maternal Grandmother Breast CA Maternal Uncle Colon cancer Social History Social History Household Members: Spouse Housing: Apartment Are you a primary clinical care coordinator to a significant other at home: No Do you presently have visiting nurse or other home services: No Alcohol intake: never Patient Tobacco Use Status: Former Tobacco user Years Smoked: 6 yrs e-Cigarette/Vaping Use: Never Used Second Hand Smoke Exposure: Yes Advance Directives: Yes Advance Directives on File: Yes Advance Directives Date on File: 12/27/21 service: No Current occupational status: employed 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 Oriented X3. No acute distress. Eyes: Swelling of the right eye did unable to open the eye with significant chemosis EOMI painless ENT: Pharynx normal. Oral Mucosa moist Neck: Normal inspection. Neck supple. CVS: Normal heart rate and rhythm. Pulses normal. Respiratory: No respiratory distress. Equal air entry bilateral, Abdomen: Soft and nontender. Bowel sounds are present, Skin: Skin warm and dry. Normal skin color. Normal skin turgor. Neuro: Oriented X 3. Course Course Course Narrative: This is an RME: Additional HPI, ROS, PE not included below will be deferred to primary provider. 57 yo F presents w/ pressure, swelling and redness to R eye sent from optometry. Seen here on 02/02/23 and rx amoxicillin. Sent her in for RO orbital cellulitis Plan- labs, imgaing Medications Administered Generic Name Dose Route Start Last Admin Trade Name Freq PRN Reason Stop Dose Admin Vancomycin HCl 2,000 mg in 500 mls @ 250 mls/hr 02/04/23 18:15 02/04/23 18:57 Vancomycin/Ns IV 02/04/23 20:14 250 mls/hr ONCE ONE Administration Discontinued Medications Generic Name Dose Route Start Last Admin Trade Name Freq PRN Reason Stop Dose Admin Piperacillin Sod/Tazobactam 50 mls @ 100 mls/hr 02/04/23 18:15 02/04/23 18:35 Sod 3.375 gm/ Sodium Chloride IV 02/04/23 18:44 100 mls/hr ONCE ONE Administration Iohexol 85 ml 02/04/23 15:43 02/04/23 15:43 Iohexol 350 Mg/Ml 100 Ml Infus..Btl IV 02/04/23 15:44 85 ml ONCE ONE Administration Medical Decision Making Medical Decision Making MDM Narrative: Patient with preseptal cellulitis of the right eye failed outpatient treatment will start patient on IV vancomycin and Zosyn case discussed with Dr. Islas will see the patient in hospital if needed case discussed with hospitalist will admit the patient Consult Healthcare Provider Management of the patient was discussed with: Hospitalist Lab Data MDM Lab Attestation statement: I reviewed the patient's lab results. 02/04/23 14:29 02/04/23 14:29 Labs: Lab Results 02/04/23 02/04/23 02/04/23 Range/Units 14:29 14:29 14:29 WBC 7.2 (4.8-10.8) X10*3/uL RBC 5.46 (4.20-5.50) X10*6/uL Hgb 16.1 H (12.0-16.0) g/dl Hct 48.9 H (37.0-47.0) % MCV 89.6 (80.0-98.0) fL MCH 29.5 (27.0-33.0) pg MCHC 32.9 (31.0-35.0) g/dl RDW 14.5 (11.0-16.0) % Plt Count 483 H (160-400) X10*3/uL MPV 10.6 (9.4-12.3) fL Immature Gran % (Auto) 0.6 H (0.0-0.4) % Neut % (Auto) 60.4 (45-73) % Lymph % (Auto) 22.8 (20-40) % [place] % (Auto) 6.3 (2-11) % Eos % (Auto) 8.5 H (0-4) % Baso % (Auto) 1.4 (0-2) % Lymph # (Auto) 1.6 (1.2-4.9) X10*3/uL [place] # (Auto) 0.5 (0.1-1.2) X10*3/uL Eos # (Auto) 0.6 H (0.0-0.4) X10*3/uL Baso # (Auto) 0.1 (0.0-0.2) X10*3/uL Abs Immat Gran (auto) 0.04 H (0.00-0.03) X10*3/uL Absolute Neuts (auto) 4.3 (2.0-8.3) x10*3/uL Absolute Nucleated RBC 0.000 (0.0-0.012) X10*3/uL Nucleated RBC % (auto) 0.0 (0.0-0.2) /100WBC Sodium 140 (135-145) mmol/L Potassium 4.4 (3.3-5.1) mmol/L Chloride 105 (96-108) mmol/L Carbon Dioxide 25 (22-29) mmol/L Anion Gap 14 (12-20) BUN 19 H (9-16) mg/dL Creatinine 0.98 (0.5-1.4) mg/dL Estim Creat Clear Calc 70.9 Estimated GFR 58 Random Glucose 104 (60-115) mg/dL Lactic Acid 1.4 (0.5-2.0) mmol/L Calcium 10.0 D (8.4-10.2) mg/dL Total Bilirubin 1.5 H (0.0-1.0) mg/dL AST 25 (5-31) U/L ALT 34 H (0-31) U/L Alkaline Phosphatase 96 (39-117) U/L Total Protein 8.2 H (6.5-8.0) g/dL Albumin 4.3 (3.5-5.0) g/dL Beta HCG, Quant mIU/mL 02/04/23 Range/Units 14:29 WBC (4.8-10.8) X10*3/uL RBC (4.20-5.50) X10*6/uL Hgb (12.0-16.0) g/dl Hct (37.0-47.0) % MCV (80.0-98.0) fL MCH (27.0-33.0) pg MCHC (31.0-35.0) g/dl RDW (11.0-16.0) % Plt Count (160-400) X10*3/uL MPV (9.4-12.3) fL Immature Gran % (Auto) (0.0-0.4) % Neut % (Auto) (45-73) % Lymph % (Auto) (20-40) % [place] % (Auto) (2-11) % Eos % (Auto) (0-4) % Baso % (Auto) (0-2) % Lymph # (Auto) (1.2-4.9) X10*3/uL [place] # (Auto) (0.1-1.2) X10*3/uL Eos # (Auto) (0.0-0.4) X10*3/uL Baso # (Auto) (0.0-0.2) X10*3/uL Abs Immat Gran (auto) (0.00-0.03) X10*3/uL Absolute Neuts (auto) (2.0-8.3) x10*3/uL Absolute Nucleated RBC (0.0-0.012) X10*3/uL Nucleated RBC % (auto) (0.0-0.2) /100WBC Sodium (135-145) mmol/L Potassium (3.3-5.1) mmol/L Chloride (96-108) mmol/L Carbon Dioxide (22-29) mmol/L Anion Gap (12-20) BUN (9-16) mg/dL Creatinine (0.5-1.4) mg/dL Estim Creat Clear Calc Estimated GFR Random Glucose (60-115) mg/dL Lactic Acid (0.5-2.0) mmol/L Calcium (8.4-10.2) mg/dL Total Bilirubin (0.0-1.0) mg/dL AST (5-31) U/L ALT (0-31) U/L Alkaline Phosphatase (39-117) U/L Total Protein (6.5-8.0) g/dL Albumin (3.5-5.0) g/dL Beta HCG, Quant 4 mIU/mL Discharge Plan Discharge Clinical Impression: Preseptal cellulitis of right eye Patient Disposition: Admitted As Inpatient
[2023-02-04 13:18] VITALS: BP 127/79; PULSE 71; RESP 19; TEMP 36.6; O2SAT 98; BMI 31.5
[2023-02-04 14:38] LABS: MANUAL DIFF FLAG NO
[2023-02-04 14:39] LABS: Basophils Absolute Auto 0.1 X10*3/uL (0.0-0.2); Basophils Percent Auto 1.4 % (0-2); Eosinophils Absolute Auto 0.6 X10*3/uL (0.0-0.4); Eosinophils Percent Auto 8.5 % (0-4); Hematocrit 48.9 % (37.0-47.0); Hemoglobin 16.1 g/dl (12.0-16.0); Imm Gran Abs Auto 0.04 X10*3/uL (0.00-0.03); Imm Gran Pct Auto 0.6 % (0.0-0.4); Lymphocytes Absolute Auto 1.6 X10*3/uL (1.2-4.9); Lymphocytes Percent Auto 22.8 % (20-40); Mean Corpuscular HGB Conc 32.9 g/dl (31.0-35.0); Mean Corpuscular Hemoglobin 29.5 pg (27.0-33.0); Mean Corpuscular Volume 89.6 fL (80.0-98.0); Mean Platelet Volume 10.6 fL (9.4-12.3); Monocytes Absolute Auto 0.5 X10*3/uL (0.1-1.2); Monocytes Percent Auto 6.3 % (2-11); Neutrophils Absolute Auto 4.3 x10*3/uL (2.0-8.3); Neutrophils Percent Auto 60.4 % (45-73); Platelet Count 483 X10*3/uL (160-400); Red Blood Count 5.46 X10*6/uL (4.20-5.50); Red Cell Distribution Width 14.5 % (11.0-16.0); White Blood Count 7.2 X10*3/uL (4.8-10.8)
[2023-02-04 14:54] LABS: Alanine Aminotransferase 34 U/L (0-31); Albumin Level 4.3 g/dL (3.5-5.0); Alkaline Phosphatase 96 U/L (39-117); Anion Gap 14 (12-20); Aspartate Amino Transferase 25 U/L (5-31); Bilirubin Total 1.5 mg/dL (0.0-1.0); Blood Urea Nitrogen 19 mg/dL (9-16); Carbon Dioxide 25 mmol/L (22-29); Chloride 105 mmol/L (96-108); Creatinine Clr Calc Pharmacy 70.9; Estimated Glomerular Filt Rate 58; Glucose Random 104 mg/dL (60-115); Potassium 4.4 mmol/L (3.3-5.1); Sodium 140 mmol/L (135-145); Total Protein 8.2 g/dL (6.5-8.0)
--- NOTE | 2023-02-04 18:30 | ED_ITS ---
HPI - Eye Problem General Chief complaint: Eye Problems Stated complaint: R eye swelling sent by eye dr Time Seen by Provider: 02/04/23 18:01 Source: patient Mode of arrival: ambulatory Limitations: no limitations History of Present Illness HPI Narrative: Patient complaining of right eye swelling for last 10 days was seen here on 02/02 started on Augmentin saw the eye doctor today sent the patient here for further evaluation. Patient since started on Augmentin 3 days ago still feeling the pressure is getting worse does not have any pain when she moves her eye but feel pressure patient has CT scan done prior to my evaluation which showed nonspecific right-sided Related Data Home Medications Medication Instructions Recorded Confirmed escitalopram oxalate 10 mg tablet 10 mg PO DAILY 05/20/20 12/03/22 (Lexapro) escitalopram oxalate 5 mg tablet 1 tab PO QAM 05/20/20 12/03/22 calcium 500 mg tablet 500 mg PO DAILY 11/29/20 12/03/22 multivitamin 1 tab PO DAILY 09/27/22 12/03/22 Lactobacillus acidophilus 10 mg PO DAILY 11/07/22 12/03/22 (Acidophilus capsule) aspirin 81 mg tablet,delayed 81 mg PO DAILY 12/06/22 release Previous Rx's Medication Instructions Recorded cholecalciferol (vitamin D3) 50 50 mcg PO DAILY #90 tabs 11/27/22 mcg (2,000 unit) tablet amoxicillin 400 mg-potassium 10 ml PO BID 7 days #140 mL 02/02/23 clavulanate 57 mg/5 mL oral suspension Allergies Allergy/AdvReac Type Severity Reaction Status Date / Time dextromethorphan Allergy Intermediate BRADYCARDIA Verified 02/04/23 13:18 [From DIMETAPP COLD-CONGESTION] guaifenesin Allergy Intermediate BRADYCARDIA Verified 02/04/23 13:18 [From DIMETAPP COLD-CONGESTION] latex [LATEX] Allergy Intermediate RASH Verified 02/04/23 13:18 phenylephrine Allergy Intermediate BRADYCARDIA Verified 02/04/23 13:18 [From DIMETAPP COLD-CONGESTION] pseudoephedrine Allergy Intermediate BRADYCARDIA Verified 02/04/23 13:18 [From DIMETAPP COLD-CONGESTION] lactose Allergy Stomach Verified 02/04/23 13:18 Upset DAIRY PRODUCTS Allergy Mild PAIN Uncoded 02/04/23 13:18 Metoprolol Allergy Unknown Causes Uncoded 02/04/23 13:18 Depression PMFSH Past Medical History Medical History Acquired deformity of toenail Acute hepatitis Anxiety and depression Carpal tunnel syndrome Chronic left shoulder pain Colonoscopy planned DAVF (dural arteriovenous fistula) Dyspareunia, female Essential thrombocytosis Essential thrombocytosis Family history of uterine cancer Fatty liver FHx: breast cancer FHx: ovarian cancer Hyperlipidemia Lumbago with sciatica, right side Migraine with aura Osteoarthritis Premature ventricular contractions Thickening of wall of gallbladder with pericholecystic fluid Tinea versicolor Transient visual loss of left eye Vaginal dryness, menopausal Vitamin D deficiency Surgical History H/O removal of cyst History of knee surgery S/P arteriovenous (AV) fistula repair Family History Family History Mother Mental health disorder Breast CA Uterine cancer Father Throat cancer Unknown Myelofibrosis Maternal Grandmother Breast CA Maternal Uncle Colon cancer Social History Social History Household Members: Spouse Housing: Apartment Are you a primary long term care administrator to a significant other at home: No Do you presently have visiting nurse or other home services: No Alcohol intake: never Patient Tobacco Use Status: Former Tobacco user Years Smoked: 6 yrs e-Cigarette/Vaping Use: Never Used Second Hand Smoke Exposure: Yes Advance Directives: Yes Advance Directives on File: Yes Advance Directives Date on File: 12/27/21 service: No Current occupational status: employed 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 Cognitive needs: No Hearing needs: No Vision needs: Yes Physical Exam Vital Signs: Vital Signs: Last Vital Signs Temp 98 F 02/04/23 13:18 Pulse 71 02/04/23 13:18 Resp 19 02/04/23 13:18 BP 127/79 02/04/23 13:18 Pulse Ox 98 02/04/23 13:18 O2 Del Method Room Air 02/04/23 13:18 BMI result Body Mass Index 31.5 Medications Administered Discontinued Medications Generic Name Dose Route Start Last Admin Trade Name Freq PRN Reason Stop Dose Admin Iohexol 85 ml 02/04/23 15:43 02/04/23 15:43 Iohexol 350 Mg/Ml 100 Ml Infus..Btl IV 02/04/23 15:44 85 ml ONCE ONE Administration Medical Decision Making Lab Data 02/04/23 14:29 02/04/23 14:29 Labs: Lab Results 02/04/23 02/04/23 02/04/23 Range/Units 14:29 14:29 14:29 WBC 7.2 (4.8-10.8) X10*3/uL RBC 5.46 (4.20-5.50) X10*6/uL Hgb 16.1 H (12.0-16.0) g/dl Hct 48.9 H (37.0-47.0) % MCV 89.6 (80.0-98.0) fL MCH 29.5 (27.0-33.0) pg MCHC 32.9 (31.0-35.0) g/dl RDW 14.5 (11.0-16.0) % Plt Count 483 H (160-400) X10*3/uL MPV 10.6 (9.4-12.3) fL Immature Gran % (Auto) 0.6 H (0.0-0.4) % Neut % (Auto) 60.4 (45-73) % Lymph % (Auto) 22.8 (20-40) % Garza % (Auto) 6.3 (2-11) % Eos % (Auto) 8.5 H (0-4) % Baso % (Auto) 1.4 (0-2) % Lymph # (Auto) 1.6 (1.2-4.9) X10*3/uL [place]za # (Auto) 0.5 (0.1-1.2) X10*3/uL Eos # (Auto) 0.6 H (0.0-0.4) X10*3/uL Baso # (Auto) 0.1 (0.0-0.2) X10*3/uL Abs Immat Gran (auto) 0.04 H (0.00-0.03) X10*3/uL Absolute Neuts (auto) 4.3 (2.0-8.3) x10*3/uL Absolute Nucleated RBC 0.000 (0.0-0.012) X10*3/uL Nucleated RBC % (auto) 0.0 (0.0-0.2) /100WBC Sodium 140 (135-145) mmol/L Potassium 4.4 (3.3-5.1) mmol/L Chloride 105 (96-108) mmol/L Carbon Dioxide 25 (22-29) mmol/L Anion Gap 14 (12-20) BUN 19 H (9-16) mg/dL Creatinine 0.98 (0.5-1.4) mg/dL Estim Creat Clear Calc 70.9 Estimated GFR 58 Random Glucose 104 (60-115) mg/dL Lactic Acid 1.4 (0.5-2.0) mmol/L Calcium 10.0 D (8.4-10.2) mg/dL Total Bilirubin 1.5 H (0.0-1.0) mg/dL AST 25 (5-31) U/L ALT 34 H (0-31) U/L Alkaline Phosphatase 96 (39-117) U/L Total Protein 8.2 H (6.5-8.0) g/dL Albumin 4.3 (3.5-5.0) g/dL Beta HCG, Quant mIU/mL 02/04/23 Range/Units 14:29 WBC (4.8-10.8) X10*3/uL RBC (4.20-5.50) X10*6/uL Hgb (12.0-16.0) g/dl Hct (37.0-47.0) % MCV (80.0-98.0) fL MCH (27.0-33.0) pg MCHC (31.0-35.0) g/dl RDW (11.0-16.0) % Plt Count (160-400) X10*3/uL MPV (9.4-12.3) fL Immature Gran % (Auto) (0.0-0.4) % Neut % (Auto) (45-73) % Lymph % (Auto) (20-40) % [place] % (Auto) (2-11) % Eos % (Auto) (0-4) % Baso % (Auto) (0-2) % Lymph # (Auto) (1.2-4.9) X10*3/uL [place] # (Auto) (0.1-1.2) X10*3/uL Eos # (Auto) (0.0-0.4) X10*3/uL Baso # (Auto) (0.0-0.2) X10*3/uL Abs Immat Gran (auto) (0.00-0.03) X10*3/uL Absolute Neuts (auto) (2.0-8.3) x10*3/uL Absolute Nucleated RBC (0.0-0.012) X10*3/uL Nucleated RBC % (auto) (0.0-0.2) /100WBC Sodium (135-145) mmol/L Potassium (3.3-5.1) mmol/L Chloride (96-108) mmol/L Carbon Dioxide (22-29) mmol/L Anion Gap (12-20) BUN (9-16) mg/dL Creatinine (0.5-1.4) mg/dL Estim Creat Clear Calc Estimated GFR Random Glucose (60-115) mg/dL Lactic Acid (0.5-2.0) mmol/L Calcium (8.4-10.2) mg/dL Total Bilirubin (0.0-1.0) mg/dL AST (5-31) U/L ALT (0-31) U/L Alkaline Phosphatase (39-117) U/L Total Protein (6.5-8.0) g/dL Albumin (3.5-5.0) g/dL Beta HCG, Quant 4 mIU/mL Discharge Plan Discharge Prescriptions: No Action cholecalciferol (vitamin D3) 50 mcg (2,000 unit) tablet 50 mcg PO DAILY Qty: 90 1RF escitalopram oxalate [Lexapro] 10 mg Tablet 10 mg PO DAILY escitalopram oxalate 5 mg tablet 1 tab PO QAM calcium 500 mg Tablet 500 mg PO DAILY amoxicillin-pot clavulanate 400-57 mg/5 mL suspension for reconstitution 10 ml PO BID 7 Days Qty: 140 0RF multivitamin Tablet 1 tab PO DAILY Acidophilus Capsule 10 mg PO DAILY aspirin 81 mg tablet,delayed release (DR/EC) 81 mg PO DAILY
[2023-02-04] MEDS: Piperacillin Sodium/Tazobactam 3.375 GM in 0.9 % Sodium Chloride 50 ML IV (18:35)
[2023-02-04] MEDS: vancomycin/NS 2,000 MG/500 ML PLAST..BAG 250 MG IV (18:57)
--- NOTE | 2023-02-04 19:53 | PHA.MEDREC ---
Pharmacy Consult ? Medication Reconciliation Pharmacy has completed the medication reconciliation. Patient confirmed all medications. Reports she stopped taking a probiotics when she started the antibiotic. Patient reported she does not take statins anymore. Chaparrita Mills, PharmD
--- NOTE | 2023-02-04 20:13 | P.HPHOSP_ITS ---
I agree with the findings below. Examined, right-sided preseptal cellulitis, no concern for periorbital cellulitis at this time. Patient will be on IV antibiotics. Monitor closely. For full H&P please see below History of Present Illness Date of Service: 02/04/23 Attending physician on admission: Kylah Lees Chief Complaint: right eye swelling 57-year-old female with history of anxiety and depression, essential thrombocytosis, hyperlipidemia, osteoarthritis among others presents to the ED earlier today for evaluation of swelling of the right eye that has been progr essively worsening over the last 10 days. She states she thinks that she may have gotten makeup remover and her eye initially and developed some localized swelling inferior to the right eye that is now also present over the upper lid and periorbital area. She was seen in the ED on 02/02 was started on Augmentin for preseptal cellulitis but the swelling of the eye continues to worsen. She is now unable to open the eye and does feel some pressure but denies any pain with extraocular movements. She was seen by her masonry installer today was told she has normal intra-ocular pressures. In the ED, vital signs stable. No leukocytosis. She did have orbital CT performed which shows a nonspecific ri ght-sided preseptal, periorbital edema/enhancement which may be consistent with right-sided preseptal cellulitis in the appropriate clinical settings. There are no demonstrated abnormalities of the globes retrobulbar soft tissues or any radiopaque foreign bodies. In the ED, was treated with IV vancomycin and Zosyn. Review of Systems Review of Systems: General: No fevers, malaise, unintentional weight loss HEENT: No blurred vision, diplopia. +right-sided periorbital swelling Cardiovascular: No chest pain, palpitations, or leg edema Respiratory: No shortness of breath, wheezing, cough GI: No abdominal pain, nausea, vomiting, diarrhea, constipation, melena, hematochezia : No dysuria, hematuria, increased urinary frequency, decreased urinary output MSK: No myalgia, back pain Neuro: No headaches, weakness, paresthesias Skin: No rashes or lesions PMFSH Medical History Acquired deformity of toenail Acute hepatitis Anxiety and depression Carpal tunnel syndrome Chronic left shoulder pain Colonoscopy planned DAVF (dural arteriovenous fistula) Dyspareunia, female Essential thrombocytosis Essential thrombocytosis Family history of uterine cancer Fatty liver FHx: breast cancer FHx: ovarian cancer Hyperlipidemia Lumbago with sciatica, right side Migraine with aura Osteoarthritis Premature ventricular contractions Thickening of wall of gallbladder with pericholecystic fluid Tinea versicolor Transient visual loss of left eye Vaginal dryness, menopausal Vitamin D deficiency Family History Mother Mental health disorder Breast CA Uterine cancer Father Throat cancer Unknown Myelofibrosis Maternal Grandmother Breast CA Maternal Uncle Colon cancer Surgical History H/O removal of cyst History of knee surgery S/P arteriovenous (AV) fistula repair Social History Household Members: Spouse Housing: Apartment Are you a primary care tech to a significant other at home: No Do you presently have visiting nurse or other home services: No Alcohol intake: never Patient Tobacco Use Status: Former Tobacco user Years Smoked: 6 yrs e-Cigarette/Vaping Use: Never Used Second Hand Smoke Exposure: Yes Advance Directives: Yes Advance Directives on File: Yes Advance Directives Date on File: 12/27/21 service: No Current occupational status: employed 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 Cognitive needs: No Hearing needs: No Vision needs: Yes Meds Allergies Allergy/AdvReac Type Severity Reaction Status Date / Time dextromethorphan Allergy Intermediate BRADYCARDIA Verified 02/04/23 13:18 [From DIMETAPP COLD-CONGESTION] guaifenesin Allergy Intermediate BRADYCARDIA Verified 02/04/23 13:18 [From DIMETAPP COLD-CONGESTION] latex [LATEX] Allergy Intermediate RASH Verified 02/04/23 13:18 phenylephrine Allergy Intermediate BRADYCARDIA Verified 02/04/23 13:18 [From DIMETAPP COLD-CONGESTION] pseudoephedrine Allergy Intermediate BRADYCARDIA Verified 02/04/23 13:18 [From DIMETAPP COLD-CONGESTION] lactose Allergy Stomach Verified 02/04/23 13:18 Upset DAIRY PRODUCTS Allergy Mild PAIN Uncoded 02/04/23 13:18 Metoprolol Allergy Unknown Causes Uncoded 02/04/23 13:18 Depression Active Medications: Current Medications Acetaminophen (Acetaminophen 325 Mg Tablet) 650 mg PO Q6H PRN PRN Reason: Pain, Mild (Pain Scale 1-3) Docusate Sodium (Docusate Sodium 100 Mg Capsule) 100 mg PO DAILY PRN PRN Reason: Constipation Enoxaparin Sodium (Enoxaparin Sodium 40 Mg/0.4 Ml Syringe) 40 mg SUBCUT Q24H STEVEN Vancomycin HCl (Vancomycin/Ns) 2,000 mg in 500 mls @ 250 mls/hr IV ONCE ONE Stop: 02/04/23 20:14 Last Admin: 02/04/23 18:57 Dose: 250 mls/hr Ceftriaxone Sodium 1 gm/ (Sodium Chloride) 50 mls @ 100 mls/hr IV Q24H STEVEN Ondansetron HCl (Ondansetron Hcl 4 Mg/2 Ml Vial) 4 mg IVPUSH Q8H PRN PRN Reason: Nausea and Vomiting Pharmacy Consult (Consult Rx Vancomycin Dosing) 1 each MISCELLANE DAILY PRN PRN Reason: Consult order Pharmacy Consult (Consult Rx Perform Med Rec) 1 each MISCELLANE ONCE PRN PRN Reason: Consult order Sodium Chloride (0.9 % Sodium Chloride Flush 3 Ml Syringe) 3 ml IVFLUSH QSHIFT PENDING SALE TO [facility] Home Medications Medication Instructions Recorded Confirmed Last Taken Type escitalopram oxalate 10 mg tablet 10 mg PO DAILY 05/20/20 02/04/23 02/04/23 History (Lexapro) escitalopram oxalate 5 mg tablet 1 tab PO QAM 05/20/20 02/04/23 02/04/23 History calcium 500 mg tablet 500 mg PO DAILY 11/29/20 02/04/23 02/04/23 History multivitamin 1 tab PO DAILY 09/27/22 02/04/23 02/04/23 History aspirin 81 mg tablet,delayed 81 mg PO DAILY 12/06/22 02/04/23 02/04/23 History release Physical Exam Vital Signs and Narrative: Vital Signs: Last Vital Signs Temp 98 F 02/04/23 13:18 Pulse 71 02/04/23 13:18 Resp 19 02/04/23 13:18 BP 127/79 02/04/23 13:18 Pulse Ox 98 02/04/23 13:18 O2 Del Method Room Air 02/04/23 13:18 BMI result Body Mass Index 31.5 Constitutional - Awake and Alert, No apparent distress Eyes - PERRLA, EOMI. No pain with EOMs. +significant right sided periorbital edema affected the upper and lower lids with inability to open eye actively. There also appears to be conjunctival injection. See photo Cardiovascular - S1S2, RRR, No edema Respiratory - Normal lung expansion, Normal respiratory effort, No respiratory distress, CTA bilaterally Extremities - no calf tenderness bilaterally, no swelling Skin - Warm/Dry Neurological - Alert & oriented x3 Psychological - Appropriate affect Results Labs 02/04/23 14:29 02/04/23 14:29 Labs: Laboratory Results - last 24 hr 02/04/23 02/04/23 02/04/23 14:29 14:29 14:29 MCV 89.6 MCH 29.5 MCHC 32.9 RDW 14.5 Plt Count 483 H MPV 10.6 Immature Gran % (Auto) 0.6 H Neut % (Auto) 60.4 Lymph % (Auto) 22.8 [place] % (Auto) 6.3 Eos % (Auto) 8.5 H Baso % (Auto) 1.4 Lymph # (Auto) 1.6 [place] # (Auto) 0.5 Eos # (Auto) 0.6 H Baso # (Auto) 0.1 Abs Immat Gran (auto) 0.04 H Absolute Neuts (auto) 4.3 Absolute Nucleated RBC 0.000 Nucleated RBC % (auto) 0.0 Anion Gap 14 Estim Creat Clear Calc 70.9 Estimated GFR 58 Random Glucose 104 Lactic Acid 1.4 Calcium 10.0 D Total Bilirubin 1.5 H AST 25 ALT 34 H Alkaline Phosphatase 96 Total Protein 8.2 H Albumin 4.3 Beta HCG, Quant 02/04/23 14:29 MCV MCH MCHC RDW Plt Count MPV Immature Gran % (Auto) Neut % (Auto) Lymph % (Auto) [place] % (Auto) Eos % (Auto) Baso % (Auto) Lymph # (Auto) [place] # (Auto) Eos # (Auto) Baso # (Auto) Abs Immat Gran (auto) Absolute Neuts (auto) Absolute Nucleated RBC Nucleated RBC % (auto) Anion Gap Estim Creat Clear Calc Estimated GFR Random Glucose Lactic Acid Calcium Total Bilirubin AST ALT Alkaline Phosphatase Total Protein Albumin Beta HCG, Quant 4 Imaging Radiologist's Impressions: Impressions Orbit CT 02/04/23 15:41 IMPRESSION: 1. Nonspecific right-sided preseptal, periorbital edema/enhancement. This may be seen with right-sided preseptal cellulitis in the appropriate clinical setting. 2. No demonstrated abnormalities of the globes retrobulbar soft tissues. No demonstrated radiopaque foreign bodies. No additional CT abnormalities of the orbits. 3. Moderate sinonasal mucosal disease. 4. Moderate degenerative arthropathy of the left greater than right temporomandibular joints. Assessment and Plan (1) Preseptal cellulitis of right eye: Status: Acute Plan 57-year-old female with history of anxiety and depression, essential thrombocytosis, hyperlipidemia, osteoarthritis among others admitted for preseptal cellulitis R eye that has failed outpt abx. #Right sided preseptal cellulitis -CT showing R preseptal cellulitis -No pain with EOMs -Per pt, IOPs normal at masonry installer today -IV vancomycin and ceftriaxone -ophthalmology consult # mood disorder -continue home meds DVT prophylaxis-Lovenox Full code Patient requires inpatient stay of at least 2 midnights for management of right- sided preseptal cellulitis requiring IV antibiotics having failed outpatient oral antibiotics and requiring expert consultation to prevent progression to orbital cellulitis Time Spent With Patient Time: Total time managing care of this patient today ____ minutes. Quality Stroke Does the patient have a stroke diagnosis?: No VTE Prior VTE?: No VTE Risk Level:: Medical - moderate - high VTE Device Contraindication: Treatment Not Tolerated VTE Drug Contraindication: N/A - Med Ordered
--- NOTE | 2023-02-04 20:29 | PHA.PROG ---
Admission Date/Time: February 04, 2023 20:08 Indication: Eye cellulitis Weight in k.451 kg Adjusted body weight in K.4 kg [place] body weight in K.kg Obesity Dosing Indication % IBW: 149% Serum Creatinine - Last 168 Hours 02/04/23 14:29 Creatinine 0.98 Estimated CrCl and GFR - Last 168 Hours 02/04/23 14:29 Estim Creat Clear Calc 70.9 Estimated GFR 58 Vancomycin Loading Dose: 2000 mg Current Vancomycin Dosing Regimen: 1000 mg Q12H Date and Time for next Vancomycin Level to be drawn: 02/05 @ 1700 Pharmacist Comments on Vancomycin Plan: patient received an adequate load dose in the ED on 02/04 @ 1857. Maiteneance dose vancomycin 100 mg Q12H is scheduled to start 02/05 @ 0700. Patient is conisder obese with %IBW > 130% therefore careful monitor is required due to vancomycin high volume of distribution Level will be drawn prior to 3rd dose to access to safety Pharmacy will monitor renal function odiliacristina Mills, PharmD Vancomycin dosing will take advantage of VTM as a clinical decision support tool that uses Bayesian modeling to calculate individual patient's pharmacokinetic parameters and forecast the patient's drug concentration time course with the target goal AUC 24 range of 400 - 600 mg/L/hr.
[2023-02-04 21:03] VITALS: BP 114/57; PULSE 75; RESP 16; TEMP 36.6; O2SAT 97
--- NOTE | 2023-02-04 21:11 | PC.NURSE ---
a&ox4, vss, right eye swelling - pt denies pain, pt reporting itching sensation to scalp post vancomycin, provider aware, RN-RN report given to Overflow ED.
[2023-02-04] MEDS: cefTRIAXone sodium 1 GM in 0.9 % Sodium Chloride 50 ML IV (22:03)
[2023-02-04] MEDS: Enoxaparin Sodium 40 MG/0.4 ML SYRINGE SUBCUT (22:04)
[2023-02-04] MEDS: 0.9 % Sodium Chloride Flush 3 ML SYRINGE IVFLUSH (22:07)
[2023-02-05 00:11] VITALS: BP 127/67; PULSE 64; RESP 16; TEMP 37.1; O2SAT 97
--- NOTE | 2023-02-05 02:51 | PC.NURSE ---
Pt arrived in the overflow at around 2200, alert and oriented, denies any pain, due meds given, oriented to the unit.
[2023-02-05 05:50] LABS: MANUAL DIFF FLAG NO
[2023-02-05 05:55] LABS: Basophils Percent Auto 0.3 % (0-2); Eosinophils Absolute Auto 0.4 X10*3/uL (0.0-0.4); Hematocrit 42.3 % (37.0-47.0); Hemoglobin 14.1 g/dl (12.0-16.0); Imm Gran Abs Auto 0.06 X10*3/uL (0.00-0.03); Imm Gran Pct Auto 0.5 % (0.0-0.4); Lymphocytes Absolute Auto 1.6 X10*3/uL (1.2-4.9); Lymphocytes Percent Auto 13.2 % (20-40); Mean Corpuscular HGB Conc 33.3 g/dl (31.0-35.0); Mean Corpuscular Hemoglobin 29.9 pg (27.0-33.0); Mean Corpuscular Volume 89.8 fL (80.0-98.0); Mean Platelet Volume 10.6 fL (9.4-12.3); Monocytes Absolute Auto 0.5 X10*3/uL (0.1-1.2); Monocytes Percent Auto 4.4 % (2-11); Neutrophils Absolute Auto 9.7 x10*3/uL (2.0-8.3); Neutrophils Percent Auto 78.6 % (45-73); Platelet Count 412 X10*3/uL (160-400); Red Blood Count 4.71 X10*6/uL (4.20-5.50); Red Cell Distribution Width 14.3 % (11.0-16.0); White Blood Count 12.4 X10*3/uL (4.8-10.8)
[2023-02-05 06:06] LABS: Creatinine Clr Calc Pharmacy 77.2; Estimated Glomerular Filt Rate > 60
[2023-02-05 06:08] LABS: Anion Gap 14 (12-20); Blood Urea Nitrogen 19 mg/dL (9-16); Calcium 9.1 mg/dL (8.4-10.2); Carbon Dioxide 20 mmol/L (22-29); Chloride 109 mmol/L (96-108); Estimated Glomerular Filt Rate > 60; Glucose Random 110 mg/dL (60-115); Potassium 4.2 mmol/L (3.3-5.1); Sodium 139 mmol/L (135-145)
[2023-02-05] MEDS: vancomycin HCL 1,000 MG in 0.9 % Sodium Chloride 250 ML 270 MG IV ×2 (07:38→18:28)
[2023-02-05] MEDS: Escitalopram Oxalate 10 MG TABLET PO (07:38)
[2023-02-05] MEDS: Aspirin Enteric Coated 81 MG TABLET.DR PO (07:38)
[2023-02-05] MEDS: Multivitamin TABLET 1 TAB PO (07:38)
[2023-02-05] MEDS: Cholecalciferol (Vitamin D3) 25 MCG TABLET 50 MCG PO (07:39)
[2023-02-05] MEDS: Escitalopram Oxalate 5 MG TABLET PO (07:59)
[2023-02-05 08:14] LABS: C Reactive Protein 0.35 mg/dL (< or = 0.50)
[2023-02-05 08:29] LABS: Estimated Average Glucose 108 mg/dL; Hemoglobin A1c % 5.4 %
[2023-02-05 09:49] VITALS: BP 116/66; PULSE 66; RESP 16; TEMP 36.1; O2SAT 97
--- NOTE | 2023-02-05 10:41 | HO.PM.IMPN ---
Subjective Subjective Date of Service: 02/05/23 Interval History: No fever No pain with eye movement Review of Systems Review of Systems: Yes all other systems are reviewed and are negative Physical Exam Vital Signs: Vital Signs: Last Vital Signs Temp 96.9 F 02/05/23 09:49 Pulse 66 02/05/23 09:49 Resp 16 02/05/23 09:49 BP 116/66 02/05/23 09:49 Pulse Ox 97 02/05/23 09:49 O2 Del Method Room Air 02/05/23 09:49 BMI result Body Mass Index 31.5 Gen: in no acute distress HEENT: R conjunctivae injected, R eye markedly swollen, EOMI Neck: supple Lungs: clear to auscultation bilaterally Heart: regular rate and rhythm, no murmurs Abd: soft, non-tender, non-distended Ext: no edema Skin: warm/well-perfused Neuro: alert and oriented x3, no focal findings Psych: appropriate affect Objective Data Active Medications Acetaminophen (Acetaminophen 325 Mg Tablet) 650 mg PO Q6H PRN PRN Reason: Pain, Mild (Pain Scale 1-3) Aspirin (Aspirin Enteric Coated 81 Mg Tablet.) 81 mg PO DAILY [facility] Last Admin: 02/05/23 07:38 Dose: 81 mg Documented By: PAULINO Calcium Carbonate (Calcium Carbonate 500 Mg Tablet) 500 mg PO DAILY [facility] Last Admin: 02/05/23 07:39 Dose: 500 mg Documented By: PAULINO Docusate Sodium (Docusate Sodium 100 Mg Capsule) 100 mg PO DAILY PRN PRN Reason: Constipation Enoxaparin Sodium (Enoxaparin Sodium 40 Mg/0.4 Ml Syringe) 40 mg SUBCUT Q24H [facility] Last Admin: 02/04/23 22:04 Dose: 40 mg Documented By: CASTILJúnior Escitalopram Oxalate (Escitalopram Oxalate 5 Mg Tablet) 5 mg PO DAILY [facility] Last Admin: 02/05/23 07:59 Dose: 5 mg Documented By: PAULINO Escitalopram Oxalate (Escitalopram Oxalate 10 Mg Tablet) 10 mg PO DAILY [facility] Last Admin: 02/05/23 07:38 Dose: 10 mg Documented By: PAULINO Ceftriaxone Sodium 1 gm/ (Sodium Chloride) 50 mls @ 100 mls/hr IV Q24H [facility] Last Infusion: 02/04/23 22:46 Dose: 0 mls/hr Documented By: EDENILJúnior Vancomycin HCl 1,000 mg/ (Sodium Chloride) 270 mls @ 270 mls/hr IV Q12H [facility] Last Infusion: 02/05/23 09:19 Dose: 0 mls/hr Documented By: REED Multivitamins/Vitamin C (Multivitamin Tablet) 1 tab PO DAILY [facility] Last Admin: 02/05/23 07:38 Dose: 1 tab Documented By: PAULINO Ondansetron HCl (Ondansetron Hcl 4 Mg/2 Ml Vial) 4 mg IVPUSH Q8H PRN PRN Reason: Nausea and Vomiting Pharmacy Consult (Consult Rx Vancomycin Dosing) 1 each MISCELLANE DAILY PRN PRN Reason: Consult order Pharmacy Consult (Consult Rx Perform Med Rec) 1 each MISCELLANE ONCE PRN PRN Reason: Consult order Sodium Chloride (0.9 % Sodium Chloride Flush 3 Ml Syringe) 3 ml IVFLUSH QSHIFT [facility] Last Admin: 02/05/23 07:36 Dose: Not Given Documented By: PAULINO Non-Admin Reason: IV Running Vitamin D (Cholecalciferol (Vitamin D3) 25 Mcg Tablet) 50 mcg PO DAILY [facility] Last Admin: 02/05/23 07:39 Dose: 50 mcg Documented By: PAULINO Labs 02/05/23 05:26 02/05/23 05:26 Labs: Laboratory Results - last 24 hr 02/04/23 02/04/23 02/04/23 14:29 14:29 14:29 MCV 89.6 MCH 29.5 MCHC 32.9 RDW 14.5 Plt Count 483 H MPV 10.6 Immature Gran % (Auto) 0.6 H Neut % (Auto) 60.4 Lymph % (Auto) 22.8 [place] % (Auto) 6.3 Eos % (Auto) 8.5 H Baso % (Auto) 1.4 Lymph # (Auto) 1.6 [place] # (Auto) 0.5 Eos # (Auto) 0.6 H Baso # (Auto) 0.1 Abs Immat Gran (auto) 0.04 H Absolute Neuts (auto) 4.3 Absolute Nucleated RBC 0.000 Nucleated RBC % (auto) 0.0 Anion Gap 14 Estim Creat Clear Calc 70.9 Estimated GFR 58 Random Glucose 104 Estimat Average Glucose Hemoglobin A1c % Lactic Acid 1.4 Calcium 10.0 D Total Bilirubin 1.5 H AST 25 ALT 34 H Alkaline Phosphatase 96 C-Reactive Protein Total Protein 8.2 H Albumin 4.3 Beta HCG, Quant 02/04/23 02/05/23 02/05/23 14:29 05:26 05:26 MCV 89.8 MCH 29.9 MCHC 33.3 RDW 14.3 Plt Count 412 H MPV 10.6 Immature Gran % (Auto) 0.5 H Neut % (Auto) 78.6 H Lymph % (Auto) 13.2 L [place] % (Auto) 4.4 Eos % (Auto) 3.0 Baso % (Auto) 0.3 Lymph # (Auto) 1.6 [place] # (Auto) 0.5 Eos # (Auto) 0.4 Baso # (Auto) 0.0 Abs Immat Gran (auto) 0.06 H Absolute Neuts (auto) 9.7 H Absolute Nucleated RBC 0.000 Nucleated RBC % (auto) 0.0 Anion Gap 14 Estim Creat Clear Calc 79.0 Estimated GFR > 60 Random Glucose 110 Estimat Average Glucose Hemoglobin A1c % Lactic Acid Calcium 9.1 D Total Bilirubin AST ALT Alkaline Phosphatase C-Reactive Protein 0.35 Total Protein Albumin Beta HCG, Quant 4 02/05/23 02/05/23 05:26 05:26 MCV MCH MCHC RDW Plt Count MPV Immature Gran % (Auto) Neut % (Auto) Lymph % (Auto) [place] % (Auto) Eos % (Auto) Baso % (Auto) Lymph # (Auto) [place] # (Auto) Eos # (Auto) Baso # (Auto) Abs Immat Gran (auto) Absolute Neuts (auto) Absolute Nucleated RBC Nucleated RBC % (auto) Anion Gap Estim Creat Clear Calc 77.2 Estimated GFR > 60 Random Glucose Estimat Average Glucose 108 Hemoglobin A1c % 5.4 Lactic Acid Calcium Total Bilirubin AST ALT Alkaline Phosphatase C-Reactive Protein Total Protein Albumin Beta HCG, Quant Assessment and Plan (1) Preseptal cellulitis of right eye: Status: Acute Plan d2 57yo F with mood disorder, essential thrombocytosis, HLD, OA admitted for presental cellulitis R eye after failing outpt amox-clav R preseptal cellulitis - confirmed on CT - IV vanc + ceftriaxone 02/04-; will add erythromycin ointment - ID consultation essential thrombocytosis - ASA mood disorder - continue escitalopram VTE ppx: LMWH dispo: eventual home In my clinical judgment, the patient requires continued inpatient hospitalization for the following reasons: IV antibiotics Time Spent With Patient Time: Total time managing care of this patient today ___35_ minutes. Quality Stroke Does the patient have a stroke diagnosis?: No VTE Prior VTE?: No VTE Risk Level:: Medical - moderate - high VTE Device Contraindication: Treatment Not Tolerated VTE Drug Contraindication: N/A - Med Ordered
[2023-02-05 10:43] VITALS: BP 116/66; PULSE 66; RESP 16; TEMP 36.1; O2SAT 97
--- NOTE | 2023-02-05 11:57 | MHC.CM.PN ---
pt works at [employer] [facility] [place] is independent will not need servceis when dcd dc plan home no servcies
[2023-02-05] MEDS: Erythromycin Base 0.5% Oph Oin 1 GM TUBE 1 CM EYE-RIGHT ×3 (12:27→20:16)
[2023-02-05 15:29] VITALS: BP 114/69; PULSE 59; RESP 16; TEMP 36; O2SAT 97
[2023-02-05] MEDS: metroNIDAZOLE/NS 500 MG/100 ML PIGGYBACK 100 MG IV ×2 (16:16→23:50)
[2023-02-05] MEDS: 0.9 % Sodium Chloride Flush 3 ML SYRINGE IVFLUSH (16:17)
[2023-02-05 18:02] LABS: Vancomycin Random 13.9 mcg/mL (15-20)
[2023-02-05 20:00] VITALS: BP 118/69; PULSE 56; RESP 16; TEMP 35.9; O2SAT 98
[2023-02-05] MEDS: cefTRIAXone sodium 1 GM in 0.9 % Sodium Chloride 50 ML IV (20:09)
[2023-02-06 04:00] VITALS: BP 116/70; PULSE 63; RESP 16; TEMP 36; O2SAT 97
[2023-02-06 06:01] LABS: Hematocrit 42.2 % (37.0-47.0); Hemoglobin 13.9 g/dl (12.0-16.0); Mean Corpuscular HGB Conc 32.9 g/dl (31.0-35.0); Mean Corpuscular Hemoglobin 29.4 pg (27.0-33.0); Mean Corpuscular Volume 89.4 fL (80.0-98.0); Mean Platelet Volume 10.5 fL (9.4-12.3); Platelet Count 396 X10*3/uL (160-400); Red Blood Count 4.72 X10*6/uL (4.20-5.50); Red Cell Distribution Width 14.3 % (11.0-16.0)
[2023-02-06] MEDS: vancomycin HCL 1,000 MG in 0.9 % Sodium Chloride 250 ML 270 MG IV ×2 (06:03→20:31)
[2023-02-06 06:13] LABS: Anion Gap 12 (12-20); Blood Urea Nitrogen 11 mg/dL (9-16); Calcium 9.1 mg/dL (8.4-10.2); Carbon Dioxide 21 mmol/L (22-29); Chloride 112 mmol/L (96-108); Creatinine Clr Calc Pharmacy 83.7; Estimated Glomerular Filt Rate > 60; Glucose Random 101 mg/dL (60-115); Potassium 4.2 mmol/L (3.3-5.1); Sodium 141 mmol/L (135-145)
[2023-02-06 06:14] LABS: Creatinine Clr Calc Pharmacy 84.7; Estimated Glomerular Filt Rate > 60
[2023-02-06] MEDS: metroNIDAZOLE/NS 500 MG/100 ML PIGGYBACK 100 MG IV ×2 (07:28→15:28)
[2023-02-06] MEDS: Erythromycin Base 0.5% Oph Oin 1 GM TUBE 1 CM EYE-RIGHT ×3 (07:28→18:20)
[2023-02-06] MEDS: Aspirin Enteric Coated 81 MG TABLET.DR PO (07:29)
[2023-02-06] MEDS: 0.9 % Sodium Chloride Flush 3 ML SYRINGE IVFLUSH ×3 (07:29→20:30)
[2023-02-06] MEDS: Escitalopram Oxalate 10 MG TABLET PO (07:29)
[2023-02-06] MEDS: Escitalopram Oxalate 5 MG TABLET PO (07:29)
[2023-02-06] MEDS: Multivitamin TABLET 1 TAB PO (07:29)
[2023-02-06] MEDS: Cholecalciferol (Vitamin D3) 25 MCG TABLET 50 MCG PO (07:29)
[2023-02-06 07:42] VITALS: BP 120/59; PULSE 63; RESP 16; TEMP 36.7; O2SAT 95
--- NOTE | 2023-02-06 08:31 | HO.PM.IMPN ---
Subjective Subjective Date of Service: 02/06/23 Interval History: pt notes less swelling and pain of the right eye Physical Exam Vital Signs: Vital Signs: Last Vital Signs Temp 98.0 F 02/06/23 07:42 Pulse 63 02/06/23 07:42 Resp 16 02/06/23 07:42 BP 120/59 L 02/06/23 07:42 Pulse Ox 95 02/06/23 07:42 O2 Del Method Room Air 02/06/23 07:42 BMI result Body Mass Index 31.5 Const: Other: Swollen eye lids, no redness and difficulty opening the right not due to pain, exam otherwise unremarkable Objective Data Active Medications Acetaminophen (Acetaminophen 325 Mg Tablet) 650 mg PO Q6H PRN PRN Reason: Pain, Mild (Pain Scale 1-3) Aspirin (Aspirin Enteric Coated 81 Mg Tablet.Dr) 81 mg PO DAILY [facility] Last Admin: 02/06/23 07:29 Dose: 81 mg Documented By: TYREE Calcium Carbonate (Calcium Carbonate 500 Mg Tablet) 500 mg PO DAILY [facility] Last Admin: 02/06/23 07:29 Dose: 500 mg Documented By: TYREE Docusate Sodium (Docusate Sodium 100 Mg Capsule) 100 mg PO DAILY PRN PRN Reason: Constipation Enoxaparin Sodium (Enoxaparin Sodium 40 Mg/0.4 Ml Syringe) 40 mg SUBCUT Q24H [facility] Last Admin: 02/05/23 20:20 Dose: Not Given Documented By: KRISTI Non-Admin Reason: Patient Refused Comments: patient educated on risks of blood clots Erythromycin (Erythromycin Base 0.5% Oph Oin 1 Gm Tube) 1 cm EYE-RIGHT QID [facility] Last Admin: 02/06/23 07:28 Dose: 1 cm Documented By: TYREE Escitalopram Oxalate (Escitalopram Oxalate 5 Mg Tablet) 5 mg PO DAILY [facility] Last Admin: 02/06/23 07:29 Dose: 5 mg Documented By: TYREE Escitalopram Oxalate (Escitalopram Oxalate 10 Mg Tablet) 10 mg PO DAILY [facility] Last Admin: 02/06/23 07:29 Dose: 10 mg Documented By: TYREE Ceftriaxone Sodium 1 gm/ (Sodium Chloride) 50 mls @ 100 mls/hr IV Q24H [facility] Last Infusion: 02/05/23 20:52 Dose: 0 mls/hr Documented By: LAILA Vancomycin HCl 1,000 mg/ (Sodium Chloride) 270 mls @ 270 mls/hr IV Q12H [facility] Last Infusion: 02/06/23 07:19 Dose: 0 mls/hr Documented By: TYREE Metronidazole (Flagyl) 500 mg in 100 mls @ 100 mls/hr IV Q8H [facility] Last Admin: 02/06/23 07:28 Dose: 100 mls/hr Documented By: TYREE Multivitamins/Vitamin C (Multivitamin Tablet) 1 tab PO DAILY [facility] Last Admin: 02/06/23 07:29 Dose: 1 tab Documented By: TYREE Ondansetron HCl (Ondansetron Hcl 4 Mg/2 Ml Vial) 4 mg IVPUSH Q8H PRN PRN Reason: Nausea and Vomiting Pharmacy Consult (Consult Rx Vancomycin Dosing) 1 each MISCELLANE DAILY PRN PRN Reason: Consult order Pharmacy Consult (Consult Rx Perform Med Rec) 1 each MISCELLANE ONCE PRN PRN Reason: Consult order Sodium Chloride (0.9 % Sodium Chloride Flush 3 Ml Syringe) 3 ml IVFLUSH QSHIFT [facility] Last Admin: 02/06/23 07:29 Dose: 3 ml Documented By: TYREE Vitamin D (Cholecalciferol (Vitamin D3) 25 Mcg Tablet) 50 mcg PO DAILY [facility] Last Admin: 02/06/23 07:29 Dose: 50 mcg Documented By: TYREE Labs 02/06/23 05:34 02/06/23 05:34 Labs: Laboratory Results - last 24 hr 02/05/23 02/06/23 02/06/23 17:19 05:34 05:34 MCV 89.4 MCH 29.4 MCHC 32.9 RDW 14.3 Plt Count 396 MPV 10.5 Absolute Nucleated RBC 0.000 Nucleated RBC % (auto) 0.0 Anion Gap Estim Creat Clear Calc 84.7 Estimated GFR > 60 Random Glucose Calcium Random Vancomycin 13.9 L 02/06/23 05:34 MCV MCH MCHC RDW Plt Count MPV Absolute Nucleated RBC Nucleated RBC % (auto) Anion Gap 12 Estim Creat Clear Calc 83.7 Estimated GFR > 60 Random Glucose 101 Calcium 9.1 Random Vancomycin Microbiology Microbiology Results: Microbiology 02/04/23 15:17 Blood Culture - Preliminary Blood - Venous No growth after 24 hours. 02/04/23 14:29 Blood Culture - Preliminary Blood - Venous No growth after 24 hours. 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 She presented with with swollen right eye and difficulty opening the eye. She has been treated for presumed cellulitis of the eye with Augmentin but is not improving and therefore was admitted for IV antibiotics. There continues to be swelling of right eye and has difficulty opening the eye not because of pain and has thus raised concern about the possibility of DAVF thrombosis or infection and therefore I have discussed this with NeuroSurgery team in [place] (Dr. Chanell Virgen's office [phone] and there is recommendation to transfer the Patient to [place] in the meantime we will continue IV antibiotics with Ceftriaxone, Vancomcyin and Falgyl as recommended by ID essential thrombocytosis - ASA mood disorder - continue escitalopram VTE ppx: LMWH dispo: eventual home In my clinical judgment, the patient requires continued inpatient hospitalization for the following reasons: IV antibiotics Time Spent With Patient Time: Total time managing care of this patient today ____ minutes. Quality Stroke Does the patient have a stroke diagnosis?: No VTE Prior VTE?: No VTE Risk Level:: Medical - moderate - high VTE Device Contraindication: Treatment Not Tolerated VTE Drug Contraindication: N/A - Med Ordered
--- NOTE | 2023-02-06 14:11 | P.PNID_ITS ---
Subjective Subjective Date of Service: 02/06/23 Critical Care Time (minutes): 15 Comment: She has swelling eye but no redness but some swelling and cant lift eyelid at all. She has no improvement. Objective Data Labs 02/06/23 05:34 02/06/23 05:34 Labs: Laboratory Results - last 24 hr 02/05/23 02/06/23 02/06/23 17:19 05:34 05:34 WBC 7.0 RBC 4.72 Hgb 13.9 Hct 42.2 MCV 89.4 MCH 29.4 MCHC 32.9 RDW 14.3 Plt Count 396 MPV 10.5 Absolute Nucleated RBC 0.000 Nucleated RBC % (auto) 0.0 Sodium Potassium Chloride Carbon Dioxide Anion Gap BUN Creatinine 0.82 Estim Creat Clear Calc 84.7 Estimated GFR > 60 Random Glucose Calcium Random Vancomycin 13.9 L 02/06/23 05:34 WBC RBC Hgb Hct MCV MCH MCHC RDW Plt Count MPV Absolute Nucleated RBC Nucleated RBC % (auto) Sodium 141 Potassium 4.2 Chloride 112 H Carbon Dioxide 21 L Anion Gap 12 BUN 11 Creatinine 0.83 Estim Creat Clear Calc 83.7 Estimated GFR > 60 Random Glucose 101 Calcium 9.1 Random Vancomycin Microbiology Microbiology Results: Microbiology 02/04/23 15:17 Blood - Venous Blood Culture - Preliminary No growth after 24 hours. 02/04/23 14:29 Blood - Venous Blood Culture - Preliminary No growth after 24 hours. Physical Exam Vital Signs: Vital Signs: Last Vital Signs Temp 98.0 F 02/06/23 07:42 Pulse 63 02/06/23 07:42 Resp 16 02/06/23 07:42 BP 120/59 L 02/06/23 07:42 Pulse Ox 95 02/06/23 07:42 O2 Del Method Room Air 02/06/23 07:42 BMI result Body Mass Index 31.5 Const: General: cooperative HEENT: Other: oculomotor nerve third cranial nerve no somatic operation,doesnt elevate upper lid right eye can track some when opens eye with hand blurry vision after eye cream applied,stings no cellulitis Ears: hearing grossly normal bilaterally Mouth: Normal oral and palatal mucosa present Resp: Effort & Inspection: normal respiratory effort Cardio: Rate: regular rate Rhythm: regular rhythm GI: Palpation (GI): Soft to palpation and nontender Extrem: General: Yes normal to inspection Assessment and Plan Assessment and plan (1) Preseptal cellulitis of right eye: Problem details: This is not improving despite antibiotics There is concern for complication of dural AV fistula with possible mass effect on cranial nerve? Status: Acute Assessment and Plan: Continue antibiotics for now. I talked to hospitalist and Dr Virgen ([facility] Neurosurgeon) will be contacted and Neurology consult obtained. Time Spent With Patient Time: Total time managing care of this patient today ____ minutes.
--- NOTE | 2023-02-06 15:08 | MHC.CM.PN ---
per rounds possible dc today dc plan remains home no servcies
--- NOTE | 2023-02-06 15:48 | P.CNID_ITS ---
History of Present Illness Data of Consult Service Date: 02/05/23 Requesting physician: Uday White Primary Care Provider: Savannah Ortiz MD [facility] Reason for consult: right eye swelling,possible preseptal cellulitis She presents with right eye swelling and pain. She has symptoms worse over last three days. Yesterday she went to [facility] and received antibiotics. She has CT nonspecific periorbital edema. She has no known allergic factors. She has no fever or chills or sinus pressure Review of Systems Review of Systems: Yes all other systems are reviewed and are negative [facility] Past Medical History Medical History Acquired deformity of toenail Acute hepatitis Anxiety and depression Carpal tunnel syndrome Chronic left shoulder pain Colonoscopy planned DAVF (dural arteriovenous fistula) Dyspareunia, female Essential thrombocytosis Essential thrombocytosis Family history of uterine cancer Fatty liver FHx: breast cancer FHx: ovarian cancer Hyperlipidemia Lumbago with sciatica, right side Migraine with aura Osteoarthritis Premature ventricular contractions Thickening of wall of gallbladder with pericholecystic fluid Tinea versicolor Transient visual loss of left eye Vaginal dryness, menopausal Vitamin D deficiency Family History Family History Mother Mental health disorder Breast CA Uterine cancer Father Throat cancer Unknown Myelofibrosis Maternal Grandmother Breast CA Maternal Uncle Colon cancer Family history: reviewed and not pertinent Surgical History Surgical History H/O removal of cyst History of knee surgery S/P arteriovenous (AV) fistula repair Social History Social History Household Members: Family Housing: Apartment Are you a primary senior care manager to a significant other at home: No Do you presently have visiting nurse or other home services: No Alcohol intake: never Patient Tobacco Use Status: Former Tobacco user Years Smoked: 6 yrs Smoked in Last 30 Days: No e-Cigarette/Vaping Use: Never Used Second Hand Smoke Exposure: Yes Use of substances other than those prescribed or required for medical reasons: No Currently Displaying Signs/Symptoms of Drug Intoxication Withdrawal: No Have you been hit, kicked, punched, or otherwise hurt by someone within the past year? 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 Cognitive needs: No Hearing needs: No Vision needs: Yes Meds Allergies Allergy/AdvReac Type Severity Reaction Status Date / Time dextromethorphan Allergy Intermediate BRADYCARDIA Verified 02/04/23 13:18 [From DIMETAPP COLD-CONGESTION] guaifenesin Allergy Intermediate BRADYCARDIA Verified 02/04/23 13:18 [From DIMETAPP COLD-CONGESTION] latex [LATEX] Allergy Intermediate RASH Verified 02/04/23 13:18 phenylephrine Allergy Intermediate BRADYCARDIA Verified 02/04/23 13:18 [From DIMETAPP COLD-CONGESTION] pseudoephedrine Allergy Intermediate BRADYCARDIA Verified 02/04/23 13:18 [From DIMETAPP COLD-CONGESTION] lactose Allergy Stomach Verified 02/04/23 13:18 Upset [employer]ODUCTS Allergy Mild PAIN Uncoded 02/04/23 13:18 Metoprolol Allergy Unknown Causes Uncoded 02/04/23 13:18 Depression Active Medications: Current Medications Acetaminophen (Acetaminophen 325 Mg Tablet) 650 mg PO Q6H PRN PRN Reason: Pain, Mild (Pain Scale 1-3) Aspirin (Aspirin Enteric Coated 81 Mg Tablet.) 81 mg PO DAILY [facility] Last Admin: 02/06/23 07:29 Dose: 81 mg Calcium Carbonate (Calcium Carbonate 500 Mg Tablet) 500 mg PO DAILY [facility] Last Admin: 02/06/23 07:29 Dose: 500 mg Docusate Sodium (Docusate Sodium 100 Mg Capsule) 100 mg PO DAILY PRN PRN Reason: Constipation Enoxaparin Sodium (Enoxaparin Sodium 40 Mg/0.4 Ml Syringe) 40 mg SUBCUT Q24H [facility] Last Admin: 02/05/23 20:20 Dose: Not Given Erythromycin (Erythromycin Base 0.5% Oph Oin 1 Gm Tube) 1 cm EYE-RIGHT QID [facility] Last Admin: 02/06/23 13:51 Dose: 1 cm Escitalopram Oxalate (Escitalopram Oxalate 5 Mg Tablet) 5 mg PO DAILY [facility] Last Admin: 02/06/23 07:29 Dose: 5 mg Escitalopram Oxalate (Escitalopram Oxalate 10 Mg Tablet) 10 mg PO DAILY [facility] Last Admin: 02/06/23 07:29 Dose: 10 mg Ceftriaxone Sodium 1 gm/ (Sodium Chloride) 50 mls @ 100 mls/hr IV Q24H [facility] Last Infusion: 02/05/23 20:52 Dose: Infused Vancomycin HCl 1,000 mg/ (Sodium Chloride) 270 mls @ 270 mls/hr IV Q12H [facility] Last Infusion: 02/06/23 07:19 Dose: Infused Metronidazole (Flagyl) 500 mg in 100 mls @ 100 mls/hr IV Q8H [facility] Last Admin: 02/06/23 15:28 Dose: 100 mls/hr Multivitamins/Vitamin C (Multivitamin Tablet) 1 tab PO DAILY [facility] Last Admin: 02/06/23 07:29 Dose: 1 tab Ondansetron HCl (Ondansetron Hcl 4 Mg/2 Ml Vial) 4 mg IVPUSH Q8H PRN PRN Reason: Nausea and Vomiting Pharmacy Consult (Consult Rx Vancomycin Dosing) 1 each MISCELLANE DAILY PRN PRN Reason: Consult order Pharmacy Consult (Consult Rx Perform Med Rec) 1 each MISCELLANE ONCE PRN PRN Reason: Consult order Sodium Chloride (0.9 % Sodium Chloride Flush 3 Ml Syringe) 3 ml IVFLUSH QSHIFT [facility] Last Admin: 02/06/23 15:34 Dose: 3 ml Vitamin D (Cholecalciferol (Vitamin D3) 25 Mcg Tablet) 50 mcg PO DAILY [facility] Last Admin: 02/06/23 07:29 Dose: 50 mcg Home Medications Medication Instructions Recorded Confirmed Last Taken Type escitalopram oxalate 10 mg tablet 10 mg PO DAILY 05/20/20 02/04/23 02/04/23 History (Lexapro) escitalopram oxalate 5 mg tablet 1 tab PO QAM 05/20/20 02/04/23 02/04/23 History calcium 500 mg tablet 500 mg PO DAILY 11/29/20 02/04/23 02/04/23 History multivitamin 1 tab PO DAILY 09/27/22 02/04/2302/04/23 History aspirin 81 mg tablet,delayed 81 mg PO DAILY 12/06/22 02/04/23 02/04/23 History release Physical Exam Vital Signs: Vital Signs: Last Vital Signs Temp 98.0 F 02/06/23 07:42 Pulse 63 02/06/23 07:42 Resp 16 02/06/23 07:42 BP 120/59 L 02/06/23 07:42 Pulse Ox 95 02/06/23 07:42 O2 Del Method Room Air 02/06/23 07:42 BMI result Body Mass Index 31.5 Const: General: cooperative HEENT: Head: Yes normal to inspection Face and sinus: Yes normal facial exam Mouth: Normal oral and palatal mucosa present Teeth and gingiva: dentition normal Eyes: Other: cannot open right eye unless uses hand no erythema swelling EOMI Pupils: Equal, round and reactive pupils present Resp: Effort & Inspection: normal respiratory effort Cardio: Rate: regular rate Rhythm: regular rhythm GI: Palpation (GI): Soft to palpation and nontender : General: Yes no CVA tenderness Back/Spine/Pelvis: Back: no CVA tenderness Skin: General skin exam: no rashes or lesions noted Neuro: General: moves all extremities Cranial nerves: Yes Equal, round and reactive pupils present Extrem: General: Yes normal to inspection Psych: Appearance: grossly normal Results Labs 02/06/23 05:34 02/06/23 05:34 Labs: Short CBC 02/06/23 Range/Units 05:34 WBC 7.0 (4.8-10.8) X10*3/uL Hgb 13.9 (12.0-16.0) g/dl Hct 42.2 (37.0-47.0) % Plt Count 396 (160-400) X10*3/uL BMP 02/06/23 02/06/23 05:34 05:34 Sodium 141 Potassium 4.2 Chloride 112 H Carbon Dioxide 21 L BUN 11 Creatinine 0.82 0.83 Calcium 9.1 Microbiology Microbiology Results: Microbiology 02/04/23 15:17 Blood - Venous Blood Culture - Preliminary No growth after 24 hours. 02/04/23 14:29 Blood - Venous Blood Culture - Preliminary No growth after 24 hours. 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 Should improve day or so Eye eval Time Spent With Patient Time: Total time managing care of this patient today ____ minutes.
[2023-02-06 15:49] VITALS: BP 124/78; PULSE 65; RESP 16; TEMP 36.4; O2SAT 96
--- NOTE | 2023-02-06 17:59 | P.DS_ITS ---
DS: Providers Provider Date of Service: 02/06/23 Date of admission: 02/04/23 20:08 Primary care physician: Savannah Ortiz MD Consults: 02/04/23 20:12 Consult to Ophthalmology Routine Consulting Provider: Alvin Islas Reason for consultation: preseptal cellulitis 02/05/23 07:41 Consult to Infectious Diseases Routine Consulting Provider: [facility] Infectious Disease Reason for consultation: preseptal cellulitis DS: Transfer Hospital Acceptance Reason for Transfer: Chief Complaint: right eye swelling 57-year-old female with history of anxiety and depression, essential thrombocytosis, hyperlipidemia, osteoarthritis among others presents to the ED earlier today for evaluation of swelling of the right eye that has been progressively worsening over the last 10 days.? She states she thinks that she may have gotten makeup remover and her eye initially and developed some localized swelling inferior to the right eye that is now also present over the upper lid and periorbital area.? She was seen in the ED on 02/02 was started on Augmentin for preseptal cellulitis but the swelling of the eye continues to worsen.? She is now unable to open the eye and does feel some pressure but denies any pain with extraocular movements.? She was seen by her preventive medicine specialist today was told she has normal intra-ocular pressures.? In the ED, vital signs stable.? No leukocytosis.? She did have orbital CT performed which shows a nonspecific right-sided preseptal, periorbital edema/enhancement which may be consistent with right-sided preseptal cellulitis in the appropriate clinical settings.? There are no demonstrated abnormalities of the globes retrobulbar soft tissues or any radiopaque foreign bodies.? In the ED, was treated with IV vancomycin and Zosyn. 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 She presented withswollen right eye and difficulty opening the eye. She has been treated for presumed cellulitis of the eye? with Augmentin but? is not improving and therefore was admitted for IV antibiotics. There continues? to be swelling of right eye and has difficulty opening the eye not because of pain and has thus raised concern about? the possibility of DAVF thrombosis or infection and therefore I have discussed this with NeuroSurgery team in [place] (Dr. Chanell Virgen's office [phone]?nd there is recommendation to transfer the Patient to [place] in the meantime we will continue IV antibiotics? with Ceftriaxone, Vancomcyin and Falgyl as recommended by ID. MRA of the head is requested essential thrombocytosis - ASA mood disorder - continue escitalopram DS: Diagnosis Discharge Diagnosis (1) Preseptal cellulitis of right eye: Status: Acute DS: Summary Time Spent with Patient Time attestation: Total time managing care of this patient today ____ minutes. Discharge coordination time: Greater than 30 minutes Quality: Safe Use of Opioids Does Pt have an Active Cancer Diagnosis on the Problem List?: No Quality: Stroke Does the patient have a stroke diagnosis?: No Physical Exam Vital Signs: Vital Signs: Last Vital Signs Temp 97.5 F 02/06/23 15:49 Pulse 65 02/06/23 15:49 Resp 16 02/06/23 15:49 BP 124/78 02/06/23 15:49 Pulse Ox 96 02/06/23 15:49 O2 Del Method Room Air 02/06/23 15:49 BMI result Body Mass Index 31.5 DS: Data Data Completed and Pending Labs on day of discharge: Laboratory Results - last 24 hr 02/05/23 02/06/23 02/06/23 17:19 05:34 05:34 WBC 7.0 RBC 4.72 Hgb 13.9 Hct 42.2 MCV 89.4 MCH 29.4 MCHC 32.9 RDW 14.3 Plt Count 396 MPV 10.5 Absolute Nucleated RBC 0.000 Nucleated RBC % (auto) 0.0 Sodium Potassium Chloride Carbon Dioxide Anion Gap BUN Creatinine 0.82 Estim Creat Clear Calc 84.7 Estimated GFR > 60 Random Glucose Calcium Random Vancomycin 13.9 L 02/06/23 05:34 WBC RBC Hgb Hct MCV MCH MCHC RDW Plt Count MPV Absolute Nucleated RBC Nucleated RBC % (auto) Sodium 141 Potassium 4.2 Chloride 112 H Carbon Dioxide 21 L Anion Gap 12 BUN 11 Creatinine 0.83 Estim Creat Clear Calc 83.7 Estimated GFR > 60 Random Glucose 101 Calcium 9.1 Random Vancomycin Preliminary micro results at discharge 02/04/23 15:17 Blood Culture - Preliminary Blood - Venous No growth after 48 hours. 02/04/23 14:29 Blood Culture - Preliminary Blood - Venous No growth after 48 hours. Discharge Plan Discharge Anticipated Discharge Date/Time: 02/06/23 17:37 Patient Disposition: er Acute Care Hospital Discharge Diagnosis: Preseptal cellulitis, Unable to open right eye Referrals: Savannah Ortiz MD [Primary Care Provider] - 1 Week Discharge Medications: Continued cholecalciferol (vitamin D3) 50 mcg (2,000 unit) tablet 50 mcg PO DAILY Qty: 90 1RF escitalopram oxalate [Lexapro] 10 mg Tablet 10 mg PO DAILY escitalopram oxalate 5 mg tablet 1 tab PO QAM calcium 500 mg Tablet 500 mg PO DAILY multivitamin Tablet 1 tab PO DAILY aspirin 81 mg tablet,delayed release (DR/EC) 81 mg PO DAILY Discontinued amoxicillin-pot clavulanate 400-57 mg/5 mL suspension for reconstitution 10 ml PO BID 7 Days Qty: 140 0RF Discharge Orders: Discharge Order (Routine); Ordered 02/07/23 Ordered By: Oma Johnson Diet: Advance to usual diet Activity on Discharge: As tolerated Stand Alone Forms: Patient Portal Discharge page Care Plan Goals: Being treated for preseptal cellulitis, On IV vancomycin 1000 mg q.12 hours, IV ceftriaxone 1 g Q 24 hours, IV Flagyl 500 mg Q 8 hours, persistent swelling right eye, being transferred to [facility] to make sure not related to DAVF thrombosis Health Concerns: Swollen eye, difficulty opening the right eye Plan of Treatment: To be transferred to [place] to Chanell Virgen who is familiar with her DAVF and prior surgery Will continue antibiotics in the interim Assessment: as above Discharge Date/Time: 02/07/23 20:45
[2023-02-06 18:38] LABS: Vancomycin Random 15.9 mcg/mL (15-20)
[2023-02-06 19:54] VITALS: BP 115/75; PULSE 68; RESP 16; TEMP 36.3; O2SAT 97
[2023-02-06] MEDS: cefTRIAXone sodium 1 GM in 0.9 % Sodium Chloride 50 ML IV (23:24)
[2023-02-07] MEDS: metroNIDAZOLE/NS 500 MG/100 ML PIGGYBACK 100 MG IV ×3 (00:03→16:01)
[2023-02-07 04:00] VITALS: BP 126/72; PULSE 67; RESP 16; TEMP 36.2; O2SAT 96
[2023-02-07] MEDS: vancomycin HCL 1,000 MG in 0.9 % Sodium Chloride 250 ML 270 MG IV ×2 (07:30→18:22)
[2023-02-07 07:31] LABS: Creatinine Clr Calc Pharmacy 79.9; Estimated Glomerular Filt Rate > 60
[2023-02-07] MEDS: 0.9 % Sodium Chloride Flush 3 ML SYRINGE IVFLUSH ×2 (07:31→16:06)
[2023-02-07 07:45] VITALS: BP 122/75; PULSE 63; RESP 16; TEMP 36.1; O2SAT 97
[2023-02-07] MEDS: Multivitamin TABLET 1 TAB PO (07:55)
[2023-02-07] MEDS: Escitalopram Oxalate 5 MG TABLET PO (07:55)
[2023-02-07] MEDS: Escitalopram Oxalate 10 MG TABLET PO (07:56)
[2023-02-07] MEDS: Aspirin Enteric Coated 81 MG TABLET.DR PO (07:56)
[2023-02-07] MEDS: Cholecalciferol (Vitamin D3) 25 MCG TABLET 50 MCG PO (07:56)
[2023-02-07] MEDS: Erythromycin Base 0.5% Oph Oin 1 GM TUBE 1 CM EYE-RIGHT ×3 (07:56→17:17)
--- NOTE | 2023-02-07 12:02 | PM.DS ---
DS: Providers Provider Date of Service: 02/07/23 Date of admission: 02/04/23 20:08 Primary care physician: Savannah Ortiz MD Consults: 02/04/23 20:12 Consult to Ophthalmology Routine Consulting Provider: Alvin Islas Reason for consultation: preseptal cellulitis 02/05/23 07:41 Consult to Infectious Diseases Routine Consulting Provider: [facility] Infectious Disease Reason for consultation: preseptal cellulitis DS: Transfer Hospital Acceptance Reason for Transfer: Hospital Acceptance Reason for Transfer: Chief Complaint: right eye swelling 57-year-old female with history of anxiety and depression, essential thrombocytosis, hyperlipidemia, osteoarthritis among others presents to the ED earlier today for evaluation of swelling of the right eye that has been progressively worsening over the last 10 days.? She states she thinks that she may have gotten makeup remover and her eye initially and developed some localized swelling inferior to the right eye that is now also present over the upper lid and periorbital area.? She was seen in the ED on 02/02 was started on Augmentin for preseptal cellulitis but the swelling of the eye continues to worsen.? She is now unable to open the eye and does feel some pressure but denies any pain with extraocular movements.? She was seen by her tactical air defense controller today was told she has normal intra-ocular pressures.? In the ED, vital signs stable.? No leukocytosis.? She did have orbital CT performed which shows a nonspecific right-sided preseptal, periorbital edema/enhancement which may be consistent with right-sided preseptal cellulitis in the appropriate clinical settings.? There are no demonstrated abnormalities of the globes retrobulbar soft tissues or any radiopaque foreign bodies.? In the ED, was treated with IV vancomycin and Zosyn. Hospital course: This is a 57yo F with mood disorder, essential thrombocytosis, HLD, OA,?history DAVF (Dura atrial venous fistula)?and had surgery in [place] about 10 years ago and is closely monitored there. She presented with swollen right eye and difficulty opening the eye. She has been treated for presumed cellulitis of the eye? with Augmentin x 48hrs but?since it was not improving, therefore was admitted for IV antibiotics,but her swelling of right eye persists and she has difficulty opening the eye not because of pain and has thus raised concern about? the possibility of DAVF thrombosis or infection and therefore case discussed with NeuroSurgery team in [place] (Dr. Chanell Virgen's office [phone]?and he accepted transfer to [place] in the meantime we will continue IV antibiotics? with Ceftriaxone, Vancomcyin and Falgyl as recommended by ID. Brain MRI obtained and it showed no acute intracranial abnormality but this study is not tailored for evaluation of dural venous sinuses therefore a CT or MR venogram is recommended, however imaging findings suggestive of right preseptal cellulitis grossly similar and better assessed on prior CT of the orbits from 02/04/2023. essential thrombocytosis - ASA mood disorder - continue escitalopram DS: Diagnosis Discharge Diagnosis (1) Preseptal cellulitis of right eye: Status: Acute DS: Summary Time Spent with Patient Time attestation: Total time managing care of this patient today ____ minutes. Discharge coordination time: Greater than 30 minutes Quality: Safe Use of Opioids Does Pt have an Active Cancer Diagnosis on the Problem List?: No Quality: Stroke Does the patient have a stroke diagnosis?: No Physical Exam Vital Signs: Vital Signs: Last Vital Signs Temp 97.0 F 02/07/23 07:45 Pulse 63 02/07/23 07:45 Resp 16 02/07/23 07:45 BP 122/75 02/07/23 07:45 Pulse Ox 97 02/07/23 07:45 O2 Del Method Room Air 02/07/23 07:45 BMI result Body Mass Index 31.5 Const: Other: General awake alert x3, resting comfortably in no acute distress. Swollen rt. eye li d, no redness , no warmth, difficult y opening the righ t not due to pain, exam otherwise un remarkable Neck supple no JVD. CVS regular rate rhythm, Respiratory lungs clear to auscultation, no respiratory distress, no wheeze, no rhonchi. Gastrointestinal abdomen soft, nontender, bowel sounds audible, no guarding , no rigidity. Extremities no Neuro nonfocal Skin no rash Psych appropriate affect DS: Data Data Completed and Pending Labs on day of discharge: Laboratory Results - last 24 hr 02/06/23 02/07/23 17:57 05:42 Creatinine 0.87 Estim Creat Clear Calc 79.9 Estimated GFR > 60 Random Vancomycin 15.9 Preliminary micro results at discharge 02/04/23 15:17 Blood Culture - Preliminary Blood - Venous No growth after 48 hours. 02/04/23 14:29 Blood Culture - Preliminary Blood - Venous No growth after 48 hours. Discharge Plan Discharge Anticipated Discharge Date/Time: 02/06/23 17:37 Patient Disposition: [facility] Discharge Diagnosis: Preseptal cellulitis, Unable to open right eye Referrals: Savannah Ortiz MD [Primary Care Provider] - 1 Week Discharge Medications: Continued cholecalciferol (vitamin D3) 50 mcg (2,000 unit) tablet 50 mcg PO DAILY Qty: 90 1RF escitalopram oxalate [Lexapro] 10 mg Tablet 10 mg PO DAILY escitalopram oxalate 5 mg tablet 1 tab PO QAM calcium 500 mg Tablet 500 mg PO DAILY multivitamin Tablet 1 tab PO DAILY aspirin 81 mg tablet,delayed release (DR/EC) 81 mg PO DAILY Discontinued amoxicillin-pot clavulanate 400-57 mg/5 mL suspension for reconstitution 10 ml PO BID 7 Days Qty: 140 0RF Discharge Orders: Discharge Order (Routine); Ordered 02/07/23 Ordered By: Oma Johnson Diet: Advance to usual diet Activity on Discharge: As tolerated Stand Alone Forms: Patient Portal Discharge page Care Plan Goals: Being treated for preseptal cellulitis, On IV vancomycin 1000 mg q.12 hours, IV ceftriaxone 1 g Q 24 hours, IV Flagyl 500 mg Q 8 hours, persistent swelling right eye, being transferred to [facility] to make sure not related to DAVF thrombosis Health Concerns: Swollen eye, difficulty opening the right eye Plan of Treatment: To be transferred to [place] to Chanell Virgen who is familiar with her DAVF and prior surgery Will continue antibiotics in the interim Assessment: as above
--- NOTE | 2023-02-07 12:09 | MHC.CM.PN ---
PT BEING DISCHARGED, ACUTE CARE TRANSFER
--- NOTE | 2023-02-07 14:52 | HO.PM.IMPN ---
Subjective Subjective Date of Service: 02/07/23 Interval History: No change in patient symptoms since yesterday continue to have right eye swelling, unable to open right eye , denies fever chills, no other acute issues overnight, no nausea no vomiting, no abdominal pain tolerating diet. Review of Systems All other system reviewed and negative Physical Exam Vital Signs: Vital Signs: Last Vital Signs Temp 97.0 F 02/07/23 07:45 Pulse 63 02/07/23 07:45 Resp 16 02/07/23 07:45 BP 122/75 02/07/23 07:45 Pulse Ox 97 02/07/23 07:45 O2 Del Method Room Air 02/07/23 07:45 BMI result Body Mass Index 31.5 Const: Other: ? General awake aler t x3, resting comf ortably in no acut e distress. Right eye swollen, no re dness, no warmth, difficulty opening the right eye Nec k supple no JVD. C VS? regular rate r hythm, Respiratory lungs clear to au scultation, no res piratory distress, no wheeze, no rho nchi. Gastrointest inal abdomen soft, nontender, bowel sounds audible, no guarding , no rig idity. Extremities no Neuro nonfocal Skin no rash Psyc h appropriate affe ct Objective Data Active Medications Acetaminophen (Acetaminophen 325 Mg Tablet) 650 mg PO Q6H PRN PRN Reason: Pain, Mild (Pain Scale 1-3) Aspirin (Aspirin Enteric Coated 81 Mg Tablet.) 81 mg PO DAILY [facility] Last Admin: 02/07/23 07:56 Dose: 81 mg Documented By: MAQRUISE Calcium Carbonate (Calcium Carbonate 500 Mg Tablet) 500 mg PO DAILY [facility] Last Admin: 02/07/23 07:56 Dose: 500 mg Documented By: MARQUISE Docusate Sodium (Docusate Sodium 100 Mg Capsule) 100 mg PO DAILY PRN PRN Reason: Constipation Enoxaparin Sodium (Enoxaparin Sodium 40 Mg/0.4 Ml Syringe) 40 mg SUBCUT Q24H [facility] Last Admin: 02/06/23 20:24 Dose: Not Given Documented By: DAV Non-Admin Reason: pt refused, pt ambulates Erythromycin (Erythromycin Base 0.5% Oph Oin 1 Gm Tube) 1 cm EYE-RIGHT QID [facility] Last Admin: 02/07/23 13:24 Dose: 1 cm Documented By: MARQUISE Escitalopram Oxalate (Escitalopram Oxalate 5 Mg Tablet) 5 mg PO DAILY [facility] Last Admin: 02/07/23 07:55 Dose: 5 mg Documented By: MARQUISE Escitalopram Oxalate (Escitalopram Oxalate 10 Mg Tablet) 10 mg PO DAILY [facility] Last Admin: 02/07/23 07:56 Dose: 10 mg Documented By: MARQUISE Ceftriaxone Sodium 1 gm/ (Sodium Chloride) 50 mls @ 100 mls/hr IV Q24H [facility] Last Infusion: 02/06/23 23:56 Dose: 0 mls/hr Documented By: DAV Vancomycin HCl 1,000 mg/ (Sodium Chloride) 270 mls @ 270 mls/hr IV Q12H [facility] Last Infusion: 02/07/23 09:06 Dose: 270 mls/hr Documented By: MARQUISE Metronidazole (Flagyl) 500 mg in 100 mls @ 100 mls/hr IV Q8H [facility] Last Infusion: 02/07/23 10:25 Dose: 0 mls/hr Documented By: MARQUISE Multivitamins/Vitamin C (Multivitamin Tablet) 1 tab PO DAILY [facility] Last Admin: 02/07/23 07:55 Dose: 1 tab Documented By: MARQUISE Ondansetron HCl (Ondansetron Hcl 4 Mg/2 Ml Vial) 4 mg IVPUSH Q8H PRN PRN Reason: Nausea and Vomiting Pharmacy Consult (Consult Rx Vancomycin Dosing) 1 each MISCELLANE DAILY PRN PRN Reason: Consult order Pharmacy Consult (Consult Rx Perform Med Rec) 1 each MISCELLANE ONCE PRN PRN Reason: Consult order Sodium Chloride (0.9 % Sodium Chloride Flush 3 Ml Syringe) 3 ml IVFLUSH QSHIFT [facility] Last Admin: 02/07/23 07:31 Dose: 3 ml Documented By: MARQUISE Vitamin D (Cholecalciferol (Vitamin D3) 25 Mcg Tablet) 50 mcg PO DAILY [facility] Last Admin: 02/07/23 07:56 Dose: 50 mcg Documented By: MARQUISE Labs 02/06/23 05:34 02/07/23 05:42 Labs: Laboratory Results - last 24 hr 02/06/23 02/07/23 17:57 05:42 Estim Creat Clear Calc 79.9 Estimated GFR > 60 Random Vancomycin 15.9 Microbiology Microbiology Results: Microbiology 02/04/23 15:17 Blood Culture - Preliminary Blood - Venous No growth after 48 hours. 02/04/23 14:29 Blood Culture - Preliminary Blood - Venous No growth after 48 hours. Assessment and Plan (1) Preseptal cellulitis of right eye: Status: Acute Plan Right eye preseptal cellulitis: 57yo F with mood disorder, essential thrombocytosis, HLD, OA,?history DAVF (Dura atrial venous fistula)?and had surgery in [place] about 10 years ago and is closely monitored there. She presented with swollen right eye and difficulty opening the eye. She has been treated for presumed cellulitis of the eye? with Augmentin x 48hrs but?since it was not improving, therefore was admitted for IV antibiotics,but her swelling of right eye persists and she has difficulty opening the eye not because of pain and has thus raised concern about? the possibility of DAVF thrombosis or infection and therefore case discussed with NeuroSurgery team in [place] (Dr. Chanell Virgen's office [phone]?and he accepted transfer to [place] in the meantime we will continue IV antibiotics? with Ceftriaxone, Vancomcyin and Falgyl as recommended by ID.? Brain MRI obtained and it showed no acute intracranial abnormality but this study is not tailored for evaluation of dural venous sinuses therefore a CT or MR venogram is recommended, however imaging findings suggestive of right preseptal cellulitis grossly similar and better assessed on prior CT of the orbits from 02/04/2023. essential thrombocytosis - ASA mood disorder - continue escitalopram Patient need continued inpatient hospitalization for IV antibiotics and waiting for transferred to [facility]. Time Spent With Patient Time: Total time managing care of this patient today ____ minutes. Quality Stroke Does the patient have a stroke diagnosis?: No VTE Prior VTE?: No VTE Risk Level:: Medical - moderate - high VTE Device Contraindication: Treatment Not Tolerated VTE Drug Contraindication: N/A - Med Ordered
[2023-02-07 15:46] VITALS: BP 129/65; PULSE 59; RESP 20; TEMP 36.5; O2SAT 96
[2023-02-07 17:52] LABS: Vancomycin Random 16.7 mcg/mL (15-20)
--- NOTE | 2023-02-07 22:27 | PC.NURSE ---
This glaze supervisor was notified by ESDRAS Perdomo that the patient was due to be transferred to [facility] for new bed assignment via EMS but EMS had mentioned to RN and patient that due to lack of medical necessity (patient with no oxygen/tele requirements), the insurance may not cover the transfer. This glaze supervisor contacted Milana Ramirez CM for ED, to see if this was the case since the transport had been set up by . She stated that she thought it would be covered, due to needing higher level of care and because no option for chair van transport this evening at this time, but even if insurance billed patient, the patient could call HR and insurance (since patient works for [employer] and has [employer] insurance). This was explained to the patient by this glaze supervisor but she wanted to think about it and talk over with her briefly. In meantime, this glaze supervisor contacted Lillian Mccallum, Clin Sup and ED director, and she also stated that based on the transfer being due to higher level of care, it probably would be covered by insurance, but even if not, patient could speak to HR. Lillian also stated that patient could elect to self-transport if wanted. This glaze supervisor relayed this information to the patient and her and they made the decision to self-transport. The stated that they had been to [facility] many times so knew how to get there. The patient stated that she just wanted to ensure that the bed would be saved until they arrived and that she was glad that the ambulance would be utilized for someone more ill. This glaze supervisor did call [facility] and spoke to Phyllis, the RN taking over care of the patient and she said the bed would be held until they arrived and that the patient should come through the ED and security would help transport to the floor. This information was relayed to the patient and the nurse Mercedez. [place]ez issued the discharge papers, removed the IV and the patient left [facility]. EMS was thanked for their patience while this issue was resolved.
== END 2023-02-07 20:45 | disposition short-term general hospital (02) | DRG 383 ==
LOC: HO.ED 18:47 → HO.EDOVER 20:22 → HO.S3 02-05 07:47
PROVIDERS: Family Medicine; Physician Assistant; Admitting Provider Physician Assistant; Emergency Provider Internal Medicine; PCP Internal Medicine; Visit Provider Hospitalist
DX: L03.213 Periorbital cellulitis (principal); F32.A Depression, unspecified; I77.0 Arteriovenous fistula, acquired; F41.9 Anxiety disorder, unspecified; D75.839 Thrombocytosis, unspecified; E78.5 Hyperlipidemia, unspecified; Z87.891 Personal history of nicotine dependence; Z91.040 Latex allergy status; Z79.82 Long term (current) use of aspirin; Z79.899 Other long term (current) drug therapy
CPT/HCPCS: 36415; 70481; 70553; 80048; 80053; 80202; 82565; 83036; 83605; 84702; 85025; 85027; 86140; 87040; 99285; A9585; J0696; J1650; J2543; J3370; Q9967

== ENCOUNTER → 2023-02-04 20:08 | Outpatient (BNV) | payer OTHER, SELFPAY | PROVIDERS: Admitting Provider Physician Assistant; Emergency Provider Internal Medicine; PCP Internal Medicine; Visit Provider Internal Medicine | DX: L03.213 Periorbital cellulitis (principal) | CPT/HCPCS: 99222 ==

== ENCOUNTER → 2023-02-04 20:08 | Outpatient (BNV) | payer OTHER, SELFPAY | PROVIDERS: Admitting Provider Physician Assistant; Emergency Provider Internal Medicine; PCP Internal Medicine; Visit Provider Family Medicine | DX: L03.213 Periorbital cellulitis (principal) | CPT/HCPCS: 99222; 99232; 99239; 99499 ==

== ENCOUNTER 2023-02-20 11:14 | Outpatient (REF) | payer OTHER, SELFPAY ==
[2023-02-20 11:23] LABS: MANUAL DIFF FLAG NO
[2023-02-20 11:57] LABS: Basophils Absolute Auto 0.1 X10*3/uL (0.0-0.2); Basophils Percent Auto 1.6 % (0-2); Eosinophils Absolute Auto 0.3 X10*3/uL (0.0-0.4); Eosinophils Percent Auto 6.8 % (0-4); Hematocrit 45.6 % (37.0-47.0); Hemoglobin 15.1 g/dl (12.0-16.0); Imm Gran Abs Auto 0.01 X10*3/uL (0.00-0.03); Imm Gran Pct Auto 0.2 % (0.0-0.4); Lymphocytes Absolute Auto 1.8 X10*3/uL (1.2-4.9); Lymphocytes Percent Auto 36.5 % (20-40); Mean Corpuscular HGB Conc 33.1 g/dl (31.0-35.0); Mean Corpuscular Hemoglobin 29.7 pg (27.0-33.0); Mean Corpuscular Volume 89.6 fL (80.0-98.0); Mean Platelet Volume 9.6 fL (9.4-12.3); Monocytes Absolute Auto 0.3 X10*3/uL (0.1-1.2); Monocytes Percent Auto 5.6 % (2-11); Neutrophils Absolute Auto 2.5 x10*3/uL (2.0-8.3); Neutrophils Percent Auto 49.3 % (45-73); Platelet Count 299 X10*3/uL (160-400); Red Blood Count 5.09 X10*6/uL (4.20-5.50); Red Cell Distribution Width 13.9 % (11.0-16.0)
== END 2023-02-20 11:15 | disposition home or self-care (01) ==
LOC: HO.LAB 11:14
PROVIDERS: PCP Internal Medicine; Visit Provider Internal Medicine
DX: L03.213 Periorbital cellulitis (principal)
CPT/HCPCS: 36415; 85025

== ENCOUNTER 2023-04-08 15:57 | Outpatient (REF) | payer OTHER, SELFPAY ==
--- NOTE | ~2023-04-08 | MM_ITS ---
EXAMINATION: MM SCREENING DIGITAL BREAST TOMOSYNTHESIS, BILATERAL CLINICAL INFORMATION: Screening. Asymptomatic. COMPARISON: Mammography: This study is compared with prior exams dating back to 2018. TECHNIQUE: Digital breast tomosynthesis is performed in both the craniocaudal and mediolateral oblique views along with computer-aided detection (CAD). Synthesized 2D images are generated from the tomosynthesis. FINDINGS: There are scattered areas of fibroglandular density (ACR BI-RADS breast composition Category b). There are no significant masses, abnormal calcifications, or other abnormalities. There are tissue markers in each breast from prior benign percutaneous biopsies. MM/MM tomosynthesis screening BI IMPRESSION: No mammographic evidence of malignancy. ASSESSMENT: BI-RADS BI-RADS 2 - Benign Findings RECOMMENDATION: Routine annual mammography screening. 1 year F/U This examination should not preclude the clinical evaluation of a suspicious palpable abnormality. This patient's information was entered into a reminder system with a target due date for their next mammogram.
== END 2023-04-08 15:58 | disposition home or self-care (01) ==
LOC: HO.MAMMO 15:57
PROVIDERS: PCP Internal Medicine; Visit Provider Internal Medicine
DX: Z12.31 Encounter for screening mammogram for malignant neoplasm of breast (principal)
CPT/HCPCS: 77063; 77067

== ENCOUNTER → 2023-04-08 16:00 | Outpatient (BNV) | payer OTHER, SELFPAY | PROVIDERS: PCP Internal Medicine; Visit Provider Radiology Diagnostic Radiology | DX: Z12.31 Encounter for screening mammogram for malignant neoplasm of breast (principal) | CPT/HCPCS: 77063; 77067 ==

== ENCOUNTER 2023-05-06 09:55 | Outpatient (REF) | payer OTHER, SELFPAY | END 2023-05-06 09:56 | disposition home or self-care (01) | LOC: HO.HMGCX 09:55 | PROVIDERS: PCP Internal Medicine; Visit Provider Internal Medicine | DX: R05.9 Cough, unspecified (principal) | CPT/HCPCS: 71046 ==

== ENCOUNTER 2023-05-06 10:16 | Outpatient (AMB) | payer OTHER, SELFPAY ==
[2023-05-06 11:22] VITALS: BP 110/74; PULSE 67; O2SAT 97; BMI 32.0
--- NOTE | 2023-05-06 11:22 | MHC.OFFWIV ---
Intake Vital Signs 05/06/23 11:22 Height 5 ft 6 in Weight 198 lb BMI 32.0 BP 110/74 Blood Pressure Location Lt brachial Position Sitting Pulse 67 Pulse Source Pulse Oximeter Pulse Oximetry (%) 97 Oxygen Delivery Method Room Air Intake Visit Reasons: EP Wheezing, Cough (masked) lobby Intake Note: Pt is here today for a walk in visit. Pt c/o cough,wheezing for 3 weeks now. 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 Patient Tobacco Use Status: Former Tobacco user Allergies dextromethorphan [From DIMETAPP COLD-CONGESTION] Allergy (Intermediate, Verified 05/06/23 11:45) BRADYCARDIA guaifenesin [From DIMETAPP COLD-CONGESTION] Allergy (Intermediate, Verified 05/06/23 11:45) BRADYCARDIA latex [LATEX] Allergy (Intermediate, Verified 05/06/23 11:45) RASH phenylephrine [From DIMETAPP COLD-CONGESTION] Allergy (Intermediate, Verified 05/06/23 11:45) BRADYCARDIA pseudoephedrine [From DIMETAPP COLD-CONGESTION] Allergy (Intermediate, Verified 05/06/23 11:45) BRADYCARDIA lactose Allergy (Verified 05/06/23 11:45) Stomach Upset DAIRY PRODUCTS Allergy (Mild, Uncoded 05/06/23 11:45) PAIN Metoprolol Allergy (Unknown, Uncoded 05/06/23 11:45) Causes Depression HPI EP Wheezing, Cough (masked) lobby HPI Details Patient presents for a sick visit. Reporting symptoms of sinus congestion, sore throat and difficulty swallowing. Low-grade fever. No family member is sick. No recent travel. Patient reports symptoms of malaise and fatigue. [facility] Medical History Acquired deformity of toenail Acute hepatitis Anxiety and depression Carpal tunnel syndrome Chronic left shoulder pain Colonoscopy planned DAVF (dural arteriovenous fistula) Dyspareunia, female Essential thrombocytosis Essential thrombocytosis Family history of uterine cancer Fatty liver FHx: breast cancer FHx: ovarian cancer Hyperlipidemia Lumbago with sciatica, right side Migraine with aura Osteoarthritis Premature ventricular contractions Thickening of wall of gallbladder with pericholecystic fluid Tinea versicolor Transient visual loss of left eye Vaginal dryness, menopausal Vitamin D deficiency Surgical History H/O removal of cyst History of knee surgery S/P arteriovenous (AV) fistula repair Family History Mother Mental health disorder Breast CA Uterine cancer Father Throat cancer Unknown Myelofibrosis Maternal Grandmother Breast CA Maternal Uncle Colon cancer Social History Household Members: Family Housing: Apartment Are you a primary wound care rn to a significant other at home: No Do you presently have visiting nurse or other home services: No Alcohol intake: never Patient Tobacco Use Status: Former Tobacco user Years Smoked: 6 yrs e-Cigarette/Vaping Use: Never Used Second Hand Smoke Exposure: Yes Advance Directives Date on File: 12/27/21 service: No Current occupational status: employed 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 Cognitive needs: No Hearing needs: No Vision needs: Yes Female Reproductive History Menstrual Age of Menarche: 13 Physical Exam Vital Signs: Last Vital Signs Pulse 67 05/06/23 11:22 BP 110/74 05/06/23 11:22 Pulse Ox 97 05/06/23 11:22 Oxygen Delivery Method Room Air 05/06/23 11:22 BMI result Body Mass Index 32.0 Const General: cooperative and healthy appearing Nutritional Appearance: well nourished Orientation/consciousness: patient oriented x3 Limitations: no limitations HEENT Head: Yes normal to inspection Eyes General: appearance normal, both eyes and all related structures Neck Neck: Yes normal visual inspection Chest Chest palpation & inspection: normal palpation of entire chest wall Resp Effort & Inspection: normal respiratory effort Neuro General: patient oriented x3 Assessment & Plan Assessment & Plan (1) Upper respiratory tract infection: Code(s): J06.9 - Acute upper respiratory infection, unspecified Plan: Antibiotics ordered. Increase fluid intake. Tylenol for aches and pains. If symptoms worsen, follow-up here for a recheck. Coding Level of Care Code Est Pt Level 3 (67332) Diagnoses Upper respiratory tract infection J06.9
== END 2023-05-06 12:08 | disposition home or self-care (01) ==
PROVIDERS: PCP Internal Medicine; Visit Provider Internal Medicine
DX: J06.9 Acute upper respiratory infection, unspecified (principal)
CPT/HCPCS: 99213

== ENCOUNTER 2023-06-07 09:39 | Outpatient (AMB) | payer OTHER, SELFPAY ==
--- NOTE | 2023-06-07 09:40 | MHC.OFFWIV ---
Intake Vital Signs 06/07/23 09:42 Height 5 ft 6 in Weight 204 lb BMI 32.9 BP 130/80 Blood Pressure Location Lt brachial Position Sitting Pulse 82 Pulse Source Pulse Oximeter Temp 98.5 F Temp Source Oral Pulse Oximetry (%) 99 Oxygen Delivery Method Room Air Intake Visit Reasons: Est/pain in left side(lobby) Intake Note: Patient here for left rib pain, she states it is sensitive when she turns and moves side to side. She is unsure if its from coughing from being sick so much in the past couple of months. Patient Tobacco Use Status: Former Tobacco user Allergies dextromethorphan [From DIMETAPP COLD-CONGESTION] Allergy (Intermediate, Verified 06/07/23 09:45) BRADYCARDIA guaifenesin [From DIMETAPP COLD-CONGESTION] Allergy (Intermediate, Verified 06/07/23 09:45) BRADYCARDIA latex [LATEX] Allergy (Intermediate, Verified 06/07/23 09:45) RASH phenylephrine [From DIMETAPP COLD-CONGESTION] Allergy (Intermediate, Verified 06/07/23 09:45) BRADYCARDIA pseudoephedrine [From DIMETAPP COLD-CONGESTION] Allergy (Intermediate, Verified 06/07/23 09:45) BRADYCARDIA lactose Allergy (Verified 06/07/23 09:45) Stomach Upset DAIRY PRODUCTS Allergy (Mild, Uncoded 06/07/23 09:45) PAIN Metoprolol Allergy (Unknown, Uncoded 06/07/23 09:45) Causes Depression Do you need a note to return to daycare/school/sports/work: No HPI HPI Comments History of Present Illness Details This is a 57-year-old female who presents to the office today for sick visit. Patient complaining of left-sided rib pain for the past several days. Patient denies any trauma or injury to the area. Patient states that she has been sick pretty much all year and she has been coughing a lot over the past several weeks. She reports some sputum production with the cough. She denies any fevers or chills. She denies any shortness of breath. [facility] Medical History Acquired deformity of toenail Acute hepatitis Anxiety and depression Carpal tunnel syndrome Chronic left shoulder pain Colonoscopy planned DAVF (dural arteriovenous fistula) Dyspareunia, female Essential thrombocytosis Essential thrombocytosis Family history of uterine cancer Fatty liver FHx: breast cancer FHx: ovarian cancer Hyperlipidemia Lumbago with sciatica, right side Migraine with aura Osteoarthritis Premature ventricular contractions Thickening of wall of gallbladder with pericholecystic fluid Tinea versicolor Transient visual loss of left eye Vaginal dryness, menopausal Vitamin D deficiency Surgical History H/O removal of cyst History of knee surgery S/P arteriovenous (AV) fistula repair Family History Mother Mental health disorder Breast CA Uterine cancer Father Throat cancer Unknown Myelofibrosis Maternal Grandmother Breast CA Maternal Uncle Colon cancer Social History Household Members: Family Housing: Apartment Are you a primary healthcare prof to a significant other at home: No Do you presently have visiting nurse or other home services: No Alcohol intake: never Patient Tobacco Use Status: Former Tobacco user Years Smoked: 6 yrs e-Cigarette/Vaping Use: Never Used Second Hand Smoke Exposure: Yes Advance Directives Date on File: 12/27/21 service: No Current occupational status: employed 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 Cognitive needs: No Hearing needs: No Vision needs: Yes Female Reproductive History Menstrual Age of Menarche: 13 Review of Systems Const All systems reviewed & are unremarkable except as noted in HPI and below Reports no additional complaints Eyes Reports no additional complaints ENT Reports no additional complaints Card Reports no additional complaints Resp Reports no additional complaints GI Reports no additional complaints Reports no additional complaints Musc Reports no additional complaints Skin/Breast Reports system reviewed and no additional complaints, except as documented Neuro Reports no additional complaints Psych Reports no additional complaints Endo Reports no additional complaints Donnie/Lymph Reports no additional complaints Aller/Immun Reports no additional complaints Physical Exam Vital Signs: Last Vital Signs Temp 98.5 F 06/07/23 09:42 Pulse 82 06/07/23 09:42 BP 130/80 06/07/23 09:42 Pulse Ox 99 06/07/23 09:42 Oxygen Delivery Method Room Air 06/07/23 09:42 BMI result Body Mass Index 32.9 Const Other: Vital signs reviewed. Constitutional: Non-toxic appearing. No acute distress. Well-developed and well-nourished. HEENT: Normocephalic and atraumatic. Skin: Warm and dry. No rashes or lesions noted. Neck: Full and painless range of motion. No cervical lymphadenopathy. Cardio: Regular rate and rhythm. No murmurs, gallops, or rubs. No lower extremity edema. No JVD. Pulmonary: No respiratory distress. No accessory muscle usage. Clear to auscultation bilaterally without wheezing, crackles, or rhonchi. Mild tenderness to palpation of the left lateral ribs. Gastrointestinal: Soft, nontender, and nondistended in all 4 quadrants. Normoactive bowel sounds in all 4 quadrants. Genitourinary: No CVA tenderness. Musculoskeletal: Normal range of motion in joints throughout the body. No deformity or other signs of injury. Neuro: Alert and oriented x4. Cranial nerves 2-12 grossly intact. No focal deficits appreciated. Psych: Normal mood and affect. Assessment & Plan Assessment & Plan (1) Rib pain on left side: Code(s): R07.81 - Pleurodynia Plan: This is a 57-year-old female presenting to the office complaining of rib pain for the past several days in the setting a persistent productive cough. Differential diagnoses includes pleuritis versus costochondritis. Other differential diagnoses includes pleural effusion versus pneumothorax versus empyema; however, patient's pain is reproducible and her lungs are clear to auscultation bilaterally so these are less likely. Patient is able to be PERC ruled out so pulmonary embolism is less likely; additionally, patient's pain is reproducible making PE and ACS less likely. Ordered a chest x-ray with x-ray of the left ribs for further evaluation. Recommended PO ibuprofen 800 mg every 8 hours with food. Sent home with 5% lidocaine patches. Patient was advised to follow-up here or proceed to the emergency room if she were to develop persistent/worsening symptoms such as shortness of breath, fever/chills, hemoptysis, or worsening cough. Patient verbalizes her understanding and she is in agreement with the plan. Orders: Orders XR ribs LT min 3V w CXR1V Today R07.81 - Pleurodynia Coding Level of Care Code Est Pt Level 3 (50178) Diagnoses Rib pain on left side R07.81
[2023-06-07 09:42] VITALS: BP 130/80; PULSE 82; TEMP 36.9; O2SAT 99; BMI 32.9
== END 2023-06-07 10:20 | disposition home or self-care (01) ==
PROVIDERS: PCP Internal Medicine; Visit Provider Physician Assistant Medical
DX: R07.81 Pleurodynia (principal)
CPT/HCPCS: 99213

== ENCOUNTER 2023-06-07 10:13 | Outpatient (REF) | payer OTHER, SELFPAY ==
--- NOTE | ~2023-06-07 | XR_ITS ---
EXAMINATION: XR RIBS, LEFT CLINICAL INFORMATION: Pleurodynia COMPARISON: 05/06/2023 TECHNIQUE: 3 views of the left ribs were obtained. FINDINGS: Heart, mediastinum, pulmonary vessels and lung henry within normal limits and unchanged in comparison with recent study. No vascular congestion, consolidations, effusions, pneumothoraces or pleural thickening. Bony structures are intact. No left rib pathology recognized. XR/XR ribs LT min 3V w CXR1V IMPRESSION: Unremarkable examination.
== END 2023-06-07 10:14 | disposition home or self-care (01) ==
LOC: HO.HMGCX 10:13
PROVIDERS: PCP Internal Medicine; Visit Provider Physician Assistant Medical
DX: R07.81 Pleurodynia (principal)
CPT/HCPCS: 71101

== ENCOUNTER 2023-06-10 14:44 | Outpatient (REF) | payer OTHER, SELFPAY ==
--- NOTE | ~2023-06-10 | CT_ITS ---
EXAMINATION: CT ANGIOGRAM OF THE CHEST WITH AND WITHOUT CONTRAST (CT PULMONARY ANGIOGRAM FOR PE) CLINICAL INFORMATION: Reason for Exam left pleuritic chest pain, essential thrombosis COMPARISON: Chest and RIBS radiographs 06/07/2023 TECHNIQUE: Prior to contrast administration, noncontrast localization images were obtained. Subsequently, multidetector volumetric imaging was performed from the thoracic inlet to below the diaphragms following the administration of 65 mL Omnipaque 350 intravenous contrast. No contrast reaction reported Sagittal, coronal, and MIP oblique sagittal reformatted images were obtained on the CT workstation, uploaded to PACS, and reviewed. This CT examination was performed using dose optimization techniques as appropriate, variously including the following: *Automated exposure control *Adjustment of mA and/or kV according to patient size (this includes techniques or standardized protocols for targeted exams where dose is matched to indication/reason for exam; i.e. extremities or head) *Use of iterative reconstruction technique Total exam dose-length product 121 mGy-cm FINDINGS: QUALITY OF STUDY/CONTRAST BOLUS: Satisfactory. PULMONARY ARTERIES: No pulmonary emboli. THORACIC AORTA: No aneurysm. LUNG: No focal consolidation, nodules or masses. PLEURA: No pleural effusion or pneumothorax. MEDIASTINUM: Normal heart size. No pericardial effusion. No hilar or mediastinal lymphadenopathy. No evidence of septal bowing or right heart strain. CORONARY ARTERY CALCIFICATION: None visualized on this study. CHEST WALL/AXILLA: No axillary or internal mammary lymphadenopathy. OSSEOUS STRUCTURES: No acute or suspicious osseous abnormality. UPPER ABDOMEN: Unremarkable. No reflux of contrast into the hepatic veins to suggest elevated right heart pressures. CT/CT angio chest PE protocol IMPRESSION: No evidence of pulmonary emboli. VTE: negative.
[2023-06-10] MEDS: iohexoL 350 MG/ML 100 ML INFUS..BTL 65 ML IV (16:43)
== END 2023-06-10 14:45 | disposition home or self-care (01) ==
LOC: HO.CT 14:44
PROVIDERS: PCP Internal Medicine; Visit Provider Internal Medicine
DX: R07.81 Pleurodynia (principal)
CPT/HCPCS: 71275; Q9967

== ENCOUNTER 2023-06-14 09:18 | Outpatient (REF) | payer OTHER, SELFPAY ==
--- NOTE | ~2023-06-14 | CT_ITS ---
EXAMINATION: CT ABDOMEN AND PELVIS WITH CONTRAST CLINICAL INFORMATION: Splenic infarct. COMPARISON: CT angiogram chest 06/10/2023. Pelvic ultrasound 11/22/2022. TECHNIQUE: Multidetector volumetric images were obtained from the superior aspect of the liver through the pubic symphysis following administration 85 mL of Omnipaque 350 intravenous contrast. Sagittal and coronal reformatted images were obtained on the technologist's workstation. Oral contrast: No. This CT examination was performed using dose optimization techniques as appropriate, variously including the following: *Automated exposure control *Adjustment of mA and/or kV according to patient size (this includes techniques or standardized protocols for targeted exams where dose is matched to indication/reason for exam; i.e. extremities or head) *Use of iterative reconstruction technique DLP: 536 mGy-cm FINDINGS: LUNG BASES: The visualized lung bases are unremarkable. LIVER, GALLBLADDER, AND BILIARY TREE: The liver is normal in size. There is a suggestion of a slightly nodular liver border. Attenuation is heterogeneous. A few small scattered hypodensities are seen (for example 3:15). There are some hyperenhancing areas seen in the caudate which may represent some intrahepatic shunts. No biliary ductal dilatation is present. The gallbladder is unremarkable with no evidence of radiopaque gallstones, gallbladder wall thickening, or obvious pericholecystic inflammatory changes. The previously seen periportal edema and pericholecystic fluid and wall thickening has resolved. PANCREAS: Unremarkable. SPLEEN: Spleen measures 10.3 x 6.2 x 10.4 cm. It is homogeneous with the exception of an ovoid area of slight heterogeneity and decreased attenuation measuring 1.8 x 0.9 x 1.9 cm (3:18). This is of questionable significance as the spleen can often look inhomogeneous in attenuation. This is not wedge-shaped and there are no inflammatory changes seen surrounding the spleen to suggest an infarct. The splenic vein appears normal. The splenic artery is poorly opacified secondary to timing. ADRENAL GLANDS: Unremarkable. KIDNEYS AND URETERS: The kidneys are normal in size, shape, and attenuation. No hydronephrosis, hydroureter, or calculi seen. No perinephric stranding. BLADDER: Unremarkable. GASTROINTESTINAL TRACT: The small and large bowel are unremarkable. The appendix is unremarkable. ABDOMINAL WALL: No significant hernia is appreciated. LYMPH NODES: No retroperitoneal lymphadenopathy. VASCULAR: Unremarkable. PELVIC VISCERA: A retroverted uterus is present with bilateral tubular cystic areas in both adnexa which could represent hydrosalpinx, increased in size on the right and new on the left. Previously seen free intraperitoneal fluid is no longer present. Bilateral hydrosalpinx was seen on the pelvic ultrasound from 11/22/2022. OSSEOUS STRUCTURES: Mild degenerative changes are present with disc space narrowing at L3-L4 with vacuum phenomena. No bony destructive lesions. CT/CT abdomen pelvis w IV con IMPRESSION: 1. There is a suggestion of a slightly nodular liver border with heterogeneous attenuation. A few small scattered hypodensities are seen. There are some hyperenhancing areas seen in the caudate which may represent some intrahepatic misael-systemic shunts. 2. Spleen is normal in size with the exception of an ovoid area of slight heterogeneity and decreased attenuation. This is of questionable significance as the spleen can often look inhomogeneous in attenuation. This is not wedge-shaped and there are no inflammatory changes seen surrounding the spleen to suggest an infarct. 3. Bilateral hydrosalpinx, increased in size on the right and new on the left. 4. Previously seen free intraperitoneal fluid is no longer present. 5. Other incidental findings as described above. If further evaluation is deemed warranted, would recommend dynamic liver MRI for evaluation of the liver and spleen could be performed. Fleischner guidelines were followed.
[2023-06-14] MEDS: iohexoL 350 MG/ML 75 ML INFUS..BTL 85 ML IV (10:21)
== END 2023-06-14 09:19 | disposition home or self-care (01) ==
LOC: HO.CT 09:18
PROVIDERS: PCP Internal Medicine; Visit Provider Internal Medicine
DX: R10.12 Left upper quadrant pain (principal); D47.3 Essential (hemorrhagic) thrombocythemia
CPT/HCPCS: 74177; Q9967

== ENCOUNTER 2023-06-14 14:57 | Outpatient (AMB) | payer OTHER, SELFPAY ==
--- NOTE | 2023-06-14 15:05 | MHC.OFFVIS ---
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: No Information Interpreted: non-clinical & clinical Salon/Spa Manager: Salon/Spa Manager Present (Josselynyn) Allergies dextromethorphan [From DIMETAPP COLD-CONGESTION] Allergy (Intermediate, Verified 06/14/23 15:17) BRADYCARDIA guaifenesin [From DIMETAPP COLD-CONGESTION] Allergy (Intermediate, Verified 06/14/23 15:17) BRADYCARDIA latex [LATEX] Allergy (Intermediate, Verified 06/14/23 15:17) RASH phenylephrine [From DIMETAPP COLD-CONGESTION] Allergy (Intermediate, Verified 06/14/23 15:17) BRADYCARDIA pseudoephedrine [From DIMETAPP COLD-CONGESTION] Allergy (Intermediate, Verified 06/14/23 15:17) BRADYCARDIA lactose Allergy (Verified 06/14/23 15:17) Stomach Upset DAIRY PRODUCTS Allergy (Mild, Uncoded 06/14/23 15:17) PAIN Metoprolol Allergy (Unknown, Uncoded 06/14/23 15:17) Causes Depression Medication List - Last Reconciled 06/14/23 by Carol Ann Cruz CNM aspirin 81 mg PO DAILY calcium 500 mg PO DAILY cholecalciferol (vitamin D3) 50 mcg PO DAILY escitalopram oxalate 1 tab PO QAM escitalopram oxalate (Lexapro) 10 mg PO DAILY multivitamin 1 tab PO DAILY Is last menstrual period known: No Post menopausal: Yes Patient : No HPI BIOINFORMATICIST annual exam HPI Details 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 So she is now unable to take any sort of estrogen for her vaginal dryness and other menopausal issues. She also has been having a pain in her left side under her breasts in her rib area for which she has had [address] scans and will be following up with Dr. Mcgill to check on her spleen. She has gained about 40 lb that she had previously lost so she is contemplating the weight management program if everything checks out okay. Last year she had issues with decreased libido and bleeding with intercourse and was seen and evaluated with Dr. Cunningham and had an endocervical polyp that was removed and an endometrial biopsy and ultrasound evaluation as well. She also has been having issues that if she coughs she pees on herself so sometime she wears panty liners and she has got some rectal itching because of that. 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 She normally would be COVID vaccinated however she has gone from 1 illness to the next with no gaps to allow for vaccination. [facility] Medical History (Updated 06/14/23 @ 16:06 by Carol Ann Cruz CNM) Transient visual loss of left eye Family history of uterine cancer Vaginal dryness, menopausal Dyspareunia, female Lumbago with sciatica, right side Anxiety and depression Tinea versicolor Acquired deformity of toenail Acute hepatitis Thickening of wall of gallbladder with pericholecystic fluid Vitamin D deficiency Hyperlipidemia Chronic left shoulder pain Migraine with aura Premature ventricular contractions Essential thrombocytosis Fatty liver FHx: ovarian cancer FHx: breast cancer Carpal tunnel syndrome Colonoscopy planned Osteoarthritis DAVF (dural arteriovenous fistula) Essential thrombocytosis Surgical History H/O removal of cyst History of knee surgery S/P arteriovenous (AV) fistula repair Family History Mother Mental health disorder Breast CA Uterine cancer Father Throat cancer Unknown Myelofibrosis Maternal Grandmother Breast CA Maternal Uncle Colon cancer Social History Household Members: Family Housing: Apartment Are you a primary rn acute care to a significant other at home: No Do you presently have visiting nurse or other home services: No Alcohol intake: never Patient Tobacco Use Status: Former Tobacco user Years Smoked: 6 yrs e-Cigarette/Vaping Use: Never Used Second Hand Smoke Exposure: Yes Advance Directives Date on File: 12/27/21 service: No Current occupational status: employed 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 Cognitive needs: No Hearing needs: No Vision needs: Yes Female Reproductive History Menstrual Age of Menarche: 13 control method: none Total pregnancies: 1 Full term: 1 Number of Living Children: 1 Date of last pap smear: 06/12/22 (negative) History of abnormal pap smear: No Date of Mammogram: 04/08/23 Physical Exam Vital Signs: Last Vital Signs BP 124/80 06/14/23 15:14 BMI result Body Mass Index 32.9 Const General: healthy appearing, comfortable, no acute distress, well developed and alert Nutritional Appearance: average body habitus Orientation/consciousness: patient oriented x3 Limitations: no limitations HEENT Head: Yes normocephalic Neck Neck: Yes normal visual inspection Chest Chest palpation & inspection: normal inspection of the chest Breast/axilla inspection: normal inspection of the breasts and normal inspection of the axillae Breast/axilla palpation: normal palpation of the breasts and normal palpation of the axillae Resp Effort & Inspection: normal respiratory effort GI Inspection: Yes normal to inspection, No Abdominal wall edema and No distended Palpation (GI): Soft to palpation and nontender Other: Postmenopausal experimental mechanic spacecraft exam within normal limits there is some pink discoloration to the skin from close approximation of buttocks and use of panty liners. Good tone with Kegel. General: Yes bladder normal to palpation External Female Exam: normal external appearance and normal appearance of the urethra Speculum Exam - Vagina: normal appearance of the vagina, normal palpation and normal vaginal discharge Speculum Exam - Cervix: normal appearance of the cervix, normal palpation and nontender Bimanual exam- vagina & uterus: normal bimanual exam, normal palpation, uterine size normal, bladder normal to palpation, consistency normal, normal palpation, uterine mobility normal, uterine shape normal, No Cervical tenderness present, non-tender and no cervical motion tenderness Bimanual Exam- Adnexa, other: normal adnexae, no masses, normal and No adnexal tenderness Neuro General: patient oriented x3 Results Reviewed Results Reviewed: Name: Avis Guillen Age/Sex: 56/F Attending: Carol Ann Cruz CNM : 1965 Submitted by: Carol Ann Cruz CNM Copies to: MR #: [id number] Status: DEP REF Collected: 06/11/22 Location: .LNP Received: 06/12/22 Interpretation Satisfactory for evaluation. Negative for intraepithelial lesion or malignancy. HPV mRNA E6/E7: NOT DETECTED This assay detects E6/E7 viral messenger RNA (mRNA) from 14 high-risk HPV types (16, 18, 31, 33, 35, 39, 45, 51, 52, 56, 58, 59, 66, 68) HPV testing performed by [employer] [facility] [place], [place]. See reference laboratory portion of the EMR for entire report. Clinical Information LMP: No menses Previous PAP test: 02/04/17, WNL Material Received ThinPrep-Cervical Electronically Signed By: Luna Damon 06/27/22 2051 The Pap Test is a screening procedure with the inherent possibility of both false negative and false positive results. Results should be interpreted in the context of historic and current clinical findings. Reliability of the Pap Test is enhanced by performing the test on a regular repetitive basis. Patient: Avis Guillen Age/Sex: 56/F MR#: [id number] ALSO REVIEWED THE ENDOMETRIAL BIOPSY THE BIOPSY OF THE CERVICAL POLYP PREVIOUS ULTRASOUNDS AND SOME OF THE MANY OTHER TEST THAT THE PATIENT HAS HAD DONE IN THIS PAST YEAR. Assessment & Plan Assessment & Plan (1) Decreased libido: Comment: History of thrombocytosis Code(s): R68.82 - Decreased libido (2) Vaginal dryness, menopausal: Code(s): N95.1 - Menopausal and female climacteric states (3) Cervical cancer screening: Comment: 06/11/22 pap= neg w neg hpv. 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 So she is now unable to take any sort of estrogen for her vaginal dryness and other menopausal issues. She also has been having a pain in her left side under her breasts in her rib area for which she has had [address] scans and will be following up with Dr. Mcgill to check on her spleen. She has gained about 40 lb that she had previously lost so she is contemplating the weight management program if everything checks out okay. Last year she had issues with decreased libido and bleeding with intercourse and was seen and evaluated with Dr. Cunningham and had an endocervical polyp that was removed and an endometrial biopsy and ultrasound evaluation as well. She also has been having issues that if she coughs she pees on herself so sometime she wears panty liners and she has got some rectal itching because of that. 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 She normally would be COVID vaccinated however she has gone from 1 illness to the next with no gaps to allow for vaccination. She is up-to-date on her mammograms she is contemplating get getting on her exercise bike but she needs to adjust the handlebars and saddle and is working on that if everything checks out she is contemplating checking out the weight management program here. I did offer her a referral to physical therapy though she is able to produce a good Kegel, however she feels she has too much on her plate at this time so when she sees her primary care provider if she feels that would be beneficial to her she may except a referral if offered then. Given her year of 1 health challenge after another and the cumulative affect of dealing with at all I recommend she consider masking within N95 especially when working in the school system and around any crowds to offer her a little bit more protection especially as she has not been able to get the new vaccine but she is likely to be more susceptible to catching everything. Coding Level of Care Code Est Pt Prev Care 40-64y(41083) Diagnoses Decreased libido R68.82 Vaginal dryness, menopausal N95.1 Cervical cancer screening Z12.4 Family history of uterine cancer Z80.49 Perimenopause N95.1 Women's annual routine gynecological examination Z01.419
[2023-06-14 15:14] VITALS: BP 124/80; BMI 32.9
== END 2023-06-14 16:01 | disposition home or self-care (01) ==
LOC: HO.HWS 14:57
PROVIDERS: PCP Internal Medicine; Visit Provider Advanced Practice Midwife
DX: Z01.419 Encounter for gynecological examination (general) (routine) without abnormal findings (principal); R68.82 Decreased libido; N95.1 Menopausal and female climacteric states; Z80.49 Family history of malignant neoplasm of other genital organs
CPT/HCPCS: 99396

== ENCOUNTER 2023-09-27 09:21 | Outpatient (AMB) | payer OTHER, SELFPAY ==
[2023-09-27 09:43] VITALS: BP 108/70; PULSE 88; O2SAT 96; BMI 33.9
--- NOTE | 2023-09-27 09:43 | MHC.PC.OV ---
Vital Signs 09/27/23 09:43 Height 5 ft 6 in Weight 210 lb BMI 33.9 BP 108/70 Blood Pressure Location Lt brachial Position Sitting Pulse 88 Pulse Source Pulse Oximeter Pulse Oximetry (%) 96 Oxygen Delivery Method Room Air Intake Visit Reasons: PE & anxiety Intake Note: Pt is here for Annual PE pt is in need of a referral for a colon screening Is last menstrual period known: No Allergies dextromethorphan [From DIMETAPP COLD-CONGESTION] Allergy (Intermediate, Verified 09/30/23 00:09) BRADYCARDIA guaifenesin [From DIMETAPP COLD-CONGESTION] Allergy (Intermediate, Verified 09/30/23 00:09) BRADYCARDIA latex [LATEX] Allergy (Intermediate, Verified 09/30/23 00:09) RASH phenylephrine [From DIMETAPP COLD-CONGESTION] Allergy (Intermediate, Verified 09/30/23 00:09) BRADYCARDIA pseudoephedrine [From DIMETAPP COLD-CONGESTION] Allergy (Intermediate, Verified 09/30/23 00:09) BRADYCARDIA lactose Allergy (Verified 09/30/23 00:09) Stomach Upset DAIRY PRODUCTS Allergy (Mild, Uncoded 09/30/23 00:09) PAIN Metoprolol Allergy (Unknown, Uncoded 09/30/23 00:09) Causes Depression Medication List - Last Reconciled 09/30/23 by Savannah Ortiz MD aspirin 81 mg PO DAILY calcium 500 mg PO DAILY cholecalciferol (vitamin D3) 50 mcg PO DAILY escitalopram oxalate 1 tab PO QAM escitalopram oxalate (Lexapro) 10 mg PO DAILY Lactobacillus acidophilus (Probiotic Acidophilus) 500 mmu cells PO TID multivitamin 1 tab PO DAILY turmeric root-prosper root ext 150-25 mg tabs PO Tobacco use date assessed: 09/27/23 Dental Screening Dental Screen Date: 09/27/23 Did you have a dental visit in the last 12 months?: Yes Did you have a dental problem in the last 6 months where you did not have access to dental care?: No Was dental information given to patient?: Patient has dentist HPI PE & anxiety HPI Details 50-year-old lady here today for physical exam. She has generalized anxiety disorder, followed by psych, currently on escitalopram. She is up-to-date with her cervical cancer screening, goes to [facility] for her routine Pap and pelvic exam, and is up-to-date with her screening mammogram. [facility] Medical History Preseptal cellulitis of right eye Transient visual loss of left eye Family history of uterine cancer Vaginal dryness, menopausal Dyspareunia, female Lumbago with sciatica, right side Anxiety and depression Tinea versicolor Acquired deformity of toenail Acute hepatitis Thickening of wall of gallbladder with pericholecystic fluid Vitamin D deficiency Hyperlipidemia Chronic left shoulder pain Migraine with aura Premature ventricular contractions Essential thrombocytosis Fatty liver FHx: ovarian cancer FHx: breast cancer Carpal tunnel syndrome Colonoscopy planned Osteoarthritis DAVF (dural arteriovenous fistula) Essential thrombocytosis Surgical History H/O removal of cyst History of knee surgery S/P arteriovenous (AV) fistula repair Family History Mother Mental health disorder Breast CA Uterine cancer Father Throat cancer Unknown Myelofibrosis Maternal Grandmother Breast CA Maternal Uncle Colon cancer Social History Household Members: Family Housing: Apartment Are you a primary behavioral health care manager to a significant other at home: No Do you presently have visiting nurse or other home services: No Alcohol intake: never Patient Tobacco Use Status: Former Tobacco user Years Smoked: 6 yrs e-Cigarette/Vaping Use: Never Used Second Hand Smoke Exposure: Yes Advance Directives Date on File: 12/27/21 service: No Current occupational status: employed 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 1. Little interest or pleasure in doing things: not at all 2. Feeling down, depressed, or hopeless: several days 3. Trouble falling or staying asleep, or sleeping too much: several days 4. Feeling tired or having little energy: more than half the days 5. Poor appetite or overeating: more than half the days 6. Feeling bad about yourself - or that you are a failure or have let yourself or your family down: not at all 7. Trouble concentrating on things, such as reading the newspaper or watching television: not at all 8. Moving or speaking so slowly that other people could have noticed. Or the opposite - being so fidgety or restless that you have been moving around a lot more than usual: not at all 9. Thoughts that you would be better off or of hurting yourself in some way: not at all Total score: 6 Depression Screening Interpretation: Positive Depression Screening Follow-up: Existing condition, In treatment and Community Mental Health Worker F/U (Sees Hector Romo) Depression Screening Done: Yes 86231 - PHQ-9 Billing: Yes Source: Developed by Drs. Von Mansfield, Tracy Otoole, Santi Dumont and colleagues, with an educational roya from [employer]. Thrive Questionnaire Date Thrive assessed: 09/27/23 I am a: Patient What is your living situation today?: I have a steady place to live Within the past 12 months, did the food you bought not last and you didn't have the money to get more?: Never true Within the past 12 months, did you worry whether your food would run out before you got money to buy more?: Never true Do you have trouble paying for medicines?: No Do you have trouble getting transportation to medical appointments?: No Do you have trouble paying your heating and electricity bill?: No Do you have trouble taking care of your child, family member or friend?: No Do you have trouble with day-to-day activities such as bathing, preparing meals, shopping, managing finances, etc.?: No Are you currently unemployed and looking for a job?: No Are you interested in more education?: No THRIVE Score: 0 AUDIT C Alcohol Use Questionnaire (AUDIT-C) 1. How often do you have a drink containing alcohol?: Never Total Score: 0 LEAH-7 AMB Questionnaire LEAH-7 Date LEAH - 7 assessed: 09/27/23 Feeling nervous, anxious, or on edge: 1 = Several days Not being able to stop or control worryin = Several days Worrying too much about different things: 2 = More than half the days Trouble relaxin = Several days Being so restless that it is hard to sit still: 0 = Not at all Becoming easily annoyed or irritable: 1 = Several days Feeling afraid as if something awful might happen: 0 = Not at all Total LEAH-7 score (0-4 normal; 5-9 mild; 10-14 moderate; 15-21 severe): 6 Source: Developed by Drs. Von Mansfield, Tracy Otoole, Santi Dumont and colleagues, with an educational roya from [employer]. LEAH-7 Assessment Billing LEAH-7 Assessment Tool: LEAH-7 Assessment 70989 Review of Systems Const All systems reviewed & are unremarkable except as noted in HPI and below Reports no additional complaints Eyes Reports no additional complaints ENT Reports no additional complaints Card Reports no additional complaints Resp Reports no additional complaints GI Reports no additional complaints Reports no additional complaints Musc Reports no additional complaints Skin/Breast Reports system reviewed and no additional complaints, except as documented Neuro Reports no additional complaints Psych Reports no additional complaints Endo Reports no additional complaints Donnie/Lymph Reports no additional complaints Aller/Immun Reports no additional complaints Physical exam (Primary Care) Vital Signs: Last Vital Signs Pulse 88 09/27/23 09:43 BP 108/70 09/27/23 09:43 Pulse Ox 96 09/27/23 09:43 Oxygen Delivery Method Room Air 09/27/23 09:43 BMI result Body Mass Index 33.9 Tobacco/Smoking Status: Tobacco use Status Tobacco use date assessed 09/27/23 09/27/23 09:52 Patient Tobacco Use Status Former Tobacco user 09/27/23 09:46 e-Cigarette/Vaping Use Never Used 09/27/23 09:46 PHQ-9: PHQ-9 Score PHQ-9: Total score 6 09/27/23 10:47 Depression Screening Interpretation: Positive Depression Screening Follow-up: Existing condition, In treatment and Community Mental Health Worker F/U (Shawn Romo) Thrive Assessment: Date of Thrive Assessment Date Thrive assessed 09/27/23 09/27/23 10:47 Const Other: Alert oriented x3, no acute distress noted, ambulatory normal gait Orientation/consciousness: patient oriented x3 HENMT Head: Yes normal to inspection and Yes normocephalic Ears: hearing grossly normal bilaterally, TM's normal bilaterally and EAC's normal General nose exam: Normal external nose present Face and sinus: Yes sinuses nontender and Yes face symmetric Mouth: Normal oral and palatal mucosa present, oropharynx normal and moist mucous membranes Eyes General: appearance normal, both eyes and all related structures Eyelids: Yes eyelids normal Conjunctivae: conjunctivae normal Sclerae: sclerae normal Pupils: Equal, round and reactive pupils present EOM: EOMs intact bilaterally Neck Other: Supple with no lymphadenopathy, no carotid bruit appreciated Chest Chest palpation & inspection: normal inspection of the chest Breast/axilla inspection: normal inspection of the breasts Breast/axilla palpation: normal palpation of the breasts Resp Auscultation: clear to auscultation bilaterally Cardio Rate: regular rate Rhythm: regular rhythm Heart sounds: S1 normal heart sound present and S2 normal heart sound present GI Palpation (GI): Soft to palpation, nontender and no guarding Auscultation: normal bowel sounds General: Yes no CVA tenderness Back/Spine/Pelvis Back: no CVA tenderness and No back tenderness Skin General skin exam: no rashes or lesions noted Neuro General: patient oriented x3, gait normal, tone normal, moves all extremities, Normal light touch and pain sensation and no focal motor deficits Cranial nerves: Yes Equal, round and reactive pupils present Extrem General: Yes normal to inspection, Yes full ROM, Yes no joint enlargement and Yes no clubbing, cyanosis or edema Psych Appearance: grossly normal Mental Status: mental status grossly normal Speech and movement: Normal speech and movement present Thought process: Normal thought process present Thought content: Normal thought content present Assessment and Plan Assessment & Plan (1) Annual visit for general adult medical examination with abnormal findings: Code(s): Z00.01 - Encounter for general adult medical examination with abnormal findings Plan: Will check appropriate labs. Continue with regular dental visit every 6 months and regular eye exams, at least every 2 years. Take adequate calcium in diet and vitamin-D 3 at 2000 IU per cap once a day, in addition to weight-bearing exercises to help maintain good muscle tone and weight control. Instructed to do self-breast exam, and continue with yearly mammogram, up-to-date with her cervical cancer screening. Declines getting further COVID vaccination or flu shot, up-to-date with Tdap, advised to get shingles vaccine (2) Essential thrombocytosis: Code(s): D47.3 - Essential (hemorrhagic) thrombocythemia Plan: Currently asymptomatic (3) Hyperlipidemia: Code(s): E78.5 - Hyperlipidemia, unspecified Qualifiers: Hyperlipidemia type: mixed hyperlipidemia Qualified Code(s): E78.2 - Mixed hyperlipidemia Plan: Fasting lipid profile ordered . Continue with low-cholesterol diet and regular exercise, at least 30 minutes 3 to 4 times a week. Advised patient to make healthy food choices, eat more fruits, vegetables, whole grains, wild caught fish and low-fat dairy. Limit amount of meat and fried or fatty food products, as well as processed foods and fast foods. (4) Colon cancer screening: Code(s): Z12.11 - Encounter for screening for malignant neoplasm of colon Plan: Referred to [facility] for her initial screening colonoscopy Orders: Orders Lipid Panel 09/28/23 D47.3 - Essential (hemorrhagic) thrombocythemia, E78.5 - Hyperlipidemia, unspecified, Z00.01 - Encounter for general adult medical examination with abnormal findings Aspartate Amino Transferase 09/28/23 D47.3 - Essential (hemorrhagic) thrombocythemia, E78.5 - Hyperlipidemia, unspecified, Z00.01 - Encounter for general adult medical examination with abnormal findings Alanine Aminotransferase 09/28/23 D47.3 - Essential (hemorrhagic) thrombocythemia, E78.5 - Hyperlipidemia, unspecified, Z00.01 - Encounter for general adult medical examination with abnormal findings Basic Metabolic Panel Fasting 09/28/23 D47.3 - Essential (hemorrhagic) thrombocythemia, E78.5 - Hyperlipidemia, unspecified, Z00.01 - Encounter for general adult medical examination with abnormal findings Vitamin D 25-OH Total 09/28/23 D47.3 - Essential (hemorrhagic) thrombocythemia, E78.5 - Hyperlipidemia, unspecified, Z00.01 - Encounter for general adult medical examination with abnormal findings Referrals Gastroenterology Referral Z12.11 - Encounter for screening for malignant neoplasm of colon Coding Level of Care Code Est Pt Prev Care 40-64y(46287) Diagnoses Annual visit for general adult medical examination with abnormal findings Z00.01 Essential thrombocytosis D47.3 Mixed hyperlipidemia E78.2 Hyperlipidemia type: mixed hyperlipidemia Colon cancer screening Z12.11 Additional Codes LEAH-7 Assessment Billing - LEAH-7 Assessment Tool: LEAH-7 Assessment 10548 ([id number])
== END 2023-09-27 11:01 | disposition home or self-care (01) ==
PROVIDERS: PCP Internal Medicine; Visit Provider Internal Medicine
DX: Z00.00 Encounter for general adult medical examination without abnormal findings (principal); D47.3 Essential (hemorrhagic) thrombocythemia; E78.2 Mixed hyperlipidemia; Z12.11 Encounter for screening for malignant neoplasm of colon
CPT/HCPCS: 99396

== ENCOUNTER 2023-09-28 10:39 | Outpatient (REF) | payer OTHER, SELFPAY ==
[2023-09-28 12:02] LABS: Alanine Aminotransferase 28 U/L (0-31); Anion Gap 12 (12-20); Aspartate Amino Transferase 24 U/L (5-31); Blood Urea Nitrogen 14 mg/dL (9-16); Calcium 9.2 mg/dL (8.4-10.2); Carbon Dioxide 29 mmol/L (22-29); Chloride 107 mmol/L (96-108); Cholesterol 197 mg/dL (<200); Estimated Glomerular Filt Rate > 60; Glucose Fasting 90 mg/dL (60-99); HDL Cholesterol 40 mg/dL (>40); LDL Cholesterol Calculated 134 mg/dL (<100); Potassium 4.6 mmol/L (3.3-5.1); Sodium 143 mmol/L (135-145); Triglycerides 117 mg/dL (<150)
== END 2023-09-28 10:40 | disposition home or self-care (01) ==
LOC: HO.LAB 10:39
PROVIDERS: PCP Internal Medicine; Visit Provider Internal Medicine
DX: Z00.01 Encounter for general adult medical examination with abnormal findings (principal); D47.3 Essential (hemorrhagic) thrombocythemia; E78.5 Hyperlipidemia, unspecified
CPT/HCPCS: 36415; 80048; 80061; 82306; 84450; 84460

== ENCOUNTER 2024-01-07 15:00 | Outpatient (AMB) | payer OTHER, SELFPAY ==
--- NOTE | 2024-01-07 15:07 | A.OFFVIS_ITS ---
Intake Visit Reasons: OV-B/L knee cortisone- Intake Note: Avis is a 58 year old female presents today for bilateral knee pain. Patient is requesting to get a cortisone injection. Patient states that she had cortisone injections in the past with [facility] which gave her a lot of relief. Allergies dextromethorphan [From DIMETAPP COLD-CONGESTION] Allergy (Intermediate, Verified 09/30/23 00:09) BRADYCARDIA guaifenesin [From DIMETAPP COLD-CONGESTION] Allergy (Intermediate, Verified 09/30/23 00:09) BRADYCARDIA latex [LATEX] Allergy (Intermediate, Verified 09/30/23 00:09) RASH phenylephrine [From DIMETAPP COLD-CONGESTION] Allergy (Intermediate, Verified 09/30/23 00:09) BRADYCARDIA pseudoephedrine [From DIMETAPP COLD-CONGESTION] Allergy (Intermediate, Verified 09/30/23 00:09) BRADYCARDIA lactose Allergy (Verified 09/30/23 00:09) Stomach Upset DAIRY PRODUCTS Allergy (Mild, Uncoded 09/30/23 00:09) PAIN Metoprolol Allergy (Unknown, Uncoded 09/30/23 00:09) Causes Depression HPI HPI OV-B/L knee cortisone-: Details: 58-year-old female who presents in the office today for a follow-up of bilateral knee osteoarthritis. I last saw the patient in the office on 11/27/2022 when she was given a genumed knee brace and referred to physical therapy. While in the office today the patient wishes to move forward with a cortisone injection in the bilateral knees. She reports having one in the past with Dr. Hankins and states it gave her ?a lot? of relief. [facility] Medical History Preseptal cellulitis of right eye Transient visual loss of left eye Family history of uterine cancer Vaginal dryness, menopausal Dyspareunia, female Lumbago with sciatica, right side Anxiety and depression Tinea versicolor Acquired deformity of toenail Acute hepatitis Thickening of wall of gallbladder with pericholecystic fluid Vitamin D deficiency Hyperlipidemia Chronic left shoulder pain Migraine with aura Premature ventricular contractions Essential thrombocytosis Fatty liver FHx: ovarian cancer FHx: breast cancer Carpal tunnel syndrome Colonoscopy planned Osteoarthritis DAVF (dural arteriovenous fistula) Essential thrombocytosis Surgical History H/O removal of cyst History of knee surgery S/P arteriovenous (AV) fistula repair Family History Mother Mental health disorder Breast CA Uterine cancer Father Throat cancer Unknown Myelofibrosis Maternal Grandmother Breast CA Maternal Uncle Colon cancer Social History Household Members: Family Housing: Apartment Are you a primary vision care associate to a significant other at home: No Do you presently have visiting nurse or other home services: No Alcohol intake: never Patient Tobacco Use Status: Former Tobacco user Years Smoked: 6 yrs e-Cigarette/Vaping Use: Never Used Second Hand Smoke Exposure: Yes Advance Directives Date on File: 12/27/21 service: No Current occupational status: employed 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 Crepitus felt with ROM. Negative Susanne's. Negative anterior drawer. Office Procedures Joint Injection/Drain Joint Injection/Drain Primary Site: right knee Secondary Site: left knee Prep: site was prepped using aseptic technique, ethochloride spray was applied and injection warnings given Injected: 80 mg of, DepoMedrol and with 8 mL of (2% plain lido ) Approach Used: anterolateral Procedure: The patient tolerated the procedure well, but had some pain with the injection and there was some relief with the local anesthesia Coding 71868 - Large joint Procedure code (CPT) selection complete Assessment & Plan Assessment & Plan (1) Osteoarthritis of knees, bilateral: Code(s): M17.0 - Bilateral primary osteoarthritis of knee Category: Medical Plan Ms. Guillen is a 58-year-old female who presents in the office today for a f ollow-up of bilateral knee osteoarthritis. I last saw the patient in the office on 11/27/2022 when she was given a genumed knee brace and referred to physical therapy. While in the office today the patient wishes to move forward with a cortisone injection in the bilateral knees. She reports having one in the past with Dr. Hankins and states it gave her ?a lot? of relief. The patient was offered a cortisone injection in the bilateral knees with 80 mg of DepoMedrol. The patient was explained the risk, benefits, and alternatives to receiving this injection. After receiving consent for the injection, the patient had the procedure done while in the office today. The patient tolerated the procedure well with no complications. Follow-up will be PRN, or sooner if needed. Patient Instructions: Scribed by Rissa Lilly medical physiologist, for Velia Elvira ROBINS on 01/07/2024 at 3:00 pm, EST. Coding Level of Care Code Est Pt Level 3 (76352) Diagnoses Osteoarthritis of knees, bilateral M17.0 CPT Codes Coding - 15808 Large joint: 53308 - Large joint ([id number])
== END 2024-01-07 15:29 | disposition home or self-care (01) ==
PROVIDERS: PCP Internal Medicine; Visit Provider Physician Assistant
DX: M17.0 Bilateral primary osteoarthritis of knee (principal)
CPT/HCPCS: 20610; 99213

== ENCOUNTER → 2024-01-07 15:00 | Outpatient (BNVA) | payer OTHER, SELFPAY | PROVIDERS: PCP Internal Medicine; Visit Provider Physician Assistant | DX: M17.0 Bilateral primary osteoarthritis of knee (principal) | CPT/HCPCS: 20610; J1010 ==

== ENCOUNTER 2024-02-11 09:43 | Outpatient (AMB) | payer OTHER, SELFPAY ==
--- NOTE | 2024-02-11 09:56 | MHC.OFFVIS ---
Vital Signs 02/11/24 09:58 Height 5 ft 6 in Weight 205 lb BMI 33.1 Handedness Right Intake Visit Reasons: OV- B/L hand pain Intake Note: Avis is a 58 year old right hand dominant female who presents today for a follow up of her bilateral hand pain. Patient states when she sleeps certain way or holds objects a certain way she has the numbness and tingling. She does not want to have surgery, wants to hold off. Her main concerns today is making sure her hands have not got worse. 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 She would like to receive new braces today. Allergies dextromethorphan [From DIMETAPP COLD-CONGESTION] Allergy (Intermediate, Verified 02/11/24 10:04) BRADYCARDIA guaifenesin [From DIMETAPP COLD-CONGESTION] Allergy (Intermediate, Verified 02/11/24 10:04) BRADYCARDIA latex [LATEX] Allergy (Intermediate, Verified 02/11/24 10:04) RASH phenylephrine [From DIMETAPP COLD-CONGESTION] Allergy (Intermediate, Verified 02/11/24 10:04) BRADYCARDIA pseudoephedrine [From DIMETAPP COLD-CONGESTION] Allergy (Intermediate, Verified 02/11/24 10:04) BRADYCARDIA lactose Allergy (Verified 02/11/24 10:04) Stomach Upset DAIRY PRODUCTS Allergy (Mild, Uncoded 02/11/24 10:04) PAIN Metoprolol Allergy (Unknown, Uncoded 02/11/24 10:04) Causes Depression HPI HPI OV- B/L hand pain: Details: Patient is a 58-year-old female presents for evaluation of bilateral thumb pain and cubital tunnel syndrome. Patient reports that her pain is worst at base of her thumb, and that she previously had injections into the basal joint of the left thumb in September 2022, to no effect. The patient is not interested in any further injections at this time, but inquires about any conservative measures we may be able to provide for her for comfort. The patient reports that her numbness and tingling is intermittent, but is not necessarily daily. The patient asks if her cubital tunnel has gotten worse, but is not interested in any potential surgical treatment at this time. EMG done on 12/19/2022 revealed moderate cubital tunnel bilaterally. FORMERLY [facility], [facility] Medical History Preseptal cellulitis of right eye Transient visual loss of left eye Family history of uterine cancer Vaginal dryness, menopausal Dyspareunia, female Lumbago with sciatica, right side Anxiety and depression Tinea versicolor Acquired deformity of toenail Acute hepatitis Thickening of wall of gallbladder with pericholecystic fluid Vitamin D deficiency Hyperlipidemia Chronic left shoulder pain Migraine with aura Premature ventricular contractions Essential thrombocytosis Fatty liver FHx: ovarian cancer FHx: breast cancer Carpal tunnel syndrome Colonoscopy planned Osteoarthritis DAVF (dural arteriovenous fistula) Essential thrombocytosis Surgical History H/O removal of cyst History of knee surgery S/P arteriovenous (AV) fistula repair Family History Mother Mental health disorder Breast CA Uterine cancer Father Throat cancer Unknown Myelofibrosis Maternal Grandmother Breast CA Maternal Uncle Colon cancer Social History Household Members: Family Housing: Apartment Are you a primary rn complex care to a significant other at home: No Do you presently have visiting nurse or other home services: No Alcohol intake: never Patient Tobacco Use Status: Former Tobacco user Years Smoked: 6 yrs e-Cigarette/Vaping Use: Never Used Second Hand Smoke Exposure: Yes Advance Directives Date on File: 12/27/21 service: No Current occupational status: employed 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 Neuro: Median, ulnar, radial nerves motor and sensory intact and sensation is normal to the tips of all digits. Vascular: Cap refill brisk Pain: Patient reports pain in the base of the right thumb at the level of the CMC joint No tenderness over the radial styloid No tenderness to the MCP joint ROM: Range of motion of bilateral hands full and intact Patient is able to make a closed fist Good finger cross Skin: No lacerations or abrasions. General: No ecchymosis, erythema, or evidence of infection. Psych: Appears grossly normal Affect normal Attitude cooperative Assessment & Plan Assessment & Plan (1) Cubital tunnel syndrome, bilateral: Code(s): G56.23 - Lesion of ulnar nerve, bilateral upper limbs Category: Medical (2) Osteoarthritis of carpometacarpal (CMC) joint of left thumb: Code(s): M18.12 - Unilateral primary osteoarthritis of first carpometacarpal joint, left hand Category: Medical (3) Osteoarthritis of carpometacarpal (CMC) joint of right thumb: Code(s): M18.11 - Unilateral primary osteoarthritis of first carpometacarpal joint, right hand Category: Medical Plan 1. Basal joint arthritis, left 2. Basal joint arthritis, right Patient previously had injection basal joint of left thumb on 10/24/[address] Crespo, to minimal effect Patient is not interested in any further injections at this time Patient is given bilateral comfort cool braces to wear with daytime activities Patient is educated that she should not wear these braces at all times, and to take them off especially when sleeping 3. Cubital tunnel syndrome, bilateral, moderate Symptoms intermittent, not daily, worse at night Patient is not interested in surgical intervention at this time Due to symptoms being intermittent, but not occurring daily, patient is advised that surgery can be delayed at this time Patient is advised that surgery should be performed in symptoms are intermittent, but daily Patient is educated that continue to hold off on surgery until dense numbness occurs can result in lack of return of normal sensation, even after surgery Patient is also advised that continuing to hold off on surgery could result in intrinsic muscle wasting Patient will follow-up p.r.n. when she is ready to discuss surgery, sooner with any acute concerns Coding Level of Care Code Est Pt Level 3 (79787) Diagnoses Cubital tunnel syndrome, bilateral G56.23 Osteoarthritis of carpometacarpal (CMC) joint of left thumb M18.12 Osteoarthritis of carpometacarpal (CMC) joint of right thumb M18.11
[2024-02-11 09:58] VITALS: BMI 33.1
== END 2024-02-11 10:22 | disposition home or self-care (01) ==
PROVIDERS: PCP Internal Medicine
DX: M18.0 Bilateral primary osteoarthritis of first carpometacarpal joints (principal); G56.23 Lesion of ulnar nerve, bilateral upper limbs
CPT/HCPCS: 99213

== ENCOUNTER → 2024-02-11 09:43 | Outpatient (BNVA) | payer OTHER, SELFPAY | PROVIDERS: PCP Internal Medicine; Visit Provider Orthopaedic Surgery ==

== ENCOUNTER 2024-02-13 09:28 | Outpatient (REF) | payer OTHER, SELFPAY ==
--- NOTE | ~2024-02-13 | XR_ITS ---
EXAMINATION: XR SACROILIAC JOINTS CLINICAL INFORMATION: Sacrococcygeal disorder COMPARISON: CT 06/14/2023 TECHNIQUE: 3 views of the sacroiliac joints FINDINGS: Bones and soft tissues are normal. No fracture. Alignment is anatomic. Sacroiliac joint spaces are well-maintained without erosions or surrounding sclerosis. XR/XR sacroiliac joint 1-2V IMPRESSION: Normal sacroiliac joints.
--- NOTE | ~2024-02-13 | XR_ITS ---
EXAMINATION: XR LUMBOSACRAL SPINE CLINICAL INFORMATION: Dorsalgia COMPARISON: CT abdomen and pelvis from 12/26/2021 TECHNIQUE: Three views of the lumbosacral spine. FINDINGS: There is mild dextroscoliosis of lumbar spine. Vertebral bodies are well aligned with narrowing cough L3-L4 intervertebral disc spaces and preserved pedicles soft tissues unremarkable XR/XR lumbar spine 2-3V IMPRESSION: Degenerative changes at the level of L3-L4
== END 2024-02-13 09:29 | disposition home or self-care (01) ==
LOC: HO.HOSX 09:28
PROVIDERS: PCP Internal Medicine; Visit Provider Physical Medicine & Rehabilitation
DX: M54.16 Radiculopathy, lumbar region (principal); M53.3 Sacrococcygeal disorders, not elsewhere classified
CPT/HCPCS: 72100; 72200

== ENCOUNTER 2024-02-13 09:28 | Outpatient (AMB) | payer OTHER, SELFPAY ==
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
== END 2024-02-13 10:26 | disposition home or self-care (01) ==
PROVIDERS: PCP Internal Medicine; Visit Provider Physical Medicine & Rehabilitation
DX: M54.16 Radiculopathy, lumbar region (principal); M53.3 Sacrococcygeal disorders, not elsewhere classified
CPT/HCPCS: 99203

== ENCOUNTER 2024-02-21 10:55 | Day surgery (SDC) | payer OTHER, SELFPAY ==
[2024-02-19 14:43] VITALS: BMI 32.9
--- NOTE | 2024-02-20 09:13 | HO.ANESPROP2 ---
Documented by User: Stefanie Faulkner NP 02/20/24 09:14 HPI - Anesthesia Eval Consult details Narrative: 58yo F for Colonoscopy PMFSH Active Problems Active Problems: All Active Problems Sacroiliac joint dysfunction of both sides (Acute) Lumbar radiculitis (Acute) Cubital tunnel syndrome, bilateral (Acute) Osteoarthritis of knees, bilateral (Acute) Decreased libido (Acute) Osteoarthritis of carpometacarpal (CMC) joint of left thumb (Acute) Osteoarthritis of carpometacarpal (CMC) joint of right thumb (Acute) Vaginal dryness, menopausal (Acute) Dyspareunia, female (Acute) Lumbago with sciatica, right side (Acute) Essential thrombocytosis (Chronic) Anxiety and depression (Acute) Acquired deformity of toenail (Acute) Vitamin D deficiency (Acute) Hyperlipidemia (Acute) Past Medical History Medical History Preseptal cellulitis of right eye Transient visual loss of left eye Family history of uterine cancer Vaginal dryness, menopausal Dyspareunia, female Lumbago with sciatica, right side Anxiety and depression Tinea versicolor Acquired deformity of toenail Acute hepatitis Thickening of wall of gallbladder with pericholecystic fluid Vitamin D deficiency Hyperlipidemia Chronic left shoulder pain Migraine with aura Premature ventricular contractions Fatty liver FHx: ovarian cancer FHx: breast cancer Carpal tunnel syndrome Colonoscopy planned Osteoarthritis DAVF (dural arteriovenous fistula) Essential thrombocytosis Family History Family History Mother Mental health disorder Breast CA Uterine cancer Father Throat cancer Unknown Myelofibrosis Maternal Grandmother Breast CA Maternal Uncle Colon cancer Surgical History Surgical History H/O colonoscopy H/O removal of cyst History of knee surgery S/P arteriovenous (AV) fistula repair Social History Social History Household Members: Family Housing: Apartment Are you a primary neonatal intensive care unit nurse to a significant other at home: No Do you presently have visiting nurse or other home services: No Alcohol intake: never Patient Tobacco Use Status: Former Tobacco user Years Smoked: 6 yrs e-Cigarette/Vaping Use: Never Used Second Hand Smoke Exposure: Yes Use of substances other than those prescribed or required for medical reasons: No Are you DNR?: No Advance Directives: No Advance Directives Information Provided: Yes Advance Directives Date on File: 12/27/21 service: No Current occupational status: employed 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 Cognitive needs: No Hearing needs: No Vision needs: Yes Meds Allergies Allergy/AdvReac Type Severity Reaction Status Date / Time dextromethorphan Allergy Intermediate BRADYCARDIA Verified 02/21/24 13:16 [From DIMETAPP COLD-CONGESTION] guaifenesin Allergy Intermediate BRADYCARDIA Verified 02/21/24 13:16 [From DIMETAPP COLD-CONGESTION] lactose Allergy Intermediate Stomach Verified 02/21/24 13:16 Upset latex [LATEX] Allergy Intermediate RASH Verified 02/21/24 13:16 metoprolol Allergy Intermediate caused Verified 02/21/24 13:16 depression phenylephrine Allergy Intermediate BRADYCARDIA Verified 02/21/24 13:16 [From DIMETAPP COLD-CONGESTION] pseudoephedrine Allergy Intermediate BRADYCARDIA Verified 02/13/24 09:35 [From DIMETAPP COLD-CONGESTION] Home Medications ?Medication ?Instructions ?Recorded ?Confirmed ?Last Taken ?Type escitalopram oxalate 10 mg tablet 10 mg PO DAILY 05/20/20 02/19/24 02/21/24 History (Lexapro) escitalopram oxalate 5 mg tablet 1 tab PO QAM 05/20/20 02/19/24 02/04/23 History calcium 500 mg tablet 500 mg PO DAILY 11/29/20 02/19/24 02/04/23 History multivitamin 1 tab PO DAILY 09/27/22 02/19/24 02/04/23 History aspirin 81 mg tablet,delayed 81 mg PO DAILY 12/06/22 02/19/24 02/13/24 History release Lactobacillus acidophilus 250 500 mmu cells PO TID 09/27/23 02/19/24 Unknown History million cell capsule (Probiotic Acidophilus) turmeric root extract 150 1 tab PO DAILY 09/27/23 02/19/24 Unknown History mg-prosper root extract 25 mg chewable tablet metronidazole 0.75 % topical cream 1 appl topical DAILY 01/15/24 02/19/24 Unknown History Exam Height,Weight and Vital Signs: Height 5 ft 6 in Weight 92.533 kg Assessment and Plan Assessment Anesthesia Assessment: Chart Reviewed Documented by User: Kylee Jha MD 02/21/24 13:54 PMFSH Past Medical History Medical History Preseptal cellulitis of right eye Transient visual loss of left eye Family history of uterine cancer Vaginal dryness, menopausal Dyspareunia, female Lumbago with sciatica, right side Anxiety and depression Tinea versicolor Acquired deformity of toenail Acute hepatitis Thickening of wall of gallbladder with pericholecystic fluid Vitamin D deficiency Hyperlipidemia Chronic left shoulder pain Migraine with aura Premature ventricular contractions Fatty liver FHx: ovarian cancer FHx: breast cancer Carpal tunnel syndrome Colonoscopy planned Osteoarthritis DAVF (dural arteriovenous fistula) Essential thrombocytosis Family History Family History Mother Mental health disorder Breast CA Uterine cancer Father Throat cancer Unknown Myelofibrosis Maternal Grandmother Breast CA Maternal Uncle Colon cancer Family history of problems with anesthesia: No Surgical History Surgical History H/O colonoscopy H/O removal of cyst History of knee surgery S/P arteriovenous (AV) fistula repair History of Problems with Anesthesia: No Social History Social History Household Members: Family Housing: Apartment Are you a primary neonatal intensive care unit nurse to a significant other at home: No Do you presently have visiting nurse or other home services: No Alcohol intake: never Patient Tobacco Use Status: Former Tobacco user Years Smoked: 6 yrs e-Cigarette/Vaping Use: Never Used Second Hand Smoke Exposure: Yes Use of substances other than those prescribed or required for medical reasons: No Are you DNR?: No Advance Directives: No Advance Directives Information Provided: Yes Advance Directives Date on File: 12/27/21 service: No Current occupational status: employed 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 Cognitive needs: No Hearing needs: No Vision needs: Yes Meds Allergies Allergy/AdvReac Type Severity Reaction Status Date / Time dextromethorphan Allergy Intermediate BRADYCARDIA Verified 02/21/24 13:16 [From DIMETAPP COLD-CONGESTION] guaifenesin Allergy Intermediate BRADYCARDIA Verified 02/21/24 13:16 [From DIMETAPP COLD-CONGESTION] lactose Allergy Intermediate Stomach Verified 02/21/24 13:16 Upset latex [LATEX] Allergy Intermediate RASH Verified 02/21/24 13:16 metoprolol Allergy Intermediate caused Verified 02/21/24 13:16 depression phenylephrine Allergy Intermediate BRADYCARDIA Verified 02/21/24 13:16 [From DIMETAPP COLD-CONGESTION] pseudoephedrine Allergy Intermediate BRADYCARDIA Verified 02/13/24 09:35 [From DIMETAPP COLD-CONGESTION] Home Medications ?Medication ?Instructions ?Recorded ?Confirmed ?Last Taken ?Type escitalopram oxalate 10 mg tablet 10 mg PO DAILY 05/20/20 02/19/24 02/21/24 History (Lexapro) escitalopram oxalate 5 mg tablet 1 tab PO QAM 05/20/20 02/19/24 02/04/23 History calcium 500 mg tablet 500 mg PO DAILY 11/29/20 02/19/24 02/04/23 History multivitamin 1 tab PO DAILY 09/27/22 02/19/24 02/04/23 History aspirin 81 mg tablet,delayed 81 mg PO DAILY 12/06/22 02/19/24 02/13/24 History release Lactobacillus acidophilus 250 500 mmu cells PO TID 09/27/23 02/19/24 Unknown History million cell capsule (Probiotic Acidophilus) turmeric root extract 150 1 tab PO DAILY 09/27/23 02/19/24 Unknown History mg-prosper root extract 25 mg chewable tablet metronidazole 0.75 % topical cream 1 appl topical DAILY 01/15/24 02/19/24 Unknown History Exam Airway Mallampati Class: II TM Dist: >3cm Neck ROM: Full Heart: rrr Lungs: ta Assessment and Plan Assessment Anesthesia Assessment: Anesthesia Plan Discussed Final Anesthetic Review Family History of Problems with Anesthesia: No History of Problems with Anesthesia: No NPO: Yes ASA Class: III Final Preanesthetic Review: No Changes in Pt Med Stat, Meds/Allgs Chart Reviewed, Consent Obtained/Reviewed and Anes Risks/Benef Reviewed Patient Risk: Intermediate Procedure Risk: Low Anesthetic Plan Anesthetic Plan: MAC: Disposition: Standard PACU
[2024-02-21 13:11] VITALS: BP 108/69; PULSE 61; RESP 18; TEMP 36.1; O2SAT 98
--- NOTE | 2024-02-21 13:27 | MHC.SHP ---
Pre-Procedural Eval Section A - 24 Hr Update-Section A only Date of Service: 02/21/24 The patient is an INPATIENT: No Changes since office visit: No Cold of Flu in the past 2 weeks, No New Medical Problems, No Changes in Medication and No Patient answered all questions The patient has been examined within 24 hours of the surgical procedure. The History & Physical has been completed within 30 days and I have reviewed it.: Yes Section B - Complete if H&P > 30 days Chief Complaint: screening Allergies: Allergies Allergy/AdvReac Type Severity Reaction Status Date / Time dextromethorphan Allergy Intermediate BRADYCARDIA Verified 02/21/24 13:16 [From DIMETAPP COLD-CONGESTION] guaifenesin Allergy Intermediate BRADYCARDIA Verified 02/21/24 13:16 [From DIMETAPP COLD-CONGESTION] lactose Allergy Intermediate Stomach Verified 02/21/24 13:16 Upset latex [LATEX] Allergy Intermediate RASH Verified 02/21/24 13:16 metoprolol Allergy Intermediate caused Verified 02/21/24 13:16 depression phenylephrine Allergy Intermediate BRADYCARDIA Verified 02/21/24 13:16 [From DIMETAPP COLD-CONGESTION] pseudoephedrine Allergy Intermediate BRADYCARDIA Verified 02/13/24 09:35 [From DIMETAPP COLD-CONGESTION] Plan I have reviewed the history and physical and performed a pertinent physical examination on my patient. No changes have occurred unless specified. Time Spent With Patient Time: Total time managing care of this patient today ____ minutes.
[2024-02-21] MEDS: Lactated Ringers 1,000 ML 100 ML IVCONT (13:32)
[2024-02-21 14:58] VITALS: BP 101/52; PULSE 52; RESP 16; TEMP 36.4; O2SAT 98
[2024-02-21 15:11] VITALS: BP 117/70; PULSE 65; RESP 16; TEMP 36.4; O2SAT 98
--- NOTE | 2024-02-24 08:04 | OP_ITS ---
DATE OF SERVICE: 02/21/2024 SURGEON: Aris Rodriguez MD INDICATIONS: Colon cancer screening. PREOPERATIVE DIAGNOSIS: POSTOPERATIVE DIAGNOSIS: PROCEDURE PERFORMED: Colonoscopy to the cecum with biopsy. ESTIMATED BLOOD LOSS: COMPLICATIONS: ANESTHESIA: Medications, monitored anesthesia care. ASSISTANTS: SPECIMENS: PROCEDURE DESCRIPTION: A history and physical were performed. The risks and benefits of the procedure were explained to the patient. Informed consent was obtained. The patient was placed in the left lateral decubitus position. The Olympus videocolonoscope was introduced into the rectum after digital rectal exam was performed and was found to be normal. The scope was advanced to the cecum without difficulty. The cecum was identified by transillumination, palpation, and identification of ileocecal valve. Examination was performed. The scope was removed. She tolerated the procedure well and was returned to recovery room in stable condition. FINDINGS: The terminal ileum was not examined. The visualized colonic mucosa was normal. The quality of the prep was good. A single polyp was identified in the right colon measuring approximately 5 mm. This was removed with biopsy forceps. No other polyps were identified. Retroflexed examination showed some moderate-sized internal hemorrhoids. IMPRESSION: Colon polyp. RECOMMENDATION: Follow up the biopsy results. MD ALEX South/ADELINA / [phone]
== END 2024-02-21 15:27 | disposition home or self-care (01) ==
PROVIDERS: PCP Internal Medicine; Visit Provider Internal Medicine Gastroenterology
PROC: 0DJD8ZZ Inspection of Lower Intestinal Tract, Via Natural or Artificial Opening Endoscopic (ICD-10-PCS; CPT 45378; principal; 2024-02-21 12:50)
DX: Z12.11 Encounter for screening for malignant neoplasm of colon (principal); K63.5 Polyp of colon; K64.8 Other hemorrhoids; K76.0 Fatty (change of) liver, not elsewhere classified; D47.3 Essential (hemorrhagic) thrombocythemia; D75.839 Thrombocytosis, unspecified; L03.213 Periorbital cellulitis; I49.3 Ventricular premature depolarization; E78.5 Hyperlipidemia, unspecified; G43.909 Migraine, unspecified, not intractable, without status migrainosus; F41.8 Other specified anxiety disorders; Z79.82 Long term (current) use of aspirin; Z79.899 Other long term (current) drug therapy; E73.9 Lactose intolerance, unspecified; Z88.8 Allergy status to other drugs, medicaments and biological substances; Z91.040 Latex allergy status; Z87.891 Personal history of nicotine dependence
CPT/HCPCS: 45380; 88305; J2704

== ENCOUNTER 2024-04-07 10:31 | Emergency (ER) | payer OTHER, SELFPAY ==
--- NOTE | ~2024-04-07 | XR_ITS ---
EXAMINATION: XR KNEE, RIGHT CLINICAL INFORMATION: Right knee pain COMPARISON: None available. TECHNIQUE: Four views of the right knee. FINDINGS: No fracture or dislocation. No joint effusion. Minor patellar spurring. Joint spaces are maintained. XR/XR knee RT 4V IMPRESSION: No acute bony pathology right knee. Minor patellar spurring. Electronically signed by: Valentine Hamilton MD 04/07/2024 02:21 PM EDT
--- NOTE | ~2024-04-07 | XR_ITS ---
EXAMINATION: XR FOOT, LEFT CLINICAL INFORMATION: Left foot pain COMPARISON: None available. TECHNIQUE: AP, lateral, and oblique views of the left foot. FINDINGS: Transverse lucency metatarsal with minor focal soft tissue swelling. Oblique lucency is seen more superiorly and additional longitudinal lucency are questioned on AP view. Alignment and articulations are maintained. XR/XR foot LT 2V IMPRESSION: Nondisplaced left fifth metatarsal base fracture, likely comminuted. Electronically signed by: Valentine Hamilton MD 04/07/2024 02:19 PM EDT
[2024-04-07 11:32] VITALS: BP 134/77; PULSE 70; RESP 18; TEMP 36.8; O2SAT 95; BMI 33.7
--- NOTE | 2024-04-07 11:40 | ED_ITS ---
HPI - General Adult General Chief complaint: Fall Stated complaint: fall r knee and l foot inj Time Seen by Provider: 04/07/24 12:14 Source: patient Mode of arrival: wheelchair Limitations: no limitations History of Present Illness ED Provider: Becky Ghosh PA-C HPI narrative: 58-year-old female presents to the ER for evaluation of left lateral foot pain and right knee pain after she tripped on her shoes walking in the driveway this morning. Patient states she rolled her ankle, heard a pop in her left lateral foot and fell onto her right knee causing an abrasion. She reports inability to bear weight on the left foot since the injury. She denies hitting her head or losing consciousness. She is on anticoagulation. She denies any numbness or tingling in the foot. No knee pain in the left side. She has full range of motion of the right knee. MD complaint: Left foot pain and right knee pain after a fall Onset (ago): hour(s) Location: left, right and lower extremity Radiation: non-radiation Severity: mild Quality: aching Pain Consistency: intermittent Relieving factors: rest Exacerbating factors: movement and other (Weight-bearing) Associated symptoms: denies other symptoms Treatments prior to arrival: none Related Data Home Medications ?Medication ?Instructions ?Recorded ?Confirmed escitalopram oxalate 10 mg tablet 10 mg PO DAILY 05/20/20 02/19/24 (Lexapro) escitalopram oxalate 5 mg tablet 1 tab PO QAM 05/20/20 02/19/24 calcium 500 mg tablet 500 mg PO DAILY 11/29/20 02/19/24 multivitamin 1 tab PO DAILY 09/27/22 02/19/24 aspirin 81 mg tablet,delayed 81 mg PO DAILY 12/06/22 02/19/24 release Lactobacillus acidophilus 250 500 mmu cells PO TID 09/27/23 02/19/24 million cell capsule (Probiotic Acidophilus) turmeric root extract 150 1 tab PO DAILY 09/27/23 02/19/24 mg-prosper root extract 25 mg chewable tablet metronidazole 0.75 % topical cream 1 appl topical DAILY 01/15/24 02/19/24 Previous Rx's ?Medication ?Instructions ?Recorded cholecalciferol (vitamin D3) 50 50 mcg PO DAILY #90 tabs 09/18/23 mcg (2,000 unit) tablet Allergies Allergy/AdvReac Type Severity Reaction Status Date / Time dextromethorphan Allergy Intermediate BRADYCARDIA Verified 04/07/24 11:41 [From DIMETAPP COLD-CONGESTION] guaifenesin Allergy Intermediate BRADYCARDIA Verified 04/07/24 11:41 [From DIMETAPP COLD-CONGESTION] lactose Allergy Intermediate Stomach Verified 04/07/24 11:41 Upset latex [LATEX] Allergy Intermediate RASH Verified 04/07/24 11:41 metoprolol Allergy Intermediate caused Verified 04/07/24 11:41 depression phenylephrine Allergy Intermediate BRADYCARDIA Verified 04/07/24 11:41 [From DIMETAPP COLD-CONGESTION] pseudoephedrine Allergy Intermediate BRADYCARDIA Verified 04/07/24 11:41 [From DIMETAPP COLD-CONGESTION] Review of Systems Review of Systems: Yes all other systems are reviewed and are negative [facility] Past Medical History Medical History Preseptal cellulitis of right eye Transient visual loss of left eye Family history of uterine cancer Vaginal dryness, menopausal Dyspareunia, female Lumbago with sciatica, right side Anxiety and depression Tinea versicolor Acquired deformity of toenail Acute hepatitis Thickening of wall of gallbladder with pericholecystic fluid Vitamin D deficiency Hyperlipidemia Chronic left shoulder pain Migraine with aura Premature ventricular contractions Fatty liver FHx: ovarian cancer FHx: breast cancer Carpal tunnel syndrome Colonoscopy planned Osteoarthritis DAVF (dural arteriovenous fistula) Essential thrombocytosis Surgical History H/O colonoscopy H/O removal of cyst History of knee surgery S/P arteriovenous (AV) fistula repair Family History Family History Mother Mental health disorder Breast CA Uterine cancer Father Throat cancer Unknown Myelofibrosis Maternal Grandmother Breast CA Maternal Uncle Colon cancer Social History Social History Household Members: Family Housing: Apartment Are you a primary home care giver to a significant other at home: No Do you presently have visiting nurse or other home services: No Alcohol intake: never Patient Tobacco Use Status: Former Tobacco user Years Smoked: 6 yrs e-Cigarette/Vaping Use: Never Used Second Hand Smoke Exposure: Yes Advance Directives: Yes Advance Directives on File: Yes Advance Directives Date on File: 12/27/21 service: No Current occupational status: employed 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 Oriented X3. No acute distress. HEENT: normal inspection CVS: Normal heart rate and rhythm. Pulses normal. Respiratory: No respiratory distress. Skin: Skin warm and dry. Normal skin color. Normal skin turgor. No rashes. Extremities: Right knee with superficial abrasion centrally, approximately 3 cm large. Full range of motion of the right knee, no appreciated effusion. Left lateral foot with tenderness along the 5th metatarsal with associated swelling and early ecchymosis. 2+ PT and DP pulses. Able to move the toes with cap refill less than 3 seconds. Pain with dorsiflexion and plantar flexion of the left foot. Neuro: Oriented X 3. No motor deficit. No sensory deficit. Gait not tested due to pain Course Course Course Narrative: This is an RME done by NATALEE Mistry: Additional HPI, ROS, PE not included below will be deferred to primary provider. 58yo F with PMHx b/l OA of the knees, thrombocytosis, HLD, anxiety and depression presents after a fall at home in her driveway. C/o R knee pain and left foot/ankle pain. Denies head strike, LOC, dizziness, CP, SOB. Not on blood thinners. Appearance: Alert.? Oriented X3.? No acute cardiopulmonary distress distress.? Head: Normocephalic, atraumatic, no step-offs or deformities ENT: Pharynx normal.??External ears normal Neck: Normal inspection.? CVS: Pulses normal.? Respiratory: No respiratory distress.? Abdomen: Soft and nontender.? Skin: ? Normal skin color. Extremities: 5/5 strength in lower extremities b/l. FROM of the toes. Dorsiflexion and plantar flexion 5/5 b/l. Unable to invert and maite L ankle due to pain. 2+ DP and PTs b/l Neuro: Oriented X 3.? Medications Administered Discontinued Medications Generic Name Dose Route Start Last Admin Trade Name Suraj PRN Reason Stop Dose Admin Bacitracin 1 appl 04/07/24 14:11 04/07/24 15:00 Bacitracin Oint 0.9 Gm Packet TOPICAL 04/07/24 14:12 1 appl ONCE ONE Administration Protocol Diphtheria/Tetanus/Acell Pertussis 0.5 ml 04/07/24 11:38 04/07/24 12:37 Diphth,Pertus(Acell),Tet Adult 0.5 Ml Syringe IM 04/07/24 11:39 0.5 ml .ONCE ONE Administration Procedures Orthopedic Splinting/Casting Injury #1: Side: left Lower Extremity Injury Location: foot Lower Extremity Immobilizer: posterior splint and Adi wrap Other Orthopedic Equipment: crutches Medical Decision Making Medical Decision Making MDM Narrative: 50-year-old female presents to the ER for evaluation of left foot pain and an abrasion on her right knee after she tripped and fell while walking in her [facility] this morning. She has swelling and tenderness of left lateral foot, along with 5th metatarsal. X-ray today is showing a nondisplaced left 5th metatarsal base fracture, likely comminuted. Patient was placed in a splint. She is nonweightbearing. She was counseled on diagnosis and management as well as the need for close orthopedic follow-up. Patient expressed understanding. She was unable to tolerate crutches and plans on going to the [employer] to rent a knee scooter for the month. She has no pain at rest, will hold off on narcotic prescription for now. She will take Motrin and Tylenol as needed for pain. Patient expressed understanding and all questions were answered. Stable for DC Differential Diagnosis Differential Diagnoses: The differential diagnosis associated with the presentation includes Foot fracture, foot sprain, ankle sprain, knee contusion, knee abrasion, ligamentous injury Independent Interpretation I performed an independent interpretation of an: Plain X-Ray Interpretation: Left 5th base metatarsal fracture appreciated, agree with radiology read Normal appearance of the right knee Radiology Impression Discussion of test interpretation with radiology: I have reviewed the radiologist's reading. Independent Historian Clinical information obtained from an independent historian. History obtained from or confirmed by: Spouse External Record Review External record reviewed: Office record, Outpatient record, Prior outpatient labs and Prior outpatient radiology Prescription Management I considered prescription management with: Pain Medication Chronic Conditions Patient?s care impacted by: Other (Osteoarthritis) Critical Care Time Critical Care Time Critical Care Time: No Discharge Plan Discharge Clinical Impression: Closed fracture of fifth metatarsal bone Qualifiers: Encounter type: initial encounter Fracture alignment: nondisplaced Laterality: left Qualified Code(s): S92.355A - Nondisplaced fracture of fifth metatarsal bone, left foot, initial encounter for closed fracture Patient Disposition: Home, Self-Care Instructions: Foot Fracture in Adults (ED) Additional Instructions: X-ray showed you broke a bone in your foot. You are to be nonweightbearing on the left foot. Use crutches or knee scooter Where they provided splint until you were seen by orthopedics. Call for an appointment. Name and number below. Elevate your foot when possible. Take ibuprofen and Tylenol as needed for pain. If you develop new or worsening symptoms call 911 or come back to the ER for further evaluation. [address] [address] XRay Report EXAMINATION: XR FOOT, LEFT CLINICAL INFORMATION: Left foot pain COMPARISON: None available. TECHNIQUE: AP, lateral, and oblique views of the left foot. FINDINGS: Transverse lucency metatarsal with minor focal soft tissue swelling. Oblique lucency is seen more superiorly and additional longitudinal lucency are questioned on AP view. Alignment and articulations are maintained. XR/XR foot LT 2V IMPRESSION: Nondisplaced left fifth metatarsal base fracture, likely comminuted. Prescriptions: No Action cholecalciferol (vitamin D3) 50 mcg (2,000 unit) tablet 50 mcg PO DAILY Qty: 90 1RF escitalopram oxalate [Lexapro] 10 mg Tablet 10 mg PO DAILY escitalopram oxalate 5 mg tablet 1 tab PO QAM calcium 500 mg Tablet 500 mg PO DAILY metronidazole 0.75 % Cream 1 appl TOPICAL DAILY multivitamin Tablet 1 tab PO DAILY Probiotic Acidophilus 250 million cell capsule 500 mmu cells PO TID turmeric root-prosper root ext 150-25 mg tablet,chewable 1 tab PO DAILY aspirin 81 mg tablet,delayed release (DR/EC) 81 mg PO DAILY Referrals: [facility] [Provider Group] (Mann fracture) Savannah Ortiz MD [Primary Care Provider] - Stand Alone Forms: Work/School Release Interventions: ED Discharge Assessment Last Done: 04/07/24 15:30 Print Language: Chadian
[2024-04-07] MEDS: Diphth,Pertus(ACell),Tet Adult 0.5 ML SYRINGE IM (12:37)
[2024-04-07] MEDS: Bacitracin Oint 0.9 GM PACKET 1 APPL TOPICAL (15:00)
--- NOTE | 2024-04-07 15:21 | PC.NURSE ---
Addendum entered by Mandy Montoya 04/07/24 15:28: patient encouraged to go to a store to knot picker cloth a knee scooter, patient agreeable to this plan and is leaving upon discharge to do so. encouraged to return to emergency department at any time if she feels she needs further assistance w/ the fracture. agreeable to plan. Original Note: attempted to have patient use crutches, patient tolerated poorly. unable to ambulate steadily and independently d/t left knee pain and bilateral arthritis in her thumbs.
[2024-04-07 15:30] VITALS: BP 134/77; PULSE 70; RESP 18; TEMP 36.8; O2SAT 95
== END 2024-04-07 15:30 | disposition home or self-care (01) ==
PROVIDERS: Emergency Provider Emergency Medicine Emergency Medical Services; PCP Internal Medicine
DX: S92.355A Nondisplaced fracture of fifth metatarsal bone, left foot, initial encounter for closed fracture (principal); S80.211A Abrasion, right knee, initial encounter; X50.1XXA Overexertion from prolonged static or awkward postures, initial encounter; Y93.89 Activity, other specified; Y92.014 Private driveway to single-family (private) house as the place of occurrence of the external cause; Y99.9 Unspecified external cause status; Z23 Encounter for immunization
CPT/HCPCS: 29515; 73564; 73620; 90471; 90715; 99282; 99284

== ENCOUNTER 2024-04-14 08:23 | Outpatient (AMB) | payer OTHER, SELFPAY ==
[2024-04-14 08:25] VITALS: BMI 32.3
--- NOTE | 2024-04-14 08:25 | A.OFFVIS_ITS ---
Vital Signs 04/14/24 08:25 Height 5 ft 6 in Weight 200 lb BMI 32.3 Intake Visit Reasons: FC- Right foot 5th metatarsal fx Intake Note: Avis is a 58 year old female who presents today for a fracture care visit for her left fifth metatarsal fx, DOI 04/07/2024. Patient reports she tripped on her shoes walking in the driveway leading her to fall. She mentions that she heard a pop in her left foot and fell onto her right knee. Patient states that her pain today is a 0 on the pain scale however she experiences pain her left ankle when present. She is currently not taking anything for pain and is using a scooter to move around. Reports random episodes of tingling, denies numbness. She has been working remotely due to this injury. Patient denies prior surgeries or injuries to the left ankle. Allergies dextromethorphan [From DIMETAPP COLD-CONGESTION] Allergy (Intermediate, Verified 04/14/24 08:26) BRADYCARDIA guaifenesin [From DIMETAPP COLD-CONGESTION] Allergy (Intermediate, Verified 04/14/24 08:26) BRADYCARDIA lactose Allergy (Intermediate, Verified 04/14/24 08:26) Stomach Upset latex [LATEX] Allergy (Intermediate, Verified 04/14/24 08:26) RASH metoprolol Allergy (Intermediate, Verified 04/14/24 08:26) caused depression phenylephrine [From DIMETAPP COLD-CONGESTION] Allergy (Intermediate, Verified 04/14/24 08:26) BRADYCARDIA pseudoephedrine [From DIMETAPP COLD-CONGESTION] Allergy (Intermediate, Verified 04/14/24 08:26) BRADYCARDIA HPI HPI FC- Right foot 5th metatarsal fx: Details: 58-year-old female who presents in the office today for an evaluation of left foot pain. The patient presented to the ED on 04/07/24 status post a tripping over her shoe while ambulating on her driveway. She reported pain in the left ankle and right knee. X-rays were obtained. She was placed in a splint and instructed to remain non-weight bearing. She was unable to tolerate crutches and planned to go to [employer] [place] to rent a knee scooter for the month.? While in the office today, the patient confirms she tripped over her shoes while ambulating in her driveway on 04/07/24. She reports her pain in the left foot is a 0/10 in the office, but reports pain in the left ankle. She reports intermittent episodes of tingling but denies numbness. She denies taking any medication for pain and is using a scooter to move around.? ? Patient reports she has been working remotely due to her injury. ? ? Patient denies any prior surgery or injuries to the left ankle/foot.? [facility] Medical History Preseptal cellulitis of right eye Transient visual loss of left eye Family history of uterine cancer Vaginal dryness, menopausal Dyspareunia, female Lumbago with sciatica, right side Anxiety and depression Tinea versicolor Acquired deformity of toenail Acute hepatitis Thickening of wall of gallbladder with pericholecystic fluid Vitamin D deficiency Hyperlipidemia Chronic left shoulder pain Migraine with aura Premature ventricular contractions Fatty liver FHx: ovarian cancer FHx: breast cancer Carpal tunnel syndrome Colonoscopy planned Osteoarthritis DAVF (dural arteriovenous fistula) Essential thrombocytosis Surgical History H/O colonoscopy H/O removal of cyst History of knee surgery S/P arteriovenous (AV) fistula repair Family History Mother Mental health disorder Breast CA Uterine cancer Father Throat cancer Unknown Myelofibrosis Maternal Grandmother Breast CA Maternal Uncle Colon cancer Social History Household Members: Family Housing: Apartment Are you a primary school childcare attendant to a significant other at home: No Do you presently have visiting nurse or other home services: No Alcohol intake: never Patient Tobacco Use Status: Former Tobacco user Years Smoked: 6 yrs e-Cigarette/Vaping Use: Never Used Second Hand Smoke Exposure: Yes Advance Directives Date on File: 12/27/21 service: No Current occupational status: employed 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 Cognitive needs: No Hearing needs: No Vision needs: Yes Female Reproductive History Menstrual Age of Menarche: 13 Review of Systems Const All systems reviewed & are unremarkable except as noted in HPI and below Physical Exam Vital Signs: BMI result Body Mass Index 32.3 Const General: cooperative, healthy appearing and no acute distress Orientation/consciousness: patient oriented x3 Resp Effort & Inspection: normal respiratory effort and able to speak in complete sentences Cardio Rate: regular rate Peripheral pulses: Peripheral pulses 2+ throughout GI Palpation (GI): Soft to palpation Skin General skin exam: no rashes or lesions noted Lesions: no lesions Rashes: no rashes Neuro General: patient oriented x3 Extrem Other: Left foot/ankle: Circumferential ecchymosis at the base of the toes and along the lateral aspect of the left foot. Tenderness to palpation at the base of the fifth metatarsal at the fracture site. Able to flex and extend all digits. Slightly able to flex and extend at the left ankle. Sensation intact. Pedal pulse intact. Office Procedures Fracture Care Fracture Billing Code: Fracture Billing Code Assessment & Plan Assessment & Plan (1) Fracture of metatarsal of left foot, closed: Comment: Fifth Code(s): S92.302A - Fracture of unspecified metatarsal bone(s), left foot, initial encounter for closed fracture Category: Medical Plan Ms. Guillen is a 58-year-old female who presents in the office today for an evaluation of left foot pain. The patient presented to the ED on 04/07/24 status post a tripping over her shoe while ambulating on her driveway. She reported pain in the left ankle and right knee. X-rays were obtained. She was placed in a splint and instructed to remain non-weight bearing. She was unable to tolerate crutches and planned to go [facility] to [facility] a knee scooter for the month.? While in the office today, the patient confirms she tripped over her shoes while ambulating in her driveway on 04/07/24. She reports her pain in the left foot is a 0/10 in the office, but reports pain in the left ankle. She reports intermittent episodes of tingling but denies numbness. She denies taking any medication for pain and is using a scooter to move around.? ? Patient reports she has been working remotely due to her injury. ? ? Patient denies any prior surgery or injuries to the left ankle/foot.? ?? The patient was placed in a tall walking boot, off the shelf. She is able to partial weight bear. Follow-up will be in 4-5 weeks with repeat x-rays or sooner if needed. ? ?? X-rays of the left foot, obtained on 04/07/24, revealed: Nondisplaced left fifth metatarsal base fracture, likely comminuted.?? Patient Instructions: Scribed by Rissa Lilly biomedical equipment specialist, for Velia Felix PA-C on 04/14/2024 at 8:24 am, EST.? Coding Level of Care Code New Pt Level 4 (61197) Complex EM visit Add On G2211 Diagnoses Fracture of metatarsal of left foot, closed S92.302A CPT Codes Fracture Care - Fracture Billing Code: Fracture Billing Code ([id number])
== END 2024-04-14 08:57 | disposition home or self-care (01) ==
PROVIDERS: PCP Internal Medicine; Visit Provider Physician Assistant
DX: S92.302A Fracture of unspecified metatarsal bone(s), left foot, initial encounter for closed fracture (principal); W01.0XXA Fall on same level from slipping, tripping and stumbling without subsequent striking against object, initial encounter
CPT/HCPCS: 99214

== ENCOUNTER → 2024-04-14 08:23 | Outpatient (BNVA) | payer OTHER, SELFPAY | PROVIDERS: PCP Internal Medicine; Visit Provider Physician Assistant ==

== ENCOUNTER → 2024-05-15 12:27 | Outpatient (BNVA) | payer OTHER, SELFPAY | PROVIDERS: PCP Internal Medicine ==

== ENCOUNTER 2024-05-19 08:12 | Outpatient (AMB) | payer OTHER, SELFPAY ==
--- NOTE | 2024-05-19 08:28 | A.OFFVIS_ITS ---
Intake Visit Reasons: left fifth metatarsal fx, DOI 04/07/2024 Intake Note: Avis is a 58 year old female who presents today without her tall walking boot for a follow up left fifth metatarsal fx, DOI 04/07/2024. Pt states she has been using the walking boot but removing the boot when she is at home. Patient states she is feeling a bit better but feels like she is pronating her foot and causing pain along the medial aspect. Swelling on the lateral aspect. Allergies dextromethorphan [From DIMETAPP COLD-CONGESTION] Allergy (Intermediate, Verified 05/19/24 08:34) BRADYCARDIA guaifenesin [From DIMETAPP COLD-CONGESTION] Allergy (Intermediate, Verified 05/19/24 08:34) BRADYCARDIA lactose Allergy (Intermediate, Verified 05/19/24 08:34) Stomach Upset latex [LATEX] Allergy (Intermediate, Verified 05/19/24 08:34) RASH metoprolol Allergy (Intermediate, Verified 05/19/24 08:34) caused depression phenylephrine [From DIMETAPP COLD-CONGESTION] Allergy (Intermediate, Verified 05/19/24 08:34) BRADYCARDIA pseudoephedrine [From DIMETAPP COLD-CONGESTION] Allergy (Intermediate, Verified 05/19/24 08:34) BRADYCARDIA HPI HPI left fifth metatarsal fx, DOI 04/07/2024: Details: 58-year-old female who presents in the office today for a follow-up of a right fifth metatarsal fracture. The patient tripped over her shoe when ambulating on her driveway, which occurred on 04/07/24. I last saw the patient in the office on 04/14/24 when she was placed in a tall walking boot and she was able to bear partial weight. While in the office today, the patient presents without wearing her tall walking boot. She states she has been using the walking boot; however, she removes it when she is at home. She reports the presence of edema in the lateral aspect of the right foot. She states she feels like she is pronating her right foot while ambulating, which is causing an increased pain along the medial aspect of the right foot. [facility] Medical History Preseptal cellulitis of right eye Transient visual loss of left eye Family history of uterine cancer Vaginal dryness, menopausal Dyspareunia, female Lumbago with sciatica, right side Anxiety and depression Tinea versicolor Acquired deformity of toenail Acute hepatitis Thickening of wall of gallbladder with pericholecystic fluid Vitamin D deficiency Hyperlipidemia Chronic left shoulder pain Migraine with aura Premature ventricular contractions Fatty liver FHx: ovarian cancer FHx: breast cancer Carpal tunnel syndrome Colonoscopy planned Osteoarthritis DAVF (dural arteriovenous fistula) Essential thrombocytosis Surgical History H/O colonoscopy H/O removal of cyst History of knee surgery S/P arteriovenous (AV) fistula repair Family History Mother Mental health disorder Breast CA Uterine cancer Father Throat cancer Unknown Myelofibrosis Maternal Grandmother Breast CA Maternal Uncle Colon cancer Social History Household Members: Family Housing: Apartment Are you a primary palliative care coordinator to a significant other at home: No Do you presently have visiting nurse or other home services: No Alcohol intake: never Patient Tobacco Use Status: Former Tobacco user Years Smoked: 6 yrs e-Cigarette/Vaping Use: Never Used Second Hand Smoke Exposure: Yes Advance Directives Date on File: 12/27/21 service: No Current occupational status: employed 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 Cognitive needs: No Hearing needs: No Vision needs: Yes Female Reproductive History Menstrual Age of Menarche: 13 Review of Systems Const All systems reviewed & are unremarkable except as noted in HPI and below Physical Exam Const General: cooperative, healthy appearing and no acute distress Orientation/consciousness: patient oriented x3 Resp Effort & Inspection: normal respiratory effort and able to speak in complete sentences Cardio Rate: regular rate Peripheral pulses: Peripheral pulses 2+ throughout GI Palpation (GI): Soft to palpation Skin General skin exam: no rashes or lesions noted Lesions: no lesions Rashes: no rashes Neuro General: patient oriented x3 Extrem Other: Left foot/ankle: No ecchymosis or erythema. Mild edema at the base of the fifth metatarsal. Tenderness to palpation at the base of the fifth metatarsal at the fracture site. Able to flex and extend all digits. Able to flex and extend at the left ankle. Sensation intact. Pedal pulse intact. Assessment & Plan Assessment & Plan (1) Fracture of metatarsal of left foot, closed: Comment: Fifth Code(s): S92.302A - Fracture of unspecified metatarsal bone(s), left foot, initial encounter for closed fracture Category: Medical Plan Ms. Guillen is a 58-year-old female who presents in the office today for a follow-up of a right fifth metatarsal fracture. The patient tripped over her shoe when ambulating on her driveway, which occurred on 04/07/24. I last saw the patient in the office on 04/14/24 when she was placed in a tall walking boot and she was able to bear partial weight. While in the office today, the patient presents without wearing her tall walking boot. She states she has been using the walking boot; however, she removes it when she is at home. She reports the presence of edema in the lateral aspect of the right foot. She states she feels like she is pronating her right foot while ambulating, which is causing an increased pain along the medial aspect of the right foot. The patient is still experiencing tenderness on exam to the base of the fifth metatarsal at the fracture site. Therefore, I have recommended her to continue wearing the walking boot for protection. I did encourage her to wean out of boot in two weeks, if she needs to continue wearing it due to pain. She complains of experiencing increased pain along the medial aspect of the right foot due to pronating when ambulating to protect the fracture site. I encouraged her to try to walk as normally as possible. She was recommended pt ; however, she expressed dissatisfaction regarding the effectiveness of the physical therapy. We did compromise to have her attend one visit with instruction of a home exercise program. The patient will follow-up via telehealth appointment in 4-6 weeks. She can switch to an office visit if she would like. Follow up will be in 4-6 weeks via telephone or office visit, or sooner if needed. X-rays of the right foot, which were obtained while in the office today and were reviewed by me, Velia Felix PA-C, revealed: Routine healing of the right fifth metatarsal fracture. Orders: Orders XR foot LT min 3V Today M79.673 - Pain in unspecified foot PT Evaluation and Treatment Today S92.302A - Fracture of unspecified metatarsal bone(s), left foot, initial encounter for closed fracture Patient Instructions: Scribed by Mary Ragland, medical record librarian, for Velia Felix PA-C on 05/19/24 at 8:32 am EST. Coding Level of Care Code Global (76076) Diagnoses Fracture of metatarsal of left foot, closed S92.302A
== END 2024-05-19 09:01 | disposition home or self-care (01) ==
PROVIDERS: PCP Internal Medicine; Visit Provider Physician Assistant
DX: S92.355A Nondisplaced fracture of fifth metatarsal bone, left foot, initial encounter for closed fracture (principal)
CPT/HCPCS: 99213

== ENCOUNTER 2024-05-19 09:29 | Outpatient (REF) | payer OTHER, SELFPAY | END 2024-05-19 09:30 | disposition home or self-care (01) | LOC: HO.HOSX 09:29 | PROVIDERS: Visit Provider Physician Assistant | DX: M79.673 Pain in unspecified foot (principal) | CPT/HCPCS: 73630 ==

== ENCOUNTER 2024-06-17 14:50 | Outpatient (AMB) | payer OTHER, SELFPAY ==
--- NOTE | 2024-06-17 14:56 | A.OFFVIS_ITS ---
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 Roll Finisher Required: No Allergies dextromethorphan [From DIMETAPP COLD-CONGESTION] Allergy (Intermediate, Verified 05/19/24 08:34) BRADYCARDIA guaifenesin [From DIMETAPP COLD-CONGESTION] Allergy (Intermediate, Verified 05/19/24 08:34) BRADYCARDIA lactose Allergy (Intermediate, Verified 05/19/24 08:34) Stomach Upset latex [LATEX] Allergy (Intermediate, Verified 05/19/24 08:34) RASH metoprolol Allergy (Intermediate, Verified 05/19/24 08:34) caused depression phenylephrine [From DIMETAPP COLD-CONGESTION] Allergy (Intermediate, Verified 05/19/24 08:34) BRADYCARDIA pseudoephedrine [From DIMETAPP COLD-CONGESTION] Allergy (Intermediate, Verified 05/19/24 08:34) BRADYCARDIA Medication List - Last Reconciled 06/17/24 by Carol Ann Cruz CNM aspirin 81 mg PO DAILY calcium 500 mg PO DAILY cholecalciferol (vitamin D3) 50 mcg PO DAILY escitalopram oxalate 1 tab PO QAM escitalopram oxalate (Lexapro) 10 mg PO DAILY Lactobacillus acidophilus (Probiotic Acidophilus) 500 mmu cells PO TID metronidazole 0.75% 1 appl topical DAILY multivitamin 1 tab PO DAILY turmeric root-prosper root ext 150-25 mg 1 tab PO DAILY Is last menstrual period known: No Post menopausal: Yes Patient : No HPI HPI INTERVENTIONAL CARDIOLOGIST annual exam: Details: 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 She is experiencing postmenopausal changes vaginal post coital she was experience she sought consultation with Dr. Cunningham. She said they discussed something that maybe coming out in the future, but she might be interested in having another conversation about that she feels also more decreased libido. She is also struggling with weight. she bought a bike for 2 biking more she slipped on it within broke her foot so she is been going from 1 injury or usual serious medical occurrence to another. Her history of HPV on was extremely remote question . She says she is up-to-date with all all of her screens. [facility] Medical History Preseptal cellulitis of right eye Transient visual loss of left eye Family history of uterine cancer Vaginal dryness, menopausal Dyspareunia, female Lumbago with sciatica, right side Anxiety and depression Tinea versicolor Acquired deformity of toenail Acute hepatitis Thickening of wall of gallbladder with pericholecystic fluid Vitamin D deficiency Hyperlipidemia Chronic left shoulder pain Migraine with aura Premature ventricular contractions Fatty liver FHx: ovarian cancer FHx: breast cancer Carpal tunnel syndrome Colonoscopy planned Osteoarthritis DAVF (dural arteriovenous fistula) Essential thrombocytosis Surgical History H/O colonoscopy H/O removal of cyst History of knee surgery S/P arteriovenous (AV) fistula repair Family History Mother Mental health disorder Breast CA Uterine cancer Father Throat cancer Unknown Myelofibrosis Maternal Grandmother Breast CA Maternal Uncle Colon cancer Social History Household Members: Family Housing: Apartment Are you a primary personal caregiver to a significant other at home: No Do you presently have visiting nurse or other home services: No Alcohol intake: never Patient Tobacco Use Status: Former Tobacco user Years Smoked: 6 yrs e-Cigarette/Vaping Use: Never Used Second Hand Smoke Exposure: Yes Advance Directives Date on File: 12/27/21 service: No Current occupational status: employed 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 Cognitive needs: No Hearing needs: No Vision needs: Yes Female Reproductive History Menstrual Age of Menarche: 13 Menopause type: natural Age of menopause: 56 Total pregnancies: 1 Full term: 1 Number of Living Children: 1 Date of last pap smear: 06/12/22 History of abnormal pap smear: No History of STI: No Date of Mammogram: 04/08/23 History of abnormal mammogram: No Physical Exam Vital Signs: Last Vital Signs BP 114/86 06/17/24 14:57 BMI result Body Mass Index 34.4 Const General: healthy appearing, comfortable, no acute distress, well developed and alert Nutritional Appearance: average body habitus Orientation/consciousness: patient oriented x3 Limitations: no limitations HEENT Head: Yes normocephalic Neck Neck: Yes normal visual inspection Chest Chest palpation & inspection: normal inspection of the chest Breast/axilla inspection: normal inspection of the breasts and normal inspection of the axillae Breast/axilla palpation: normal palpation of the breasts and normal palpation of the axillae Resp Effort & Inspection: normal respiratory effort GI Inspection: Yes normal to inspection, No Abdominal wall edema and No distended Palpation (GI): Soft to palpation and nontender General: Yes bladder normal to palpation External Female Exam: normal external appearance and normal appearance of the urethra Speculum Exam - Vagina: normal appearance of the vagina, normal palpation and normal vaginal discharge Speculum Exam - Cervix: normal appearance of the cervix, normal palpation and nontender Bimanual exam- vagina & uterus: normal bimanual exam, normal palpation, uterine size normal, bladder normal to palpation, consistency normal, normal palpation, uterine mobility normal, uterine shape normal, No Cervical tenderness present, non-tender and no cervical motion tenderness Bimanual Exam- Adnexa, other: normal adnexae, no masses, normal and No adnexal tenderness Neuro General: patient oriented x3 Results Reviewed Results Reviewed: Name: Avis Guillen Age/Sex: 56/F Attending: Carol Ann Cruz CNM : 1965 Submitted by: Carol Ann Cruz CNM Copies to: MR #: [id number] Status: DEP REF Collected: 06/11/22 Location: [facility] Received: 06/12/22 Interpretation Satisfactory for evaluation. Negative for intraepithelial lesion or malignancy. HPV mRNA E6/E7: NOT DETECTED This assay detects E6/E7 viral messenger RNA (mRNA) from 14 high-risk HPV types (16, 18, 31, 33, 35, 39, 45, 51, 52, 56, 58, 59, 66, 68) HPV testing performed by [facility], [place], [place]. See reference laboratory portion of the EMR for entire report. Clinical Information LMP: No menses Previous PAP test: 02/04/17, WNL Material Received ThinPrep-Cervical Electronically Signed By: Luna Damon 06/27/22 1601 The Pap Test is a screening procedure with the inherent possibility of both false negative and false positive results. Results should be interpreted in the context of historic and current clinical findings. Reliability of the Pap Test is enhanced by performing the test on a regular repetitive basis. Patient: Avis Guillen Age/Sex: 56/F MR#: [id number] Page 1 of 1 Name: Avis Guillen Specimen #: [id number] Age/Sex: 54/F Attending: Ana Patricia MD : 1965 Submitted by: Ana Patricia MD Collected: 05/26/20 MR #: [id number] Received: 05/30/20 Status: [facility] REF Location: [facility] Interpretation Satisfactory for evaluation. Negative for intraepithelial lesion or malignancy. HPV mRNA E6/E7: NOT DETECTED This assay detects E6/E7 viral messenger RNA (mRNA) from 14 high-risk HPV types (16, 18, 31, 33, 35, 39, 45, 51, 52, 56, 58, 59, 66, 68) HPV testing performed by [facility], [place], [place]. See reference laboratory portion of the EMR for entire report. Clinical Information LMP: 03/16/20 Previous PAP test: 02/01/17, wnl Other history: Last pap NIL, remote history of HPV+ Material Received ThinPrep cervical Electronically Signed By: Luna Damon 06/21/20 1519 The Pap Test is a screening procedure with the inherent possibility of both false negative and false positive results. Results should be interpreted in the context of historic and current clinical findings. Reliability of the Pap Test is enhanced by performing the test on a regular repetitive basis. Patient: Avis Guillen Age/Sex: 54/F MR#: [id number] Page 1 of 1 Assessment & Plan Assessment & Plan (1) Decreased libido: Comment: History of thrombocytosis Code(s): R68.82 - Decreased libido Category: Medical (2) Dyspareunia, female: Code(s): N94.10 - Unspecified dyspareunia Category: Medical (3) Cervical cancer screening: Comment: 06/11/22 pap= neg w neg hpv. Code(s): Z12.4 - Encounter for screening for malignant neoplasm of cervix Category: Medical (4) Menopause: Code(s): Z78.0 - Asymptomatic menopausal state Category: Medical Plan -----Discussed in this visit the following: healthy balanced diet, regular and consistent exercise, getting recommended health screens, doing the best she can for her particular health concerns, kegel exercises, pap smear screening and followup recommendations, mammography screening and SBE, normal changes in cycles in her life stage--- .---Discussed normal changes that happen premenapausally, perimenapausally, and postmenopausally, and ways to handle them. Discussed the normal variation, and the range of experiences that women experience. Discussed nutrition, health, need for exercise, both weight-bearing and aerobic. Also discussed the normal changes that happen with vaginal mucosal thinning and sensitivity, and simple more natural ways of handling these challenges. Discussed and all these changes are natural and normal but they are challenging to manage. She is sent that the [id number] water-based lubricants did not really help. She may want to consider having another appointment Dr. Cunningham to discuss issues that were discussed before and see there is any other suggestions. My suggestion is to gradually gain back function she is going to physical therapy twice a week and she is on bike and she has a stationary bike at home as well. Suggested considering [facility] perhaps gentle stretches or yoga programs who tele vision or you tube. She is not due for Pap smear this year. Her last mammogram was March 2023 but she broke her foot this fall ,so Her mammogram is now in June Coding Level of Care Code Est Pt Prev Care 40-64y(42823) Diagnoses Decreased libido R68.82 Dyspareunia, female N94.10 Cervical cancer screening Z12.4 Menopause Z78.0
[2024-06-17 14:57] VITALS: BP 114/86; BMI 34.4
== END 2024-06-17 16:20 | disposition home or self-care (01) ==
LOC: HO.HWSM 14:50
PROVIDERS: PCP Internal Medicine; Visit Provider Advanced Practice Midwife
DX: Z01.419 Encounter for gynecological examination (general) (routine) without abnormal findings (principal); R68.82 Decreased libido; N94.10 Unspecified dyspareunia; Z78.0 Asymptomatic menopausal state
CPT/HCPCS: 99396

== ENCOUNTER → 2024-06-17 14:50 | Outpatient (BNVA) | payer OTHER, SELFPAY | PROVIDERS: PCP Internal Medicine; Visit Provider Advanced Practice Midwife ==

== ENCOUNTER 2024-06-30 08:09 | Outpatient (AMB) | payer OTHER, SELFPAY ==
--- NOTE | 2024-06-30 08:10 | A.OFFVIS_ITS ---
Intake Visit Reasons: left fifth metatarsal fx, DOI 04/07/2024 Intake Note: Avis is a 58 year old female who presents via telephone for a follow up of her left fifth metatarsal fx, DOI 04/07/2024. Patient states she is doing well with working with physical therapy. She has been getting some twinges and soreness after PT. Allergies dextromethorphan [From DIMETAPP COLD-CONGESTION] Allergy (Intermediate, Verified 06/30/24 08:14) BRADYCARDIA guaifenesin [From DIMETAPP COLD-CONGESTION] Allergy (Intermediate, Verified 06/30/24 08:14) BRADYCARDIA lactose Allergy (Intermediate, Verified 06/30/24 08:14) Stomach Upset latex [LATEX] Allergy (Intermediate, Verified 06/30/24 08:14) RASH metoprolol Allergy (Intermediate, Verified 06/30/24 08:14) caused depression phenylephrine [From DIMETAPP COLD-CONGESTION] Allergy (Intermediate, Verified 06/30/24 08:14) BRADYCARDIA pseudoephedrine [From DIMETAPP COLD-CONGESTION] Allergy (Intermediate, Verified 06/30/24 08:14) BRADYCARDIA HPI HPI left fifth metatarsal fx, DOI 04/07/2024: Details: 58-year-old female who presents over the telephone for a telehealth appointment regarding a follow-up of a right fifth metatarsal fracture. The patient tripped over her shoe when ambulating on her driveway; that occurred on 04/07/24. I last saw the patient in the office on 05/19/24 when she experienced tenderness at the fracture site and was advised to continue wearing the walking boot for protection. She was also encouraged to wean out of the boot in two weeks. She was also recommended physical therapy; however, she expressed dissatisfaction with the PT. She was compromised to attend one visit with the home exercise instructions. While in the office today, the patient reports working with physical therapy and she is doing well. She mentions experiencing ?twinges? and soreness after physical therapy. She reports that she discontinued the boot roughly two weeks after her last appointment. She is walking more normally. [facility] Medical History Preseptal cellulitis of right eye Transient visual loss of left eye Family history of uterine cancer Vaginal dryness, menopausal Dyspareunia, female Lumbago with sciatica, right side Anxiety and depression Tinea versicolor Acquired deformity of toenail Acute hepatitis Thickening of wall of gallbladder with pericholecystic fluid Vitamin D deficiency Hyperlipidemia Chronic left shoulder pain Migraine with aura Premature ventricular contractions Fatty liver FHx: ovarian cancer FHx: breast cancer Carpal tunnel syndrome Colonoscopy planned Osteoarthritis DAVF (dural arteriovenous fistula) Essential thrombocytosis Surgical History H/O colonoscopy H/O removal of cyst History of knee surgery S/P arteriovenous (AV) fistula repair Family History Mother Mental health disorder Breast CA Uterine cancer Father Throat cancer Unknown Myelofibrosis Maternal Grandmother Breast CA Maternal Uncle Colon cancer Social History Household Members: Family Housing: Apartment Are you a primary healthcare liaison to a significant other at home: No Do you presently have visiting nurse or other home services: No Alcohol intake: never Patient Tobacco Use Status: Former Tobacco user Years Smoked: 6 yrs e-Cigarette/Vaping Use: Never Used Second Hand Smoke Exposure: Yes Advance Directives Date on File: 12/27/21 service: No Current occupational status: employed 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 Cognitive needs: No Hearing needs: No Vision needs: Yes Female Reproductive History Menstrual Age of Menarche: 13 Review of Systems Const All systems reviewed & are unremarkable except as noted in HPI and below Telehealth Telehealth Telehealth Platform: Telephone Location of provider rendering services: practice address Location of patient: address on file Patient Identification confirmed using: Name, : Yes Telehealth method: voice only Patient verbally consented to treatment: Yes Patient verbally consented to billing insurance company: Yes Patient informed of any privacy concerns related to visit: Yes Minutes spent on Phone/Video with Pt.: 10 Assessment & Plan Assessment & Plan (1) Fracture of metatarsal of left foot, closed: Comment: Fifth Code(s): S92.302A - Fracture of unspecified metatarsal bone(s), left foot, initial encounter for closed fracture Category: Medical Plan Ms. Guillen is a 58-year-old female who presents over the telephone for a telehealth appointment regarding a follow-up of a right fifth metatarsal fracture. The patient tripped over her shoe when ambulating on her driveway; that occurred on 04/07/24. I last saw the patient in the office on 05/19/24 when she experienced tenderness at the fracture site and was advised to continue wearing the walking boot for protection. She was also encouraged to wean out of the boot in two weeks. She was also recommended physical therapy; however, she expressed dissatisfaction with the PT. She was compromised to attend one visit with the home exercise instructions. While in the office today, the patient reports working with physical therapy and she is doing well. She mentions experiencing ?twinges? and soreness after physical therapy. She reports that she discontinued the boot roughly two weeks after her last appointment. She is walking more normally. She will continue with physical therapy until all sessions have been completed. She will followup prn sooner if needed. Of note, the patient informed me that her knee's are experiencing more pain. She last had a cortisone injection in December of this year. After the injection she felt chest heaviness and lightheadedness. She remained in our office for several minutes until this passed. She does not wish to repeat cortisone injections but is willing to try gel injections. We will petition the insurance company for coverage and he followup for bilateral knee osteoarthritis will be after approval has been obtained, sooner if needed. Patient Instructions: Scribed by Mary Ragland, medical care manager, for Velia Felix PA-C on 06/30/24 at 8:40 am EST. Coding Level of Care Code Tele Est Pt Level 3 (09956) Diagnoses Fracture of metatarsal of left foot, closed S92.302A
== END 2024-06-30 08:39 | disposition home or self-care (01) ==
LOC: HO.HOS 08:09
PROVIDERS: PCP Internal Medicine; Visit Provider Physician Assistant
DX: S92.302A Fracture of unspecified metatarsal bone(s), left foot, initial encounter for closed fracture (principal)
CPT/HCPCS: 99213

== ENCOUNTER 2024-06-30 10:14 | Outpatient (REF) | payer OTHER, SELFPAY | END 2024-06-30 10:15 | disposition home or self-care (01) | LOC: HO.HOSX 10:14 | PROVIDERS: Visit Provider Physician Assistant | DX: Z13.89 Encounter for screening for other disorder (principal) ==

== ENCOUNTER 2024-07-01 12:24 | Outpatient (AMB) | payer OTHER, SELFPAY ==
[2024-07-01 12:29] VITALS: BP 108/70; BMI 34.2
--- NOTE | 2024-07-01 12:29 | MHC.OFFVIS ---
Vital Signs 07/01/24 12:29 Height 5 ft 6 in Weight 211 lb 10.3 oz BMI 34.2 BP 108/70 Intake Visit Reasons: Hormone issues Academic Guidance Specialist Required: No Information Interpreted: non-clinical & clinical Accompanied by: Self / Same As Patient Allergies dextromethorphan [From DIMETAPP COLD-CONGESTION] Allergy (Intermediate, Verified 07/01/24 12:32) BRADYCARDIA guaifenesin [From DIMETAPP COLD-CONGESTION] Allergy (Intermediate, Verified 07/01/24 12:32) BRADYCARDIA lactose Allergy (Intermediate, Verified 07/01/24 12:32) Stomach Upset latex [LATEX] Allergy (Intermediate, Verified 07/01/24 12:32) RASH metoprolol Allergy (Intermediate, Verified 07/01/24 12:32) caused depression phenylephrine [From DIMETAPP COLD-CONGESTION] Allergy (Intermediate, Verified 07/01/24 12:32) BRADYCARDIA pseudoephedrine [From DIMETAPP COLD-CONGESTION] Allergy (Intermediate, Verified 07/01/24 12:32) BRADYCARDIA Post menopausal: Yes HPI Comments Details: Presenting complaining of long-term history dyspareunia secondary to atrophic vaginitis. The patient attempted using KY jelly to no avail. Family history of breast cancer Positive JAK2 with essential thrombocytosis on baby aspirin PFSH Medical History Preseptal cellulitis of right eye Transient visual loss of left eye Family history of uterine cancer Vaginal dryness, menopausal Dyspareunia, female Lumbago with sciatica, right side Anxiety and depression Tinea versicolor Acquired deformity of toenail Acute hepatitis Thickening of wall of gallbladder with pericholecystic fluid Vitamin D deficiency Hyperlipidemia Chronic left shoulder pain Migraine with aura Premature ventricular contractions Fatty liver FHx: ovarian cancer FHx: breast cancer Carpal tunnel syndrome Colonoscopy planned Osteoarthritis DAVF (dural arteriovenous fistula) Essential thrombocytosis Surgical History H/O colonoscopy H/O removal of cyst History of knee surgery S/P arteriovenous (AV) fistula repair Family History Mother Mental health disorder Breast CA Uterine cancer Father Throat cancer Unknown Myelofibrosis Maternal Grandmother Breast CA Maternal Uncle Colon cancer Social History Household Members: Family Housing: Apartment Are you a primary daycare manager to a significant other at home: No Do you presently have visiting nurse or other home services: No Alcohol intake: never Patient Tobacco Use Status: Former Tobacco user Years Smoked: 6 yrs e-Cigarette/Vaping Use: Never Used Second Hand Smoke Exposure: Yes Advance Directives Date on File: 12/27/21 service: No Current occupational status: employed 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 Cognitive needs: No Hearing needs: No Vision needs: Yes Female Reproductive History Menstrual Age of Menarche: 13 Review of Systems Const All systems reviewed & are unremarkable except as noted in HPI and below Reports as per HPI and Reports no additional complaints GI Reports no additional complaints Reports no additional complaints Physical Exam Vital Signs: Last Vital Signs BP 108/70 07/01/24 12:29 BMI result Body Mass Index 34.2 Assessment & Plan Assessment & Plan (1) Vaginal dryness, menopausal: Code(s): N95.1 - Menopausal and female climacteric states Category: Medical Plan: Calculated the 10 year CVD risk= 2.4% Maribell model breast cancer lifetime risk 18.4% double the general population risk Discussed with the patient the options of treatment including the following: -Estrogen vaginal cream (with the benefits of improving atrophic vaginitis and dyspareunia and secondary decreased libido but is associated with an increase in the risk of breast cancer and thrombosis, given patient's family history of breast cancer with elevated lifetime breast cancer risk with JAK2 mutation positive with an elevated risk of thrombosis secondary to thrombocytosis) -Ospemifene, a SERM with no increase in risk of breast cancer but is associated with an increase of risk of thrombosis. All pros and cons risks and benefits of each were discussed with the patient, the patient would like to hold off any treatment at this point given her family history of breast cancer/elevated lifetime breast cancer risk and JAK2 mutation positive and increase in the risk of thrombosis. All questions answered, the patient verbalized understanding Coding Level of Care Code Est Pt Level 3 (28090) Diagnoses Vaginal dryness, menopausal N95.1
== END 2024-07-01 13:01 | disposition home or self-care (01) ==
PROVIDERS: PCP Internal Medicine; Visit Provider Obstetrics & Gynecology
DX: N95.1 Menopausal and female climacteric states (principal)
CPT/HCPCS: 99213

== ENCOUNTER → 2024-07-01 12:24 | Outpatient (BNVA) | payer OTHER, SELFPAY | PROVIDERS: PCP Internal Medicine; Visit Provider Obstetrics & Gynecology ==

== ENCOUNTER 2024-07-07 14:58 | Outpatient (REF) | payer OTHER, SELFPAY | END 2024-07-07 14:59 | disposition home or self-care (01) | LOC: HO.MAMMO 14:58 | PROVIDERS: PCP Internal Medicine; Visit Provider Internal Medicine | DX: Z12.31 Encounter for screening mammogram for malignant neoplasm of breast (principal) | CPT/HCPCS: 77063; 77067 ==

== ENCOUNTER → 2024-07-07 15:00 | Outpatient (BNV) | payer OTHER, SELFPAY | PROVIDERS: PCP Internal Medicine; Visit Provider Internal Medicine | DX: Z12.31 Encounter for screening mammogram for malignant neoplasm of breast (principal) | CPT/HCPCS: 77063; 77067 ==

== ENCOUNTER 2024-07-10 14:59 | Outpatient (RCR) | payer OTHER, SELFPAY ==
--- NOTE | 2024-06-12 14:56 | MHC.PT.EP ---
[facility] [place] [facility] [place] [facility] [place] [facility] [address] Ron Bianchi [address] [phone] F: [phone] F: [phone] F: [phone] F: [phone] Physical Therapy Plan of Care Date of Evaluation: 06/12/24 Date of Surgery: 04/07/24 Diagnosis: Fracture of metatarsal of L foot Assessment: Avis is a 58 year old female who is referred to PT for fracture of metatarsal of L foot . She reports of fracturing her 5th metatarsal following a fall- slipped on a twig about 2 months back. She has been in tall walking boot for 8 weeks. She self d/c the boot 1.5 weeks back as it was causing pain in other joints of her body. On PT examination she presents with 3-4/10 intensity of spontaneous twinge, no TTP, decreased ankle ROM, decreased L LE strength, impaired posture and balance. She lives with her and is independent with all ADLS however modifies them by using hand rails. 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 She would benefit from skilled PT to address the aforementioned impairments and improve tolerance to functional activities. Frequency and Duration: The patient will be seen 2/week for 4 weeks Short Term Goals: 1. Pt will demonstrate gait without any increased pronation in L LE during SLS phase in 2 weeks Multi Sensor Operator Goals: 1. Pt will demonstrate an increase in muscle strength by 1 grade which will enable her to perform all ADLS without UE support/ use of hand rails in 3 weeks 2. Pt will be able to tolerate walking for 30 minutes and perform stair negotiations without any fatigue in B LE in 4 weeks. 3. Pt will be independent with all HEP and return to PLOF in 4 weeks Treatment Plan: Modalities to reduce pain, spasms and effusion. Manual therapy to restore motion and function. Therapeutic exercise to improve strength and flexibility. Neuromuscular re-education for posture and balance. Therapeutic activities to return to functional activities of daily living. Electronically signed by: Cassandra Maxwell PT DPT Please sign and return to therapist. Thank you for your referral.
--- NOTE | 2024-07-10 15:53 | MHC.PT.DC ---
[facility] [place] Office [place] Office [place] Office [address] Ron Bianchi [address] [phone] F: [phone] F: [phone] F: [phone] F: [phone] Physical Therapy Discharge Report Diagnosis: Fracture of metatarsal of L foot Date of Surgery: 04/07/24 Date of Evaluation: 06/12/24 Date of Discharge: 07/10/24 Treatments to Date: 9 Cancellations to Date: 0 No Shows to Date: 0 Discharge Status: Discharge Summary: Avis arrived stating she is feeling good. She has completed 9 PT visits and has achieved all goals set for her. She is therefore being d/c from PT. I reviewed all her HEP as well. Electronically signed by: Cassandra Maxwell, PT DPT Please sign and return to therapist. Thank you for your referral.
== END 2024-07-10 15:53 | disposition home or self-care (01) ==
LOC: HO.PT 14:59
PROVIDERS: PCP Internal Medicine; Visit Provider Physician Assistant
DX: S92.302A Fracture of unspecified metatarsal bone(s), left foot, initial encounter for closed fracture (principal)
CPT/HCPCS: 97110; 97161; 97530

== ENCOUNTER 2024-08-07 13:32 | Outpatient (AMB) | payer OTHER, SELFPAY ==
--- NOTE | 2024-08-07 13:57 | MHC.OFFVIS ---
Intake Visit Reasons: Inj B/L knee Euflexxa Gel Injection #1 Intake Note: Avis is a 58 year old female who presents today for her bilateral Euflexxa gel injections #1. Allergies dextromethorphan [From DIMETAPP COLD-CONGESTION] Allergy (Intermediate, Verified 08/07/24 13:58) BRADYCARDIA guaifenesin [From DIMETAPP COLD-CONGESTION] Allergy (Intermediate, Verified 08/07/24 13:58) BRADYCARDIA lactose Allergy (Intermediate, Verified 08/07/24 13:58) Stomach Upset latex [LATEX] Allergy (Intermediate, Verified 08/07/24 13:58) RASH metoprolol Allergy (Intermediate, Verified 08/07/24 13:58) caused depression phenylephrine [From DIMETAPP COLD-CONGESTION] Allergy (Intermediate, Verified 08/07/24 13:58) BRADYCARDIA pseudoephedrine [From DIMETAPP COLD-CONGESTION] Allergy (Intermediate, Verified 08/07/24 13:58) BRADYCARDIA HPI HPI Inj B/L knee Euflexxa Gel Injection #1: Details: Patient presents to the office today for bilateral knee Euflexxa injections 1. [facility] Medical History Preseptal cellulitis of right eye Transient visual loss of left eye Family history of uterine cancer Vaginal dryness, menopausal Dyspareunia, female Lumbago with sciatica, right side Anxiety and depression Tinea versicolor Acquired deformity of toenail Acute hepatitis Thickening of wall of gallbladder with pericholecystic fluid Vitamin D deficiency Hyperlipidemia Chronic left shoulder pain Migraine with aura Premature ventricular contractions Fatty liver FHx: ovarian cancer FHx: breast cancer Carpal tunnel syndrome Colonoscopy planned Osteoarthritis DAVF (dural arteriovenous fistula) Essential thrombocytosis Surgical History H/O colonoscopy H/O removal of cyst History of knee surgery S/P arteriovenous (AV) fistula repair Family History Mother Mental health disorder Breast CA Uterine cancer Father Throat cancer Unknown Myelofibrosis Maternal Grandmother Breast CA Maternal Uncle Colon cancer Social History Household Members: Family Housing: Apartment Are you a primary hospice spiritual care coordinator to a significant other at home: No Do you presently have visiting nurse or other home services: No Alcohol intake: never Patient Tobacco Use Status: Former Tobacco user Years Smoked: 6 yrs e-Cigarette/Vaping Use: Never Used Second Hand Smoke Exposure: Yes Advance Directives Date on File: 12/27/21 service: No Current occupational status: employed 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 Cognitive needs: No Hearing needs: No Vision needs: Yes Female Reproductive History Menstrual Age of Menarche: 13 Review of Systems Const All systems reviewed & are unremarkable except as noted in HPI and below Physical Exam Const General: cooperative, healthy appearing and no acute distress Orientation/consciousness: patient oriented x3 Resp Effort & Inspection: normal respiratory effort and able to speak in complete sentences Cardio Rate: regular rate Peripheral pulses: Peripheral pulses 2+ throughout GI Palpation (GI): Soft to palpation Skin General skin exam: no rashes or lesions noted Lesions: no lesions Rashes: no rashes Neuro General: patient oriented x3 Extrem Other: Bilateral knees: Full knee ROM. Crepitus felt with ROM. Negative Susanne's. Negative anterior drawer. Office Procedures AMB Joint Injection/Aspiration Joint Injection/Aspiration Primary Site: right knee Secondary Site: left knee Prep: site was prepped using aseptic technique, ethochloride spray was applied and injection warnings given Injected: in the joint (Euflexxa 1.) Procedure: The patient tolerated the procedure well, but had some pain with the injection and there was some relief with the local anesthesia Coding 86438 - Large joint Procedure code (CPT) selection complete Assessment & Plan Assessment & Plan (1) Osteoarthritis of knees, bilateral: Code(s): M17.0 - Bilateral primary osteoarthritis of knee Category: Medical Plan The patient was injected with?her?1st?Euflexxa injection in bilateral knees. The patient was explained the risks, benefits, and alternatives to receiving this injection. After receiving consent for the injection, the patient had the procedure done while in the office today. The patient tolerated the procedure well with no complications. Follow up will be?one-week for 2nd Euflexxa injection,?or sooner if needed.? Coding Level of Care Code Procedure Only Diagnoses Osteoarthritis of knees, bilateral M17.0 CPT Codes Coding - 82679 Large joint: 97096 - Large joint ([id number])
== END 2024-08-07 13:58 | disposition home or self-care (01) ==
PROVIDERS: PCP Internal Medicine; Visit Provider Physician Assistant
DX: M17.0 Bilateral primary osteoarthritis of knee (principal)
CPT/HCPCS: 20610

== ENCOUNTER → 2024-08-07 13:32 | Outpatient (BNVA) | payer OTHER, SELFPAY | PROVIDERS: PCP Internal Medicine; Visit Provider Physician Assistant | DX: M17.0 Bilateral primary osteoarthritis of knee (principal) | CPT/HCPCS: 20610; J7323 ==

== ENCOUNTER 2024-08-14 09:48 | Outpatient (AMB) | payer OTHER, SELFPAY ==
--- NOTE | 2024-08-14 10:00 | A.OFFVIS_ITS ---
Intake Visit Reasons: Inj B/L knee Euflexxa Gel Injection #2 Intake Note: Avis is a 58 year old female who presents today for her bilateral knee euflexxa gel injections #2. Patient reports that she has noticed a difference in her pain when she is getting up from the chair and when she is bending a little bit. Allergies dextromethorphan [From DIMETAPP COLD-CONGESTION] Allergy (Intermediate, Verified 08/14/24 10:21) BRADYCARDIA guaifenesin [From DIMETAPP COLD-CONGESTION] Allergy (Intermediate, Verified 08/14/24 10:21) BRADYCARDIA lactose Allergy (Intermediate, Verified 08/14/24 10:21) Stomach Upset latex [LATEX] Allergy (Intermediate, Verified 08/14/24 10:21) RASH metoprolol Allergy (Intermediate, Verified 08/14/24 10:21) caused depression phenylephrine [From DIMETAPP COLD-CONGESTION] Allergy (Intermediate, Verified 08/14/24 10:21) BRADYCARDIA pseudoephedrine [From DIMETAPP COLD-CONGESTION] Allergy (Intermediate, Verified 08/14/24 10:21) BRADYCARDIA HPI HPI Inj B/L knee Euflexxa Gel Injection #2: Details: Patient presents to the office today for bilateral knee Euflexxa injection 2. She reports she has found some mild relief after the 1st injection. [facility] Medical History Preseptal cellulitis of right eye Transient visual loss of left eye Family history of uterine cancer Vaginal dryness, menopausal Dyspareunia, female Lumbago with sciatica, right side Anxiety and depression Tinea versicolor Acquired deformity of toenail Acute hepatitis Thickening of wall of gallbladder with pericholecystic fluid Vitamin D deficiency Hyperlipidemia Chronic left shoulder pain Migraine with aura Premature ventricular contractions Fatty liver FHx: ovarian cancer FHx: breast cancer Carpal tunnel syndrome Colonoscopy planned Osteoarthritis DAVF (dural arteriovenous fistula) Essential thrombocytosis Surgical History H/O colonoscopy H/O removal of cyst History of knee surgery S/P arteriovenous (AV) fistula repair Family History Mother Mental health disorder Breast CA Uterine cancer Father Throat cancer Unknown Myelofibrosis Maternal Grandmother Breast CA Maternal Uncle Colon cancer Social History Household Members: Family Housing: Apartment Are you a primary mall plant caretaker to a significant other at home: No Do you presently have visiting nurse or other home services: No Alcohol intake: never Patient Tobacco Use Status: Former Tobacco user Years Smoked: 6 yrs e-Cigarette/Vaping Use: Never Used Second Hand Smoke Exposure: Yes Advance Directives Date on File: 12/27/21 service: No Current occupational status: employed 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 Cognitive needs: No Hearing needs: No Vision needs: Yes Female Reproductive History Menstrual Age of Menarche: 13 Review of Systems Const All systems reviewed & are unremarkable except as noted in HPI and below Physical Exam Const General: cooperative, healthy appearing and no acute distress Orientation/consciousness: patient oriented x3 Resp Effort & Inspection: normal respiratory effort and able to speak in complete sentences Cardio Rate: regular rate Peripheral pulses: Peripheral pulses 2+ throughout GI Palpation (GI): Soft to palpation Skin General skin exam: no rashes or lesions noted Lesions: no lesions Rashes: no rashes Neuro General: patient oriented x3 Extrem Other: Bilateral knees: Full knee ROM. Crepitus felt with ROM. Negative Susanne's. Negative anterior drawer. Office Procedures AMB Joint Injection/Aspiration Joint Injection/Aspiration Primary Site: right knee Secondary Site: left knee Prep: site was prepped using aseptic technique, ethochloride spray was applied and injection warnings given Injected: in the joint (Euflexxa #2) Approach Used: anterolateral Procedure: The patient tolerated the procedure well, but had some pain with the injection and there was some relief with the local anesthesia Coding 94766 - Large joint Procedure code (CPT) selection complete Assessment & Plan Assessment & Plan (1) Osteoarthritis of knees, bilateral: Code(s): M17.0 - Bilateral primary osteoarthritis of knee Category: Medical Plan The patient was injected with?her?2nd?Euflexxa injection in bilateral knees. The patient was explained the risks, benefits, and alternatives to receiving this injection. After receiving consent for the injection, the patient had the procedure done while in the office today. The patient tolerated the procedure well with no complications. Follow up will be?one-week for 3rd Euflexxa injection,?or sooner if needed.? Coding Level of Care Code Procedure Only Diagnoses Osteoarthritis of knees, bilateral M17.0 CPT Codes Coding - 12326 Large joint: 16471 - Large joint ([id number])
== END 2024-08-14 10:59 | disposition home or self-care (01) ==
PROVIDERS: PCP Internal Medicine; Visit Provider Physician Assistant
DX: M17.0 Bilateral primary osteoarthritis of knee (principal)
CPT/HCPCS: 20610

== ENCOUNTER → 2024-08-14 09:48 | Outpatient (BNVA) | payer OTHER, SELFPAY | PROVIDERS: PCP Internal Medicine; Visit Provider Physician Assistant | DX: M17.0 Bilateral primary osteoarthritis of knee (principal) | CPT/HCPCS: 20610; J7323 ==

== ENCOUNTER 2024-08-21 13:39 | Outpatient (AMB) | payer OTHER, SELFPAY ==
[2024-08-21 13:41] VITALS: BMI 34.7
--- NOTE | 2024-08-21 13:41 | A.OFFVIS_ITS ---
Vital Signs 08/21/24 13:41 Height 5 ft 6 in Weight 215 lb BMI 34.7 Intake Visit Reasons: INJ- B/L knee Euflexxa Gel Injection #3 Intake Note: Avis is a 58 year old female who presents today for her bilateral knee euflexxa gel injections #3. Patient reports she has noticed improvements when she is getting up from a sitting position. She mentions that she is not having much pain, however the weather is giving her some discomfort. Allergies dextromethorphan [From DIMETAPP COLD-CONGESTION] Allergy (Intermediate, Verified 08/21/24 13:41) BRADYCARDIA guaifenesin [From DIMETAPP COLD-CONGESTION] Allergy (Intermediate, Verified 08/21/24 13:41) BRADYCARDIA lactose Allergy (Intermediate, Verified 08/21/24 13:41) Stomach Upset latex [LATEX] Allergy (Intermediate, Verified 08/21/24 13:41) RASH metoprolol Allergy (Intermediate, Verified 08/21/24 13:41) caused depression phenylephrine [From DIMETAPP COLD-CONGESTION] Allergy (Intermediate, Verified 08/21/24 13:41) BRADYCARDIA pseudoephedrine [From DIMETAPP COLD-CONGESTION] Allergy (Intermediate, Verified 08/21/24 13:41) BRADYCARDIA HPI HPI INJ- B/L knee Euflexxa Gel Injection #3: Details: Patient presents to the office today for bilateral knee Euflexxa 3. Injections. [facility] Medical History Preseptal cellulitis of right eye Transient visual loss of left eye Family history of uterine cancer Vaginal dryness, menopausal Dyspareunia, female Lumbago with sciatica, right side Anxiety and depression Tinea versicolor Acquired deformity of toenail Acute hepatitis Thickening of wall of gallbladder with pericholecystic fluid Vitamin D deficiency Hyperlipidemia Chronic left shoulder pain Migraine with aura Premature ventricular contractions Fatty liver FHx: ovarian cancer FHx: breast cancer Carpal tunnel syndrome Colonoscopy planned Osteoarthritis DAVF (dural arteriovenous fistula) Essential thrombocytosis Surgical History H/O colonoscopy H/O removal of cyst History of knee surgery S/P arteriovenous (AV) fistula repair Family History Mother Mental health disorder Breast CA Uterine cancer Father Throat cancer Unknown Myelofibrosis Maternal Grandmother Breast CA Maternal Uncle Colon cancer Social History Household Members: Family Housing: Apartment Are you a primary medicare insurance specialist to a significant other at home: No Do you presently have visiting nurse or other home services: No Alcohol intake: never Patient Tobacco Use Status: Former Tobacco user Years Smoked: 6 yrs e-Cigarette/Vaping Use: Never Used Second Hand Smoke Exposure: Yes Advance Directives Date on File: 12/27/21 service: No Current occupational status: employed 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 Cognitive needs: No Hearing needs: No Vision needs: Yes Female Reproductive History Menstrual Age of Menarche: 13 Review of Systems Const All systems reviewed & are unremarkable except as noted in HPI and below Physical Exam Vital Signs: BMI result Body Mass Index 34.7 Const General: cooperative, healthy appearing and no acute distress Orientation/consciousness: patient oriented x3 Resp Effort & Inspection: normal respiratory effort and able to speak in complete sentences Cardio Rate: regular rate Peripheral pulses: Peripheral pulses 2+ throughout GI Palpation (GI): Soft to palpation Skin General skin exam: no rashes or lesions noted Lesions: no lesions Rashes: no rashes Neuro General: patient oriented x3 Extrem Other: Bilateral knees: Full knee ROM. Crepitus felt with ROM. Negative Susanne's. Negative anterior drawer. Office Procedures AMB Joint Injection/Aspiration Joint Injection/Aspiration Primary Site: right knee Secondary Site: left knee Prep: site was prepped using aseptic technique, ethochloride spray was applied and injection warnings given Injected: in the joint (Euflexxa #3) Approach Used: anterolateral Procedure: The patient tolerated the procedure well, but had some pain with the injection and there was some relief with the local anesthesia Coding 56572 - Large joint Procedure code (CPT) selection complete Assessment & Plan Assessment & Plan (1) Osteoarthritis of knees, bilateral: Code(s): M17.0 - Bilateral primary osteoarthritis of knee Category: Medical Plan The patient was injected with?her?3nd?Euflexxa injection in bilateral knees. The patient was explained the risks, benefits, and alternatives to receiving this injection. After receiving consent for the injection, the patient had the procedure done while in the office today. The patient tolerated the procedure well with no complications. Follow-up will be p.r.n., sooner if needed. Coding Level of Care Code Procedure Only Diagnoses Osteoarthritis of knees, bilateral M17.0 CPT Codes Coding - 48780 Large joint: 93760 - Large joint ([id number])
--- OUTSIDE RECORDS SUMMARY | 2024-08-21 15:23 | XMS_ITS ---
Author Organization [facility] Address [address] [place] [phone] Care Team Providers Care Signal Wirer Name Role Phone Angel GERMAN, Savannah Primary Care Provider Cyndie Rodriguez Jr, Aris Quinteros REASON FOR VISIT pathology Encounters Encounter Location Date Provider Diagnosis [facility] [address] [place] [phone] 02/26/2024 Aris Rodriguez Jr PLAN OF TREATMENT No Information
--- OUTSIDE RECORDS SUMMARY | 2024-08-21 15:23 | XMS_ITS | Patient Health Record ---
Author Organization [facility] Address [address] [place] [address] Care Team Providers Care Popcorn Candy Maker Name Role Phone Angel GERMAN, Savannah Primary Care Provider Aris Sifuentes Jr Unavailable ALLERGIES Allergen (clinical drug ingredient) Drug/Non Drug Allergy documented on EMR Reaction Allergy Type Onset Date Status metoprolol Metoprolol Unknown Drug Allergy Activ e Latex Latex Unknown Allergy Active lactose Lactose (Intolerance) Unknown Drug Allergy Active Dimetapp Cold/Allergy Unknown Drug Allergy Active RESULTS Component Value Reference Range Notes Pathology Reviewed date:02/26/2024 08:32:31 AM Interpretation: Performing Lab:[facility], [address] [place] [phone] Notes/Report: REASON FOR REFERRAL No Information MEDICATIONS Medication SIG (Take, Route, Frequency, Duration) Notes Start Date End Date Status Calcium 1 tab Oral for 14 days Active Turmeric Curcumin - as directed Orally Active Probiotic - as directed Orally Active Alive Energy 50+ - as directed Orally Active Escitalopram Oxalate 10 MG TAKE 1 TABLET BY MOUTH ONCE A DAY WITH 5 MG TABLET FOR TOTAL DOSE = 15 MG. Oral for 90 Active Vitamin D 50 MCG (1999 UT) TAKE 1 TABLET BY MOUTH EVERY DAY Oral for 90 Active metroNIDAZOLE 0.75 % External for 30 Active IMMUNIZATIONS Vaccine Route Administration Date Status Comme nts Influenza Unknown 01/29/2024 Refused SOCIAL HISTORY Tobacco Use: Social History Observation Description Date Details (start date - stop date) Former Smoker NA - NA Sex Assigned At : Social History Observation Description Sex Assigned At Unknown Tobacco Use/Smoking Question Answer Notes Patient is a former smoker Alcohol Screen Question Answer Notes Did you have a drink containing alcohol in the p ast year? No Points 0 Interpretation Negative PROBLEMS Problem Type ICD Code Onset Dates Problem Status W/U Status Risk SNOMED Code Notes Problem Colon cancer screening (Z12.11) Active confirmed 724310514 Problem Encounter for other preprocedural examination (Z01.818) Active confirmed 756839666 Problem Long-term use of aspirin therapy (Z79.82) Active confirmed 069439495 VITAL SIGNS Temperature 97.5 degrees Fahrenheit 01/29/2024 Blood pressure diastolic 00 mm Hg 01/29/2024 Height 5 ft 6 in in 01/29/2024 Blood pressure systolic 000 mm Hg 01/29/2024 Weight 204 lb 6 oz lbs 01/29/2024 BMI 32.98 kg/m2 01/29/2024 Encounters Encounter Location Date Provider Diagnosis [facility] [place] Outpatient [address] [place], [place] [phone] 02/21/2024 Aris Rodriguez Jr Colon cancer screening Z12.11 and Colon polyps K63.5 [facility] [address] [place] [phone] 01/29/2024 Aris Rodriguez Jr Colon cancer screening Z12.11 ; Encounter for other preprocedural examination Z01.818 and Long-term use of aspirin therapy Z79.82 [facility] [address] [facility] [address] [place] [phone] 02/26/2024 Aris Rodriguez Jr ASSESSMENTS Encounter Date Diagnosis Assessment Notes Treatment Notes Treatment Clinical Notes 02/21/2024 Colon cancer screening (ICD-10 - Z12.11) 02/21/2024 Colon polyps (ICD-10 - K63.5) 01/29/2024 Colon cancer screening (ICD-10 - Z12.11) 01/29/2024 Encounter for other preprocedural examination (ICD-10 - Z01.818) 01/29/2024 Long-term use of aspirin therapy (ICD-10 - Z79.82) PLAN OF TREATMENT Future Test Test Name Order Date COLONOSCOPY 01/29/2024 Insurance Providers Payer Name Payer Address Payer Phone Subscriber Number Group Number Insured Name Patient Relationship to Insured Coverage Start Date Coverage End Date [employer] [place] [address] [address] [place] [address] [id number] ALICIA IRIZARRY Self - patient is the insured MEDICAL (GENERAL) HISTORY Medical History History ICD Code Fatty liver Anxiety/depression Preseptal orbital cellulitis Essential thrombocytosis Hyperlipidemia Migraines PVCs Surgical History Surgery Date(Month/Year) Repair of dural arteriovenous fistula 20 13 arthroscopic x 2 on right kneee benign growth on uvula laprascopy in 1988 Hospitalization History Reason Date(Month/Year) preceptual cellulitis in right eye 2022
--- OUTSIDE RECORDS SUMMARY | 2024-08-21 15:23 | XMS_ITS ---
Author Organization [facility] Address [address] [place] [address] Care Team Providers Care Senior Buyer Name Role Phone Angel GERMAN, Savannah Primary Care Provider Aris Sifuentes Jr REASON FOR VISIT screening Encounters Encounter Location Date Provider Diagnosis [facility] [place] [address] [place], [place] [phone] 02/21/2024 Aris Rodriguez Jr Colon cancer screening Z12.11 and Colon polyps K63.5 ASSESSMENTS Encounter Date Diagnosis Assessment Notes Treatment Notes Treatment Clinical Notes 02/21/2024 Colon cancer screening (ICD-10 - Z12.11) 02/21/2024 Colon polyps (ICD-10 - K63.5) PLAN OF TREATMENT No Information
--- OUTSIDE RECORDS SUMMARY | 2024-08-21 15:23 | XMS_ITS ---
Author Organization [facility] Address [address] [place] [address] Care Team Providers Care Citizenship Instructor Name Role Phone Angel GERMAN, Savannah Primary Care Provider Aris Sifuentes Jr Unavailable ALLERGIES Allergen (clinical drug ingredient) Drug/Non Drug Allergy documented on EMR Reaction Allergy Type Onset Date Status metoprolol Metoprolol Unknown Drug Allergy Activ e Latex Latex Unknown Allergy Active lactose Lactose (Intolerance) Unknown Drug Allergy Active Dimetapp Cold/Allergy Unknown Drug Allergy Active REASON FOR VISIT Patient presents today for a discuss colonoscopy MEDICATIONS Medication SIG (Take, Route, Frequency, Duration) Notes Start Date End Date Status Calcium 1 tab Oral for 14 days Active Turmeric Curcumin - as directed Orally Active Alive Energy 50+ - as directed Orally Active Escitalopram Oxalate 10 MG TAKE 1 TABLET BY MOUTH ONCE A DAY WITH 5 MG TABLET FOR TOTAL DOSE = 15 MG. Oral for 90 Active metroNIDAZOLE 0.75 % External for 30 Active Probiotic - as directed Orally Active Vitamin D 50 MCG (1999 UT) TAKE 1 TABLET BY MOUTH EVERY DAY Oral for 90 Active IMMUNIZATIONS Vaccine Route Administration Date Status [...] Problem Colon cancer screening (Z12.11) Active confirmed 294731524 Problem Encounter for other preprocedural examination (Z01.818) Active confirmed 618968078 Problem Long-term use of aspirin therapy (Z79.82) Active confirmed 653974887 VITAL SIGNS BMI 32.98 kg/m2 01/29/2024 Blood pressure systolic 000 mm Hg 01/29/20 24 Blood pressure diastolic 00 mm Hg 024 Height 5 ft 6 in in 01/29/2024 Temperature 97.5 degrees Fahrenheit 01/29/20 24 Weight 204 lb 6 oz lbs 01/29/2024 Encounters Encounter Location Date Provider Diagnosis [facility] [address] [place] [address] 01/29/2024 Aris Rodriguez Jr Colon cancer screening Z12.11 ; Encounter for other preprocedural examination Z01.818 and Long-term use of aspirin therapy Z79.82 ASSESSMENTS Encounter Date Diagnosis Assessment Notes Treatment Notes Treatment Clinical Notes 01/29/2024 Colon cancer screening (ICD-10 - Z12.11) 01/29/2024 Encounter for other preprocedural examination (ICD-10 - Z01.818) 01/29/2024 Long-term use of aspirin therapy (ICD-10 - Z79.82) PLAN OF TREATMENT Future Test Test Name Order Date COLONOSCOPY 01/29/2024 Next Appt Details Follow Up: 1 Year, Reason: Progress Notes * Examination Category Sub-Category Detail Notes General Examination GENERAL APPEARANCE: in no ac christina distress HEAD: normocephalic EYES: sclera non-icteric NECK/THYROID: no lymphadenopathy HEART: S1, S2 normal, no mu rmurs CHEST: normal shape and exp ansion LUNGS: clear to auscultatio n bilaterally ABDOMEN: soft, nontender, non distended, bowel sounds present, no organomegaly SKIN: anicteric EXTREMITIES: no clubbing, cyanosi s, or edema PSYCH: cognitive function i ntact ORAL CAVITY: mucosa moist
== END 2024-08-21 14:06 | disposition home or self-care (01) ==
PROVIDERS: PCP Internal Medicine; Visit Provider Physician Assistant
DX: M17.0 Bilateral primary osteoarthritis of knee (principal)
CPT/HCPCS: 20610

== ENCOUNTER → 2024-08-21 13:39 | Outpatient (BNVA) | payer OTHER, SELFPAY | PROVIDERS: PCP Internal Medicine; Visit Provider Physician Assistant | DX: M17.0 Bilateral primary osteoarthritis of knee (principal) | CPT/HCPCS: 20610; J7323 ==

== ENCOUNTER 2024-09-30 12:29 | Outpatient (AMB) | payer OTHER, SELFPAY ==
[2024-09-30 12:31] VITALS: BP 94/70; PULSE 75; RESP 16; TEMP 36.5; O2SAT 97; BMI 34.9
--- NOTE | 2024-09-30 12:31 | MHC.PC.OV ---
Vital Signs 09/30/24 12:31 Height 5 ft 6 in Weight 216 lb BMI 34.9 BP 94/70 Blood Pressure Location Rt brachial Position Sitting Respiration 16 Pulse 75 Pulse Source Pulse Oximeter Temp 97.7 F Pulse Oximetry (%) 97 Oxygen Delivery Method Room Air Intake Visit Reasons: c/o cough and chest congestion Intake Note: Pt is here today c/o cough and chest congestion Allergies dextromethorphan [From DIMETAPP COLD-CONGESTION] Allergy (Intermediate, Verified 09/30/24 12:45) BRADYCARDIA guaifenesin [From DIMETAPP COLD-CONGESTION] Allergy (Intermediate, Verified 09/30/24 12:45) BRADYCARDIA lactose Allergy (Intermediate, Verified 09/30/24 12:45) Stomach Upset latex [LATEX] Allergy (Intermediate, Verified 09/30/24 12:45) RASH metoprolol Allergy (Intermediate, Verified 09/30/24 12:45) caused depression phenylephrine [From DIMETAPP COLD-CONGESTION] Allergy (Intermediate, Verified 09/30/24 12:45) BRADYCARDIA pseudoephedrine [From DIMETAPP COLD-CONGESTION] Allergy (Intermediate, Verified 09/30/24 12:45) BRADYCARDIA Medication List - Last Reconciled 09/30/24 by Savannah Ortiz MD aspirin 81 mg PO DAILY azelaic acid 15% 1 appl topical BID calcium 500 mg PO DAILY cholecalciferol (vitamin D3) 50 mcg PO DAILY escitalopram oxalate 1 tab PO QAM escitalopram oxalate (Lexapro) 10 mg PO DAILY Lactobacillus acidophilus (Probiotic Acidophilus) 500 mmu cells PO TID metronidazole 0.75% 1 appl topical DAILY multivitamin 1 tab PO DAILY turmeric root-prosper root ext 150-25 mg 1 tab PO DAILY Tobacco use date assessed: 09/30/24 Dental Screening Dental Screen Date: 09/30/24 HPI HPI Comments History of Present Illness Details 59-year-old lady here today complaining of persistent cough and accompanied by some nasal congestion and fullness in both ears. This has been present now for the last several weeks and and is still persistent. She has been taking uvzq-mbo-[id number] cough and cold medication which has not afforded much improvement. Pain however in both ears have resolved, denies any loss of hearing [facility] Medical History Preseptal cellulitis of right eye Transient visual loss of left eye Family history of uterine cancer Vaginal dryness, menopausal Dyspareunia, female Lumbago with sciatica, right side Anxiety and depression Tinea versicolor Acquired deformity of toenail Acute hepatitis Thickening of wall of gallbladder with pericholecystic fluid Vitamin D deficiency Hyperlipidemia Chronic left shoulder pain Migraine with aura Premature ventricular contractions Fatty liver FHx: ovarian cancer FHx: breast cancer Carpal tunnel syndrome Colonoscopy planned Osteoarthritis DAVF (dural arteriovenous fistula) Essential thrombocytosis Surgical History H/O colonoscopy H/O removal of cyst History of knee surgery S/P arteriovenous (AV) fistula repair Family History Mother Mental health disorder Breast CA Uterine cancer Father Throat cancer Unknown Myelofibrosis Maternal Grandmother Breast CA Maternal Uncle Colon cancer Social History Household Members: Family Housing: Apartment Are you a primary auto care center manager to a significant other at home: No Do you presently have visiting nurse or other home services: No Alcohol intake: never Patient Tobacco Use Status: Former Tobacco user Years Smoked: 6 yrs e-Cigarette/Vaping Use: Never Used Second Hand Smoke Exposure: Yes Advance Directives Date on File: 12/27/21 service: No Current occupational status: employed 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 Cognitive needs: No Hearing needs: No Vision needs: Yes Female Reproductive History Menstrual Age of Menarche: 13 Questionnaire Thrive Questionnaire Date Thrive assessed: 09/27/24 I am a: Patient What is your living situation today?: I have a steady place to live Within the past 12 months, did the food you bought not last and you didn't have the money to get more?: Never true Within the past 12 months, did you worry whether your food would run out before you got money to buy more?: Never true Do you have trouble paying for medicines?: No Do you have trouble getting transportation to medical appointments?: No Do you have trouble paying your heating and electricity bill?: No Do you have trouble taking care of your child, family member or friend?: No Do you have trouble with day-to-day activities such as bathing, preparing meals, shopping, managing finances, etc.?: No Are you currently unemployed and looking for a job?: No Are you interested in more education?: No Please select the resources that you would like help with: None Currently or been in a relationship where the following occur: No concerns reported THRIVE Score: 0 AUDIT C Alcohol Use Questionnaire (AUDIT-C) 1. How often do you have a drink containing alcohol?: Never Total Score: 0 LEAH-7 AMB Questionnaire LEAH-7 Date LEAH - 7 assessed: 09/27/23 Feeling nervous, anxious, or on edge: 0 = Not at all Not being able to stop or control worryin = Several days Worrying too much about different things: 1 = Several days Trouble relaxin = Not at all Being so restless that it is hard to sit still: 0 = Not at all Becoming easily annoyed or irritable: 1 = Several days Feeling afraid as if something awful might happen: 0 = Not at all Total LEAH-7 score (0-4 normal; 5-9 mild; 10-14 moderate; 15-21 severe): 3 Source: Developed by Drs. Von Mansfield, Tracy Otoole, Santi Dumont and colleagues, with an educational roya from [employer]. Review of Systems Const All systems reviewed & are unremarkable except as noted in HPI and below Physical exam (Primary Care) Vital Signs: Last Vital Signs Temp 97.7 F 09/30/24 12:31 Pulse 75 09/30/24 12:31 Resp 16 09/30/24 12:31 BP 94/70 09/30/24 12:31 Pulse Ox 97 09/30/24 12:31 Oxygen Delivery Method Room Air 09/30/24 12:31 BMI result Body Mass Index 34.9 Tobacco/Smoking Status: Tobacco use Status Tobacco use date assessed 09/30/24 09/30/24 12:33 Patient Tobacco Use Status Former Tobacco user 09/30/24 12:31 e-Cigarette/Vaping Use Never Used 09/30/24 12:31 Thrive Assessment: Date of Thrive Assessment Date Thrive assessed 09/27/24 09/30/24 12:31 Currently or been in a relationship where the following occur: No concerns reported Const Other: Alert oriented x3 no acute distress noted ambulatory normal gait Orientation/consciousness: patient oriented x3 HENMS Head: Yes normocephalic Ears: hearing grossly normal bilaterally, external ears normal, TM's normal bilaterally and EAC's normal General nose exam: Normal external nose present Face and sinus: Yes face symmetric Mouth: Normal oral and palatal mucosa present, oropharynx normal and moist mucous membranes Neck Neck: Yes full ROM, Yes no lymphadenopathy and Yes supple Resp Auscultation: clear to auscultation bilaterally Cardio Other: S1-S2 present regular rate and rhythm Neuro General: patient oriented x3, gait normal, Normal light touch and pain sensation and no focal motor deficits Coding Level of Care Code Est Pt Level 3 (13749) Diagnoses Acute URI J06.9 Assessment & Plan Assessment & Plan (1) Acute URI: Code(s): J06.9 - Acute upper respiratory infection, unspecified Category: Medical Plan: Ordered to check for flu COVID and RSV, try taking kpwa-gxc-nrjynfi Zyrtec or Claritin once a day as needed for nasal congestion Orders: Orders SARS-CoV2/FLU/RSV 09/30/24 J06.9 - Acute upper respiratory infection, unspecified
--- OUTSIDE RECORDS SUMMARY | 2024-09-30 14:50 | XMS_ITS ---
Author Organization [facility] Address [address] [place] [phone] Care Team Providers Care Medical Facilities Section Director Name Role Phone Angel GERMAN, Savannah Primary Care Provider Cyndie Rodriguez Jr, Aris Quinteros REASON FOR VISIT pathology Encounters Encounter Location Date Provider Diagnosis [facility] [address] [place] [address] 02/26/2024 Aris Rodriguez Jr Plan Of Treatment No Information Progress Notes * ALICIA IRIZARRYDOB:[birth year] (58 yo F)Acc No.[id number]:02/26/2024 Patient:?ALICIA IRIZARRY :1965???Age:58 Y???Sex:Female Address:[address] [place] [address], [address] * true * Date:? Generated for Tai sharif/Ash/eTransmitting on:?09/30/2024 02:50 PM EST
--- OUTSIDE RECORDS SUMMARY | 2024-09-30 14:50 | XMS_ITS ---
Author Organization [facility] Address [address] [place] [address] Care Team Providers Care Astronomy Teacher Name Role Phone Angel GERMAN, Savannah Primary Care Provider Aris Sifuentes Jr Unavailable [phone] Allergies Allergen (clinical drug ingredient) Drug/Non Drug Allergy documented on EMR Reaction Allergy Type Onset Date Status metoprolol Metoprolol Unknown Drug Allergy Activ e Latex Latex Unknown Allergy Active lactose Lactose (Intolerance) Unknown Drug Allergy Active Dimetapp Cold/Allergy Unknown Drug Allergy Active REASON FOR VISIT Patient presents today for a discuss colonoscopy Medications Medication SIG (Take, Route, Frequency, Duration) Notes [...] MOUTH EVERY DAY Oral for 90 Active Immunizations Vaccine Route Administration Date Status Comme nts Influenza Unknown 01/29/2024 Refused Social History Tobacco Use: Social History Observation Description Date Details (start date - stop date) Former Smoker NA - NA Tobacco Use/Smoking Question Answer Notes Patient is a former smoker Alcohol Screen Question Answer Notes Did you have a drink containing alcohol in the p ast year? No Points 0 Interpretation Negative Problems Problem Type SNOMED Code ICD Code Onset Dates Problem Status W/U Status Risk Notes Problem 040919227 Colon cancer screening (Z12.11) Active confirmed Problem 968711470 Encounter for other preprocedural examination (Z01.818) Active confirmed Problem 359394927 Long-term use of aspirin therapy (Z79.82) Active confirmed Vital Signs Temperature 97.5 degrees Fahrenheit 01/29/20 24 Blood pressure systolic 000 mm Hg 01/29/20 24 Blood pressure diastolic 00 mm Hg 024 Height 5 ft 6 in in 01/29/2024 Weight 204 lb 6 oz lbs 01/29/2024 BMI 32.98 kg/m2 01/29/2024 Encounters Encounter Location Date Provider Diagnosis [facility] [address] [place] [address] 01/29/2024 Aris Rodriguez Jr Colon cancer screening Z12.11 ; Encounter for other preprocedural examination Z01.818 and Long-term use of aspirin therapy Z79.82 Assessments Encounter Date Diagnosis (ICD Code) Assessment Notes Treatment Notes Treatment Clinical Notes Section Notes 01/29/2024 Colon cancer screening (ICD-10 - Z12.11) We discussed colonoscopy today. We discussed risks and benefits of the procedure today. She understands these and agrees to proceed. She is advised to stop supplements and aspirin one week before the procedure. 01/29/2024 Encounter for other preprocedural examination (ICD-10 - Z01.818) We discussed colonoscopy today. We discussed risks and benefits of the procedure today. She understands these and agrees to proceed. She is advised to stop supplements and aspirin one week before the procedure. 01/29/2024 Long-term use of aspirin therapy (ICD-10 - Z79.82) We discussed colonoscopy today. We discussed risks and benefits of the procedure today. She understands these and agrees to proceed. She is advised to stop supplements and aspirin one week before the procedure. Plan Of Treatment Future Test Test Name Order Date COLONOSCOPY 01/29/2024 Next Appt Details Follow Up: 1 Year, Reason: Progress Notes * AVIS IRIZARRYDOB:[birth year] (58 yo F)Acc No.[id number]:01/29/2024 Progress Notes Patient:?AVIS IRIZARRY Provider:?Aris Rodriguez MD :1965???Age:58 Y???Sex:Female D ate:01/29/2024 Address:[address] [place], [place] [address] Pcp:Savannah Ortiz MD Subjective: * Chief Complaints: * ???1. Patient presents today for a discuss colonoscopy. * HPI: ???New symptom(s):? Avis is a pleasant 58-year-old woman seen today for her preoperative colonoscopy visit. She believes her last colonoscopy, done elsewhere was negative. Records are not available at the time of her visit. She does have occasional rectal bleeding which she attributes to hemorrhoids. She takes an aspirin daily. * ROS:?General/Constitutional:?Change in appetite?denies.?Fatigue?denies.?ENT:?Patient denies?difficulty swallowing.?Respiratory:?Patient denies?shortness of breath.?Cardiovascular:?Patient denies?chest pain.?Gastrointestinal:?Comments?See HPI for details.?Genitourinary:?Difficulty urinating?denies.?Incontinence?denies.?Musculoskeletal:?Patient denies?muscle aches.?Skin:?Patient denies?pruritis.?Neurologic:?Patient denies?low back pain.?Psychiatric:?Patient denies?mental or physical abuse.? * Medical History:?Fatty liver , Anxiety/depression, Preseptal orbital cellulitis, Essential thrombocytosis, Hyperlipidemia, Migraines, PVCs. * Surgical History:?Repair of dural arteriovenous fistula 2012, arthroscopic x 2 on right kneee , benign growth on uvula , laprascopy in 1988 . * Hospitalization/Major Diagno stic Procedure:?preceptual cellulitis in right eye 2022. * Family History:?Father: dece ased, diagnosed with HTN (hypertension).?Mother: alive, diagnosed with HTN (hypertension).? No family history of liver cancer. Maternal uncle of colon cancer. * Social History:?Tobacco Use:?Tobacco Use/Smoking?Patient is a?former smoker.?Drugs/Alcohol:?Alcohol Screen?Did you have a drink containing alcohol in the past year??No,?Points?0,?Interpretation?Negative.?Miscellaneous:?Marital status: . Occupation: works full-time [employer] [employer]. * Medications:?Taking Turmeric Curcumin - Capsule as directed Orally , Taking Calcium 1 tab Oral , Taking Alive Energy 50+ - Tablet as directed Orally , Taking Probiotic - Tablet Chewable as directed Orally , Taking Vitamin D 50 MCG (2000 UT) Tablet TAKE 1 TABLET BY MOUTH EVERY DAY Oral , Taking Escitalopram Oxalate 10 MG Tablet TAKE 1 TABLET BY MOUTH ONCE A DAY WITH 5 MG TABLET FOR TOTAL DOSE = 15 MG. Oral , Taking metroNIDAZOLE 0.75 % Cream External , Medication List reviewed and reconciled with the patient * Allergies:?Latex, Dimetapp C old/Allergy, Metoprolol, Lactose (Intolerance). Objective: * Vitals:?Wt: 204 lb 6 oz, Ht: 5 ft 6 in, BMI:32.98 Index, BP: 000/00 mm Hg, Temp: 97.5. * Examination: ???General Examination: ?GENERAL APPEARANCE:?in no acute distress.?HEAD:?normocephalic.?EYES:?sclera non-icteric.?ORAL CAVITY:?mucosa moist.?NECK/THYROID:?no lymphadenopathy.?SKIN:?anicteric.?HEART:?S1, S2 normal, no murmurs.?LUNGS:?clear to auscultation bilaterally.?CHEST:?normal shape and expansion.?ABDOMEN:?soft, nontender, nondistended, bowel sounds present, no organomegaly .?EXTREMITIES:?no clubbing, cyanosis, or edema.?PSYCH:?cognitive function intact.? Assessment: * Assessment: 1.?Encounter for other prepr ocedural examination - Z01.818 (Primary)?2.?Colon cancer screening - Z12.11?3.?Long-term use of aspirin therapy - Z79.82? We discussed colonoscopy totaylor owens. We discussed risks and benefits of the procedure today. She understands these and agrees to proceed. She is advised to stop supplements and aspirin one week before the procedure. Plan: * Treatment: * Immunizations:? Influenza (Not administered - Refused: Patient decision) * Procedure Codes:?3017F COLOR ECTAL CA SCREEN DOC REV, G9902 Pt scrn tbco and id as user, G9745 DOC RSN FOR NOT SCREEN/REC F/U HBP * Preventive Medicine:? ??Counseling:?Care goal follow-up plan:?Above Normal BMI Follow-up?Giving encouragement to exercise,?BMI management provided?Yes.? * Follow Up:?1 Year * * Sign off status: Completed true * Provider:?Aris Rodriguez MD Date:?0 01/29/2024 Generated for Tai sharif/Ash/eTransmitting on:?09/30/2024 02:50 PM EST History and Physical Notes * HPI (History of Present Illness) Category Sub-Category Detail Notes Category Not es New symptom(s) Avis is a pleasant 58-year-old woman seen today for her preoperative colonoscopy visit. She believes her last colonoscopy, done elsewhere was negative. Records are not available at the time of her visit. She does have occasional rectal bleeding which she attributes to hemorrhoids. She takes an aspirin daily. Examination Category Sub-Category Detail Notes Category Not es General Examination GENERAL APPEARANCE: in no acute di stress HEAD: normocephalic EYES: sclera non-icteric NECK/THYROID: no lymphadenopathy HEART: S1, S2 normal, no mu rmurs CHEST: normal shape and exp ansion LUNGS: clear to auscultatio n bilaterally ABDOMEN: soft, nontender, non distended, bowel sounds present, no organomegaly SKIN: anicteric EXTREMITIES: no clubbing, cyanosi s, or edema PSYCH: cognitive function i ntact ORAL CAVITY: mucosa moist
--- OUTSIDE RECORDS SUMMARY | 2024-09-30 14:50 | XMS_ITS | Patient Health Record ---
Author Organization [facility] Address [address] [place] [address] Care Team Providers Care Traffic Sign Supervisor Name Role Phone Angel GERMAN, Savannah Primary Care Provider Aris Sifuentes Jr [phone] Allergies Allergen (clinical drug ingredient) Drug/Non Drug Allergy documented on EMR Reaction Allergy Type Onset Date Status metoprolol Metoprolol Unknown Drug Allergy Activ e Latex Latex Unknown Allergy Active lactose Lactose (Intolerance) Unknown Drug Allergy Active Dimetapp Cold/Allergy Unknown Drug Allergy Active Results Component Value Reference Range Notes Pathology Reviewed date:02/26/2024 08:32:31 AM Interpretation: Performing Lab:[facility], [address] [place] [id number] Notes/Report: Name: Monae Irizarry Age/Sex: 58/F : 1965 Unit#: [id number] Attend Dr: Aris Rodriguez MD Re02/21/24 Status : [facility] Disch: SPEC : [id number] RECD : 02/21/24 STATUS: JAKOB NORIEGA NUM: [id number] SILVINO: 02/21/24-[address]: Aris Rodriguez MD ENTERED: 02/21/24 03 SP TYPE: Surgical OTHR DR: Savannah Ortiz MD ORDERED: HE Stain/3, Gross Micro L4 Diagnosis Colon, right, polype ctomy: Colonic mucosa with mild surface hyperplastic changes; multiple additional levels examined. Clinical History Pre-Op Dx: Screening Post-Op Dx: Colon polyp Microscopic Description Microscopic sections reviewed. Material Received Right colon polyp Gross Description Received in formalin labeled ?right colon polyp? are 2 hernandez-pink irregular tissue fragments each measuring 0.5 c m, submitted in toto in a cassette labeled A. CEDS Copies To: Aris Rodriguez MD [facility] [address] [place] [address] [address] [place], [place] [phone] Savannah Ortiz MD [address] [id number] Signed (si gnature on file) Arjun Clark MD 02/25/24 1021 END OF REPORT Reason For Referral No Information Medications Medication SIG (Take, Route, Frequency, Duration) [...] for 90 Active Vitamin D 50 MCG (1999) TAKE 1 TABLET BY MOUTH EVERY DAY Oral for 90 Active metroNIDAZOLE 0.75 % External for 30 Active Immunizations Vaccine Route Administration Date Status [...] Problem Status W/U Status Risk Notes Problem 677638102 Colon cancer screening (Z12.11) Active confirmed Problem 716252756 Encounter for other preprocedural examination (Z01.818) Active confirmed Problem 424533555 Long-term use of aspirin therapy (Z79.82) Active confirmed Vital Signs Temperature 97.5 degrees Fahrenheit 01/29/2024 Blood pressure diastolic 00 mm Hg 01/29/2024 Height 5 ft 6 in in 01/29/2024 Blood pressure systolic 000 mm Hg 01/29/2024 Weight 204 lb 6 oz lbs 01/29/2024 BMI 32.98 kg/m2 01/29/2024 Encounters Encounter Location Date Provider Diagnosis [facility] Outpatient [address] [place], [place] [phone] 02/21/2024 Aris Rodriguez Jr Colon cancer screening Z12.11 and Colon polyps K63.5 [facility] [address] [facility] [address] [place] [address] 01/29/2024 Aris Rodriguez Jr Colon cancer screening Z12.11 ; Encounter for other preprocedural examination Z01.818 and Long-term use of aspirin therapy Z79.82 [facility] [address] [place] [address] 02/26/2024 Aris Rodriguez Assessments Encounter Date Diagnosis (ICD Code) Assessment [...] [employer] [place] [address] [address] [place] [address] [id number] ALICIA IRIZARRY Self - patient is the insured Medical (General) History Medical History History ICD Code Fatty liver Anxiety/depression Preseptal orbital cellulitis Essential thrombocytosis Hyperlipidemia Migraines PVCs Surgical History Surgery Date(Month/Year) Repair of dural arteriovenous fistula 20 13 arthroscopic x 2 on right kneee benign growth on uvula laprascopy in 1988 Hospitalization History Reason Date(Month/Year) preceptual cellulitis in right eye 2022
--- OUTSIDE RECORDS SUMMARY | 2024-09-30 14:51 | XMS_ITS ---
Author Organization [facility] Address [address] [place] [address] Care Team Providers Care Digital Product Manager Name Role Phone Angel GERMAN, Savannah Primary Care Provider Aris Sifuentes Jr [phone] REASON FOR VISIT screening Encounters Encounter Location Date Provider Diagnosis [facility] [address] [place] [phone] 02/21/2024 Aris Rodriguez Jr Colon cancer screening Z12.11 and Colon polyps K63.5 Assessments Encounter Date Diagnosis (ICD Code) Assessment Notes Treatment Notes Treatment Clinical Notes Section Notes 02/21/2024 Colon cancer screening (ICD-10 - Z12.11) 02/21/2024 Colon polyps (ICD-10 - K63.5) Plan Of Treatment No Information Progress Notes * ALCIIA IRIZARRYDOB:[birth year] (59 yo F)Acc No.[id number]:02/21/2024 COLON WITH MAC Patient:?ALICIA IRIZARYR Provider:?Aris Rodriguez MD :1965???Age:58 Y???Sex:Female D ate:02/21/2024 Address:[address] [place] [address] Pcp:Savannah Ortiz MD Subjective: * Chief Complaints: * ???1. Screening. * Medical History:? Objective: * Vitals:? Assessment: * Assessment: 1.?Colon cancer screening - Z12.11 (Primary)???2.?Colon polyps - K63.5??? Plan: * Treatment: * Procedure Codes:?14478 COLON OSCOPY AND BIOPSY * * The named appointment provid er may or may not be the originator of this progress note, and it is not deemed complete until electronically signed by the appointment provider. Sign off status: Pending * Provider:?Aris Rodriguez MD Date:?0 02/21/2024 Generated for Tai sharif/Ash/Jone on:?09/30/2024 02:50 PM EST
== END 2024-09-30 13:07 | disposition home or self-care (01) ==
PROVIDERS: PCP Internal Medicine; Visit Provider Internal Medicine
DX: J06.9 Acute upper respiratory infection, unspecified (principal)

== ENCOUNTER 2024-09-30 12:29 | Outpatient (REF) | payer OTHER, SELFPAY ==
[2024-09-30 18:21] LABS: Influenza A PCR NEGATIVE (Negative); Influenza B PCR NEGATIVE (Negative); Resp Syncy Virus RNA Qual PCR NEGATIVE (Negative); SARS COV2 PCR INHOUSE NEGATIVE (Negative)
== END 2024-09-30 12:30 | disposition home or self-care (01) ==
LOC: HO.LAB 12:29
PROVIDERS: PCP Internal Medicine; Visit Provider Internal Medicine
DX: J06.9 Acute upper respiratory infection, unspecified (principal)
CPT/HCPCS: 0241U

== ENCOUNTER 2024-11-02 09:29 | Outpatient (REF) | payer OTHER, SELFPAY ==
--- OUTSIDE RECORDS SUMMARY | 2024-11-02 10:44 | XMS_ITS | Patient Health Record ---
Author Organization [facility] Address [address] [place] [address] Care Team Providers Care Measurement Specialist Name Role Phone Angel GERMAN, Savannah Primary Care Provider Aris Sifuentes Jr [phone] Allergies Allergen (clinical drug ingredient) Drug/Non Drug Allergy documented on EMR Reaction Allergy Type Onset Date Status metoprolol Metoprolol Unknown Drug Allergy Activ e Latex Latex Unknown Allergy Active lactose Lactose (Intolerance) Unknown Drug Allergy Active Dimetapp Cold/Allergy Unknown Drug Allergy Active Results Component Value Reference Range Notes Pathology Reviewed date:02/26/2024 08:32:31 AM Interpretation: Performing Lab:[facility], [address] [place] [phone] Notes/Report: Name: Monae Irizarry Age/Sex: 58/F : 1965 Unit#: [id number] Attend Dr: Aris Rodriguez MD Re02/21/24 Status : [facility] Location: [facility] Disch: SPEC : [id number] RECD : 02/21/24 STATUS: JAKOB NORIEGA NUM: [id number] SILVINO: 02/21/24-[address]: Aris Rodriguez MD [...] A. CEDS Copies To: Aris Rodriguez MD [facility] [address] [place] [address] [address] [place], [place] [phone] Savannah Ortiz MD [address] [phone] Signed (si gnature on file) Arjun Clark [...] Problem Status W/U Status Risk Notes Problem 327891218 Colon cancer screening (Z12.11) Active confirmed Problem 408920832 Encounter for other preprocedural examination (Z01.818) Active confirmed Problem 936013835 Long-term use of aspirin therapy (Z79.82) Active confirmed Vital Signs Temperature 97.5 degrees Fahrenheit 01/29/2024 Blood pressure diastolic 00 mm Hg 01/29/2024 Height 5 ft 6 in in 01/29/2024 Blood pressure systolic 000 mm Hg 01/29/2024 Weight 204 lb 6 oz lbs 01/29/2024 BMI 32.98 kg/m2 01/29/2024 Encounters Encounter Location Date Provider Diagnosis [facility] Outpatient [address] [place], [place] [phone] 02/21/2024 Aris Rodriguez Jr Colon cancer screening Z12.11 and Colon polyps K63.5 [facility] [address] [place] [address] 01/29/2024 Aris Rodriguez Jr Colon cancer screening Z12.11 ; Encounter for other preprocedural examination Z01.818 and Long-term use of aspirin therapy Z79.82 [facility] [address] [place] [address] 02/26/2024 Aris Rodriguez Assessments Encounter Date Diagnosis [...] Coverage End Date [employer] [place] [address] [address] [place] [address] [id number] ALICIA IRIZARRY Self - patient is [...]
--- OUTSIDE RECORDS SUMMARY | 2024-11-02 10:44 | XMS_ITS ---
Author Organization [facility] Address [address] [place] [address] Care Team Providers Care Foot Specialist Name Role Phone Angel GERMAN, Savannah Primary Care Provider Aris Sifuentes Jr Unavailable [phone] Allergies Allergen (clinical drug ingredient) Drug/Non [...] Problem Status W/U Status Risk Notes Problem 355386081 Colon cancer screening (Z12.11) Active confirmed Problem 331782621 Encounter for other preprocedural examination (Z01.818) Active confirmed Problem 743949775 Long-term use of aspirin therapy (Z79.82) Active confirmed Vital Signs Temperature 97.5 degrees Fahrenheit 01/29/20 24 Blood pressure systolic 000 mm Hg 01/29/20 24 Blood pressure diastolic 00 mm Hg 024 Height 5 ft 6 in in 01/29/2024 Weight 204 lb 6 oz lbs 01/29/2024 BMI 32.98 kg/m2 01/29/2024 Encounters Encounter Location Date Provider Diagnosis [facility] [address] [place] [address] 01/29/2024 Aris Rodriguez Jr Colon cancer screening [...] * AVIS IRIZARRYDOB:[birth year] (58 yo F)Acc No.[id number]:01/29/2024 Progress Notes Patient:?AVIS IRIZARRY Provider:?Aris Rodriguez MD :1965???Age:58 Y???Sex:Female D ate:01/29/2024 Address:[address] [place], [place] [phone] Pcp:Savannah Ortiz MD Subjective: * Chief Complaints: [...] past year??No,?Points?0,?Interpretation?Negative.?Miscellaneous:?Marital status: . Occupation: works full-time [employer]. * Medications:?Taking Turmeric Curcumin - Capsule as [...] MD Date:?0 01/29/2024 Generated for Tai sharif/Ash/eTransmitting on:?11/02/2024 10:44 AM EDT History and Physical Notes * HPI (History [...]
[2024-11-02 13:02] LABS: Alanine Aminotransferase 35 U/L (0-31); Albumin Level 4.1 g/dL (3.5-5.0); Anion Gap 15 (12-20); Aspartate Amino Transferase 31 U/L (5-31); Bilirubin Total 1.4 mg/dL (0.0-1.0); Blood Urea Nitrogen 19 mg/dL (9-16); Calcium 9.3 mg/dL (8.4-10.2); Carbon Dioxide 24 mmol/L (22-29); Chloride 106 mmol/L (96-108); Cholesterol 187 mg/dL (<200); Estimated Glomerular Filt Rate 57; Glucose Fasting 91 mg/dL (60-99); HDL Cholesterol 39 mg/dL (>40); LDL Cholesterol Calculated 123 mg/dL (<100); Potassium 4.1 mmol/L (3.3-5.1); Sodium 141 mmol/L (135-145); Total Protein 7.8 g/dL (6.5-8.0); Triglycerides 127 mg/dL (<150); Vitamin D 25-OH Total 68.3 ng/mL (>30)
[2024-11-02 13:12] LABS: Alkaline Phosphatase 84 U/L (39-117)
== END 2024-11-02 09:30 | disposition home or self-care (01) ==
LOC: HO.LAB 09:29
PROVIDERS: PCP Internal Medicine; Visit Provider Internal Medicine
DX: R74.02 Elevation of levels of lactic acid dehydrogenase [LDH] (principal); Z78.0 Asymptomatic menopausal state; E78.2 Mixed hyperlipidemia
CPT/HCPCS: 36415; 80053; 80061; 82306

== ENCOUNTER 2024-11-05 12:36 | Outpatient (AMB) | payer OTHER, SELFPAY ==
--- NOTE | 2024-11-05 12:43 | A.OFFPC_ITS ---
Vital Signs 11/05/24 12:44 Height 5 ft 6 in Weight 217 lb BMI 35.0 BP 102/70 Blood Pressure Location Rt brachial Position Sitting Respiration 15 Pulse 65 Pulse Source Pulse Oximeter Temp 98.0 F Temp Source Oral Pulse Oximetry (%) 98 Oxygen Delivery Method Room Air Intake Visit Reasons: PE reschedule per AE Intake Note: Pt is here today for her PE: last mammogram 07/07/24, papsmear 06/12/22, colonoscopy 02/24/24 Allergies dextromethorphan [From DIMETAPP COLD-CONGESTION] Allergy (Intermediate, Verified 11/08/24 00:47) BRADYCARDIA guaifenesin [From DIMETAPP COLD-CONGESTION] Allergy (Intermediate, Verified 11/08/24 00:47) BRADYCARDIA lactose Allergy (Intermediate, Verified 11/08/24 00:47) Stomach Upset latex [LATEX] Allergy (Intermediate, Verified 11/08/24 00:47) RASH metoprolol Allergy (Intermediate, Verified 11/08/24 00:47) caused depression phenylephrine [From DIMETAPP COLD-CONGESTION] Allergy (Intermediate, Verified 11/08/24 00:47) BRADYCARDIA pseudoephedrine [From DIMETAPP COLD-CONGESTION] Allergy (Intermediate, Verified 11/08/24 00:47) BRADYCARDIA Medication List - Last Reconciled 11/08/24 by Savannah Ortiz MD aspirin 81 mg PO DAILY azelaic acid 15% 1 appl topical BID calcium 500 mg PO DAILY cholecalciferol (vitamin D3) 50 mcg PO DAILY escitalopram oxalate 1 tab PO QAM escitalopram oxalate (Lexapro) 10 mg PO DAILY Lactobacillus acidophilus (Probiotic Acidophilus) 500 mmu cells PO TID metronidazole 0.75% 1 appl topical DAILY multivitamin 1 tab PO DAILY turmeric root-prosper root ext 150-25 mg 1 tab PO DAILY Tobacco use date assessed: 11/05/24 Dental Screening Dental Screen Date: 11/05/24 Did you have a dental visit in the last 12 months?: Yes Did you have a dental problem in the last 6 months where you did not have access to dental care?: No Was dental information given to patient?: Patient has dentist HPI PE reschedule per AE HPI Details 59-year-old lady with history of osteoar thritis, essential thrombocytosis, anxiety depression and hyperlipidemia, here today for her physical exam. She is up-to-date with her screening mammogram, cervical cancer screening and screening colonoscopy, all of which came back with normal findings. She had recent fasting labs done which showed normal electrolytes, fasting glucose, lipids but low good cholesterol levels and mildly elevated total bilirubin and liver enzyme. Has been feeling well, denies any chest pain or shortness of breath, no lightheadedness, no headache, no abdominal pain, no heartburn symptoms, no blood in the stool, and no alteration in bowel habits. Has been having intermittent episodes of joint pain and stiffness, mainly knees. Takes turmeric root and prosper extract [id number] which affords not much relief. [facility] Medical History (Updated 11/05/24 @ 13:20 by Savannah Ortiz MD) Total bilirubin, elevated Preseptal cellulitis of right eye Transient visual loss of left eye Family history of uterine cancer Vaginal dryness, menopausal Dyspareunia, female Lumbago with sciatica, right side Anxiety and depression Tinea versicolor Acquired deformity of toenail Acute hepatitis Thickening of wall of gallbladder with pericholecystic fluid Vitamin D deficiency Hyperlipidemia Chronic left shoulder pain Migraine with aura Premature ventricular contractions Fatty liver FHx: ovarian cancer FHx: breast cancer Carpal tunnel syndrome Colonoscopy planned Osteoarthritis DAVF (dural arteriovenous fistula) Essential thrombocytosis Surgical History H/O colonoscopy H/O removal of cyst History of knee surgery S/P arteriovenous (AV) fistula repair Family History Mother Mental health disorder Breast CA Uterine cancer Father Throat cancer Unknown Myelofibrosis Maternal Grandmother Breast CA Maternal Uncle Colon cancer Social History Household Members: Family Housing: Apartment Are you a primary health care recruiter to a significant other at home: No Do you presently have visiting nurse or other home services: No Alcohol intake: never Patient Tobacco Use Status: Former Tobacco user Years Smoked: 6 yrs e-Cigarette/Vaping Use: Never Used Second Hand Smoke Exposure: Yes Advance Directives Date on File: 12/27/21 service: No Current occupational status: employed 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 1. Little interest or pleasure in doing things: not at all 2. Feeling down, depressed, or hopeless: not at all 3. Trouble falling or staying asleep, or sleeping too much: several days 4. Feeling tired or having little energy: not at all 5. Poor appetite or overeating: more than half the days 6. Feeling bad about yourself - or that you are a failure or have let yourself or your family down: not at all 7. Trouble concentrating on things, such as reading the newspaper or watching television: not at all 8. Moving or speaking so slowly that other people could have noticed. Or the opposite - being so fidgety or restless that you have been moving around a lot more than usual: not at all 9. Thoughts that you would be better off or of hurting yourself in some way: not at all Total score: 3 Depression Screening Interpretation: Positive Depression Screening Follow-up: Existing condition, In treatment and Community Mental Health Worker F/U (Sees Hector Romo) Depression Screening Done: Yes 40606 - PHQ-9 Billing: Yes Source: Developed by Drs. Von Mansfield, Tracy Otoole, Santi Dumont and colleagues, with an educational roya from [employer]. Thrive Questionnaire Date Thrive assessed: 09/27/24 I am a: Patient What is your living situation today?: I have a steady place to live Within the past 12 months, did the food you bought not last and you didn't have the money to get more?: Never true Within the past 12 months, did you worry whether your food would run out before you got money to buy more?: Never true Do you have trouble paying for medicines?: No Do you have trouble getting transportation to medical appointments?: No Do you have trouble paying your heating and electricity bill?: No Do you have trouble taking care of your child, family member or friend?: No Do you have trouble with day-to-day activities such as bathing, preparing meals, shopping, managing finances, etc.?: No Are you currently unemployed and looking for a job?: No Are you interested in more education?: No Please select the resources that you would like help with: None Currently or been in a relationship where the following occur: No concerns reported THRIVE Score: 0 AUDIT C Alcohol Use Questionnaire (AUDIT-C) 1. How often do you have a drink containing alcohol?: Never Total Score: 0 LEAH-7 AMB Questionnaire LEAH-7 Date LEAH - 7 assessed: 09/27/23 Source: Developed by Drs. Von Mansfield, Tracy Otoole, Santi Dumont and colleagues, with an educational roya from [employer]. Review of Systems Const All systems reviewed & are unremarkable except as noted in HPI and below Reports no additional complaints Eyes Reports no additional complaints ENT Reports no additional complaints Card Reports no additional complaints Resp Reports no additional complaints GI Reports no additional complaints Reports no additional complaints Musc Reports no additional complaints Skin/Breast Reports system reviewed and no additional complaints, except as documented Neuro Reports no additional complaints Psych Reports no additional complaints Endo Reports no additional complaints Donnie/Lymph Reports no additional complaints Aller/Immun Reports no additional complaints Physical exam (Primary Care) Vital Signs: Last Vital Signs Temp 98.0 F 11/05/24 12:44 Pulse 65 11/05/24 12:44 Resp 15 11/05/24 12:44 BP 102/70 11/05/24 12:44 Pulse Ox 98 11/05/24 12:44 Oxygen Delivery Method Room Air 11/05/24 12:44 BMI result Body Mass Index 35.0 Tobacco/Smoking Status: Tobacco use Status Tobacco use date assessed 11/05/24 11/05/24 12:48 Patient Tobacco Use Status Former Tobacco user 11/05/24 12:45 e-Cigarette/Vaping Use Never Used 11/05/24 12:45 PHQ-9: PHQ-9 Score PHQ-9: Total score 3 11/08/24 01:59 Depression Screening Interpretation: Positive Depression Screening Follow-up: Existing condition, In treatment and Community Mental Health Worker F/U (Seejustine Romo) Thrive Assessment: Date of Thrive Assessment Date Thrive assessed 09/27/24 11/05/24 12:45 Currently or been in a relationship where the following occur: No concerns reported Const Other: Alert oriented x3 no acute distress noted ambulatory normal gait HENMT Head: Yes normocephalic Ears: external ears normal, TM's normal bilaterally and EAC's normal General nose exam: Normal external nose present Face and sinus: Yes face symmetric Mouth: oropharynx normal and moist mucous membranes Eyes General: appearance normal, both eyes and all related structures Neck Neck: Yes full ROM, Yes no lymphadenopathy and Yes supple Resp Auscultation: clear to auscultation bilaterally Cardio Other: S1-S2 present regular rate and rhythm GI Palpation (GI): Soft to palpation, nontender, no guarding and no masses Auscultation: normal bowel sounds General: Yes no CVA tenderness and Yes deferred (Goes to [facility]) Back/Spine/Pelvis Back: no CVA tenderness and No back tenderness Skin General skin exam: no rashes or lesions noted Neuro General: gait normal, Normal light touch and pain sensation and no focal motor deficits Extrem General: Yes full ROM, Yes no joint enlargement and Yes normal gait Psych Appearance: grossly normal and well kempt Mental Status: mental status grossly normal Speech and movement: Normal speech and movement present Affect: normal affect Results Reviewed Results Reviewed: Name: Avis Guillen Age/Sex: 59/F : 1965 Unit#: [id number] Attend Dr: Savannah Ortiz MD Re11/02/24 Status: DEP [facility] Dis[facility]: SPEC : [id number] SILVINO: 11/02/24 STATUS: COMP REQ : [id number] RECD: 11/02/[address]: Savannah Ortiz MD COMP: 11/02/241302 ENTERED: 11/02/[address] [facility] [address]: ORDERED: CMP Fast, Lipid Panel, Vitamin D 25-OH Test Result Flag Reference Sodium 141 135-145 mmol/L Potassium 4.1 3.3-5.1 mmol/L CL 106 96-108 mmol/L CO2 24 22-29 mmol/L Gap 15 12-20 BUN 19 H 9-16 mg/dL Creat 1.00 0.5-1.4 mg/dL eGFR 57 Chronic Kidney Disease: Estimated GFR < 60 mL/min/1.73m2 Severe Kidney Disease: Estimated GFR < 15 mL/min/1.73m2 FBS 91 60-99 mg/dL CA 9.3 8.4-10.2 mg/dL Total Bili 1.4 H 0.0-1.0 mg/dL Slight Icterus. AST (GOT) 31 5-31 U/L ALT (GPT) 35 H 0-31 U/L Protein, Total 7.8 6.5-8.0 g/dL Alb 4.1 3.5-5.0 g/dL Triglyceride 127 <150 mg/dL Desirable Triglyceride: less than 150 mg/dL Borderline High Triglyceride 150-199 mg/dL High Triglyceride: 200-499 mg/dL Very High Triglyceride: greater than or equal to 5OO mg/dL Cholesterol 187 <200 mg/dL Desirable Cholesterol: less than 200 mg/dL Borderline High Cholesterol: 200-239 mg/dL High Cholesterol: greater than 239 mg/dL LDL Calculated 123 H <100 mg/dL Desirable LDL: less than 100 mg/dL Near Optimal/Above Optimal LDL: 110-129 mg/dL Borderline High LDL: 130-159 mg/dL High LDL: 160-189 mg/dL Very High LDL: greater than or equal to 190 mg/dL HDL 39 L >40 mg/dL Desirable HDL: greater than 40 mg/dL Note: This HDL assay may give artificially low results in patients with liver disease. Alk Phos 84 39-117 U/L Vitamin D 25-OH 68.3 >30 ng/mL Health Based Reference Values* < 20 ng/mL Deficient 20-30 ng/mL Insufficient > 30 ng/mL Sufficient Coding Level of Care Code Est Pt Prev Care 40-64y(18556) Diagnoses Annual visit for general adult medical examination with abnormal findings Z. Osteoarthritis of knees, bilateral M17.0 Anxiety and depression F41.9; F32.A Mixed hyperlipidemia E78.2 Hyperlipidemia type: mixed hyperlipidemia Total bilirubin, elevated R17 Elevated liver enzymes R74.8 Additional Codes PHQ-9 - 70850 - PHQ-9 Billing: Yes ([id number]) Assessment & Plan Assessment & Plan (1) Annual visit for general adult medical examination with abnormal findings: Code(s): Z00.01 - Encounter for general adult medical examination with abnormal findings Plan: Recent fasting lab results reviewed with patient. Recommended dental visit every 6 months and regular eye exams, at least every 2 years. Take adequate calcium in diet and continue with vitamin-D 3 supplement at 2000 IU per cap once a day, in addition to weight-bearing exercises to help maintain good muscle tone and weight control. Instructed to do self-breast exam, and continue with yearly mammogram. She is up-to-date with her screening colonoscopy done in 2023, repeat due again in 2033. Reminded to get yearly flu vaccine up-to-date with Tdap, recommended to get vaccinated against shingles, 2 doses given at the pharmacy (2) Osteoarthritis of knees, bilateral: Code(s): M17.0 - Bilateral primary osteoarthritis of knee Category: Medical Plan: Advised to try taking nyzr-npp-yrawumy Tylenol arthritis 650 mg per tablet to take 1 every 8 hours as needed for pain, may massage absorbine Jr cream to affected joints 2- 3 times a day as needed (3) Anxiety and depression: Code(s): F41.9 - Anxiety disorder, unspecified; F32.A - Depression, unspecified Category: Medical Plan: Followed by Hector Romo RN, currently stable on escitalopram oxalate (4) Hyperlipidemia: Code(s): E78.5 - Hyperlipidemia, unspecified Category: Medical Qualifiers: Hyperlipidemia type: mixed hyperlipidemia Qualified Code(s): E78.2 - Mixed hyperlipidemia Plan: Reviewed recent fasting labs which showed lipids within normal limits except for low good cholesterol levels. Encouraged to do at least 30 minutes moderate intensity exercise 3 to 4 times a week to raise good cholesterol and continue with adherence to healthy eating diet (5) Total bilirubin, elevated: Code(s): R17 - Unspecified jaundice Category: Medical Plan: No jaundice, repeat liver panel ordered (6) Elevated liver enzymes: Code(s): R74.8 - Abnormal levels of other serum enzymes Plan: Repeat liver panel ordered Orders: Orders Lipid Panel 6 Months E78.2 - Mixed hyperlipidemia, R17 - Unspecified jaundice, R74.8 - Abnormal levels of other serum enzymes Glucose Fasting 6 Months E78.2 - Mixed hyperlipidemia, R17 - Unspecified jaundice, R74.8 - Abnormal levels of other serum enzymes Liver Panel 6 Months E78.2 - Mixed hyperlipidemia, R17 - Unspecified jaundice, R74.8 - Abnormal levels of other serum enzymes
[2024-11-05 12:44] VITALS: BP 102/70; PULSE 65; RESP 15; TEMP 36.7; O2SAT 98; BMI 35.0
--- OUTSIDE RECORDS SUMMARY | 2024-11-05 15:01 | XMS_ITS ---
Author Organization [facility] Address [address] [place] [address] Care Team Providers Care Math Interventionist Name Role Phone Angel GERMAN, Savannah Primary Care Provider Aris Sifuentes Jr Unavailable Allergies Allergen (clinical drug ingredient) Drug/Non Drug [...] Problem Status W/U Status Risk Notes Problem 114022403 Colon cancer screening (Z12.11) Active confirmed Problem 681371041 Encounter for other preprocedural examination (Z01.818) Active confirmed Problem 142036520 Long-term use of aspirin therapy (Z79.82) Active confirmed Vital Signs Temperature 97.5 degrees Fahrenheit 01/29/20 24 Blood pressure systolic 000 mm Hg 01/29/20 24 Blood pressure diastolic 00 mm Hg 024 Height 5 ft 6 in in 01/29/2024 Weight 204 lb 6 oz lbs 01/29/2024 BMI 32.98 kg/m2 01/29/2024 Encounters Encounter Location Date Provider Diagnosis [facility] [address] [place] [address] 01/29/2024 Aris Rodriguez Jr Colon cancer screening [...] * AVIS IRIZARRYDOB:[birth year] (58 yo F)Acc No.[id number]:01/29/2024 Progress Notes Patient:?AVIS IRIZARRY Provider:?Aris Rodriguez MD :1965???Age:58 Y???Sex:Female D ate:01/29/2024 Address:[address] [place], [place] [id number] Pcp:Savannah Ortiz MD Subjective: * Chief Complaints: [...] past year??No,?Points?0,?Interpretation?Negative.?Miscellaneous:?Marital status: . Occupation: works full-time [employer], [employer]. * Medications:?Taking Turmeric Curcumin - [...] MD Date:?0 01/29/2024 Generated for Tai sharif/Ash/eTransmitting on:?11/05/2024 03:01 PM EDT History and Physical Notes * HPI [...]
--- OUTSIDE RECORDS SUMMARY | 2024-11-05 15:02 | XMS_ITS ---
Author Organization [facility] Address [address] [place] [address] Care Team Providers Care Builder Operator Name Role Phone Angel GERMAN, Savannah Primary Care Provider Aris Sifuentes Jr REASON FOR VISIT screening Encounters Encounter Location Date Provider Diagnosis [facility] Outpatient [address] [place] [phone] 02/21/2024 Aris Rodriguez Jr Colon cancer screening Z12.11 and Colon polyps K63.5 Assessments Encounter Date Diagnosis (ICD Code) Assessment Notes Treatment Notes Treatment Clinical Notes Section Notes 02/21/2024 Colon cancer screening (ICD-10 - Z12.11) 02/21/2024 Colon polyps (ICD-10 - K63.5) Plan Of Treatment No Information Progress Notes * ALICIA IRIZARRYDOB:[birth year] (59 yo F)Acc No.[id number]:02/21/2024 COLON WITH MAC Patient:?ALICIA IRIZARRY Provider:?Aris Rodriguez MD :1965???Age:58 Y???Sex:Female D ate:02/21/2024 Address:[address] [place] [address] Pcp:Savannah Ortiz MD Subjective: * Chief Complaints: * ???1. Screening. * Medical History:? Objective: * Vitals:? Assessment: * Assessment: 1.?Colon cancer screening - Z12.11 (Primary)???2.?Colon polyps - K63.5??? Plan: * Treatment: * Procedure Codes:?19399 COLON OSCOPY AND BIOPSY * * The named appointment provid er may or may not be the originator of this progress note, and it is not deemed complete until electronically signed by the appointment provider. Sign off status: Pending * Provider:?Aris Rodriguez MD Date:?0 02/21/2024 Generated for Tai sharif/Ash/Jone on:?11/05/2024 03:01 PM EDT
--- OUTSIDE RECORDS SUMMARY | 2024-11-05 15:02 | XMS_ITS ---
Author Organization [facility] Address [address] [place] [address] Care Team Providers Care Construction Site Manager Name Role Phone Angel GERMAN, Savannah Primary Care Provider Cyndie Rodriguez Jr, Aris Quinteros REASON FOR VISIT pathology Encounters Encounter Location Date Provider Diagnosis [facility] [address] [facility] [address] [place] [address] 02/26/2024 Aris Rodriguez Jr Plan Of Treatment No Information Progress Notes * ALICIA IRIZARRYDOB:[birth year] (58 yo F)Acc No.[id number]:02/26/2024 Patient:?ALICIA IRIZARRY :1965???Age:58 Y???Sex:Female Address:[address] [place] [address], [address] * true * Date:? Generated for Yaquelini kole/Ash/eTransmitting on:?11/05/2024 03:01 PM EDT
--- OUTSIDE RECORDS SUMMARY | 2024-11-05 15:02 | XMS_ITS | Patient Health Record ---
Author Organization [facility] Address [address] [place] [address] Care Team Providers Care Game Bird Farmer Name Role Phone Angel GERMAN, Savannah Primary Care Provider Aris Sifuentes Jr Allergies Allergen (clinical drug ingredient) Drug/Non Drug Allergy documented on EMR Reaction Allergy Type Onset Date Status metoprolol Metoprolol Unknown Drug Allergy Activ e Latex Latex Unknown Allergy Active lactose Lactose (Intolerance) Unknown Drug Allergy Active Dimetapp Cold/Allergy Unknown Drug Allergy Active Results Component Value Reference Range Notes Pathology Reviewed date:02/26/2024 08:32:31 AM Interpretation: Performing Lab:[facility], [address] [place] [id number] Notes/Report: Name: Monae Irizarry Age/Sex: 58/F : 1965 Unit#: [id number] Attend Dr: Aris Rodriguez MD Re02/21/24 Status : [facility] Location: [facility] Disch: SPEC : [id number] RECD : 02/21/24 STATUS: JAKOB NORIEGA NUM: [id number] SILVINO: 02/21/24-[address]: Aris Rodriguez MD [...] A. CEDS Copies To: Aris Rodriguez MD [facility] [address] [place] [address] [address] [place], [place] [phone] Savannah Ortiz MD [address] [phone] Signed (si gnature on file) Arjun Clark [...] Problem Status W/U Status Risk Notes Problem 607411222 Colon cancer screening (Z12.11) Active confirmed Problem 343170620 Encounter for other preprocedural examination (Z01.818) Active confirmed Problem 005157325 Long-term use of aspirin therapy (Z79.82) Active confirmed Vital Signs Temperature 97.5 degrees Fahrenheit 01/29/2024 Blood pressure diastolic 00 mm Hg 01/29/2024 Height 5 ft 6 in in 01/29/2024 Blood pressure systolic 000 mm Hg 01/29/2024 Weight 204 lb 6 oz lbs 01/29/2024 BMI 32.98 kg/m2 01/29/2024 Encounters Encounter Location Date Provider Diagnosis [facility] [place] Outpatient [address], [place] [phone] 02/21/2024 Aris Rodriguez Jr Colon cancer screening Z12.11 and Colon polyps K63.5 [facility] [address] [facility] [address] [place] [phone] 01/29/2024 Aris Rodriguez Jr Colon cancer screening Z12.11 ; Encounter for other preprocedural examination Z01.818 and Long-term use of aspirin therapy Z79.82 [facility] [address] [place] [address] 02/26/2024 Aris Rodriguez Assessments Encounter Date Diagnosis [...] Coverage End Date [employer] [place] [address] [address] [place] [address] [id number] ALICIA IRIZARRY Self - patient is [...]
== END 2024-11-05 13:25 | disposition home or self-care (01) ==
LOC: HO.HMCC 12:37
PROVIDERS: PCP Internal Medicine; Visit Provider Internal Medicine
DX: Z00.01 Encounter for general adult medical examination with abnormal findings (principal); M17.0 Bilateral primary osteoarthritis of knee; F41.9 Anxiety disorder, unspecified; F32.A Depression, unspecified; E78.2 Mixed hyperlipidemia; R17 Unspecified jaundice; R74.8 Abnormal levels of other serum enzymes

== ENCOUNTER → 2024-11-05 12:36 | Outpatient (BNVA) | payer OTHER, SELFPAY | PROVIDERS: PCP Internal Medicine; Visit Provider Internal Medicine | DX: Z00.01 Encounter for general adult medical examination with abnormal findings (principal); M17.0 Bilateral primary osteoarthritis of knee; F41.9 Anxiety disorder, unspecified; F32.A Depression, unspecified; E78.2 Mixed hyperlipidemia; R17 Unspecified jaundice; R74.8 Abnormal levels of other serum enzymes | CPT/HCPCS: 96127 ==

== ENCOUNTER 2025-07-12 15:03 | Outpatient (REF) | payer BC, SELFPAY ==
--- OUTSIDE RECORDS SUMMARY | 2024-02-21 07:50 | XMS_ITS ---
Author Organization [facility] Address [address] [place] [address] Care Team Providers Care Zoning Technician Name Role Phone Angel GERMAN, [place] Primary Care Provider Aris Sifuentes Jr [phone] REASON FOR VISIT screening Encounters Encounter Location Date Provider Diagnosis [facility] Outpatient [address] [place] [id number] 02/21/2024 Aris Rodriguez Jr Colon cancer screening Z12.11 and Colon polyps K63.5 Assessments Encounter Date Diagnosis (ICD Code) Assessment Notes Treatment Notes Treatment Clinical Notes Section Notes 02/21/2024 Colon cancer screening (ICD-10 - Z12.11) 02/21/2024 Colon polyps (ICD-10 - K63.5) Plan Of Treatment No Information Progress Notes * ALICIA IRIZARRYDOB:[birth year] (59 yo F)Acc No.[id number]:02/21/2024 COLON WITH MAC Patient: MOY MILLERARA Provider: Yoselyn Rodriguez MD :1965 A ge:58 Y S ex:Female Date:02/21/2024 Address:[address] [place] [address] Pcp:Savannah Ortiz MD Subjective: * Chief Complaints: * S creening Assessment: * Assessment: 1. C olon cancer screening - Z12.11 (Primary) 2 . C olon polyps - K63.5? Plan: * Procedure Codes: 4 5380 COLONOSCOPY AND BIOPSY Billing Information: * Procedure Codes: 89362 COLONOSCOPY AND BIOPSY. * The named appointment provid er may or may not be the originator of this progress note, and it is not deemed complete until electronically signed by the appointment provider. Sign off status: Pending * Provider: Yoselyn Rodriguez MD Date: 0 02/21/2024 Generated for Tai sharif/Ash/Elleitting on: 1 09/12/2024 09:36 PM EST
--- OUTSIDE RECORDS SUMMARY | 2025-07-12 21:36 | XMS_ITS | Patient Health Record ---
Author Organization [facility] Address [address] [place] [address] Care Team Providers Care Plate Drying Machine Tender Name Role Phone Angel GERMAN, [place] Primary Care Provider Aris Sifuentes Jr Unavailable Allergies Allergen (clinical drug ingredient) Drug/Non Drug Allergy documented on EMR Reaction Allergy Type Onset Date Status Dimetapp Cold/Allergy Unknown Drug Allergy Active lactose Lactose (Intolerance) Unknown Drug Allergy Active Latex Latex Unknown Allergy Active metoprolol Metoprolol Unknown Drug Allergy Activ e Reason For Referral No Information Medications Medication SIG (Take, Route, Frequency, Duration) Notes Start Date End Date Status Calcium 1 tab Oral; Duration : 14 days Active Turmeric Curcumin - Capsule as directed Orally Active Probiotic - Tablet Chewable as directed Orally Active Alive Energy 50+ - Tablet as directed Orally Active Escitalopram Oxalate 10 MG Tablet TAKE 1 TABLET BY MOUTH ONCE A DAY WITH 5 MG TABLET FOR TOTAL DOSE = 15 MG. Oral; Duration: 90 Active Vitamin D 50 MCG (1999 [place]) Tablet TAKE 1 TABLET BY MOUTH EVERY DAY Oral; Duration: 90 Active metroNIDAZOLE 0.75 % Cream External; Duration: 30 Active Immunizations Vaccine Route Administration Date Status Comme nts Influenza Unknown 01/29/2024 Refused Social History Tobacco Use: Social History Observation Description Date Details (start date - stop date) Former Smoker NA - NA Social History Drugs/Alcohol: Social Info Question Answer Notes Alcohol Screen Did you have a drink containing alcohol in the past year? No Points 0 Interpretation Negative Tobacco Use: Social Info Question Answer Notes Tobacco Use/Smoking Patient is a former smoker Additional Details Category Social Info Options Details Miscellaneous: Marital status: Occupation: works full-time [employer], [employer] Problems Problem Type SNOMED Code ICD Code Onset Dates Problem Status W/U Status Risk Notes Problem Colon cancer screening (596818136) Colon cancer screening (Z12.11) Active confirmed Problem Pre-procedure evaluation check (069236354) Encounter for other preprocedural examination (Z01.818) Active confirmed Problem Long-term current use of antiplatelet drug (405611263035796 ) Long-term use of aspirin therapy (Z79.82) Active confirmed Plan Of Treatment Future Test Test Name Order Date COLONOSCOPY 01/29/2024 Insurance Providers Payer Name Payer Address Payer Phone Subscriber Number Group Number Insured Name Patient Relationship to Insured Coverage Start Date Coverage End Date [employer] [place] [address] [address] [place] [address] [id number] ALICIA GUILLEN Self - patient is the insured Medical [...]
== END 2025-07-12 15:04 | disposition home or self-care (01) ==
LOC: HO.MAMMO 15:03
PROVIDERS: PCP Internal Medicine; Visit Provider Internal Medicine
DX: Z12.31 Encounter for screening mammogram for malignant neoplasm of breast (principal)
CPT/HCPCS: 77063; 77067

== ENCOUNTER → 2025-07-12 15:15 | Outpatient (BNV) | payer BC, SELFPAY | PROVIDERS: PCP Internal Medicine; Visit Provider Internal Medicine | DX: Z12.31 Encounter for screening mammogram for malignant neoplasm of breast (principal) | CPT/HCPCS: 77063; 77067 ==